=== PATIENT | female | born 1935 | race Caucasian/White ===

== ENCOUNTER 2019-01-25 11:05 | Emergency (ER) | payer MEDICARE, OTHER ==
[2019-01-25 11:14] VITALS: BMI 25.7
--- NOTE | 2019-01-25 11:27 | PDOC ---
History of Present Illness - General Chief Complaint: Blood Sugar Problem Stated Complaint: BLOOD SUGAR PROBLEM Time Seen by Provider: 01/25/19 11:25 - History of Present Illness Initial Comments: Pt presents for evaluation of hyperglycemia at home to high 400s with associated dizziness, polyuria, and polydipsia. She reports having her DM medication recently increased, being compliant, and no acute change in diet. She denies recent illness, fevers/chills, chest pain, trouble breathing, N/V/C/D , dysuria, hematuria, or changes in sensation. She denies falls or LOC. 01/25/19 13:04 Past History - Past Medical History Allergies/Adverse Reactions: Allergies Allergy/AdvReac Type Severity Reaction Status Date / Time No Known Allergies Allergy Verified 01/25/19 11:11 Home Medications: Ambulatory Orders Bisacodyl [Gentle Laxative] 5 mg PO DAILY 11/20/15 Glimepiride [Amaryl -] 5 mg PO TID 11/20/15 Levothyroxine [Synthroid -] 25 mcg PO DAILY 11/20/15 Linagliptin [Tradjenta] 5 mg PO DAILY 11/20/15 metFORMIN HCL [Metformin HCl] 1,000 mg PO BID 11/20/15 Amlodipine Besylate 5 mg PO DAILY 01/25/19 Atorvastatin Ca [Lipitor] 20 mg PO HS 01/25/19 Polyvinyl Alcohol [Artificial Tears] 15 ml OP QID 01/25/19 Ranitidine HCl [Zantac 75] 75 mg PO DAILY 01/25/19 Anemia: No Asthma: No Cancer: No Cardiac Disorders: No CVA: No COPD: No CHF: No Dementia: No Diabetes: Yes GI Disorders: No Disorders: No HTN: Yes Hypercholesterolemia: Yes Liver Disease: No Seizures: No Thyroid Disease: Yes - Surgical History Abdominal Surgery: No Appendectomy: No Cardiac Surgery: No Cholecystectomy: No Lung Surgery: No Neurologic Surgery: No Orthopedic Surgery: No - Immunization History Immunization Up to Date: Yes - Suicide/Smoking/Psychosocial Hx Smoking History: Never smoked Information on smoking cessation initiated: No Hx Alcohol Use: No Drug/Substance Use Hx: No Hx Substance Use Treatment: No Review of Systems - Review of Systems Able to Perform ROS?: Yes Comments:: GENERAL/CONSTITUTIONAL: No fever or chills. No weakness HEAD, EYES, EARS, NOSE AND THROAT: No change in vision. No ear pain or discharge. No sore throat CARDIOVASCULAR: No chest pain or shortness of breath RESPIRATORY: Denies cough, hemoptysis GASTROINTESTINAL: No nausea, vomiting, diarrhea or constipation GENITOURINARY: No dysuria, frequency, or change in urination MUSCULOSKELETAL: No joint or muscle swelling or pain. No neck or back pain SKIN: No rash NEUROLOGIC: No headache, vertigo, loss of consciousness, or change in strength/ sensation ENDOCRINE: +polyuria and polydipsia HEMATOLOGIC/LYMPHATIC: No anemia, easy bleeding, or history of blood clots ALLERGIC/IMMUNOLOGIC: No hives or skin allergy 01/25/19 11:26 Is the patient limited [place] Citizen proficient: No *Physical Exam - Vital Signs Last Vital Signs Temp Pulse Resp BP Pulse Ox 97.5 F L 56 L 17 115/46 L 98 01/25/19 11:11 01/25/19 11:11 01/25/19 11:11 01/25/19 11:11 01/25/19 11:11 - Physical Exam Comments: GENERAL: Awake, alert, and oriented to person/place/time, in no acute distress HEAD: No signs of trauma, normocephalic, atraumatic EYES: PERRLA, EOMI, sclera anicteric, conjunctiva clear ENT: Hearing grossly normal, nares patent, oropharynx clear without exudates. No uvular deviation. Moist mucosa LUNGS: No distress, speaks full sentences, clear to auscultation bilaterally HEART: Regular rate and rhythm, normal S1 and S2, no murmurs appreciated, peripheral pulses normal and equal bilaterally ABDOMEN: Soft, nontender, normoactive bowel sounds. No guarding, no rebound EXTREMITIES: Normal inspection, Normal range of motion, no edema. No clubbing or cyanosis NEUROLOGICAL: Cranial nerves II through XII grossly intact. Normal speech, normal gait, no focal sensorimotor deficits SKIN: Warm, Dry 01/25/19 11:26 ED Treatment Course - LABORATORY CBC & Chemistry Diagram: 01/25/19 12:00 01/25/19 12:00 Medical Decision Making - Medical Decision Making The pt is an 83F w/ a history of HTN and DM who presents for evaluation of hyperglycemia ED Course CMP, CBC, serum acetone, UA, UCx IVF Mild hyponatremia and hypochloridemia -Pt receiving NS Hyperglycemic to 280 Acetone pending K wnl No ANABEL No AG LFTs unremarkable 01/25/19 13:16 Plan for D/C w/ PCP and Endocrine f/u Reinforced counseling on recent medication change and maintaining Endocrine f/u Discharge instructions and return precautions given Pt in agreement and verbalized understanding Dispo: home *DC/Admit/Observation/Transfer Diagnosis at time of Disposition: Hyperglycemia Diabetes mellitus Qualifiers: Diabetes mellitus type: type 2 Diabetes mellitus intermediate project manager insulin use: unspecified intermediate project manager insulin use status Diabetes mellitus complication status: without complication Qualified Code(s): E11.9 - Type 2 diabetes mellitus without complications - Discharge Dispostion Disposition: HOME Condition at time of disposition: Stable Decision to Admit order: No - Referrals Referrals: Salome Smith MD [Primary Care Provider] - - Patient Instructions Printed Discharge Instructions: DI for Hyperglycemia -- Adult Additional Instructions: You were seen in the Emergency Department for evaluation of high blood sugar. Your labs were overall unremarkable. You should continue to take your diabetic medications and maintain your Endocrine follow up. Review the handout provided at discharge. Return to the Emergency Department if you develop fevers/chills, dizziness, worsening symptoms, or any new/concerning symptoms. - Post Discharge Activity
--- NOTE | 2019-01-25 11:36 | PDOC ---
Attending Attestation - Resident Resident Name: Helena Sonian - ED Attending Attestation I have performed the following: I have examined & evaluated the patient, The case was reviewed & discussed with the resident, I agree w/resident's findings & plan, Exceptions are as noted - HPI HPI: 01/25/19 11:35 Ms Fischer is an 83 yo F h/o HTN, NIDDM, hypothyroidism, Dementia who presents to the ER with a complaint of Dizziness and hyperglycemia. Patient states that she has noted over the past month of gradual elevation in her blood glucose. She was seen twice by her primary care physician with no changes to her medications. Patient presents today because she reports some dizziness associated with an elevated blood glucose. Her fasting blood glucose this morning was 179. After breakfast and went up to 470. She denies fevers, chills. She denies chest pain, shortness of breath. She denies nausea, vomiting, diarrhea. She denies abdominal pain. Patient reports compliance with her medications. She is concerned that she has been unable to control her blood glucose over this recent time. Was seen by PMD yesterday, increased her Glimepiride from 4mg tid to 5mg tid 01/25/19 11:57 01/25/19 12:47 - Physicial Exam PE: 01/25/19 11:36 GENERAL: The patient is in no acute distress. ENT: Ears normal, nares patent, oropharynx clear without exudates. Moist mucous membranes. NECK: Normal range of motion, supple LUNGS: Breath sounds equal, clear to auscultation bilaterally. No wheezes, and no crackles. HEART:Regular rate and rhythm, normal S1 and S2 without murmur, rub or gallop. ABDOMEN: Soft, nontender, normoactive bowel sounds. EXTREMITIES: Normal range of motion, no edema. NEUROLOGICAL: Cranial nerves II through XII grossly intact. Normal speech. No focal neurological deficits. SKIN: Warm, Dry, normal turgor, no rashes or lesions noted. 01/25/19 11:58 - Medical Decision Making 01/25/19 11:58 Mrs. Fischer is an 83-year-old female presenting to the emergency department with a complaint of dizziness as well as elevated blood glucose. Her differential diagnosis is broad and includes: Hyperglycemia, HONC, DKA, dehydration, ACS, Will do: Labs, EKG, IV hydration. Will see what patient blood glucoses. May need insulin. Will discuss with patient's primary care physician 01/25/19 14:22 Laboratory Tests 01/25/19 01/25/19 12:00 12:00 WBC 8.5 Hgb 11.2 Hct 34.0 Plt Count 350 D Sodium 127 L Potassium 4.8 Chloride 95 L Carbon Dioxide 22 Anion Gap 10 BUN 8.6 Creatinine 0.7 Random Glucose 280 H Acetone, Qual Negative L BG - [address] Gautam Smith Pt medications have been adjusted to Glimepirmide 10 tid Metformin 1000 BID Tragenta 01/25/19 14:24 Pt already referred to data collection specialist Pt asked to keep this follow up
[2019-01-25] MEDS ORDERED: SODIUM CHLORIDE 1,000 ML IV STA (11:51)
[2019-01-25 12:47] LABS: BASO % 0.6 % (0-2.0); EOS % 2.5 % (0-4.5); HEMOGLOBIN 11.2 GM/dL (10.7-15.3); LYMPH % 43.3 % (8-40); MCH 28.8 pg (25.7-33.7); MEAN CELL VOLUME 87.3 fl (80-96); MEAN PLT VOLUME 9.7 fl (7.5-11.1); MONO % 9.7 % (3.8-10.2); NEUT % 43.9 % (42.8-82.8); PLATELET COUNT 350 K/MM3 (134-434); RDW 14.4 % (11.6-15.6); WHITE BLOOD COUNT 8.5 K/mm3 (4.0-10.0)
[2019-01-25 12:49] LABS: URINE APPEARANCE CLEAR; URINE BILIRUBIN NEGATIVE (NEGATIVE); URINE COLOR YELLOW; URINE GLUCOSE (UA) 2+ (NEGATIVE); URINE KETONE NEGATIVE (NEGATIVE); URINE LEUK ESTERASE NEGATIVE (NEGATIVE); URINE NITRITE NEGATIVE (NEGATIVE); URINE PROTEIN NEGATIVE (NEGATIVE)
[2019-01-25 13:13] LABS: ALBUMIN 3.2 g/dl (3.4-5.0); ALK PHOS 137 U/L (45-117); ANION GAP 10 MMOL/L (8-16); BILIRUBIN,TOTAL 0.2 mg/dL (0.2-1); BLOOD UREA NITROGEN 8.6 mg/dL (7-18); CALCIUM 9.1 mg/dL (8.5-10.1); CHLORIDE 95 mmol/L (98-107); CO2 22 mmol/L (21-32); CREATININE 0.7 mg/dL (0.55-1.3); GLUCOSE,RANDOM 280 mg/dL (74-106); POTASSIUM 4.8 mmol/L (3.5-5.1); SGOT/AST 30 U/L (15-37); SGPT/ALT 34 U/L (13-61); SODIUM 127 mmol/L (136-145); TOT PROT 6.8 g/dl (6.4-8.2)
[2019-01-25 13:21] LABS: ACETONE SERUM NEGATIVE (NEGATIVE)
[2019-01-25 14:34] VITALS: BP 116/48; PULSE 65; TEMP 97.8
== END 2019-01-25 14:32 | disposition home or self-care (01) ==
LOC: JER 11:05
PROC: 3E0337Z Introduction of Electrolytic and Water Balance Substance into Peripheral Vein, Percutaneous Approach (ICD-10-PCS; principal; 2019-01-25)
DX: E11.65 Type 2 diabetes mellitus with hyperglycemia (principal); Z79.84 Long term (current) use of oral hypoglycemic drugs; I10 Essential (primary) hypertension; E78.00 Pure hypercholesterolemia, unspecified; E87.1 Hypo-osmolality and hyponatremia; E87.8 Other disorders of electrolyte and fluid balance, not elsewhere classified
CPT/HCPCS: 36415; 80053; 81003; 82009; 85025; 87086; 96360; 96361; 99282-25; J7030

== ENCOUNTER 2019-02-24 10:01 | Day surgery (SDC) | payer MEDICARE, OTHER ==
[2019-02-23 15:27] VITALS: BMI 25.2
[2019-02-24 10:28] LABS: BASO % 0.3 % (0-2.0); EOS % 0.9 % (0-4.5); HEMATOCRIT 34.9 % (32.4-45.2); HEMOGLOBIN 11.5 GM/dL (10.7-15.3); LYMPH % 28.4 % (8-40); MCH 28.2 pg (25.7-33.7); MEAN CELL VOLUME 85.4 fl (80-96); MEAN PLT VOLUME 8.2 fl (7.5-11.1); MONO % 13.1 % (3.8-10.2); NEUT % 57.3 % (42.8-82.8); PLATELET COUNT 453 K/MM3 (134-434); RBC 4.08 M/mm3 (3.60-5.2); RDW 14.5 % (11.6-15.6); WHITE BLOOD COUNT 14.2 K/mm3 (4.0-10.0)
[2019-02-24 10:50] LABS: INR 1.49 (0.83-1.09); PROTHROMBIN TIME (PATIENT) 17.7 SEC (9.7-13.0)
[2019-02-24] MEDS ORDERED: ACETAMINOPHEN 1000 MG/100 ML VIAL (NON FORMULARY) IVPB ONE (12:24)
[2019-02-24 15:45] VITALS: TEMP 98.4
[2019-02-24 16:01] VITALS: BP 125/60; PULSE 82
--- NOTE | 2019-03-01 17:05 | PATH ---
Surgical Pathology Report Patient Name: CAITLYN NOEL Med. Rec. #: [id number] /Age/Gender: 1935 (Age: 83) / F Account: [id number] Location: RADIOLOGY INTER Taken: 02/24/2019 Received: 02/24/2019 Reported: 03/01/2019 Physicians: Eyad Ace M.D. Specimen(s) Received LIVER CORE BIOPSY Clinical History 83-year-old female Pancreatic cancer, hypertension, hyperlipidemia, diabetes mellitus, liver mets Final Diagnosis LIVER, LESION, CT-GUIDED CORE BIOPSY: INVASIVE ADENOCARCINOMA, MODERATELY DIFFERENTIATED, CONSISTENT WITH PANCREATICO-BILIARY TRACT ORIGIN. SEE COMMENT. Comment: Immunohistochemical stains performed and interpreted at [facility] show the tumor is positive for CK7 and focally for TTF-1, while negative for CK20. Additional immunohistochemical stains performed at [place], [place] ([id number]) and interpreted at [facility] show the tumor is positive for CA19-9, SINDI-3 and Thrombomodulin (CD141); while negative for Napsin A, thyroglobulin, Pax8, Uroplakin, GCDFP-15, and Mammaglobin. ER stain is non-contributory due to high background staining. This immunophenotype is non-specific. Given the presence of pancreatic mass and multiple liver nodules; overall findings are consistent with pancreaticobiliary tract origin. Suggest clinical and radiologic correlation. Findings discussed with Dr. Hawthorne. Electronically Signed Ling Leslie M.D. Gross Description Received in formalin labeled "liver biopsy," are 6 shepard, cylindrical portions of soft tissue ranging from 1.1-1.6 cm in length and averaging 0.1 cm in diameter. The specimens are submitted in toto in 2 cassettes. 02/24/201902/24/2019
== END 2019-02-24 16:05 | disposition home or self-care (01) ==
LOC: JRADIR 10:01
PROVIDERS: ATTEND Internal Medicine Hematology & Oncology
PROC: 0FB03ZX Excision of Liver, Percutaneous Approach, Diagnostic (ICD-10-PCS; principal; 2019-02-24)
DX: C25.9 Malignant neoplasm of pancreas, unspecified (principal); C78.7 Secondary malignant neoplasm of liver and intrahepatic bile duct
CPT/HCPCS: 36415; 76942-TC; 82962; 85025; 85610; 87899; 88305-TC; 88313-TC; 88341-TC; 88342-TC

== ENCOUNTER 2019-03-08 08:40 | Day surgery (SDC) | payer MEDICARE, OTHER ==
[2019-03-08 09:13] VITALS: BP 133/71; PULSE 87; TEMP 98.4; BMI 25.7
[2019-03-08 09:24] LABS: BASO % 0.5 % (0-2.0); EOS % 0.8 % (0-4.5); HEMATOCRIT 32.9 % (32.4-45.2); HEMOGLOBIN 10.9 GM/dL (10.7-15.3); LYMPH % 15.6 % (8-40); MCH 27.3 pg (25.7-33.7); MCHC 33.1 g/dl (32.0-36.0); MEAN CELL VOLUME 82.4 fl (80-96); MEAN PLT VOLUME 8.5 fl (7.5-11.1); MONO % 15.7 % (3.8-10.2); NEUT % 67.4 % (42.8-82.8); PLATELET COUNT 539 K/MM3 (134-434); RBC 3.99 M/mm3 (3.60-5.2); RDW 14.6 % (11.6-15.6)
[2019-03-08 09:25] LABS: INR 1.78 (0.83-1.09); PROTHROMBIN TIME (PATIENT) 21.1 SEC (9.7-13.0)
[2019-03-08 12:15] LABS: ANISOCYTOSIS 0; MACROCYTOSIS 0; OVALOCYTE 1+; PLATELET ESTIMATE INCREASED; TARGET CELLS 1+; TOXIC GRANULATION 1+
== END 2019-03-08 10:21 | disposition home or self-care (01) ==
LOC: JRADIR 08:40
PROVIDERS: ATTEND Internal Medicine Hematology & Oncology
DX: Z53.8 Procedure and treatment not carried out for other reasons (principal)
CPT/HCPCS: 36415; 82962; 85025; 85610

== ENCOUNTER 2019-03-09 03:33 | Inpatient (IN) | payer MEDICARE, OTHER ==
--- NOTE | 2019-03-09 03:49 | PDOC ---
History of Present Illness - General Chief Complaint: Nausea/Vomiting Stated Complaint: VOMITING Time Seen by Provider: 03/09/19 03:49 History Source: Patient - History of Present Illness Initial Comments: 03/09/19 04:03 83-year-old female with history of pancreatic mass complaining of nausea this morning.Patient is to start her first round of chemotherapy today. As per niece , believe that patient is nervous about her upcoming chemotherapy today. Patient denies any nausea right now and no abdominal pain. Denies chest pain, diaphoresis, weakness. PCP: Dr. Smith Past History - Past Medical History Allergies/Adverse Reactions: Allergies Allergy/AdvReac Type Severity Reaction Status Date / Time No Known Allergies Allergy Verified 03/09/19 03:48 Home Medications: Ambulatory Orders Bisacodyl [Gentle Laxative] 5 mg PO DAILY 11/20/15 Levothyroxine [Synthroid -] 25 mcg PO DAILY 11/20/15 metFORMIN HCL [Metformin HCl] 1,000 mg PO BID 11/20/15 Atorvastatin Ca [Lipitor] 20 mg PO HS 01/25/19 Polyvinyl Alcohol [Artificial Tears] 15 ml OP QID 01/25/19 Cholecalciferol (Vitamin D3) [Vitamin D3] 1,000 unit PO DAILY 02/23/19 Dorzolamide HCl/Timolol Maleat [Cosopt Eye Drops] 10 ml OP BID 02/23/19 Pantoprazole Sodium 40 mg PO DAILY 02/23/19 Ranitidine [Zantac -] 150 mg PO BID 02/23/19 Amlodipine Besylate/Benazepril [Lotrel 10/40] 1 each PO DAILY 03/07/19 Bimatoprost [Lumigan] 1 drop IO DAILY 03/07/19 Insulin Aspart [Novolog] 7 unit SQ TID 03/07/19 Insulin Glargine,Hum.rec.anlog [Basaglar Kwikpen U-100] 100 unit SQ 12 03/07/19 Anemia: No Asthma: No Cancer: Yes (pancreas) Cardiac Disorders: No CVA: No COPD: No CHF: No Dementia: No Diabetes: Yes GI Disorders: No Disorders: No HTN: Yes Hypercholesterolemia: Yes Liver Disease: No Seizures: No Thyroid Disease: Yes - Surgical History Abdominal Surgery: No Appendectomy: No Cardiac Surgery: No Cholecystectomy: No Lung Surgery: No Neurologic Surgery: No Orthopedic Surgery: No - Immunization History Immunization Up to Date: Yes - Suicide/Smoking/Psychosocial Hx Smoking History: Unknown if ever smoked Hx Alcohol Use: No Drug/Substance Use Hx: No Substance Use Type: None Hx Substance Use Treatment: No Review of Systems - Review of Systems Able to Perform ROS?: Yes Is the patient limited Malagasy proficient: No Respiratory: No: Symptoms reported, See HPI, Cough, Orthopnea, Shortness of Breath, SOB with Exertion, SOB at Rest, Stridor, Wheezing, Productive cough, Hemoptysis, Other Cardiac (ROS): No: Symptoms Reported, See HPI, Chest Pain, Edema, Irregular Heart Rate, Lightheadedness, Palpitations, Syncope, Chest Tightness, Other ABD/GI: Yes: Nausea : No: Symptoms Reported, See HPI, Burning, Dysuria, Discharge, Frequency, Flank Pain, Hematuria, Incontinence, Pain, Urgency, Testicular Mass, Testicular Swelling, Lesions, Testicular Pain, Other Integumentary: No: Symptoms Reported, See HPI, Bruising, Change in Color, Change in Hair/Nails, Dryness, Erythema, Flushing, Lesions, Lumps, Pallor, Pruritus, Rash, Sweating, Other Neurological: Yes: Dizziness. No: Symptoms reported, See HPI, Headache, Numbness, Paresthesia, Pre-Existing Deficit, Seizure, Tingling, Tremors, Weakness, Unsteady Gait, Ataxia, Other *Physical Exam - Vital Signs Last Vital Signs Temp Pulse Resp BP Pulse Ox 98.3 F 18 131/75 100 03/09/19 03:40 03/09/19 03:40 03/09/19 03:40 03/09/19 03:40 - Physical Exam General Appearance: Yes: Appropriately Dressed Respiratory/Chest: positive: Lungs Clear, Normal Breath Sounds Cardiovascular: positive: Regular Rhythm, Regular Rate Gastrointestinal/Abdominal: positive: Normal Bowel Sounds, Soft. negative: Tender Musculoskeletal: positive: Normal Inspection Extremity: positive: Normal Capillary Refill, Normal Inspection, Normal Range of Motion Integumentary: positive: Normal Color, Dry, Warm, Pale Neurologic: positive: Fully Oriented, Alert, Normal Mood/Affect Heart Score/ECG Review - History History: Slightly suspicious - Electrocardiogram EKG: Normal - Age Age: >/= 65 - Risk Factors Risk Factors Heart Score: Yes Hx Hypertension, Yes Hx Diabetes - ECG Intrepretation Rhythm: Regular Rhythm Comment:: 03/09/19 05:30 Sinus bradycardia: 53bpm ED Treatment Course - LABORATORY CBC & Chemistry Diagram: 03/10/19 06:16 03/10/19 06:16 Progress Note - Progress Note Progress Note: A: nausea ; Hyponatremia P: cbc cmp lipase troponin EKG BGM: 61 tolerated PO sandwich Medical Decision Making - Medical Decision Making 03/09/19 06:38 Dr. Shepard Oncology paged. patient is scheduled to have chemotherapy today. 03/09/19 06:[address] Hawthorne. will consult inpatient. patient is not on neupogen. chest xray and UA pending.WBC 19 07:00 am patient signed out to svetlana HOOKER *DC/Admit/Observation/Transfer Diagnosis at time of Disposition: Nausea, Hyponatremia Leukocytosis Qualifiers: Leukocytosis type: unspecified Qualified Code(s): D72.829 - Elevated white blood cell count, unspecified - Discharge Dispostion Condition at time of disposition: Guarded - Referrals - Patient Instructions - Post Discharge Activity
--- NOTE | 2019-03-09 04:01 | PDOC ---
*Physical Exam - Vital Signs Last Vital Signs Temp Pulse Resp BP Pulse Ox 98.3 F 63 18 131/57 L 100 03/09/19 03:40 03/09/19 03:40 03/09/19 03:40 03/09/19 03:40 03/09/19 03:40 ED Treatment Course - LABORATORY CBC & Chemistry Diagram: 03/09/19 04:15 03/09/19 04:15 Medical Decision Making - Medical Decision Making 03/09/19 04:01 Patient seen by the advanced practice provider under my direct supervision. Ancillary testing reviewed as necessary. I agree with plan as outlined by the advanced practice provider. *DC/Admit/Observation/Transfer Diagnosis at time of Disposition: Hyponatremia, Nausea - Referrals - Patient Instructions - Post Discharge Activity
[2019-03-09 04:36] LABS: VENOUS PC02 34.9 mmHg (41-51); VENOUS PH 7.44 (7.31-7.41)
[2019-03-09 04:38] LABS: BASO % 0.6 % (0-2.0); EOS % 1.8 % (0-4.5); HEMATOCRIT 30.5 % (32.4-45.2); HEMOGLOBIN 10.3 GM/dL (10.7-15.3); MCH 27.5 pg (25.7-33.7); MCHC 33.7 g/dl (32.0-36.0); MEAN CELL VOLUME 81.7 fl (80-96); MEAN PLT VOLUME 8.5 fl (7.5-11.1); MONO % 13.8 % (3.8-10.2); NEUT % 71.8 % (42.8-82.8); PLATELET COUNT 535 K/MM3 (134-434); RBC 3.73 M/mm3 (3.60-5.2); RDW 14.7 % (11.6-15.6); WHITE BLOOD COUNT 19.6 K/mm3 (4.0-10.0)
[2019-03-09 05:12] LABS: ALBUMIN 2.4 g/dl (3.4-5.0); BILIRUBIN,TOTAL 0.8 mg/dL (0.2-1); BLOOD UREA NITROGEN 12.9 mg/dL (7-18); CALCIUM 8.6 mg/dL (8.5-10.1); CREATININE 0.4 mg/dL (0.55-1.3); POTASSIUM 4.6 mmol/L (3.5-5.1); TOT PROT 6.7 g/dl (6.4-8.2)
[2019-03-09] MEDS ORDERED: SODIUM CHLORIDE 1,000 ML IV STA (05:22)
[2019-03-09 06:07] LABS: ANISOCYTOSIS 1+; MACROCYTOSIS 0; OVALOCYTE 1+; PLATELET ESTIMATE INCREASED; TARGET CELLS 1+; TEAR DROP CELLS 1+
--- NOTE | 2019-03-09 07:09 | PDOC ---
*Physical Exam - Vital Signs Last Vital Signs Temp Pulse Resp BP Pulse Ox 98.3 F 63 18 131/57 L 100 03/09/19 03:40 03/09/19 03:40 03/09/19 03:40 03/09/19 03:40 03/09/19 05:07 - Physical Exam General Appearance: Yes: Nourished, Appropriately Dressed. No: Apparent Distress Gastrointestinal/Abdominal: positive: Normal Bowel Sounds, Flat, Soft. negative : Tender, Guarding, Rebound, Tenderness Neurologic: positive: Fully Oriented, Alert, Normal Mood/Affect, Normal Response ED Treatment Course - LABORATORY CBC & Chemistry Diagram: 03/09/19 04:15 03/09/19 04:15 - ADDITIONAL ORDERS Additional order review: Laboratory Results 03/09/19 03/09/19 03/09/19 06:51 05:42 05:18 VBG pH POC VBG pCO2 POC VBG pO2 VBG HCO3 VBG O2 Sat (Jose M) VBG Base Excess Sodium Potassium Chloride Carbon Dioxide Anion Gap BUN Creatinine Est GFR (CKD-EPI)AfAm Est GFR (CKD-EPI)NonAf POC Glucometer 117 61 Random Glucose Calcium Total Bilirubin AST ALT Alkaline Phosphatase Troponin I < 0.02 Total Protein Albumin Lipase 03/09/19 03/09/19 03/09/19 04:15 04:15 04:15 VBG pH 7.44 H POC VBG pCO2 34.9 L POC VBG pO2 144 H VBG HCO3 23.5 VBG O2 Sat (Jose M) 97.6 H VBG Base Excess 0.2 Sodium 128 L Potassium 4.6 Chloride 93 L Carbon Dioxide 25 Anion Gap 10 BUN 12.9 Creatinine 0.4 L Est GFR (CKD-EPI)AfAm 113.21 Est GFR (CKD-EPI)NonAf 97.68 POC Glucometer Random Glucose 46 L* Calcium 8.6 Total Bilirubin 0.8 AST 53 H ALT 32 Alkaline Phosphatase 341 H Troponin I Total Protein 6.7 Albumin 2.4 L Lipase 156 03/09/19 03/09/19 03/09/19 06:51 05:18 04:15 RBC 3.73 MCV 81.7 MCHC 33.7 RDW 14.7 MPV 8.5 Neutrophils % 71.8 Lymphocytes % 12.0 D Monocytes % 13.8 H Eosinophils % 1.8 D Basophils % 0.6 POC Glucometer 117 61 - Medications Given in the ED: ED Medications Discontinued Medications Generic Name Dose Route Start Last Admin Trade Name Matty PRN Reason Stop Dose Admin Sodium Chloride 1,000 mls @ 1,000 mls/hr 03/09/19 05:22 03/09/19 05:38 Normal Saline - IV 03/09/19 06:21 1,000 mls/hr ASDIR STA Administration Medical Decision Making - Medical Decision Making 03/09/19 09:40 Dr. Andrade also aware of case, spoke with Dr. Shepard. Requesting Zosyn and admission to identify source. Hx of recent liver bx Urine and CXR are normal Blood Cx ordered Dr. Rose paged for Dr. Smith for admission 03/09/19 09:[address] Rose, accepts admission to med surg. *DC/Admit/Observation/Transfer Diagnosis at time of Disposition: Hyponatremia, Nausea Leukocytosis Qualifiers: Leukocytosis type: unspecified Qualified Code(s): D72.829 - Elevated white blood cell count, unspecified - Discharge Dispostion Condition at time of disposition: Guarded Decision to Admit order: Yes - Referrals - Patient Instructions - Post Discharge Activity
[2019-03-09 07:45] LABS: EPI CELLS 3.3 /HPF (0-5/HPF); HYALINE CASTS 5 /lpf (0-8); URINE APPEARANCE CLEAR; URINE BACTERIA 9.1 /hpf (NEGATIVE); URINE BILIRUBIN NEGATIVE (NEGATIVE); URINE COLOR YELLOW; URINE GLUCOSE (UA) NEGATIVE (NEGATIVE); URINE KETONE TRACE (NEGATIVE); URINE LEUK ESTERASE TRACE (NEGATIVE); URINE NITRITE NEGATIVE (NEGATIVE); URINE PROTEIN TRACE (NEGATIVE); URINE RBC 1 /hpf (0-4); URINE WBC 2 /hpf (0-5)
[2019-03-09] MEDS ORDERED: PIPERACILLIN/TAZOB 3.375 GM 3.375 GM in DEXTROSE 5%-WATER - 50 ML IVPB ONE (09:24)
[2019-03-09] MEDS ORDERED: ONDANSETRON 4 MG/2 ML VIAL IVPUSH ONE (09:40)
[2019-03-09] MEDS ORDERED: PIPERACILLIN/TAZOB 3.375 GM 3.375 GM/50 ML BAG IVPB ONE (09:58)
[2019-03-09] MEDS ORDERED: ONDANSETRON 4 MG/2 ML VIAL ONE (09:59)
[2019-03-09] MEDS ORDERED: ACETAMINOPHEN 325 MG TABLET (FP) PO PRN (12:42)
[2019-03-09] MEDS ORDERED: D5-1/2NS+20 MEQ KCL - 20 MEQ/1,000 ML INFUS.BAG IV SCH (12:45)
--- NOTE | 2019-03-09 12:50 | HP ---
Admitting History and Physical - Primary Care Physician PCP: Rosita Rose - Admission History of Present Illness: PT SEEN/ EXAMINED ON FLOOR Chart reviewed case also discussed with Er Physician In summary 83-year-old female with history of pancreatic mass complaining of nausea this morning. Admitted because of weakness/ nausea/ hypoglycemia/ Leukocytosis given abx- zosyn pt seen/ examined case discussed with pts grand daughter also who is at bedside.-- Who helps in translation. 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: Dementia (mild cognitve defect ) Cardiovascular: Yes: HTN Endocrine: Yes: Diabetes Mellitus - Past Surgical History Past Surgical History: Yes: None - Smoking History Smoking history: Unknown if ever smoked - Alcohol/Substance Use Hx Alcohol Use: No - Social History History of Recent Travel: No Home Medications - Allergies Allergies/Adverse Reactions: Allergies Allergy/AdvReac Type Severity Reaction Status Date / Time No Known Allergies Allergy Verified 03/09/19 03:48 - Home Medications Home Medications: Ambulatory Orders Bisacodyl [Gentle Laxative] 5 mg PO DAILY 11/20/15 Levothyroxine [Synthroid -] 25 mcg PO DAILY 11/20/15 metFORMIN HCL [Metformin HCl] 1,000 mg PO BID 11/20/15 Atorvastatin Ca [Lipitor] 20 mg PO HS 01/25/19 Polyvinyl Alcohol [Artificial Tears] 15 ml OP QID 01/25/19 Cholecalciferol (Vitamin D3) [Vitamin D3] 1,000 unit PO DAILY 02/23/19 Dorzolamide HCl/Timolol Maleat [Cosopt Eye Drops] 10 ml OP BID 02/23/19 Pantoprazole Sodium 40 mg PO DAILY 02/23/19 Ranitidine [Zantac -] 150 mg PO BID 02/23/19 Amlodipine Besylate/Benazepril [Lotrel 1040] 1 each PO DAILY 03/07/19 Bimatoprost [Lumigan] 1 drop IO DAILY 03/07/19 Insulin Aspart [Novolog] 7 unit SQ TID 03/07/19 Insulin Glargine,Hum.rec.anlog [Basaglar Kwikpen U-100] 100 unit SQ 12 03/07/19 Review of Systems - Review of Systems Constitutional: reports: Weakness Eyes: reports: No Symptoms HENT: reports: No Symptoms Neck: reports: No Symptoms Cardiovascular: reports: No Symptoms Gastrointestinal: reports: Abdominal Pain Genitourinary: reports: No Symptoms Neurological: reports: No Symptoms Psychiatric: reports: Anxiety Physical Examination Vital Signs: Vital Signs Temperature 97.9 F 03/09/19 07:40 Pulse Rate 71 03/09/19 07:40 Respiratory Rate 16 03/09/19 07:40 Blood Pressure 130/63 03/09/19 07:40 O2 Sat by Pulse Oximetry (%) 98 03/09/19 07:40 Constitutional: Yes: No Distress, Calm Eyes: Yes: Conjunctiva Clear Neck: Yes: Supple Cardiovascular: Yes: Regular Rate and Rhythm Respiratory: Yes: CTA Bilaterally Gastrointestinal: Yes: Soft, Other (mild tenderness + generalized . No R/R Bs +) Edema: No Neurological: Yes: Alert Psychiatric: Yes: Alert Labs: CBC, BMP 03/09/19 04:15 03/09/19 04:15 Imaging - Results Chest X-ray: Report Reviewed EKG: Report Reviewed Problem List - Problems (1) Pancreatic cancer Code(s): C25.9 - MALIGNANT NEOPLASM OF PANCREAS, UNSPECIFIED (2) Hyponatremia Code(s): E87.1 - HYPO-OSMOLALITY AND HYPONATREMIA (3) Leukocytosis Code(s): D72.829 - ELEVATED WHITE BLOOD CELL COUNT, UNSPECIFIED Qualifiers: Leukocytosis type: unspecified Qualified Code(s): D72.829 - Elevated white blood cell count, unspecified (4) Nausea Code(s): R11.0 - NAUSEA (5) Diabetes mellitus Code(s): E11.9 - TYPE 2 DIABETES MELLITUS WITHOUT COMPLICATIONS Qualifiers: Diabetes mellitus type: type 2 Diabetes mellitus 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 cultures send monitor bgm oncology to follow dvt prophylaxis will follow Discussed with nursing staff also
--- NOTE | 2019-03-09 14:08 | EKG ---
Test Reason : Blood Pressure : / mmHG Vent. Rate : 058 BPM Atrial Rate : 058 BPM P-R Int : 194 ms QRS Dur : 086 ms QT Int : 426 ms P-R-T Axes : 024 -06 080 degrees QTc Int : 418 ms SINUS BRADYCARDIA SEPTAL INFARCT , AGE UNDETERMINED ABNORMAL ECG WHEN COMPARED WITH ECG OF 13-NOV-2015 09:08, PREMATURE ATRIAL COMPLEXES ARE NO LONGER PRESENT Confirmed by CROW CHRISTIAN, SHELLI ([id number]) on 03/09/2019 2:08:06 PM Referred By: Confirmed By:SHELLI MARIA MD
--- NOTE | 2019-03-09 14:25 | CONSULT ---
Consultation: CONSULT REQUEST: Heme/Onc HISTORY OF PRESENT ILLNESS: Patient is an 83 yo F with a PMhx of HTN, DM, hypothyroidism, Dementia, Pancreating Ca, presented to the ED because of feeling "sweaty". She said her glucose was very low and did not feel well, with associated nausea. Patient currently denies symptoms except for a productive cough with white sputum production for 2 weeks. She denies sob, chills, chest pain, fevers, chills, nausea, vomiting, bloody stool, hematuria. She was supposed to start chemotherapy today with Dr. Shepard but was hospitalized. She said she is now scheduled for Thursday. Patient was found with Leukocytosis of 19.6 in the ER. Background: [place] Allergies: no known allergies Surgeries: hysterectomy Family hx: no known family hx of bleeding, cancers Social: denies tobacco Colonoscopy: 2018, normal EGD: 2019 w/ Dr Dominguez Mammo: 2019 Ambulatory Orders Bisacodyl [Gentle Laxative] 5 mg PO DAILY 11/20/15 Levothyroxine [Synthroid -] 25 mcg PO DAILY 11/20/15 metFORMIN HCL [Metformin HCl] 1,000 mg PO BID 11/20/15 Atorvastatin Ca [Lipitor] 20 mg PO HS 01/25/19 Cholecalciferol (Vitamin D3) [Vitamin D3] 1,000 unit PO DAILY 02/23/19 Dorzolamide HCl/Timolol Maleat [Cosopt Eye Drops] 10 ml OP BID 02/23/19 Pantoprazole Sodium 40 mg PO DAILY 02/23/19 Ranitidine [Zantac -] 150 mg PO BID 02/23/19 Amlodipine Besylate/Benazepril [Lotrel 10/40] 1 each PO DAILY 03/07/19 Bimatoprost [Lumigan] 1 drop IO DAILY 03/07/19 REVIEW OF SYSTEMS: CONSTITUTIONAL: Absent: fever, chills, diaphoresis, generalized weakness, malaise, loss of appetite, weight change HEENT: Absent: rhinorrhea, nasal congestion, throat pain, throat swelling, difficulty swallowing, mouth swelling, ear pain, eye pain, visual changes CARDIOVASCULAR: Absent: chest pain, syncope, palpitations, irregular heart rate, lightheadedness , peripheral edema RESPIRATORY: cough Absent: shortness of breath, dyspnea with exertion, orthopnea, wheezing, stridor , hemoptysis GASTROINTESTINAL: Absent: abdominal pain, abdominal distension, nausea, vomiting, diarrhea, constipation, melena, hematochezia GENITOURINARY: Absent: dysuria, frequency, urgency, hesitancy, hematuria, flank pain, genital pain MUSCULOSKELETAL: Absent: myalgia, arthralgia, joint swelling, back pain, neck pain SKIN: Absent: rash, itching, pallor HEMATOLOGIC/IMMUNOLOGIC: Absent: easy bleeding, easy bruising, lymphadenopathy, frequent infections PHYSICAL EXAMINATION Vital Signs - 24 hr 03/09/19 03/09/19 03/09/19 03:40 05:07 07:40 Temperature 98.3 F 97.9 F Pulse Rate 63 Pulse Rate [ 71 Right Radial] Respiratory 18 16 Rate Blood Pressure 131/57 L Blood Pressure 130/63 [Left Arm] O2 Sat by Pulse 100 100 98 Oximetry (%) 03/09/19 12:49 Temperature 98.1 F Pulse Rate 76 Pulse Rate [ Right Radial] Respiratory 20 Rate Blood Pressure 147/62 Blood Pressure [Left Arm] O2 Sat by Pulse Oximetry (%) GENERAL: a/o x 3 HEAD: Normal with no signs of trauma. EYES: Pupils equal, round and reactive to light, conjunctiva clear. EARS, NOSE, THROAT: oropharynx clear without exudates. Moist mucous membranes. NECK: supple without lymphadenopathy, JVD, or masses. LUNGS: lungs cta b/l HEART: RRR ABDOMEN: Soft, LUQ tenderness to palpation LOWER EXTREMITIES: 2+ pulses, No peripheral edema. BREAST: no palpable masses, no nipple discharge Laboratory Results - last 24 hr 03/09/19 03/09/19 03/09/19 06:24 06:51 13:15 WBC RBC Hgb Hct MCV MCH MCHC RDW Plt Count MPV Absolute Neuts (auto) Neutrophils % Neutrophils % (Manual) Band Neutrophils % Lymphocytes % Lymphocytes % (Manual) Monocytes % Monocytes % (Manual) Eosinophils % Eosinophils % (Manual) Basophils % Basophils % (Manual) Myelocytes % (Man) Promyelocytes % (Man) Blast Cells % (Manual) Nucleated RBC % Metamyelocytes Hypochromia Platelet Estimate Platelet Comment Polychromasia Poikilocytosis Anisocytosis Microcytosis Macrocytosis Target Cells Tear Drop Cells Ovalocytes Courtney Cells VBG pH POC VBG pCO2 POC VBG pO2 VBG HCO3 VBG O2 Sat (Jose M) VBG Base Excess Sodium Potassium Chloride Carbon Dioxide Anion Gap BUN Creatinine Est GFR (CKD-EPI)AfAm Est GFR (CKD-EPI)NonAf POC Glucometer 117 246 Random Glucose Calcium Total Bilirubin AST ALT Alkaline Phosphatase Troponin I Total Protein Albumin Lipase Urine Color Yellow Urine Appearance Clear Urine pH 7.0 Ur Specific Lykens 1.014 Urine Protein Trace Urine Glucose (UA) Negative Urine Ketones Trace H Urine Blood Negative Urine Nitrite Negative Urine Bilirubin Negative Urine Urobilinogen 1.0 Ur Leukocyte Esterase Trace Urine WBC (Auto) 2 Urine RBC (Auto) 1 Urine Casts (Auto) 5 U Epithel Cells (Auto) 3.3 Urine Bacteria (Auto) 9.1 ASSESSMENT/PLAN: #Pancreatic CA #Leukocytosis #DM #Nausea/Vomiting -Leukocytosis likely reactive 2/2 malignancy vs liver dz vs recent hypoglycemic event -Fu bcx, ucx, if negative, can proceed for chemotherapy -FU ID reccs -Monitor CBC -Dvt ppx Dispo: We will continue to follow the patient. Thank you for this consultative opportunity. Visit type - Emergency Visit Emergency Visit: Yes ED Registration Date: 03/09/19 Care time: The patient presented to the Emergency Department on the above date and was hospitalized for further evaluation of their emergent condition. - New Patient This patient is new to me today: Yes Date on this admission: 03/09/19 - Critical Care Critical Care patient: No ATTENDING PHYSICIAN STATEMENT I saw and evaluated the patient. I reviewed the resident's note and discussed the case with the resident. I agree with the resident's findings and plan as documented. SUBJECTIVE: OBJECTIVE: ASSESSMENT AND PLAN:
[2019-03-09] MEDS ORDERED: INSULIN (NOVOLOG) ASPART 100 UNITS/ML 10ML VIAL SQ ONE (15:00)
--- NOTE | 2019-03-09 16:30 | PN ---
Teaching Attending Note Name of Resident: Anne-Marie Ordaz ATTENDING PHYSICIAN STATEMENT I saw and evaluated the patient. I reviewed the resident's note and discussed the case with the resident. I agree with the resident's findings and plan as documented. SUBJECTIVE: Patient seen and examined Metastatic pancreatic ca with liver mets- biopsy proven. Was scheduled for cycle 1 of chemotherapy , but presented to ER with nausea and hypoglycemic. Blood sugars have been corrected and patient feels improved. Has WBC of 19K Last Vital Signs Temp Pulse Resp BP Pulse Ox 99.0 F 83 20 125/55 L 98 03/09/19 15:12 03/09/19 15:12 03/09/19 15:12 03/09/19 15:12 03/09/19 07:40 HEENT: GARRISON, EOM Intact Oropharynx: No thrush, No mucositis Neck: Supple Nodes: Without adenopathy Breasts: Without masses Cor: RSR, No murmurs, No gallops Lungs: Clear to P&A Abd: Soft, Normal bowel sounds, No organomegaly, mild LUQ tenderness Ext:No significant edema Skin: No rashes, Integument intact CBC, BMP 03/09/19 04:15 03/09/19 04:15 Current Medications Generic Name Dose Route Start Last Admin Trade Name Freq PRN Reason Stop Dose Admin Acetaminophen 650 mg 03/09/19 12:42 Tylenol - PO Q4H PRN PAIN LEVEL 4 - 6 Amlodipine Besylate 10 mg 03/10/19 10:00 Norvasc - PO DAILY [facility] Atorvastatin Calcium 20 mg 03/09/19 22:00 Lipitor - PO HS JOHN Bisacodyl 5 mg 03/10/19 10:00 Dulcolax - PO DAILY JOHN Cholecalciferol 1,000 unit 03/10/19 10:00 Vitamin D3 - PO DAILY JOHN Dorzolamide HCl 1 drop 03/09/19 22:00 Trusopt 2% OU BID JOHN Heparin Sodium (Porcine) 5,000 unit 03/09/19 22:00 Heparin - SQ BID JOHN Insulin Aspart 1 vial 03/09/19 16:30 Novolog Vial Sliding Scale - SQ TIDAC [facility] Protocol Latanoprost 1 drop 03/10/19 10:00 Xalatan 0.005% Eye Drops - OU DAILY [facility] Levothyroxine Sodium 25 mcg 03/10/19 07:00 Synthroid - PO AM JOHN Lisinopril 40 mg 03/10/19 10:00 Prinivil PO DAILY [facility] Pantoprazole Sodium 40 mg 03/10/19 10:00 Protonix - PO DAILY [facility] Timolol Maleate 1 drop 03/09/19 22:00 Timoptic 0.5% OU BID [facility] Impression: Metastatic pancreatic ca For chemotherapy Leucocytosis Hypoglycemia WBC elevation --> ? reactive, secondary to malignancy, hypoglycemia, other. Has been cultured and if cultures negative- can proceed with chemotherapy. OBJECTIVE: ASSESSMENT AND PLAN:
--- NOTE | 2019-03-09 16:44 | PN ---
Progress Note (short form) - Note Progress Note: ID consult dictated imp/reccd 83 yo female with newly diagnosed pancreatic cancer with liver mets admitted with sweats, hypoglycemia- recently started insultin 3 weeks ago catheter placement cancelled yesterday due to leukocytosis per family no fevers +cough, white sputum one episode nausea and vomiting lives alone [employer] leukocytosis-suspect leukemoid reaction to malignancy, no obvious source of infection pancreatic cancer (tail of pancreas) with liver mets empiric rocephin can d/c antiiboitcs if cultures are negative Problem List - Problems (1) Leukocytosis Code(s): D72.829 - ELEVATED WHITE BLOOD CELL COUNT, UNSPECIFIED Qualifiers: Leukocytosis type: unspecified Qualified Code(s): D72.829 - Elevated white blood cell count, unspecified (2) Pancreatic cancer Code(s): C25.9 - MALIGNANT NEOPLASM OF PANCREAS, UNSPECIFIED
[2019-03-09] MEDS ORDERED: cefTRIAXone SODIUM 1 GM VIAL ONE (17:16)
[2019-03-09] MEDS ORDERED: DEXTROSE 5%-WATER - 50 ML IVPB ONE (17:16)
[2019-03-09] MEDS: INSULIN SLIDING SCALE (NOVOLOG) 1 VIAL SQ SCH (17:18)
[2019-03-09] MEDS: CEFTRIAXONE 1 GM in DEXTROSE 5%-WATER - 50 ML IVPB SCH (17:19)
--- NOTE | 2019-03-09 18:38 | CONS ---
INFECTIOUS DISEASE CONSULTATION DATE OF CONSULTATION: 03/09/2019 This is an 83-year-old woman. She has a history of recently-diagnosed pancreatic cancer in the tail of the pancreas with liver metastases. She is status post liver biopsy February 24, who presents with weakness, nausea, and hypoglycemia. She had cultures done in the emergency room and was started on Zosyn. History and physical was obtained through the son who is present at the bedside. Of note, the patient lives alone with a home health aide. PAST MEDICAL HISTORY: Notable for mild dementia, hypertension, diabetes. She has a history of hypothyroidism, GERD, glaucoma, osteoporosis in the past. SURGICAL HISTORY: She is status post hysterectomy. SOCIAL HISTORY: She lives alone. She has a home health aide daily from 8 to 4. ALLERGIES: She has no known drug allergies. MEDICATIONS AT HOME: Include Synthroid, metformin, Lipitor, vitamin D, pantoprazole, Zantac, amlodipine, Lumigan eye drops, and she was apparently, per her son, started on insulin 3 weeks ago. REVIEW OF SYSTEMS: Notable for weakness. She had some nausea yesterday with 1 episode of vomiting that has resolved. She also notes an intermittent cough with white sputum. Of note, she apparently was scheduled to have a catheter placed for chemotherapy yesterday, which was postponed, her granddaughter says due to a high white count and her blood was too thin. She denies any fevers. As well, patient denies any dysuria. FAMILY HISTORY: Notable for stroke in her father. PHYSICAL EXAMINATION: General: She is awake and alert, sitting up out of bed. Vital Signs: Temperature is 99.1, pulse of 88, blood pressure 147/72, respiratory rate is 18. She weighs 56 kg. Her O2 saturation is 100% on room air. HEENT: She is normocephalic. Her eyes are anicteric. Neck: Supple. Lungs: Clear to auscultation. Heart: Regular rate and rhythm. Abdomen: Soft, nontender. Extremities: Without edema. LABORATORY DATA: Labs are notable for a white count of 19.6, hemoglobin 10.3, platelets of 535. She has 71% polys. She has metamyelocytes and myelocytes. Her INR is 1.7. Her chemistries: Her glucose on admission was 46. BUN is 12 and creatinine 0.4. Alkaline phosphatase is 341. Urinalysis is negative. Blood and urine cultures are pending. Chest x-ray is without infiltrate. Liver biopsy results are back and are consistent with invasive adenocarcinoma, moderately differentiated, consistent with pancreatic or biliary tract origin. In summary, this is an 83-year-old woman with pancreatic cancer in the distal part of the body of the pancreas with liver metastases, admitted with: 1. Hypoglycemia. Per the patient and family, she was switched to insulin 3 weeks ago. She has a very poor appetite and easily feels full and is eating very small amounts of food. Her sugars have been very erratic at home. They have been quite low in the mornings, and I suspect her hypoglycemia is predominantly due to the new medications. She does, however, have a leukocytosis which I suspect is leukemoid reaction as she has no obvious sources of infection. Cultures have been sent. Would switch her to ceftriaxone as she is not neutropenic and follow up her cultures. If her cultures are indeed negative, I would go ahead and stop the antibiotics. 2. Pancreatic cancer with liver metastases. If indeed her cultures are negative, it would be reasonable to proceed with placement of some access so that she can start her chemotherapy. KAMERON PISANO M.D. [id number]
[2019-03-09] MEDS: HEPARIN NA (PORCINE) 5,000 UNITS/ML 1ML VIAL SQ SCH (21:07)
[2019-03-09] MEDS: ATORVASTATIN CA 20 MG TABLET (FP) PO SCH (21:07)
[2019-03-09] MEDS: TIMOLOL 0.5% OPHTHALMIC SOL 5 ML BOTTLE OU SCH (21:27)
[2019-03-09] MEDS: DORZOLAMIDE 2% HCL OPHTHALMIC SOLUTION 10 ML BOTTLE OU SCH (21:28)
[2019-03-09] MEDS ORDERED: PATIENT'S OWN MEDICATION (NON-FORMULARY) (Dorzolamide Hcl/Timolol Maleat [Cosopt Eye Drops OP SCH (22:00)
[2019-03-10] MEDS: INSULIN SLIDING SCALE (NOVOLOG) 1 VIAL SQ SCH ×3 (07:13→16:43)
[2019-03-10] MEDS: LEVOTHYROXINE NA 25 MCG TABLET (FP) PO SCH (07:13)
[2019-03-10 07:33] LABS: BASO % 0.3 % (0-2.0); EOS % 3.1 % (0-4.5); HEMATOCRIT 28.6 % (32.4-45.2); HEMOGLOBIN 9.6 GM/dL (10.7-15.3); LYMPH % 23.2 % (8-40); MCH 27.3 pg (25.7-33.7); MCHC 33.5 g/dl (32.0-36.0); MEAN CELL VOLUME 81.6 fl (80-96); MEAN PLT VOLUME 8.8 fl (7.5-11.1); MONO % 14.5 % (3.8-10.2); NEUT % 58.9 % (42.8-82.8); PLATELET COUNT 529 K/MM3 (134-434); RBC 3.51 M/mm3 (3.60-5.2); RDW 14.5 % (11.6-15.6); WHITE BLOOD COUNT 15.7 K/mm3 (4.0-10.0)
[2019-03-10 08:08] LABS: BILIRUBIN,TOTAL 0.4 mg/dL (0.2-1); BLOOD UREA NITROGEN 11.4 mg/dL (7-18); CALCIUM 8.3 mg/dL (8.5-10.1); CREATININE 0.4 mg/dL (0.55-1.3); POTASSIUM 4.7 mmol/L (3.5-5.1); TOT PROT 5.8 g/dl (6.4-8.2)
[2019-03-10] MEDS ORDERED: cefTRIAXone SODIUM 1 GM VIAL ONE (09:44)
[2019-03-10] MEDS ORDERED: DEXTROSE 5%-WATER - 50 ML IVPB ONE (09:45)
[2019-03-10] MEDS: BISACODYL 5 MG TABLET.DR (FP) PO SCH (10:08)
[2019-03-10] MEDS: amLODIPine BESYLATE 10 MG TABLET (FP) PO SCH (10:08)
[2019-03-10] MEDS: CEFTRIAXONE 1 GM in DEXTROSE 5%-WATER - 50 ML IVPB SCH (10:09)
[2019-03-10] MEDS: PANTOPRAZOLE 40 MG TABLET (FP) PO SCH (10:09)
[2019-03-10] MEDS: LISINOPRIL 20 MG TABLET (FP) PO SCH (10:09)
[2019-03-10] MEDS: CHOLECALCIFEROL (VIT D3) 1,000 UNIT (25 MCG) TABLET PO SCH (10:09)
[2019-03-10] MEDS: HEPARIN NA (PORCINE) 5,000 UNITS/ML 1ML VIAL SQ SCH ×2 (10:09→21:57)
[2019-03-10] MEDS: DORZOLAMIDE 2% HCL OPHTHALMIC SOLUTION 10 ML BOTTLE OU SCH ×2 (10:12→21:57)
[2019-03-10] MEDS: TIMOLOL 0.5% OPHTHALMIC SOL 5 ML BOTTLE OU SCH ×2 (10:13→21:56)
[2019-03-10] MEDS: LATANOPROST 0.005% OPHTH SOLN 2.5ML BOTTLE OU SCH (10:21)
[2019-03-10 11:32] LABS: ANISOCYTOSIS 2+; MACROCYTOSIS 0; OVALOCYTE 1+; PLATELET ESTIMATE INCREASED; TARGET CELLS 1+; TEAR DROP CELLS 1+
[2019-03-10 11:40] LABS: HYALINE CASTS 8 /lpf (0-8); URINE APPEARANCE CLEAR; URINE BACTERIA 1.2 /hpf (NEGATIVE); URINE BILIRUBIN NEGATIVE (NEGATIVE); URINE COLOR YELLOW; URINE GLUCOSE (UA) NEGATIVE (NEGATIVE); URINE KETONE NEGATIVE (NEGATIVE); URINE LEUK ESTERASE 2+ (NEGATIVE); URINE NITRITE NEGATIVE (NEGATIVE); URINE PROTEIN NEGATIVE (NEGATIVE); URINE RBC 1 /hpf (0-4); URINE WBC 8 /hpf (0-5)
[2019-03-10] MEDS ORDERED: MAG HYDROX/AL HYDROX/SIMETH 30 ML UNIT-DOSE CUP PO PRN (13:45)
[2019-03-10] MEDS: POLYETHYLENE GLYCOL 3350 119 GM BTL PO SCH (15:08)
--- NOTE | 2019-03-10 15:46 | PN ---
Progress Note (short form) - Note Progress Note: afebrile no complaints Vital Signs Period Temp Pulse Resp BP Sys/Miller Pulse Ox Last 24 Hr 98.3 F-99.5 F 74-88 18-20 128-147/51-84 97-98 cor-rrr lungs clear abd soft,nt ext no edema CBC, BMP 03/10/19 06:16 03/10/19 06:16 Microbiology 03/09/19 10:24 Blood - Peripheral Venous Blood Culture - Preliminary NO GROWTH OBTAINED AFTER 24 HOURS, INCUBATION TO CONTINUE FOR 4 DAYS. 03/09/19 10:24 Blood - Peripheral Venous Blood Culture - Preliminary NO GROWTH OBTAINED AFTER 24 HOURS, INCUBATION TO CONTINUE FOR 4 DAYS. 03/09/19 06:24 Urine - Urine Clean Catch Urine Culture - Final NO GROWTH OBTAINED a/p leukocytosis-suspect leukemoid reaction to malignancy, no obvious source of infection pancreatic cancer (bodyof pancreas) with liver mets diabetes-suspect hypoglycemia secondary to meds empiric rocephin can d/c antiiboitcs if cultures are negative in am Problem List - Problems (1) Leukocytosis Code(s): D72.829 - ELEVATED WHITE BLOOD CELL COUNT, UNSPECIFIED Qualifiers: Leukocytosis type: unspecified Qualified Code(s): D72.829 - Elevated white blood cell count, unspecified (2) Pancreatic cancer Code(s): C25.9 - MALIGNANT NEOPLASM OF PANCREAS, UNSPECIFIED
[2019-03-10] MEDS ORDERED: PHYTONADIONE 10 MG/1 ML AMP SQ ONE (16:30)
--- NOTE | 2019-03-10 16:45 | PN ---
Progress Note (short form) - Note Progress Note: pt seen/ examined chart reviewed awake/ comfortable feels better mood good family at bedside afebrile cultures -ve fluids d/saida sugar elevated Vital Signs Temp 99.5 F 03/10/19 15:21 Pulse 76 03/10/19 15:21 Resp 20 03/10/19 15:21 BP 129/51 L 03/10/19 15:21 Pulse Ox 97 03/10/19 09:00 Intake & Output 03/09/19 03/10/19 03/10/19 23:59 11:59 23:59 Intake Total 150 50 300 Balance 150 50 300 Weight 124 lb 6.4 oz Intake: IV 0 0 D5-1/2NS+20 MEQ KCL - 20 0 0 meq In 1,000 ml @ 75 mls/ hr IV ASDIR JOHN Rx#: [id number] IVPB 50 Oral 150 300 Other: Voiding Method Toilet Toilet Toilet Bowel Movement No No Weight Measurement Method Standing Scale Active Medications Acetaminophen (Tylenol -) 650 mg PO Q4H PRN PRN Reason: PAIN LEVEL 4 - 6 Al Hydroxide/Mg Hydroxide (Mylanta Oral Suspension -) 30 ml PO Q6H PRN PRN Reason: INDIGESTION Last Admin: 03/10/19 14:16 Dose: 30 ml Amlodipine Besylate (Norvasc -) 10 mg PO DAILY [facility] Last Admin: 03/10/19 10:08 Dose: 10 mg Atorvastatin Calcium (Lipitor -) 20 mg PO HS [facility] Last Admin: 03/09/19 21:07 Dose: 20 mg Bisacodyl (Dulcolax -) 5 mg PO DAILY [facility] Last Admin: 03/10/19 10:08 Dose: 5 mg Cholecalciferol (Vitamin D3 -) 1,000 unit PO DAILY [facility] Last Admin: 03/10/19 10:09 Dose: 1,000 unit Dorzolamide HCl (Trusopt 2%) 1 drop OU BID [facility] Last Admin: 03/10/19 10:12 Dose: 1 drop Heparin Sodium (Porcine) (Heparin -) 5,000 unit SQ BID [facility] Last Admin: 03/10/19 10:09 Dose: 5,000 unit Ceftriaxone Sodium 1 gm/ (Dextrose) 50 mls @ 100 mls/hr IVPB DAILY [facility]; Protocol Last Admin: 03/10/19 10:09 Dose: 100 mls/hr Insulin Aspart (Novolog Vial Sliding Scale -) 1 vial SQ TIDAC [facility]; Protocol Last Admin: 03/10/19 11:52 Dose: 5 units Insulin Detemir (Levemir Vial) 10 units SQ HS [facility] Latanoprost (Xalatan 0.005% Eye Drops -) 1 drop OU DAILY [facility] Last Admin: 03/10/19 10:21 Dose: 1 drop Levothyroxine Sodium (Synthroid -) 25 mcg PO AM [facility] Last Admin: 03/10/19 07:13 Dose: 25 mcg Lisinopril (Prinivil) 40 mg PO DAILY [facility] Last Admin: 03/10/19 10:09 Dose: 40 mg Pantoprazole Sodium (Protonix -) 40 mg PO DAILY [facility] Last Admin: 03/10/19 10:09 Dose: 40 mg Polyethylene Glycol (Miralax (For Daily Use) -) 17 gm PO DAILY [facility] Last Admin: 03/10/19 15:08 Dose: 17 gm Timolol Maleate (Timoptic 0.5%) 1 drop OU BID [facility] Last Admin: 03/10/19 10:13 Dose: 1 drop CBC, BMP 03/10/19 06:16 03/10/19 06:16 CMP Sodium 129 mmol/L (136-145) L 03/10/19 06:16 Potassium 4.7 mmol/L (3.5-5.1) 03/10/19 06:16 Chloride 97 mmol/L (98-107) L 03/10/19 06:16 Carbon Dioxide 25 mmol/L (21-32) 03/10/19 06:16 Anion Gap 7 MMOL/L (8-16) L 03/10/19 06:16 BUN 11.4 mg/dL (7-18) 03/10/19 06:16 Creatinine 0.4 mg/dL (0.55-1.3) L 03/10/19 06:16 Est GFR (CKD-EPI)AfAm 113.21 03/10/19 06:16 Est GFR (CKD-EPI)NonAf 97.68 03/10/19 06:16 POC Glucometer 270 UNITS (80-120) 03/10/19 16:14 Random Glucose 111 mg/dL (74-106) H 03/10/19 06:16 Calcium 8.3 mg/dL (8.5-10.1) L 03/10/19 06:16 Total Bilirubin 0.4 mg/dL (0.2-1) 03/10/19 06:16 AST 45 U/L (15-37) H 03/10/19 06:16 ALT 28 U/L (13-61) 03/10/19 06:16 Alkaline Phosphatase 297 U/L (45-117) H 03/10/19 06:16 Troponin I < 0.02 ng/ml (0.00-0.05) 03/09/19 05:42 Total Protein 5.8 g/dl (6.4-8.2) L 03/10/19 06:16 Albumin 2.0 g/dl (3.4-5.0) L 03/10/19 06:16 Total Amylase 33 U/L (25-115) 03/10/19 06:16 Lipase 98 U/L (73-393) 03/10/19 06:16 TSH 4.66 uIU/ml (0.358-3.74) H 03/10/19 06:16 Microbiology 03/09/19 10:24 Blood Culture - Preliminary Blood - Peripheral Venous NO GROWTH OBTAINED AFTER 24 HOURS, INCUBATION TO CONTINUE FOR 4 DAYS. 03/09/19 10:24 Blood Culture - Preliminary Blood - Peripheral Venous NO GROWTH OBTAINED AFTER 24 HOURS, INCUBATION TO CONTINUE FOR 4 DAYS. 03/09/19 06:24 Urine Culture - Final Urine - Urine Clean Catch NO GROWTH OBTAINED Physical Examination Constitutional: Yes: No Distress, Comfortable Eyes: Yes: Conjunctiva Clear Neck: Yes: Supple. no jvd Cardiovascular: Yes: Regular Rate and Rhythm Respiratory: Yes: CTA Bilaterally Gastrointestinal: Yes: Soft, non tender) Edema: No Neurological: Yes: Alert Psychiatric: Yes: Alert Imaging - Results Chest X-ray: Report Reviewed EKG: Report Reviewed Assessment/Plan Comfortable abx cultures -ve so far monitor bgm discussed with Dr. Shepard today Plan chemo tomorrow if cultures remain -ve dvt prophylaxis Start on Levimir will follow Problem List - Problems (1) Pancreatic cancer Code(s): C25.9 - MALIGNANT NEOPLASM OF PANCREAS, UNSPECIFIED (2) Hyponatremia Code(s): E87.1 - HYPO-OSMOLALITY AND HYPONATREMIA (3) Leukocytosis Code(s): D72.829 - ELEVATED WHITE BLOOD CELL COUNT, UNSPECIFIED Qualifiers: Leukocytosis type: unspecified Qualified Code(s): D72.829 - Elevated white blood cell count, unspecified (4) Nausea Code(s): R11.0 - NAUSEA (5) Diabetes mellitus Code(s): E11.9 - TYPE 2 DIABETES MELLITUS WITHOUT COMPLICATIONS Qualifiers: Diabetes mellitus type: type 2 Diabetes mellitus shelter insulin use: unspecified 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
[2019-03-10 17:58] LABS: INR 1.78 (0.83-1.09); PROTHROMBIN TIME (PATIENT) 21.1 SEC (9.7-13.0)
[2019-03-10 18:00] LABS: ACTIVATED PTT 31.9 SECONDS (25.2-36.5)
--- NOTE | 2019-03-10 21:51 | PN ---
Progress Note (short form) - Note Progress Note: Patient seen and examined Feels well. Denies any complaints Last Vital Signs Temp Pulse Resp BP Pulse Ox 99.4 F 77 18 135/60 97 03/10/19 17:45 03/10/19 17:45 03/10/19 17:45 03/10/19 17:45 03/10/19 09:00 Cor: RSR, No murmurs, No gallops Lungs: Clear to P&A Abd: Soft, Normal bowel sounds, No organomegaly Ext:No significant edema Labs/MEds reviewed A/P 83 y/o patient with metastatic pancreatic cancer with extensive liver mets Discussed with patient and family in great detaill coagulopathy due to liver disease for FFP /vit. K Port placement For gemzar/abraxane tomorrow 03/11/19 Leukocytosis-- blood cx/urine cx /cxr negative ? reactive due to advanced malignancy will follow
[2019-03-10] MEDS: ATORVASTATIN CA 20 MG TABLET (FP) PO SCH (21:57)
[2019-03-10] MEDS ORDERED: INSULIN (LEVEMIR) 100 UNITS/ML UNITS SQ SCH (22:00)
[2019-03-10] MEDS ORDERED: DEXTROSE 5%-NORMAL SALINE 1,000 ML IV SCH (23:15)
[2019-03-11] MEDS ORDERED: DEXTROSE 5%-WATER 100 ML MINI BAG IVPB ONE (06:45)
[2019-03-11] MEDS: INSULIN SLIDING SCALE (NOVOLOG) 1 VIAL SQ SCH ×3 (06:52→17:42)
[2019-03-11] MEDS: LEVOTHYROXINE NA 25 MCG TABLET (FP) PO SCH (06:52)
--- NOTE | 2019-03-11 06:58 | HOSP ---
Subjective - Review of Symptoms Events since last encounter: 83 yo female with newly diagnosed pancreatic cancer with liver mets was admitted with sweats, hypoglycemia- recently started insulin 3 weeks ago. called by RN on the unit for episode of hypoglycemia FSBS : 45 asymptomatic, pt is currently NPO pending port placement GEN: NAD Cardio: S1/S2, no S3 Resp: Clear to P&A Abd: Soft, Normal bowel sounds Ext:No significant edema patient over night given FFP/with K for coagulopathy due to liver disease, tolerated for hypoglycemia will give D5w 100 ml minibag x1, recheck FSBS in 1 hour continue with NPO Physical Examination Vital Signs: Vital Signs Temperature 98.6 F 03/11/19 06:00 Pulse Rate 69 03/11/19 06:00 Respiratory Rate 18 03/11/19 06:00 Blood Pressure 135/52 L 03/11/19 06:00 O2 Sat by Pulse Oximetry (%) 97 03/10/19 21:00 Labs: CBC, BMP 03/10/19 06:16 03/10/19 06:16
[2019-03-11] MEDS ORDERED: DEXTROSE 5%-WATER - 100 ML IVPB ONE (08:00)
[2019-03-11] MEDS ORDERED: DEXTROSE 5%-WATER - 50 ML IVPB ONE (09:51)
[2019-03-11] MEDS ORDERED: cefTRIAXone SODIUM 1 GM VIAL ONE (09:51)
[2019-03-11] MEDS ORDERED: PT OWN MED DRAWER 7, Y5N ONE (09:51)
[2019-03-11 10:28] LABS: BASO % 0.3 % (0-2.0); EOS % 1.1 % (0-4.5); HEMATOCRIT 29.4 % (32.4-45.2); HEMOGLOBIN 9.6 GM/dL (10.7-15.3); LYMPH % 18.5 % (8-40); MCH 26.8 pg (25.7-33.7); MCHC 32.6 g/dl (32.0-36.0); MEAN PLT VOLUME 8.3 fl (7.5-11.1); MONO % 14.9 % (3.8-10.2); NEUT % 65.2 % (42.8-82.8); RBC 3.59 M/mm3 (3.60-5.2); RDW 14.5 % (11.6-15.6); WHITE BLOOD COUNT 14.8 K/mm3 (4.0-10.0)
[2019-03-11 10:35] LABS: PLATELET COUNT 543 K/MM3 (134-434)
[2019-03-11 10:46] LABS: INR 1.34 (0.83-1.09); PROTHROMBIN TIME (PATIENT) 15.9 SEC (9.7-13.0)
[2019-03-11 10:49] LABS: ACTIVATED PTT 29.7 SECONDS (25.2-36.5)
[2019-03-11 11:08] LABS: ALBUMIN 2.6 g/dl (3.4-5.0); BILIRUBIN,TOTAL 0.9 mg/dL (0.2-1); BLOOD UREA NITROGEN 7.5 mg/dL (7-18); CALCIUM 8.6 mg/dL (8.5-10.1); CREATININE 0.4 mg/dL (0.55-1.3); POTASSIUM 4.4 mmol/L (3.5-5.1); TOT PROT 6.5 g/dl (6.4-8.2)
[2019-03-11] MEDS: CEFTRIAXONE 1 GM in DEXTROSE 5%-WATER - 50 ML IVPB SCH (11:08)
[2019-03-11] MEDS: LISINOPRIL 20 MG TABLET (FP) PO SCH (11:09)
[2019-03-11] MEDS: DORZOLAMIDE 2% HCL OPHTHALMIC SOLUTION 10 ML BOTTLE OU SCH ×2 (11:10→21:25)
[2019-03-11] MEDS: amLODIPine BESYLATE 10 MG TABLET (FP) PO SCH (11:10)
[2019-03-11] MEDS: LATANOPROST 0.005% OPHTH SOLN 2.5ML BOTTLE OU SCH (11:11)
[2019-03-11] MEDS: BISACODYL 5 MG TABLET.DR (FP) PO SCH (11:46)
[2019-03-11] MEDS: PANTOPRAZOLE 40 MG TABLET (FP) PO SCH (11:47)
[2019-03-11] MEDS: POLYETHYLENE GLYCOL 3350 119 GM BTL PO SCH (11:47)
[2019-03-11] MEDS: CHOLECALCIFEROL (VIT D3) 1,000 UNIT (25 MCG) TABLET PO SCH (11:47)
[2019-03-11] MEDS: TIMOLOL 0.5% OPHTHALMIC SOL 5 ML BOTTLE OU SCH ×2 (11:48→21:25)
--- NOTE | 2019-03-11 12:31 | PN ---
Progress Note (short form) - Note Progress Note: pt seen/ examined. comfortable events of last night noted for Port today and start on chemo Levemir held and on fluids. Vital Signs Temp 98.6 F 03/11/19 06:00 Pulse 69 03/11/19 06:00 Resp 18 03/11/19 06:00 BP 135/52 L 03/11/19 06:00 Pulse Ox 97 03/10/19 21:00 Intake & Output 03/10/19 03/11/19 03/11/19 23:59 11:59 23:59 Intake Total 600 0 Balance 600 0 Intake: Oral 600 0 Other: Voiding Method Toilet Toilet Bowel Movement No Active Medications Acetaminophen (Tylenol -) 650 mg PO Q6H PRN PRN Reason: PAIN LEVEL 4 - 6 Al Hydroxide/Mg Hydroxide (Mylanta Oral Suspension -) 30 ml PO Q6H PRN PRN Reason: INDIGESTION Last Admin: 03/10/19 14:16 Dose: 30 ml Amlodipine Besylate (Norvasc -) 10 mg PO DAILY [facility] Last Admin: 03/11/19 11:10 Dose: 10 mg Atorvastatin Calcium (Lipitor -) 20 mg PO HS [facility] Last Admin: 03/10/19 21:57 Dose: 20 mg Bisacodyl (Dulcolax -) 5 mg PO DAILY [facility] Last Admin: 03/11/19 11:46 Dose: Not Given Cholecalciferol (Vitamin D3 -) 1,000 unit PO DAILY [facility] Last Admin: 03/11/19 11:47 Dose: Not Given Dorzolamide HCl (Trusopt 2%) 1 drop OU BID [facility] Last Admin: 03/11/19 11:10 Dose: 1 drop Ceftriaxone Sodium 1 gm/ (Dextrose) 50 mls @ 100 mls/hr IVPB DAILY [facility]; Protocol Last Admin: 03/11/19 11:08 Dose: 100 mls/hr Dextrose/Sodium Chloride (D5-Ns -) 1,000 mls @ 60 mls/hr IV ASDIR [facility] Last Admin: 03/11/19 07:45 Dose: 60 mls/hr Insulin Aspart (Novolog Vial Sliding Scale -) 1 vial SQ TIDAC [facility]; Protocol Last Admin: 03/11/19 11:47 Dose: Not Given Latanoprost (Xalatan 0.005% Eye Drops -) 1 drop OU DAILY [facility] Last Admin: 03/11/19 11:11 Dose: 1 drop Levothyroxine Sodium (Synthroid -) 25 mcg PO AM [facility] Last Admin: 03/11/19 06:52 Dose: Not Given Lisinopril (Prinivil) 40 mg PO DAILY [facility] Last Admin: 03/11/19 11:09 Dose: 40 mg Pantoprazole Sodium (Protonix -) 40 mg PO DAILY [facility] Last Admin: 03/11/19 11:47 Dose: Not Given Polyethylene Glycol (Miralax (For Daily Use) -) 17 gm PO DAILY [facility] Last Admin: 03/11/19 11:47 Dose: Not Given Timolol Maleate (Timoptic 0.5%) 1 drop OU BID [facility] Last Admin: 03/11/19 11:48 Dose: 1 drop CBC, BMP 03/11/19 10:05 03/11/19 10:05 INR, PTT INR 1.34 (0.83-1.09) H 03/11/19 10:05 Fibrinogen 440.0 mg/dL (238-498) 03/10/19 17:00 Physical Examination Constitutional: Yes: No Distress, Comfortable Eyes: Yes: Conjunctiva Clear Neck: Yes: Supple. no jvd Cardiovascular: Yes: Regular Rate and Rhythm Respiratory: Yes: CTA Bilaterally Gastrointestinal: Yes: Soft, non tender) Edema: No Neurological: Yes: Alert Psychiatric: Yes: Alert Imaging - Results Chest X-ray: Report Reviewed EKG: Report Reviewed Assessment/Plan Comfortable abx cultures -ve so far monitor bgm continue present care gor ffp hypoglycemia -- likely due to pancreatic ca with mets to liver for port today -- npo start feeding tonight after port insertion. will follow Problem List - Problems (1) Pancreatic cancer Code(s): C25.9 - MALIGNANT NEOPLASM OF PANCREAS, UNSPECIFIED (2) Hyponatremia Code(s): E87.1 - HYPO-OSMOLALITY AND HYPONATREMIA (3) Leukocytosis Code(s): D72.829 - ELEVATED WHITE BLOOD CELL COUNT, UNSPECIFIED Qualifiers: Leukocytosis type: unspecified Qualified Code(s): D72.829 - Elevated white blood cell count, unspecified (4) Nausea Code(s): R11.0 - NAUSEA (5) Diabetes mellitus Code(s): E11.9 - TYPE 2 DIABETES MELLITUS WITHOUT COMPLICATIONS Qualifiers: Diabetes mellitus type: type 2 Diabetes mellitus longterm insulin use: unspecified longterm insulin use status Diabetes mellitus complication status : without complication Qualified Code(s): E11.9 - Type 2 diabetes mellitus without complications (6) Coagulopathy Code(s): D68.9 - COAGULATION DEFECT, UNSPECIFIED
[2019-03-11] MEDS: DEXTROSE 5%-NORMAL SALINE 1,000 ML IV SCH (13:10)
--- NOTE | 2019-03-11 13:11 | PN ---
Progress Note (short form) - Note Progress Note: afebrile no complaints feels well awaiting port no complaints NPO episode hypoglycemia Vital Signs Period Temp Pulse Resp BP Sys/Miller Pulse Ox Last 24 Hr 98.6 F-99.7 F 69-77 18-20 115-135/50-60 97 cor-rrr llungs clear abd soft,nt ext no edema CBC, BMP 03/11/19 10:05 03/11/19 10:05 Microbiology 03/09/19 10:24 Blood - Peripheral Venous Blood Culture - Preliminary NO GROWTH OBTAINED AFTER 48 HOURS, INCUBATION TO CONTINUE FOR 3 DAYS. 03/09/19 10:24 Blood - Peripheral Venous Blood Culture - Preliminary NO GROWTH OBTAINED AFTER 48 HOURS, INCUBATION TO CONTINUE FOR 3 DAYS. 03/09/19 06:24 Urine - Urine Clean Catch Urine Culture - Final NO GROWTH OBTAINED a/p leukocytosis-suspect leukemoid reaction to malignancy, no obvious source of infection pancreatic cancer (bodyof pancreas) with liver mets diabetes-suspect hypoglycemia secondary to meds will d/c rocephin, no source of lekocytosis noted, cultures are negative for port placement today Problem List - Problems (1) Leukocytosis Code(s): D72.829 - ELEVATED WHITE BLOOD CELL COUNT, UNSPECIFIED Qualifiers: Leukocytosis type: unspecified Qualified Code(s): D72.829 - Elevated white blood cell count, unspecified (2) Pancreatic cancer Code(s): C25.9 - MALIGNANT NEOPLASM OF PANCREAS, UNSPECIFIED
[2019-03-11] MEDS ORDERED: PALONOSETRON HCL 0.25 MG/5 ML VIAL IVPUSH ONE (15:00)
[2019-03-11] MEDS ORDERED: DEXAMETHASONE INJECTION 12 MG in SODIUM CHLORIDE 50 ML IVPB ONE (15:00)
[2019-03-11] MEDS ORDERED: [UNRECOGNIZED DRUG - OTHER] IVPB ONE (15:30)
[2019-03-11] MEDS ORDERED: PACLITAXEL PROTEIN BOUND IVPB ONE (15:30)
[2019-03-11] MEDS ORDERED: SODIUM CHLORIDE IV ONE (16:00)
[2019-03-11] MEDS ORDERED: GEMCITABINE HCL IV ONE (16:00)
[2019-03-11 16:23] VITALS: BMI 24.2
[2019-03-11] MEDS ORDERED: PORTA CATH FLUSH 10 ML IVPUSH ONE (17:48)
--- NOTE | 2019-03-11 19:14 | PN ---
Progress Note (short form) - Note Progress Note: Patient seen and examined s/p port-a-cath placement Last Vital Signs Temp Pulse Resp BP Pulse Ox 98.8 F 71 20 126/59 L 96 03/11/19 17:49 03/11/19 17:00 03/11/19 17:00 03/11/19 17:00 03/11/19 16:21 Cor: RSR, No murmurs, No gallops Lungs: Clear to P&A Abd: Soft, Normal bowel sounds, No organomegaly Ext:No significant edema Abnormal Lab Results 03/11/19 03/11/19 03/11/19 10:05 10:05 10:05 WBC 14.8 H RBC 3.59 L Hgb 9.6 L Hct 29.4 L Plt Count 543 H Absolute Neuts (auto) 9.6 H Monocytes % 14.9 H PT with INR 15.90 H INR 1.34 H Sodium 129 L Chloride 96 L Anion Gap 5 L Creatinine 0.4 L Random Glucose 61 L Hemoglobin A1c % AST 42 H Alkaline Phosphatase 280 H Albumin 2.6 L 03/11/19 10:05 WBC RBC Hgb Hct Plt Count Absolute Neuts (auto) Monocytes % PT with INR INR Sodium Chloride Anion Gap Creatinine Random Glucose Hemoglobin A1c % 10.0 H AST Alkaline Phosphatase Albumin Active Medications Generic Name Dose Route Start Last Admin Trade Name Freq PRN Reason Stop Dose Admin Acetaminophen 650 mg 03/10/19 22:05 Tylenol - PO Q6H PRN PAIN LEVEL 4 - 6 Al Hydroxide/Mg Hydroxide 30 ml 03/10/19 13:45 03/10/19 14:16 Mylanta Oral Suspension - PO 30 ml Q6H PRN Administration INDIGESTION Amlodipine Besylate 10 mg 03/10/19 10:00 03/11/19 11:10 Norvasc - PO 10 mg DAILY JOHN Administration Atorvastatin Calcium 20 mg 03/09/19 22:00 03/10/19 21:57 Lipitor - PO 20 mg HS JOHN Administration Bisacodyl 5 mg 03/10/19 10:00 03/11/19 11:46 Dulcolax - PO Not Given DAILY [facility] Cholecalciferol 1,000 unit 03/10/19 10:00 03/11/19 11:47 Vitamin D3 - PO Not Given DAILY [facility] Dorzolamide HCl 1 drop 03/09/19 22:00 03/11/19 11:10 Trusopt 2% OU 1 drop BID JOHN Administration Dextrose/Sodium Chloride 1,000 mls @ 75 mls/hr 03/11/19 13:15 03/11/19 13:10 D5-Ns - IV 75 mls/hr ASDIR JOHN Administration Insulin Aspart 1 vial 03/09/19 16:30 03/11/19 17:42 Novolog Vial Sliding Scale - SQ Not Given TIDAC [facility] Protocol Latanoprost 1 drop 03/10/19 10:00 03/11/19 11:11 Xalatan 0.005% Eye Drops - OU 1 drop DAILY JOHN Administration Levothyroxine Sodium 25 mcg 03/10/19 07:00 03/11/19 06:52 Synthroid - PO Not Given AM [facility] Lisinopril 40 mg 03/10/19 10:00 03/11/19 11:09 Prinivil PO 40 mg DAILY JOHN Administration Pantoprazole Sodium 40 mg 03/10/19 10:00 03/11/19 11:47 Protonix - PO Not Given DAILY [facility] Polyethylene Glycol 17 gm 03/10/19 14:15 03/11/19 11:47 Miralax (For Daily Use) - PO Not Given DAILY [facility] Timolol Maleate 1 drop 03/09/19 22:00 03/11/19 11:48 Timoptic 0.5% OU 1 drop BID JOHN Administration A/P 83 y/o patient with metastatic pancreatic cancer with extensive liver mets Discussed with patient and family in great detaill coagulopathy due to liver disease s/p FFP/vit. K s/p Port placement For gemzar/abraxane today Leukocytosis-- blood cx/urine cx /cxr negative ? reactive due to advanced malignancy will consult renal/endocrine --hyponatremia/hypoglycemia-- advanced liver mets discussed with granddaughter in great detail
[2019-03-11] MEDS: ATORVASTATIN CA 20 MG TABLET (FP) PO SCH (21:24)
[2019-03-11] MEDS: ACETAMINOPHEN 325 MG TABLET (FP) PO PRN (21:26)
[2019-03-12] MEDS: INSULIN SLIDING SCALE (NOVOLOG) 1 VIAL SQ SCH ×3 (05:59→17:25)
[2019-03-12] MEDS: LEVOTHYROXINE NA 25 MCG TABLET (FP) PO SCH (05:59)
[2019-03-12] MEDS: DEXTROSE 5%-NORMAL SALINE 1,000 ML IV SCH ×2 (06:07→13:27)
--- NOTE | 2019-03-12 09:34 | CON.NEP ---
Consult Consult Specialty:: Nephrology Reason for Consultation:: hyponatremia - History of Present Illness Chief Complaint: vomiting History of Present Illness: This is an 83 year old woman with recent diagnosis of pancreatic ca who presented who nausea and vomiting for the initiation of chemotherapy. She is hyponatremic so nephrology is called. Has been getting IVF and feels well. Says her appetite is poor and has not been eating much. She does drink water however. Has lost a lot of weight and this is was eventually led to discovery of pancreatic mass. 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: Dementia (mild cognitve defect ) Cardio/Vascular: Yes: HTN ...: No Endocrine: Yes: Diabetes Mellitus - Past Surgical History Past Surgical History: Yes: None - Alcohol/Substance Use Hx Alcohol Use: No - Smoking History Smoking history: Unknown if ever smoked - Social History History of Recent Travel: No Home Medications - Allergies Allergies/Adverse Reactions: Allergies Allergy/AdvReac Type Severity Reaction Status Date / Time No Known Allergies Allergy Verified 03/09/19 03:48 - Home Medications Home Medications: Ambulatory Orders Bisacodyl [Gentle Laxative] 5 mg PO DAILY 11/20/15 Levothyroxine [Synthroid -] 25 mcg PO DAILY 11/20/15 metFORMIN HCL [Metformin HCl] 1,000 mg PO BID 11/20/15 Atorvastatin Ca [Lipitor] 20 mg PO HS 01/25/19 Polyvinyl Alcohol [Artificial Tears] 15 ml OP QID 01/25/19 Cholecalciferol (Vitamin D3) [Vitamin D3] 1,000 unit PO DAILY 02/23/19 Dorzolamide HCl/Timolol Maleat [Cosopt Eye Drops] 10 ml OP BID 02/23/19 Pantoprazole Sodium 40 mg PO DAILY 02/23/19 Ranitidine [Zantac -] 150 mg PO BID 02/23/19 Amlodipine Besylate/Benazepril [Lotrel ] 1 each PO DAILY 03/07/19 Bimatoprost [Lumigan] 1 drop IO DAILY 03/07/19 Insulin Aspart [Novolog] 7 unit SQ TID 03/07/19 Insulin Glargine,Hum.rec.anlog [Basaglar Kwikpen U-100] 100 unit SQ 12 03/07/19 Review of Systems - Review of Systems Constitutional: reports: Weakness Eyes: reports: No Symptoms HENT: reports: No Symptoms Neck: reports: No Symptoms Cardiovascular: reports: No Symptoms Respiratory: reports: No Symptoms Gastrointestinal: reports: Nausea, Vomiting Genitourinary: reports: No Symptoms Breasts: reports: No Symptoms Reported Musculoskeletal: reports: No Symptoms Integumentary: reports: No Symptoms Neurological: reports: No Symptoms Endocrine: reports: No Symptoms Hematology/Lymphatic: reports: No Symptoms Psychiatric: reports: No Symptoms Nephrology Consult - Height Height: 5 ft - Weight Weight: 124 lb - BMI Body Mass Index (BMI): 24.2 - Lab Results CBC,BMP: CBC, BMP 03/11/19 10:05 03/11/19 10:05 Anion Gap: Anion Gap Anion Gap 5 MMOL/L (8-16) L 03/11/19 10:05 - Imaging Chest X-ray: Report Reviewed - Physical Examination Vital Signs: Vital Signs Temperature 97.8 F 03/12/19 05:00 Pulse Rate 80 03/12/19 05:00 Respiratory Rate 18 03/12/19 05:00 Blood Pressure 135/69 03/12/19 05:00 O2 Sat by Pulse Oximetry (%) 97 03/11/19 21:00 Constitutional: Yes: No Distress, Calm Eyes: Yes: Conjunctiva Clear HENT: Yes: Atraumatic, Normocephalic Neck: Yes: Supple, Trachea Midline Cardiovascular: Yes: Regular Rate and Rhythm Respiratory: Yes: Regular, CTA Bilaterally Gastrointestinal: Yes: Normal Bowel Sounds, Soft Musculoskeletal: Yes: WNL Extremities: Yes: WNL Edema: No Neurological: Yes: Alert, Oriented Psychiatric: Yes: Alert, Oriented Assessment/Plan IMPRESSION recurrent hyponatremia in patient with history of pancreatic ca with mets to liver and nausea/vomiting. Nausea and vomiting alone a re reasons for her to have hyponatremia. That in addition to decreased appetite and hypothyroidism and can result in hyponatremia. PLAN would continue saline If she had adrenal insufficiency, decadron would have helped repeat BMP today urine sodium, serum and urine osm If eating, take of d5 and give saline alone MV
[2019-03-12] MEDS: POLYETHYLENE GLYCOL 3350 119 GM BTL PO SCH (10:27)
[2019-03-12] MEDS: CHOLECALCIFEROL (VIT D3) 1,000 UNIT (25 MCG) TABLET PO SCH (10:27)
[2019-03-12] MEDS: PANTOPRAZOLE 40 MG TABLET (FP) PO SCH (10:27)
[2019-03-12] MEDS: amLODIPine BESYLATE 10 MG TABLET (FP) PO SCH (10:27)
[2019-03-12] MEDS: LISINOPRIL 20 MG TABLET (FP) PO SCH (10:27)
[2019-03-12] MEDS: BISACODYL 5 MG TABLET.DR (FP) PO SCH (10:27)
[2019-03-12] MEDS: LATANOPROST 0.005% OPHTH SOLN 2.5ML BOTTLE OU SCH (10:28)
[2019-03-12] MEDS: TIMOLOL 0.5% OPHTHALMIC SOL 5 ML BOTTLE OU SCH ×2 (10:28→21:47)
[2019-03-12] MEDS: DORZOLAMIDE 2% HCL OPHTHALMIC SOLUTION 10 ML BOTTLE OU SCH ×2 (10:29→21:48)
[2019-03-12] MEDS: SODIUM CHLORIDE 1,000 ML IV SCH (12:03)
--- NOTE | 2019-03-12 12:46 | CONSULT ---
Consult Consult Specialty:: Endocrinology Referred by:: Dr Zamora Reason for Consultation:: Hypoglycemia - History of Present Illness Chief Complaint: Nausea History of Present Illness: This is an 83-year-old female with h/o pancreatic mass admitted with c/o nausea. .Patient was to start her first round of chemotherapy the same day. As per niece, patient is nervous about her upcoming chemotherapy.. Patient denies any nausea right now and no abdominal pain. Pt referred for management of hypoglycemia. Pt has DM for many years. Was taking Metformin 1000mg BID at home. FS at home 90s in the morning and 200 to 300s in the evening. Denies any visual symptoms or paresthesia of feet. 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: Dementia (mild cognitve defect ) Cardio/Vascular: Yes: HTN ...: No Endocrine: Yes: Diabetes Mellitus - Past Surgical History Past Surgical History: Yes: None - Alcohol/Substance Use Hx Alcohol Use: No - Smoking History Smoking history: Unknown if ever smoked - Social History History of Recent Travel: No Home Medications - Allergies Allergies/Adverse Reactions: Allergies Allergy/AdvReac Type Severity Reaction Status Date / Time No Known Allergies Allergy Verified 03/09/19 03:48 - Home Medications Home Medications: Ambulatory Orders Bisacodyl [Gentle Laxative] 5 mg PO DAILY 11/20/15 Levothyroxine [Synthroid -] 25 mcg PO DAILY 11/20/15 metFORMIN HCL [Metformin HCl] 1,000 mg PO BID 11/20/15 Atorvastatin Ca [Lipitor] 20 mg PO HS 01/25/19 Polyvinyl Alcohol [Artificial Tears] 15 ml OP QID 01/25/19 Cholecalciferol (Vitamin D3) [Vitamin D3] 1,000 unit PO DAILY 02/23/19 Dorzolamide HCl/Timolol Maleat [Cosopt Eye Drops] 10 ml OP BID 02/23/19 Pantoprazole Sodium 40 mg PO DAILY 02/23/19 Ranitidine [Zantac -] 150 mg PO BID 02/23/19 Amlodipine Besylate/Benazepril [Lotrel ] 1 each PO DAILY 03/07/19 Bimatoprost [Lumigan] 1 drop IO DAILY 03/07/19 Insulin Aspart [Novolog] 7 unit SQ TID 03/07/19 Insulin Glargine,Hum.rec.anlog [Yony Perales U-100] 100 unit SQ 12 03/07/19 Family Disease History - Family Disease History Family Disease History: Diabetes: Sister Review of Systems - Review of Systems Constitutional: reports: No Symptoms Eyes: reports: No Symptoms HENT: reports: No Symptoms Neck: reports: No Symptoms Cardiovascular: reports: No Symptoms Respiratory: reports: No Symptoms Gastrointestinal: reports: Constipation Genitourinary: reports: No Symptoms Integumentary: reports: No Symptoms Endocrine: reports: No Symptoms Physical Exam Vital Signs: Vital Signs Temperature 97.8 F 03/12/19 05:00 Pulse Rate 80 03/12/19 05:00 Respiratory Rate 18 03/12/19 05:00 Blood Pressure 135/69 03/12/19 05:00 O2 Sat by Pulse Oximetry (%) 97 03/11/19 21:00 Constitutional: Yes: No Distress, Calm Eyes: Yes: Conjunctiva Clear, EOM Intact HENT: Yes: Atraumatic, Normocephalic Neck: Yes: Supple, Trachea Midline Cardiovascular: Yes: Regular Rate and Rhythm Respiratory: Yes: Regular, CTA Bilaterally Gastrointestinal: Yes: Normal Bowel Sounds, Soft Extremities: Yes: WNL Edema: No Neurological: Yes: Alert, Oriented Labs: CBC, BMP 03/11/19 10:05 03/11/19 10:05 Problem List - Problems (1) Hyponatremia Code(s): E87.1 - HYPO-OSMOLALITY AND HYPONATREMIA (2) Pancreatic cancer Code(s): C25.9 - MALIGNANT NEOPLASM OF PANCREAS, UNSPECIFIED (3) Diabetes mellitus Code(s): E11.9 - TYPE 2 DIABETES MELLITUS WITHOUT COMPLICATIONS Qualifiers: Diabetes mellitus type: type 2 Diabetes mellitus superintendent terminal insulin use: unspecified superintendent terminal insulin use status Diabetes mellitus complication status : without complication Qualified Code(s): E11.9 - Type 2 diabetes mellitus without complications (4) Hyperglycemia Code(s): R73.9 - HYPERGLYCEMIA, UNSPECIFIED Assessment/Plan AP; Pancreatic Ca T2DM Hyponatremia Hyperglycemia sec to steroids she got yesterday BGM QACHS and 3 AM Novolog SS coverage Will f/u
--- NOTE | 2019-03-12 12:53 | PN ---
Progress Note (short form) - Note Progress Note: comfortable got port/ chemo yesterday denies pain all f/u/ consult noted Vital Signs Temp 97.8 F 03/12/19 05:00 Pulse 80 03/12/19 05:00 Resp 18 03/12/19 05:00 BP 135/69 03/12/19 05:00 Pulse Ox 97 03/11/19 21:00 Intake & Output 03/11/19 03/12/19 03/12/19 23:59 11:59 23:59 Intake Total 640 200 Balance 640 200 Weight 124 lb 124 lb Intake: IV 640 D5-Ns - 1,000 ml @ 75 mls 300 /hr IV ASDIR [facility] Rx#: [id number] Oral 200 Other: Voiding Method Toilet Toilet # Unmeasured Voids Void 1 Bowel Movement No Height 5 ft 5 ft Body Mass Index (BMI) 24.2 24.2 Active Medications Acetaminophen (Tylenol -) 650 mg PO Q6H PRN PRN Reason: PAIN LEVEL 4 - 6 Last Admin: 03/11/19 21:26 Dose: 650 mg Al Hydroxide/Mg Hydroxide (Mylanta Oral Suspension -) 30 ml PO Q6H PRN PRN Reason: INDIGESTION Last Admin: 03/10/19 14:16 Dose: 30 ml Amlodipine Besylate (Norvasc -) 10 mg PO DAILY [facility] Last Admin: 03/12/19 10:27 Dose: 10 mg Atorvastatin Calcium (Lipitor -) 20 mg PO [facility] Last Admin: 03/11/19 21:24 Dose: 20 mg Bisacodyl (Dulcolax -) 5 mg PO DAILY [facility] Last Admin: 03/12/19 10:27 Dose: 5 mg Cholecalciferol (Vitamin D3 -) 1,000 unit PO DAILY [facility] Last Admin: 03/12/19 10:27 Dose: 1,000 unit Dorzolamide HCl (Trusopt 2%) 1 drop OU BID [facility] Last Admin: 03/12/19 10:29 Dose: 1 drop Dextrose/Sodium Chloride (D5-Ns -) 1,000 mls @ 75 mls/hr IV ASDIR [facility] Last Admin: 03/12/19 06:07 Dose: 75 mls/hr Sodium Chloride (Normal Saline -) 1,000 mls @ 60 mls/hr IV ASDIR JOHN Stop: 03/13/19 11:42 Last Admin: 03/12/19 12:03 Dose: 60 mls/hr Insulin Aspart (Novolog Vial Sliding Scale -) 1 vial SQ TIDAC [facility]; Protocol Last Admin: 03/12/19 12:00 Dose: 12 units Latanoprost (Xalatan 0.005% Eye Drops -) 1 drop OU DAILY [facility] Last Admin: 03/12/19 10:28 Dose: 1 drop Levothyroxine Sodium (Synthroid -) 25 mcg PO AM [facility] Last Admin: 03/12/19 05:59 Dose: 25 mcg Lisinopril (Prinivil) 40 mg PO DAILY [facility] Last Admin: 03/12/19 10:27 Dose: 40 mg Pantoprazole Sodium (Protonix -) 40 mg PO DAILY [facility] Last Admin: 03/12/19 10:27 Dose: 40 mg Polyethylene Glycol (Miralax (For Daily Use) -) 17 gm PO DAILY [facility] Last Admin: 03/12/19 10:27 Dose: 17 gm Timolol Maleate (Timoptic 0.5%) 1 drop OU BID [facility] Last Admin: 03/12/19 10:28 Dose: 1 drop CBC, BMP 03/11/19 10:05 03/11/19 10:05 Microbiology 03/09/19 10:24 Blood Culture - Preliminary Blood - Peripheral Venous NO GROWTH OBTAINED AFTER 72 HOURS, INCUBATION TO CONTINUE FOR 2 DAYS. 03/09/19 10:24 Blood Culture - Preliminary Blood - Peripheral Venous NO GROWTH OBTAINED AFTER 72 HOURS, INCUBATION TO CONTINUE FOR 2 DAYS. Physical Examination Constitutional: Yes: No Distress, Comfortable Eyes: Yes: Conjunctiva Clear Neck: Yes: Supple. no jvd Cardiovascular: Yes: Regular Rate and Rhythm Respiratory: Yes: CTA Bilaterally Gastrointestinal: Yes: Soft, non tender) Edema: No Neurological: Yes: Alert Psychiatric: Yes: Alert Imaging - Results Chest X-ray: Report Reviewed EKG: Report Reviewed Assessment/Plan Comfortable agree with d/c abx cultures -ve so far monitor bgm no basal insulin per endo for now continue present care will follow Problem List - Problems (1) Pancreatic cancer Code(s): C25.9 - MALIGNANT NEOPLASM OF PANCREAS, UNSPECIFIED (2) Hyponatremia Code(s): E87.1 - HYPO-OSMOLALITY AND HYPONATREMIA (3) Leukocytosis Code(s): D72.829 - ELEVATED WHITE BLOOD CELL COUNT, UNSPECIFIED Qualifiers: Leukocytosis type: unspecified Qualified Code(s): D72.829 - Elevated white blood cell count, unspecified (4) Nausea Code(s): R11.0 - NAUSEA (5) Diabetes mellitus Code(s): E11.9 - TYPE 2 DIABETES MELLITUS WITHOUT COMPLICATIONS Qualifiers: Diabetes mellitus type: type 2 Diabetes mellitus fci insulin use: unspecified fci insulin use status Diabetes mellitus complication status : without complication Qualified Code(s): E11.9 - Type 2 diabetes mellitus without complications (6) Coagulopathy Code(s): D68.9 - COAGULATION DEFECT, UNSPECIFIED
[2019-03-12] MEDS: DOCUSATE SODIUM 100 MG CAPSULE (FP) PO PRN ×2 (13:29→21:46)
[2019-03-12] MEDS: ATORVASTATIN CA 20 MG TABLET (FP) PO SCH (21:46)
[2019-03-12] MEDS ORDERED: INSULIN (LEVEMIR) 100 UNITS/ML UNITS SQ SCH (22:00)
--- NOTE | 2019-03-12 22:54 | PN ---
Progress Note, Physician History of Present Illness: Denies nausea today, able to eat - Current Medication List Current Medications: Active Medications Acetaminophen (Tylenol -) 650 mg PO Q6H PRN PRN Reason: PAIN LEVEL 4 - 6 Last Admin: 03/11/19 21:26 Dose: 650 mg Al Hydroxide/Mg Hydroxide (Mylanta Oral Suspension -) 30 ml PO Q6H PRN PRN Reason: INDIGESTION Last Admin: 03/10/19 14:16 Dose: 30 ml Amlodipine Besylate (Norvasc -) 10 mg PO DAILY [facility] Last Admin: 03/12/19 10:27 Dose: 10 mg Atorvastatin Calcium (Lipitor -) 20 mg PO HS [facility] Last Admin: 03/12/19 21:46 Dose: 20 mg Bisacodyl (Dulcolax -) 5 mg PO DAILY [facility] Last Admin: 03/12/19 10:27 Dose: 5 mg Cholecalciferol (Vitamin D3 -) 1,000 unit PO DAILY [facility] Last Admin: 03/12/19 10:27 Dose: 1,000 unit Docusate Sodium (Colace -) 100 mg PO BID PRN PRN Reason: CONSTIPATION Last Admin: 03/12/19 21:46 Dose: 100 mg Dorzolamide HCl (Trusopt 2%) 1 drop OU BID [facility] Last Admin: 03/12/19 21:48 Dose: 1 drop Dextrose/Sodium Chloride (D5-Ns -) 1,000 mls @ 75 mls/hr IV ASDIR [facility] Last Admin: 03/12/19 13:27 Dose: Not Given Sodium Chloride (Normal Saline -) 1,000 mls @ 60 mls/hr IV ASDIR [facility] Stop: 03/13/19 11:42 Last Admin: 03/12/19 12:03 Dose: 60 mls/hr Insulin Aspart (Novolog Vial Sliding Scale -) 1 vial SQ TIDAC [facility]; Protocol Last Admin: 03/12/19 17:25 Dose: 12 units Latanoprost (Xalatan 0.005% Eye Drops -) 1 drop OU DAILY [facility] Last Admin: 03/12/19 10:28 Dose: 1 drop Levothyroxine Sodium (Synthroid -) 25 mcg PO AM [facility] Last Admin: 03/12/19 05:59 Dose: 25 mcg Lisinopril (Prinivil) 40 mg PO DAILY [facility] Last Admin: 03/12/19 10:27 Dose: 40 mg Pantoprazole Sodium (Protonix -) 40 mg PO DAILY [facility] Last Admin: 03/12/19 10:27 Dose: 40 mg Polyethylene Glycol (Miralax (For Daily Use) -) 17 gm PO DAILY [facility] Last Admin: 03/12/19 10:27 Dose: 17 gm Timolol Maleate (Timoptic 0.5%) 1 drop OU BID [facility] Last Admin: 03/12/19 21:47 Dose: 1 drop - Objective Vital Signs: Vital Signs Temperature 98.2 F 03/12/19 13:57 Pulse Rate 78 03/12/19 13:57 Respiratory Rate 20 03/12/19 13:57 Blood Pressure 127/51 L 03/12/19 13:57 O2 Sat by Pulse Oximetry (%) 97 03/12/19 09:00 Constitutional: Yes: No Distress Eyes: Yes: Conjunctiva Clear Cardiovascular: Yes: Regular Rate and Rhythm Respiratory: Yes: CTA Bilaterally Gastrointestinal: Yes: Soft. No: Palpable Mass, Tenderness Edema: No Labs: CBC, BMP 03/11/19 10:05 03/11/19 10:05 INR, PTT INR 1.34 (0.83-1.09) H 03/11/19 10:05 Fibrinogen 440.0 mg/dL (238-498) 03/10/19 17:00 Assessment/Plan 83F with metastatic pancreatic cancer with extensive liver mets admitted with hyponatremia. S/p gemcitabine/abraxane yesterday. Doing better today. Monitoring NA. Nephro/endo following. Check coags tomorrow.
[2019-03-13] MEDS: SODIUM CHLORIDE 1,000 ML IV SCH (05:48)
[2019-03-13] MEDS: INSULIN SLIDING SCALE (NOVOLOG) 1 VIAL SQ SCH ×4 (06:09→21:38)
[2019-03-13] MEDS: LEVOTHYROXINE NA 25 MCG TABLET (FP) PO SCH (06:09)
--- NOTE | 2019-03-13 09:15 | PN ---
Progress Note (short form) - Note Progress Note: RENAL Pt denies complaints had breakfast no nausea or vomiting Last Vital Signs Temp Pulse Resp BP Pulse Ox 98.6 F 81 18 128/50 L 98 03/13/19 05:00 03/13/19 05:00 03/13/19 05:00 03/13/19 05:00 03/12/19 21:00 lungs clear cvs s1s2 rr abd soft ext no edema neuro a+ox3 CBC, BMP 03/11/19 10:05 Current Medications Generic Name Dose Route Start Last Admin Trade Name Freq PRN Reason Stop Dose Admin Acetaminophen 650 mg 03/10/19 22:05 03/11/19 21:26 Tylenol - PO 650 mg Q6H PRN Administration PAIN LEVEL 4 - 6 Al Hydroxide/Mg Hydroxide 30 ml 03/10/19 13:45 03/10/19 14:16 Mylanta Oral Suspension - PO 30 ml Q6H PRN Administration INDIGESTION Amlodipine Besylate 10 mg 03/10/19 10:00 03/12/19 10:27 Norvasc - PO 10 mg DAILY JOHN Administration Atorvastatin Calcium 20 mg 03/09/19 22:00 03/12/19 21:46 Lipitor - PO 20 mg HS JOHN Administration Bisacodyl 5 mg 03/10/19 10:00 03/12/19 10:27 Dulcolax - PO 5 mg DAILY JOHN Administration Cholecalciferol 1,000 unit 03/10/19 10:00 03/12/19 10:27 Vitamin D3 - PO 1,000 unit DAILY JOHN Administration Docusate Sodium 100 mg 03/12/19 13:06 03/12/19 21:46 Colace - PO 100 mg BID PRN Administration CONSTIPATION Dorzolamide HCl 1 drop 03/09/19 22:00 03/12/19 21:48 Trusopt 2% OU 1 drop BID JOHN Administration Dextrose/Sodium Chloride 1,000 mls @ 75 mls/hr 03/11/19 13:15 03/12/19 13:27 D5-Ns - IV Not Given ASDIR JOHN Sodium Chloride 1,000 mls @ 60 mls/hr 03/12/19 11:45 03/13/19 05:48 Normal Saline - IV 03/13/19 11:42 60 mls/hr ASDIR JOHN Administration Insulin Aspart 1 vial 03/09/19 16:30 03/13/19 06:09 Novolog Vial Sliding Scale - SQ 9 units TIDAC JOHN Administration Protocol Latanoprost 1 drop 03/10/19 10:00 03/12/19 10:28 Xalatan 0.005% Eye Drops - OU 1 drop DAILY JOHN Administration Levothyroxine Sodium 25 mcg 03/10/19 07:00 03/13/19 06:09 Synthroid - PO 25 mcg AM JOHN Administration Lisinopril 40 mg 03/10/19 10:00 03/12/19 10:27 Prinivil PO 40 mg DAILY JOHN Administration Pantoprazole Sodium 40 mg 03/10/19 10:00 03/12/19 10:27 Protonix - PO 40 mg DAILY JOHN Administration Polyethylene Glycol 17 gm 03/10/19 14:15 03/12/19 10:27 Miralax (For Daily Use) - PO 17 gm DAILY JOHN Administration Timolol Maleate 1 drop 03/09/19 22:00 03/12/19 21:47 Timoptic 0.5% OU 1 drop BID JOHN Administration IMPRESSION recurrent hyponatremia in patient with history of pancreatic ca with mets to liver and nausea/vomiting. Nausea and vomiting alone a re reasons for her to have hyponatremia. That in addition to decreased appetite and hypothyroidism and can result in hyponatremia. She is better now though PLAN await cortisol repeat BMP ordered continue saline MV
[2019-03-13] MEDS: ACETAMINOPHEN 325 MG TABLET (FP) PO PRN (11:06)
[2019-03-13] MEDS: PANTOPRAZOLE 40 MG TABLET (FP) PO SCH (11:06)
[2019-03-13] MEDS: BISACODYL 5 MG TABLET.DR (FP) PO SCH (11:07)
[2019-03-13] MEDS: DOCUSATE SODIUM 100 MG CAPSULE (FP) PO PRN (11:07)
[2019-03-13] MEDS: CHOLECALCIFEROL (VIT D3) 1,000 UNIT (25 MCG) TABLET PO SCH (11:07)
[2019-03-13] MEDS: LISINOPRIL 20 MG TABLET (FP) PO SCH (11:07)
[2019-03-13] MEDS: amLODIPine BESYLATE 10 MG TABLET (FP) PO SCH (11:07)
[2019-03-13] MEDS: TIMOLOL 0.5% OPHTHALMIC SOL 5 ML BOTTLE OU SCH ×2 (11:07→21:39)
[2019-03-13] MEDS: LATANOPROST 0.005% OPHTH SOLN 2.5ML BOTTLE OU SCH (11:08)
[2019-03-13] MEDS: DORZOLAMIDE 2% HCL OPHTHALMIC SOLUTION 10 ML BOTTLE OU SCH ×2 (11:08→21:40)
[2019-03-13] MEDS: POLYETHYLENE GLYCOL 3350 119 GM BTL PO SCH (11:08)
[2019-03-13] MEDS ORDERED: INSULIN (NOVOLOG) ASPART 100 UNITS/ML 10ML VIAL ONE (11:14)
[2019-03-13] MEDS: ONDANSETRON 4 MG/2 ML VIAL IVPB PRN (11:21)
--- NOTE | 2019-03-13 12:51 | PN ---
Progress Note (short form) - Note Progress Note: C/o feeling feverish, nausea Temp 100 Vital Signs Period Temp Pulse Resp BP Sys/Miller Pulse Ox Last 24 Hr 98.2 F-98.6 F 78-86 18-20 127-136/50-57 98 PE: AOx3 Neck: Supple, No JVD HEENT: EOMI Lungs: CTA CVS: S1S2 Abd: Benign EXt: No edema Neuro: No focal deficit CMP Sodium 129 mmol/L (136-145) L 03/11/19 10:05 Potassium 4.4 mmol/L (3.5-5.1) 03/11/19 10:05 Chloride 96 mmol/L (98-107) L 03/11/19 10:05 Carbon Dioxide 28 mmol/L (21-32) 03/11/19 10:05 Anion Gap 5 MMOL/L (8-16) L 03/11/19 10:05 BUN 7.5 mg/dL (7-18) 03/11/19 10:05 Creatinine 0.4 mg/dL (0.55-1.3) L 03/11/19 10:05 Est GFR (CKD-EPI)AfAm 113.21 03/11/19 10:05 Est GFR (CKD-EPI)NonAf 97.68 03/11/19 10:05 POC Glucometer 294 UNITS (80-120) 03/13/19 11:05 Random Glucose 61 mg/dL (74-106) L 03/11/19 10:05 Hemoglobin A1c % 10.0 % (4.2-6.3) H 03/11/19 10:05 Serum Osmolality 290 mosm/kg (278-305) 03/12/19 10:45 Calcium 8.6 mg/dL (8.5-10.1) 03/11/19 10:05 Total Bilirubin 0.9 mg/dL (0.2-1) 03/11/19 10:05 AST 42 U/L (15-37) H 03/11/19 10:05 ALT 30 U/L (13-61) 03/11/19 10:05 Alkaline Phosphatase 280 U/L (45-117) H 03/11/19 10:05 Troponin I < 0.02 ng/ml (0.00-0.05) 03/09/19 05:42 Total Protein 6.5 g/dl (6.4-8.2) 03/11/19 10:05 Albumin 2.6 g/dl (3.4-5.0) L 03/11/19 10:05 Total Amylase 33 U/L (25-115) 03/10/19 06:16 Lipase 98 U/L (73-393) 03/10/19 06:16 TSH 4.66 uIU/ml (0.358-3.74) H 03/10/19 06:16 Current Medications Generic Name Dose Route Start Last Admin Trade Name Freq PRN Reason Stop Dose Admin Acetaminophen 650 mg 03/10/19 22:05 03/13/19 11:06 Tylenol - PO 650 mg Q6H PRN Administration PAIN LEVEL 4 - 6 Al Hydroxide/Mg Hydroxide 30 ml 03/10/19 13:45 03/10/19 14:16 Mylanta Oral Suspension - PO 30 ml Q6H PRN Administration INDIGESTION Amlodipine Besylate 10 mg 03/10/19 10:00 03/13/19 11:07 Norvasc - PO 10 mg DAILY JOHN Administration Atorvastatin Calcium 20 mg 03/09/19 22:00 03/12/19 21:46 Lipitor - PO 20 mg HS JOHN Administration Bisacodyl 5 mg 03/10/19 10:00 03/13/19 11:07 Dulcolax - PO 5 mg DAILY JOHN Administration Cholecalciferol 1,000 unit 03/10/19 10:00 03/13/19 11:07 Vitamin D3 - PO 1,000 unit DAILY JOHN Administration Docusate Sodium 100 mg 03/12/19 13:06 03/13/19 11:07 Colace - PO 100 mg BID PRN Administration CONSTIPATION Dorzolamide HCl 1 drop 03/09/19 22:00 03/13/19 11:08 Trusopt 2% OU 1 drop BID JOHN Administration Dextrose/Sodium Chloride 1,000 mls @ 75 mls/hr 03/11/19 13:15 03/12/19 13:27 D5-Ns - IV Not Given ASDIR [facility] Insulin Aspart 0 units 03/13/19 22:00 Novolog SQ HS [facility] Protocol Insulin Aspart 1 vial 03/13/19 12:48 Novolog Vial Sliding Scale - SQ TIDAC [facility] Protocol Latanoprost 1 drop 03/10/19 10:00 03/13/19 11:08 Xalatan 0.005% Eye Drops - OU 1 drop DAILY JOHN Administration Levothyroxine Sodium 25 mcg 03/10/19 07:00 03/13/19 06:09 Synthroid - PO 25 mcg AM JOHN Administration Lisinopril 40 mg 03/10/19 10:00 03/13/19 11:07 Prinivil PO 40 mg DAILY JOHN Administration Ondansetron HCl 8 mg 03/13/19 11:11 03/13/19 11:21 Zofran Injection IVPB 8 mg Q12H PRN Administration NAUSEA AND/OR VOMITING Pantoprazole Sodium 40 mg 03/10/19 10:00 03/13/19 11:06 Protonix - PO 40 mg DAILY JOHN Administration Polyethylene Glycol 17 gm 03/10/19 14:15 03/13/19 11:08 Miralax (For Daily Use) - PO 17 gm DAILY JOHN Administration Timolol Maleate 1 drop 03/09/19 22:00 03/13/19 11:07 Timoptic 0.5% OU 1 drop BID JOHN Administration AP; Pancreatic Ca T2DM>:> A1c 10 Hyponatremia Hyperglycemia sec to steroids she got two days ago BGM QACHS and 3 AM Increase Novolog SS coverage Will f/u Problem List - Problems (1) Hyponatremia Code(s): E87.1 - HYPO-OSMOLALITY AND HYPONATREMIA (2) Pancreatic cancer Code(s): C25.9 - MALIGNANT NEOPLASM OF PANCREAS, UNSPECIFIED (3) Diabetes mellitus Code(s): E11.9 - TYPE 2 DIABETES MELLITUS WITHOUT COMPLICATIONS Qualifiers: Diabetes mellitus type: type 2 Diabetes mellitus assisted insulin use: unspecified assisted insulin use status Diabetes mellitus complication status : without complication Qualified Code(s): E11.9 - Type 2 diabetes mellitus without complications (4) Hyperglycemia Code(s): R73.9 - HYPERGLYCEMIA, UNSPECIFIED
[2019-03-13] MEDS ORDERED: PORTA CATH FLUSH 10 ML IVPUSH PRN (13:33)
--- NOTE | 2019-03-13 14:10 | PN ---
Progress Note (short form) - Note Progress Note: feels weak / nauseated today -- 2 to chemo got zofron low grade temp Vital Signs Temp 100.0 F H 03/13/19 11:00 Pulse 98 H 03/13/19 11:00 Resp 18 03/13/19 11:00 BP 157/75 03/13/19 11:00 Pulse Ox 98 03/13/19 09:00 Intake & Output 03/12/19 03/13/19 03/13/19 23:59 11:59 23:59 Intake Total 440 480 Balance 440 480 Intake: IV 240 480 saline lock 240 480 Oral 200 Other: Voiding Method Toilet Toilet # Unmeasured Voids Void 2 Bowel Movement Yes # Bowel Movements 1 Active Medications Acetaminophen (Tylenol -) 650 mg PO Q6H PRN PRN Reason: PAIN LEVEL 4 - 6 Last Admin: 03/13/19 11:06 Dose: 650 mg Al Hydroxide/Mg Hydroxide (Mylanta Oral Suspension -) 30 ml PO Q6H PRN PRN Reason: INDIGESTION Last Admin: 03/10/19 14:16 Dose: 30 ml Amlodipine Besylate (Norvasc -) 10 mg PO DAILY [facility] Last Admin: 03/13/19 11:07 Dose: 10 mg Atorvastatin Calcium (Lipitor -) 20 mg PO HS [facility] Last Admin: 03/12/19 21:46 Dose: 20 mg Bisacodyl (Dulcolax -) 5 mg PO DAILY [facility] Last Admin: 03/13/19 11:07 Dose: 5 mg Cholecalciferol (Vitamin D3 -) 1,000 unit PO DAILY [facility] Last Admin: 03/13/19 11:07 Dose: 1,000 unit Docusate Sodium (Colace -) 100 mg PO BID PRN PRN Reason: CONSTIPATION Last Admin: 03/13/19 11:07 Dose: 100 mg Dorzolamide HCl (Trusopt 2%) 1 drop OU BID [facility] Last Admin: 03/13/19 11:08 Dose: 1 drop IV Flush (Tripp-Cath Flush) 10 ml IVPUSH PRN PRN PRN Reason: FLUSH Dextrose/Sodium Chloride (D5-Ns -) 1,000 mls @ 75 mls/hr IV ASDIR [facility] Last Admin: 03/12/19 13:27 Dose: Not Given Insulin Aspart (Novolog Vial Sliding Scale -) 1 vial SQ HS JOHN; Protocol Insulin Aspart (Novolog Vial Sliding Scale -) 1 vial SQ TIDAC JOHN; Protocol Latanoprost (Xalatan 0.005% Eye Drops -) 1 drop OU DAILY JOHN Last Admin: 03/13/19 11:08 Dose: 1 drop Levothyroxine Sodium (Synthroid -) 25 mcg PO AM JOHN Last Admin: 03/13/19 06:09 Dose: 25 mcg Lisinopril (Prinivil) 40 mg PO DAILY JOHN Last Admin: 03/13/19 11:07 Dose: 40 mg Ondansetron HCl (Zofran Injection) 8 mg IVPB Q12H PRN PRN Reason: NAUSEA AND/OR VOMITING Last Admin: 03/13/19 11:21 Dose: 8 mg Pantoprazole Sodium (Protonix -) 40 mg PO DAILY JOHN Last Admin: 03/13/19 11:06 Dose: 40 mg Polyethylene Glycol (Miralax (For Daily Use) -) 17 gm PO DAILY JOHN Last Admin: 03/13/19 11:08 Dose: 17 gm Timolol Maleate (Timoptic 0.5%) 1 drop OU BID JOHN Last Admin: 03/13/19 11:07 Dose: 1 drop CBC, BMP 03/11/19 10:05 Todays Lab -- Pending Physical Examination Constitutional: Yes: No Distress, weak. Eyes: Yes: Conjunctiva Clear Neck: Yes: Supple. no jvd Cardiovascular: Yes: Regular Rate and Rhythm Respiratory: Yes: CTA Bilaterally Gastrointestinal: Yes: Soft, non tender) Edema: No Neurological: Yes: Alert Psychiatric: Yes: Alert Imaging - Results Chest X-ray: Report Reviewed EKG: Report Reviewed Assessment/Plan discussed pts grand daughter at bedside continue present care f/u labs will follow. Problem List - Problems (1) Pancreatic cancer Code(s): C25.9 - MALIGNANT NEOPLASM OF PANCREAS, UNSPECIFIED (2) Hyponatremia Code(s): E87.1 - HYPO-OSMOLALITY AND HYPONATREMIA (3) Leukocytosis Code(s): D72.829 - ELEVATED WHITE BLOOD CELL COUNT, UNSPECIFIED Qualifiers: Leukocytosis type: unspecified Qualified Code(s): D72.829 - Elevated white blood cell count, unspecified (4) Nausea Code(s): R11.0 - NAUSEA (5) Diabetes mellitus Code(s): E11.9 - TYPE 2 DIABETES MELLITUS WITHOUT COMPLICATIONS Qualifiers: Diabetes mellitus type: type 2 Diabetes mellitus group home insulin use: unspecified terminologist insulin use status Diabetes mellitus complication status : without complication Qualified Code(s): E11.9 - Type 2 diabetes mellitus without complications (6) Coagulopathy Code(s): D68.9 - COAGULATION DEFECT, UNSPECIFIED
[2019-03-13 14:45] LABS: ALBUMIN 2.2 g/dl (3.4-5.0); BILIRUBIN,TOTAL 0.5 mg/dL (0.2-1); BLOOD UREA NITROGEN 15.4 mg/dL (7-18); CALCIUM 7.5 mg/dL (8.5-10.1); CREATININE 0.6 mg/dL (0.55-1.3); POTASSIUM 4.2 mmol/L (3.5-5.1); TOT PROT 5.8 g/dl (6.4-8.2)
[2019-03-13] MEDS: DEXTROSE 5%-NORMAL SALINE 1,000 ML IV SCH (18:47)
--- NOTE | 2019-03-13 19:14 | PN ---
Progress Note, Physician History of Present Illness: In solarium with family. Endorses nausea and fullness after eating. - Current Medication List Current Medications: Active Medications Acetaminophen (Tylenol -) 650 mg PO Q6H PRN PRN Reason: PAIN LEVEL 4 - 6 Last Admin: 03/13/19 11:06 Dose: 650 mg Al Hydroxide/Mg Hydroxide (Mylanta Oral Suspension -) 30 ml PO Q6H PRN PRN Reason: INDIGESTION Last Admin: 03/10/19 14:16 Dose: 30 ml Amlodipine Besylate (Norvasc -) 10 mg PO DAILY [facility] Last Admin: 03/13/19 11:07 Dose: 10 mg Atorvastatin Calcium (Lipitor -) 20 mg PO HS [facility] Last Admin: 03/12/19 21:46 Dose: 20 mg Bisacodyl (Dulcolax -) 5 mg PO DAILY [facility] Last Admin: 03/13/19 11:07 Dose: 5 mg Cholecalciferol (Vitamin D3 -) 1,000 unit PO DAILY [facility] Last Admin: 03/13/19 11:07 Dose: 1,000 unit Docusate Sodium (Colace -) 100 mg PO BID PRN PRN Reason: CONSTIPATION Last Admin: 03/13/19 11:07 Dose: 100 mg Dorzolamide HCl (Trusopt 2%) 1 drop OU BID [facility] Last Admin: 03/13/19 11:08 Dose: 1 drop IV Flush (Tripp-Cath Flush) 10 ml IVPUSH PRN PRN PRN Reason: FLUSH Dextrose/Sodium Chloride (D5-Ns -) 1,000 mls @ 75 mls/hr IV ASDIR [facility] Last Admin: 03/13/19 18:47 Dose: Not Given Insulin Aspart (Novolog Vial Sliding Scale -) 1 vial SQ HS [facility]; Protocol Insulin Aspart (Novolog Vial Sliding Scale -) 1 vial SQ TIDAC [facility]; Protocol Last Admin: 03/13/19 18:47 Dose: 9 units Latanoprost (Xalatan 0.005% Eye Drops -) 1 drop OU DAILY [facility] Last Admin: 03/13/19 11:08 Dose: 1 drop Levothyroxine Sodium (Synthroid -) 25 mcg PO AM [facility] Last Admin: 03/13/19 06:09 Dose: 25 mcg Lisinopril (Prinivil) 40 mg PO DAILY [facility] Last Admin: 03/13/19 11:07 Dose: 40 mg Ondansetron HCl (Zofran Injection) 8 mg IVPB Q12H PRN PRN Reason: NAUSEA AND/OR VOMITING Last Admin: 03/13/19 11:21 Dose: 8 mg Pantoprazole Sodium (Protonix -) 40 mg PO DAILY [facility] Last Admin: 03/13/19 11:06 Dose: 40 mg Polyethylene Glycol (Miralax (For Daily Use) -) 17 gm PO DAILY [facility] Last Admin: 03/13/19 11:08 Dose: 17 gm Timolol Maleate (Timoptic 0.5%) 1 drop OU BID [facility] Last Admin: 03/13/19 11:07 Dose: 1 drop - Objective Vital Signs: Vital Signs Temperature 99.6 F 03/13/19 14:27 Pulse Rate 94 H 03/13/19 14:27 Respiratory Rate 20 03/13/19 14:27 Blood Pressure 144/71 03/13/19 14:27 O2 Sat by Pulse Oximetry (%) 98 03/13/19 09:00 Constitutional: Yes: No Distress, Calm Eyes: Yes: Conjunctiva Clear Edema: No Labs: CBC, BMP 03/11/19 10:05 03/13/19 12:50 INR, PTT INR 1.34 (0.83-1.09) H 03/11/19 10:05 Fibrinogen 440.0 mg/dL (238-498) 03/10/19 17:00 Assessment/Plan 83F with metastatic pancreatic cancer with extensive liver mets admitted with hyponatremia. S/p gemcitabine/abraxane on 03/12/19.Na better. Nephro/endo following. Check coags tomorrow.
[2019-03-13] MEDS: ATORVASTATIN CA 20 MG TABLET (FP) PO SCH (21:38)
[2019-03-14] MEDS: ONDANSETRON 4 MG/2 ML VIAL IVPB PRN ×2 (00:54→16:25)
[2019-03-14] MEDS: INSULIN SLIDING SCALE (NOVOLOG) 1 VIAL SQ SCH ×4 (06:19→22:26)
[2019-03-14] MEDS: LEVOTHYROXINE NA 25 MCG TABLET (FP) PO SCH (06:21)
--- NOTE | 2019-03-14 09:20 | PN ---
Progress Note (short form) - Note Progress Note: pt seen/ examined feels better all f/u noted eating well Vital Signs Temp 98.2 F 03/14/19 06:00 Pulse 87 03/14/19 06:00 Resp 18 03/14/19 06:00 BP 132/54 L 03/14/19 06:00 Pulse Ox 95 03/13/19 21:00 Intake & Output 03/13/19 03/13/19 03/14/19 11:59 23:59 11:59 Intake Total 480 270 Balance 480 270 Intake: IV 480 saline lock 480 Oral 270 Other: Voiding Method Toilet Toilet # Unmeasured Voids Void 2 Bowel Movement Yes Yes # Bowel Movements 1 1 Active Medications Acetaminophen (Tylenol -) 650 mg PO Q6H PRN PRN Reason: PAIN LEVEL 4 - 6 Last Admin: 03/13/19 11:06 Dose: 650 mg Al Hydroxide/Mg Hydroxide (Mylanta Oral Suspension -) 30 ml PO Q6H PRN PRN Reason: INDIGESTION Last Admin: 03/10/19 14:16 Dose: 30 ml Amlodipine Besylate (Norvasc -) 10 mg PO DAILY [facility] Last Admin: 03/13/19 11:07 Dose: 10 mg Atorvastatin Calcium (Lipitor -) 20 mg PO HS [facility] Last Admin: 03/13/19 21:38 Dose: 20 mg Bisacodyl (Dulcolax -) 5 mg PO DAILY [facility] Last Admin: 03/13/19 11:07 Dose: 5 mg Cholecalciferol (Vitamin D3 -) 1,000 unit PO DAILY [facility] Last Admin: 03/13/19 11:07 Dose: 1,000 unit Docusate Sodium (Colace -) 100 mg PO BID PRN PRN Reason: CONSTIPATION Last Admin: 03/13/19 11:07 Dose: 100 mg Dorzolamide HCl (Trusopt 2%) 1 drop OU BID [facility] Last Admin: 03/13/19 21:40 Dose: 1 drop IV Flush (Tripp-Cath Flush) 10 ml IVPUSH PRN PRN PRN Reason: FLUSH Insulin Aspart (Novolog Vial Sliding Scale -) 1 vial SQ HS [facility]; Protocol Last Admin: 03/13/19 21:38 Dose: 4 units Insulin Aspart (Novolog Vial Sliding Scale -) 1 vial SQ TIDAC [facility]; Protocol Last Admin: 03/14/19 06:19 Dose: 3 units Latanoprost (Xalatan 0.005% Eye Drops -) 1 drop OU DAILY [facility] Last Admin: 03/13/19 11:08 Dose: 1 drop Levothyroxine Sodium (Synthroid -) 25 mcg PO AM [facility] Last Admin: 03/14/19 06:21 Dose: 25 mcg Lisinopril (Prinivil) 40 mg PO DAILY [facility] Last Admin: 03/13/19 11:07 Dose: 40 mg Ondansetron HCl (Zofran Injection) 8 mg IVPB Q12H PRN PRN Reason: NAUSEA AND/OR VOMITING Last Admin: 03/14/19 00:54 Dose: 8 mg Pantoprazole Sodium (Protonix -) 40 mg PO DAILY [facility] Last Admin: 03/13/19 11:06 Dose: 40 mg Polyethylene Glycol (Miralax (For Daily Use) -) 17 gm PO DAILY [facility] Last Admin: 03/13/19 11:08 Dose: 17 gm Timolol Maleate (Timoptic 0.5%) 1 drop OU BID [facility] Last Admin: 03/13/19 21:39 Dose: 1 drop CBC, BMP 03/11/19 10:05 03/13/19 12:50 INR, PTT INR 1.34 (0.83-1.09) H 03/11/19 10:05 Fibrinogen 440.0 mg/dL (238-498) 03/10/19 17:00 Physical Examination Constitutional: Yes: No Distress,comfortable Eyes: Yes: Conjunctiva Clear Neck: Yes: Supple. no jvd Cardiovascular: Yes: Regular Rate and Rhythm Respiratory: Yes: CTA Bilaterally Gastrointestinal: Yes: Soft, non tender) Edema: No Neurological: Yes: Alert Psychiatric: Yes: Alert Imaging - Results Chest X-ray: Report Reviewed EKG: Report Reviewed Assessment/Plan discussed better continue present care f/u labs-- ordered for today d/c fluids bgm better d/c planning likely later today or tomorrow endo and oncology to follow will follow. Problem List - Problems (1) Pancreatic cancer Code(s): C25.9 - MALIGNANT NEOPLASM OF PANCREAS, UNSPECIFIED (2) Hyponatremia Code(s): E87.1 - HYPO-OSMOLALITY AND HYPONATREMIA (3) Leukocytosis Code(s): D72.829 - ELEVATED WHITE BLOOD CELL COUNT, UNSPECIFIED Qualifiers: Leukocytosis type: unspecified Qualified Code(s): D72.829 - Elevated white blood cell count, unspecified (4) Nausea Code(s): R11.0 - NAUSEA (5) Diabetes mellitus Code(s): E11.9 - TYPE 2 DIABETES MELLITUS WITHOUT COMPLICATIONS Qualifiers: Diabetes mellitus type: type 2 Diabetes mellitus fdc insulin use: unspecified rat exterminator insulin use status Diabetes mellitus complication status : without complication Qualified Code(s): E11.9 - Type 2 diabetes mellitus without complications (6) Coagulopathy Code(s): D68.9 - COAGULATION DEFECT, UNSPECIFIED
[2019-03-14] MEDS: PANTOPRAZOLE 40 MG TABLET (FP) PO SCH (10:25)
[2019-03-14] MEDS: DOCUSATE SODIUM 100 MG CAPSULE (FP) PO PRN (10:25)
[2019-03-14] MEDS: CHOLECALCIFEROL (VIT D3) 1,000 UNIT (25 MCG) TABLET PO SCH (10:25)
[2019-03-14] MEDS: LISINOPRIL 20 MG TABLET (FP) PO SCH (10:28)
[2019-03-14] MEDS: POLYETHYLENE GLYCOL 3350 119 GM BTL PO SCH (10:28)
[2019-03-14] MEDS: amLODIPine BESYLATE 10 MG TABLET (FP) PO SCH (10:28)
[2019-03-14] MEDS: BISACODYL 5 MG TABLET.DR (FP) PO SCH (10:29)
[2019-03-14] MEDS: TIMOLOL 0.5% OPHTHALMIC SOL 5 ML BOTTLE OU SCH ×2 (10:30→22:20)
[2019-03-14] MEDS: DORZOLAMIDE 2% HCL OPHTHALMIC SOLUTION 10 ML BOTTLE OU SCH ×2 (10:30→22:20)
[2019-03-14] MEDS: LATANOPROST 0.005% OPHTH SOLN 2.5ML BOTTLE OU SCH (10:31)
[2019-03-14 10:41] LABS: BASO % 0.7 % (0-2.0); EOS % 0.9 % (0-4.5); HEMATOCRIT 26.8 % (32.4-45.2); HEMOGLOBIN 8.7 GM/dL (10.7-15.3); LYMPH % 7.1 % (8-40); MCH 26.6 pg (25.7-33.7); MCHC 32.6 g/dl (32.0-36.0); MEAN CELL VOLUME 81.4 fl (80-96); MEAN PLT VOLUME 10.2 fl (7.5-11.1); MONO % 0.6 % (3.8-10.2); NEUT % 90.7 % (42.8-82.8); PLATELET COUNT 199 K/MM3 (134-434); RBC 3.29 M/mm3 (3.60-5.2); WHITE BLOOD COUNT 22.4 K/mm3 (4.0-10.0)
--- NOTE | 2019-03-14 11:12 | PN ---
Progress Note (short form) - Note Progress Note: Feels good Denies any complaints Vital Signs Period Temp Pulse Resp BP Sys/Miller Pulse Ox Last 24 Hr 98.2 F-99.6 F 81-94 18-20 124-144/53-71 95 PE: AOx3 Neck: Supple, No JVD HEENT: EOMI Lungs: CTA CVS: S1S2 Abd: Benign EXt: No edema Neuro: No focal deficit CMP Sodium 133 mmol/L (136-145) L 03/13/19 12:50 Potassium 4.2 mmol/L (3.5-5.1) 03/13/19 12:50 Chloride 101 mmol/L (98-107) 03/13/19 12:50 Carbon Dioxide 26 mmol/L (21-32) 03/13/19 12:50 Anion Gap 6 MMOL/L (8-16) L 03/13/19 12:50 BUN 15.4 mg/dL (7-18) 03/13/19 12:50 Creatinine 0.6 mg/dL (0.55-1.3) 03/13/19 12:50 Est GFR (CKD-EPI)AfAm 99.07 03/13/19 12:50 Est GFR (CKD-EPI)NonAf 85.48 03/13/19 12:50 POC Glucometer 179 UNITS (80-120) 03/14/19 05:43 Random Glucose 254 mg/dL (74-106) H 03/13/19 12:50 Hemoglobin A1c % 10.0 % (4.2-6.3) H 03/11/19 10:05 Serum Osmolality 290 mosm/kg (278-305) 03/12/19 10:45 Calcium 7.5 mg/dL (8.5-10.1) L 03/13/19 12:50 Total Bilirubin 0.5 mg/dL (0.2-1) 03/13/19 12:50 AST 87 U/L (15-37) H 03/13/19 12:50 ALT 42 U/L (13-61) 03/13/19 12:50 Alkaline Phosphatase 277 U/L (45-117) H 03/13/19 12:50 Troponin I < 0.02 ng/ml (0.00-0.05) 03/09/19 05:42 Total Protein 5.8 g/dl (6.4-8.2) L 03/13/19 12:50 Albumin 2.2 g/dl (3.4-5.0) L 03/13/19 12:50 Total Amylase 33 U/L (25-115) 03/10/19 06:16 Lipase 98 U/L (73-393) 03/10/19 06:16 TSH 4.66 uIU/ml (0.358-3.74) H 03/10/19 06:16 Current Medications Generic Name Dose Route Start Last Admin Trade Name Freq PRN Reason Stop Dose Admin Acetaminophen 650 mg 03/10/19 22:05 03/13/19 11:06 Tylenol - PO 650 mg Q6H PRN Administration PAIN LEVEL 4 - 6 Al Hydroxide/Mg Hydroxide 30 ml 03/10/19 13:45 03/10/19 14:16 Mylanta Oral Suspension - PO 30 ml Q6H PRN Administration INDIGESTION Amlodipine Besylate 10 mg 03/10/19 10:00 03/14/19 10:28 Norvasc - PO 10 mg DAILY JOHN Administration Atorvastatin Calcium 20 mg 03/09/19 22:00 03/13/19 21:38 Lipitor - PO 20 mg HS JOHN Administration Bisacodyl 5 mg 03/10/19 10:00 03/14/19 10:29 Dulcolax - PO Not Given DAILY JOHN Cholecalciferol 1,000 unit 03/10/19 10:00 03/14/19 10:25 Vitamin D3 - PO 1,000 unit DAILY JOHN Administration Docusate Sodium 100 mg 03/12/19 13:06 03/14/19 10:25 Colace - PO 100 mg BID PRN Administration CONSTIPATION Dorzolamide HCl 1 drop 03/09/19 22:00 03/14/19 10:30 Trusopt 2% OU 1 drop BID JOHN Administration IV Flush 10 ml 03/13/19 13:33 Tripp-Cath Flush IVPUSH PRN PRN FLUSH Insulin Aspart 1 vial 03/13/19 22:00 03/13/19 21:38 Novolog Vial Sliding Scale - SQ 4 units HS JOHN Administration Protocol Insulin Aspart 1 vial 03/13/19 12:48 03/14/19 06:19 Novolog Vial Sliding Scale - SQ 3 units TIDAC [facility] Administration Protocol Latanoprost 1 drop 03/10/19 10:00 03/14/19 10:31 Xalatan 0.005% Eye Drops - OU 1 drop DAILY JOHN Administration Levothyroxine Sodium 25 mcg 03/10/19 07:00 03/14/19 06:21 Synthroid - PO 25 mcg AM JOHN Administration Lisinopril 40 mg 03/10/19 10:00 03/14/19 10:28 Prinivil PO 40 mg DAILY JOHN Administration Ondansetron HCl 8 mg 03/13/19 11:11 03/14/19 00:54 Zofran Injection IVPB 8 mg Q12H PRN Administration NAUSEA AND/OR VOMITING Pantoprazole Sodium 40 mg 03/10/19 10:00 03/14/19 10:25 Protonix - PO 40 mg DAILY JOHN Administration Polyethylene Glycol 17 gm 03/10/19 14:15 03/14/19 10:28 Miralax (For Daily Use) - PO Not Given DAILY JOHN Timolol Maleate 1 drop 03/09/19 22:00 03/14/19 10:30 Timoptic 0.5% OU 1 drop BID JOHN Administration AP; Pancreatic Ca T2DM>:> A1c 10 Hyponatremia Hyperglycemia sec to steroids she got 3 days ago Improving blood sugar BGM QACHS and 3 AM Continue Novolog SS coverage Will f/u Problem List - Problems (1) Hyponatremia Code(s): E87.1 - HYPO-OSMOLALITY AND HYPONATREMIA (2) Pancreatic cancer Code(s): C25.9 - MALIGNANT NEOPLASM OF PANCREAS, UNSPECIFIED (3) Diabetes mellitus Code(s): E11.9 - TYPE 2 DIABETES MELLITUS WITHOUT COMPLICATIONS Qualifiers: Diabetes mellitus type: type 2 Diabetes mellitus rodent exterminator insulin use: unspecified rodent exterminator insulin use status Diabetes mellitus complication status : without complication Qualified Code(s): E11.9 - Type 2 diabetes mellitus without complications (4) Hyperglycemia Code(s): R73.9 - HYPERGLYCEMIA, UNSPECIFIED
[2019-03-14 11:19] LABS: ALBUMIN 2.1 g/dl (3.4-5.0); BILIRUBIN,TOTAL 1.2 mg/dL (0.2-1); BLOOD UREA NITROGEN 17.6 mg/dL (7-18); CALCIUM 7.4 mg/dL (8.5-10.1); CREATININE 0.6 mg/dL (0.55-1.3); POTASSIUM 3.9 mmol/L (3.5-5.1); TOT PROT 5.6 g/dl (6.4-8.2)
[2019-03-14 11:41] LABS: INR 1.73 (0.83-1.09); PROTHROMBIN TIME (PATIENT) 20.5 SEC (9.7-13.0)
--- NOTE | 2019-03-14 11:57 | PN ---
Progress Note (short form) - Note Progress Note: RENAL Pt denies complaints had breakfast didnt feel well yesterday Last Vital Signs Temp Pulse Resp BP Pulse Ox 98.2 F 87 18 132/54 L 95 03/14/19 06:00 03/14/19 06:00 03/14/19 06:00 03/14/19 06:00 03/13/19 21:00 lungs clear cvs s1s2 rr abd soft ext bilat edema neuro a+ox3 CBC, BMP 03/14/19 10:02 03/14/19 10:02 Current Medications Current Medications Generic Name Dose Route Start Last Admin Trade Name Freq PRN Reason Stop Dose Admin Acetaminophen 650 mg 03/10/19 22:05 03/13/19 11:06 Tylenol - PO 650 mg Q6H PRN Administration PAIN LEVEL 4 - 6 Al Hydroxide/Mg Hydroxide 30 ml 03/10/19 13:45 03/10/19 14:16 Mylanta Oral Suspension - PO 30 ml Q6H PRN Administration INDIGESTION Amlodipine Besylate 10 mg 03/10/19 10:00 03/14/19 10:28 Norvasc - PO 10 mg DAILY JOHN Administration Atorvastatin Calcium 20 mg 03/09/19 22:00 03/13/19 21:38 Lipitor - PO 20 mg HS JOHN Administration Bisacodyl 5 mg 03/10/19 10:00 03/14/19 10:29 Dulcolax - PO Not Given DAILY JOHN Cholecalciferol 1,000 unit 03/10/19 10:00 03/14/19 10:25 Vitamin D3 - PO 1,000 unit DAILY JOHN Administration Docusate Sodium 100 mg 03/12/19 13:06 03/14/19 10:25 Colace - PO 100 mg BID PRN Administration CONSTIPATION Dorzolamide HCl 1 drop 03/09/19 22:00 03/14/19 10:30 Trusopt 2% OU 1 drop BID JOHN Administration IV Flush 10 ml 03/13/19 13:33 Tripp-Cath Flush IVPUSH PRN PRN FLUSH Insulin Aspart 1 vial 03/13/19 22:00 03/13/19 21:38 Novolog Vial Sliding Scale - SQ 4 units HS JOHN Administration Protocol Insulin Aspart 1 vial 03/13/19 12:48 03/14/19 06:19 Novolog Vial Sliding Scale - SQ 3 units TIDAC JOHN Administration Protocol Latanoprost 1 drop 03/10/19 10:00 03/14/19 10:31 Xalatan 0.005% Eye Drops - OU 1 drop DAILY JOHN Administration Levothyroxine Sodium 25 mcg 03/10/19 07:00 03/14/19 06:21 Synthroid - PO 25 mcg AM JOHN Administration Lisinopril 40 mg 03/10/19 10:00 03/14/19 10:28 Prinivil PO 40 mg DAILY JOHN Administration Ondansetron HCl 8 mg 03/13/19 11:11 03/14/19 00:54 Zofran Injection IVPB 8 mg Q12H PRN Administration NAUSEA AND/OR VOMITING Pantoprazole Sodium 40 mg 03/10/19 10:00 03/14/19 10:25 Protonix - PO 40 mg DAILY JOHN Administration Polyethylene Glycol 17 gm 03/10/19 14:15 03/14/19 10:28 Miralax (For Daily Use) - PO Not Given DAILY JOHN Timolol Maleate 1 drop 03/09/19 22:00 03/14/19 10:30 Timoptic 0.5% OU 1 drop BID JOHN Administration IMPRESSION recurrent hyponatremia in patient with history of pancreatic ca with mets to liver and nausea/vomiting. Nausea and vomiting alone a re reasons for her to have hyponatremia. That in addition to decreased appetite and hypothyroidism and can result in hyponatremia. She is better now though. Sodium is better but she is edematous now Had a low urine sodium which would not be c/w siadh but would be with diagnosis of volume depletion LFTs are rising PLAN await cortisol, though unlikely adrenal insuff repeat BMP ordered keep off fluids unless npo MV
[2019-03-14 14:38] LABS: ANISOCYTOSIS 1+; MACROCYTOSIS 0; PLATELET ESTIMATE NORMAL
--- NOTE | 2019-03-14 22:23 | PN ---
Progress Note (short form) - Note Progress Note: Patient seen and examined Feels weak Last Vital Signs Temp Pulse Resp BP Pulse Ox 99.5 F 93 H 18 126/55 L 99 03/14/19 22:31 03/14/19 22:31 03/14/19 22:31 03/14/19 22:31 03/14/19 21:00 Cor: RSR, No murmurs, No gallops Lungs: Clear to P&A Abd: Soft, Normal bowel sounds, No organomegaly Ext:No significant edema Labs/Meds reviewed A/P 83 y/o patient with metastatic pancreatic cancer with extensive liver mets coagulopathy due to liver disease s/p FFP/vit. K 03/10 s/p Port placement 03/11 C1 D4 gemzar/abraxane Leukocytosis-- blood cx/urine cx /cxr negative ? reactive due to advanced malignancy Abnormal LFTs--? liver mets+/- chemotx will check u/s gi consult recheck cultures
[2019-03-14] MEDS: ACETAMINOPHEN 325 MG TABLET (FP) PO PRN (22:37)
[2019-03-15] MEDS: LEVOTHYROXINE NA 25 MCG TABLET (FP) PO SCH (06:04)
[2019-03-15] MEDS: INSULIN SLIDING SCALE (NOVOLOG) 1 VIAL SQ SCH ×4 (06:15→23:05)
[2019-03-15] MEDS ORDERED: INSULIN (NOVOLOG) ASPART 100 UNITS/ML 10ML VIAL ONE (06:32)
[2019-03-15] MEDS: ACETAMINOPHEN 325 MG TABLET (FP) PO PRN ×2 (06:41→23:20)
[2019-03-15 07:48] LABS: BASO % 0.1 % (0-2.0); EOS % 0.9 % (0-4.5); HEMATOCRIT 29.4 % (32.4-45.2); HEMOGLOBIN 9.7 GM/dL (10.7-15.3); LYMPH % 6.6 % (8-40); MCH 26.8 pg (25.7-33.7); MCHC 33.2 g/dl (32.0-36.0); MEAN CELL VOLUME 80.9 fl (80-96); MEAN PLT VOLUME 9.9 fl (7.5-11.1); MONO % 1.6 % (3.8-10.2); NEUT % 90.8 % (42.8-82.8); PLATELET COUNT 141 K/MM3 (134-434); RBC 3.63 M/mm3 (3.60-5.2); RDW 15.1 % (11.6-15.6); WHITE BLOOD COUNT 14.5 K/mm3 (4.0-10.0)
[2019-03-15 07:51] LABS: ALBUMIN 2.1 g/dl (3.4-5.0); BILIRUBIN,TOTAL 1.9 mg/dL (0.2-1); BLOOD UREA NITROGEN 19.2 mg/dL (7-18); CALCIUM 7.4 mg/dL (8.5-10.1); CREATININE 0.6 mg/dL (0.55-1.3); POTASSIUM 3.8 mmol/L (3.5-5.1); TOT PROT 5.8 g/dl (6.4-8.2)
[2019-03-15] MEDS: PANTOPRAZOLE 40 MG TABLET (FP) PO SCH (09:32)
[2019-03-15] MEDS: CHOLECALCIFEROL (VIT D3) 1,000 UNIT (25 MCG) TABLET PO SCH (09:32)
[2019-03-15] MEDS: BISACODYL 5 MG TABLET.DR (FP) PO SCH (09:32)
[2019-03-15] MEDS: POLYETHYLENE GLYCOL 3350 119 GM BTL PO SCH (09:33)
[2019-03-15] MEDS: TIMOLOL 0.5% OPHTHALMIC SOL 5 ML BOTTLE OU SCH ×2 (09:36→23:02)
[2019-03-15] MEDS: DORZOLAMIDE 2% HCL OPHTHALMIC SOLUTION 10 ML BOTTLE OU SCH ×2 (09:36→23:02)
[2019-03-15] MEDS: LATANOPROST 0.005% OPHTH SOLN 2.5ML BOTTLE OU SCH (09:37)
--- NOTE | 2019-03-15 10:41 | CON.GI ---
Consult - History of Present Illness History of Present Illness: GI CONSULT DICTATED PANCREATIC CA METS TO THE LIVER WITH FEVER / LEUKOCYTOSIS / DYSPEPSIA REC CT SCAN ABD TO R/O OBSTRUCTION ; F/U CULTURES ; C/W ABX ; ONCOLOGY AND ID F/ U ADVANCE DIET TOLERATED ANTIEMETIC PPI WILL F/U - Past Medical History [employer]IP[employer]: Yes: Dementia (mild cognitve defect ) Cardio/Vascular: Yes: HTN ...: No Endocrine: Yes: Diabetes Mellitus - Past Surgical History Past Surgical History: Yes: None - Alcohol/Substance Use Hx Alcohol Use: No - Smoking History Smoking history: Unknown if ever smoked - Social History History of Recent Travel: No Home Medications - Allergies Allergies/Adverse Reactions: Allergies Allergy/AdvReac Type Severity Reaction Status Date / Time No Known Allergies Allergy Verified 03/09/19 03:48 - Home Medications Home Medications: Ambulatory Orders Bisacodyl [Gentle Laxative] 5 mg PO DAILY 11/20/15 Levothyroxine [Synthroid -] 25 mcg PO DAILY 11/20/15 metFORMIN HCL [Metformin HCl] 1,000 mg PO BID 11/20/15 Atorvastatin Ca [Lipitor] 20 mg PO HS 01/25/19 Polyvinyl Alcohol [Artificial Tears] 15 ml OP QID 01/25/19 Cholecalciferol (Vitamin D3) [Vitamin D3] 1,000 unit PO DAILY 02/23/19 Dorzolamide HCl/Timolol Maleat [Cosopt Eye Drops] 10 ml OP BID 02/23/19 Pantoprazole Sodium 40 mg PO DAILY 02/23/19 Ranitidine [Zantac -] 150 mg PO BID 02/23/19 Amlodipine Besylate/Benazepril [Lotrel 1040] 1 each PO DAILY 03/07/19 Bimatoprost [Lumigan] 1 drop IO DAILY 03/07/19 Insulin Aspart [Novolog] 7 unit SQ TID 03/07/19 Insulin Glargine,Hum.rec.anlog [Basaglar Kwikpen U-100] 100 unit SQ 12 03/07/19 Family Disease History - Family Disease History Family Disease History: Diabetes: Sister Physical Exam-GI Vital Signs: Vital Signs Temperature 100.8 F H 03/15/19 08:27 Pulse Rate 102 H 03/15/19 08:27 Respiratory Rate 18 03/15/19 08:27 Blood Pressure 103/54 L 03/15/19 08:27 O2 Sat by Pulse Oximetry (%) 99 03/14/19 21:00 Labs: CBC, BMP 03/15/19 06:57 03/15/19 06:57 INR, PTT INR 1.61 (0.83-1.09) H 03/15/19 06:57 Fibrinogen 440.0 mg/dL (238-498) 03/10/19 17:00
[2019-03-15] MEDS: LISINOPRIL 20 MG TABLET (FP) PO SCH (11:55)
[2019-03-15] MEDS: amLODIPine BESYLATE 10 MG TABLET (FP) PO SCH (11:55)
[2019-03-15] MEDS: ONDANSETRON 4 MG/2 ML VIAL IVPB PRN ×2 (11:56→23:25)
[2019-03-15 12:17] LABS: INR 1.5 (0.83-1.09); PROTHROMBIN TIME (PATIENT) 17.8 SEC (9.7-13.0)
--- NOTE | 2019-03-15 14:21 | PN ---
Progress Note (short form) - Note Progress Note: Feels gassy Moved bowels today Vital Signs Period Temp Pulse Resp BP Sys/Miller Pulse Ox Last 24 Hr 99.3 F-100.8 F 91-102 18-20 103-156/54-72 95-99 PE: AOx3 Neck: Supple, No JVD HEENT: EOMI Lungs: CTA CVS: S1S2 Abd: Benign EXt: No edema Neuro: No focal deficit CMP Sodium 131 mmol/L (136-145) L 03/15/19 06:57 Potassium 3.8 mmol/L (3.5-5.1) 03/15/19 06:57 Chloride 99 mmol/L (98-107) 03/15/19 06:57 Carbon Dioxide 25 mmol/L (21-32) 03/15/19 06:57 Anion Gap 7 MMOL/L (8-16) L 03/15/19 06:57 BUN 19.2 mg/dL (7-18) H 03/15/19 06:57 Creatinine 0.6 mg/dL (0.55-1.3) 03/15/19 06:57 Est GFR (CKD-EPI)AfAm 99.07 03/15/19 06:57 Est GFR (CKD-EPI)NonAf 85.48 03/15/19 06:57 POC Glucometer 197 UNITS (80-120) 03/15/19 11:50 Random Glucose 179 mg/dL (74-106) H 03/15/19 06:57 Hemoglobin A1c % 10.0 % (4.2-6.3) H 03/11/19 10:05 Serum Osmolality 290 mosm/kg (278-305) 03/12/19 10:45 Calcium 7.4 mg/dL (8.5-10.1) L 03/15/19 06:57 Total Bilirubin 1.9 mg/dL (0.2-1) H 03/15/19 06:57 AST 210 U/L (15-37) H 03/15/19 06:57 ALT 166 U/L (13-61) H 03/15/19 06:57 Alkaline Phosphatase 433 U/L (45-117) H 03/15/19 06:57 Troponin I < 0.02 ng/ml (0.00-0.05) 03/09/19 05:42 Total Protein 5.8 g/dl (6.4-8.2) L 03/15/19 06:57 Albumin 2.1 g/dl (3.4-5.0) L 03/15/19 06:57 Total Amylase 33 U/L (25-115) 03/10/19 06:16 Lipase 98 U/L (73-393) 03/10/19 06:16 TSH 4.66 uIU/ml (0.358-3.74) H 03/10/19 06:16 Cortisol AM Sample 14.0 ug/dL (6.2-19.4) 03/13/19 07:00 Current Medications Generic Name Dose Route Start Last Admin Trade Name Freq PRN Reason Stop Dose Admin Acetaminophen 650 mg 03/10/19 22:05 03/15/19 06:41 Tylenol - PO 650 mg Q6H PRN Administration PAIN LEVEL 4 - 6 Al Hydroxide/Mg Hydroxide 30 ml 03/10/19 13:45 03/10/19 14:16 Mylanta Oral Suspension - PO 30 ml Q6H PRN Administration INDIGESTION Amlodipine Besylate 10 mg 03/10/19 10:00 03/15/19 11:55 Norvasc - PO 10 mg DAILY JOHN Administration Bisacodyl 5 mg 03/10/19 10:00 03/15/19 09:32 Dulcolax - PO 5 mg DAILY JOHN Administration Cholecalciferol 1,000 unit 03/10/19 10:00 03/15/19 09:32 Vitamin D3 - PO 1,000 unit DAILY JOHN Administration Docusate Sodium 100 mg 03/12/19 13:06 03/14/19 10:25 Colace - PO 100 mg BID PRN Administration CONSTIPATION Dorzolamide HCl 1 drop 03/09/19 22:00 03/15/19 09:36 Trusopt 2% OU 1 drop BID JOHN Administration IV Flush 10 ml 03/13/19 13:33 03/15/19 09:05 Tripp-Cath Flush IVPUSH 10 ml PRN PRN Administration FLUSH Insulin Aspart 1 vial 03/13/19 22:00 03/14/19 22:26 Novolog Vial Sliding Scale - SQ 2 units HS JOHN Administration Protocol Insulin Aspart 1 vial 03/13/19 12:48 03/15/19 11:53 Novolog Vial Sliding Scale - SQ 3 units TIDAC JOHN Administration Protocol Latanoprost 1 drop 03/10/19 10:00 03/15/19 09:37 Xalatan 0.005% Eye Drops - OU 1 drop DAILY JOHN Administration Levothyroxine Sodium 25 mcg 03/10/19 07:00 03/15/19 06:04 Synthroid - PO 25 mcg AM JOHN Administration Lisinopril 40 mg 03/10/19 10:00 03/15/19 11:55 Prinivil PO 40 mg DAILY JOHN Administration Ondansetron HCl 8 mg 03/13/19 11:11 03/15/19 11:56 Zofran Injection IVPB 8 mg Q12H PRN Administration NAUSEA AND/OR VOMITING Pantoprazole Sodium 40 mg 03/10/19 10:00 03/15/19 09:32 Protonix - PO 40 mg DAILY JOHN Administration Polyethylene Glycol 17 gm 03/10/19 14:15 03/15/19 09:33 Miralax (For Daily Use) - PO 17 gm DAILY JOHN Administration Timolol Maleate 1 drop 03/09/19 22:00 03/15/19 09:36 Timoptic 0.5% OU 1 drop BID JOHN Administration AP; Pancreatic Ca T2DM: A1c 10 Hyponatremia Elevated LFTs Leukocytosis TSH 4.66 Cortisol 14 Start Levemir 8 units daily in AM BGM QACHS and 3 AM Continue Novolog SS coverage Will f/u Problem List - Problems (1) Hyponatremia Code(s): E87.1 - HYPO-OSMOLALITY AND HYPONATREMIA (2) Pancreatic cancer Code(s): C25.9 - MALIGNANT NEOPLASM OF PANCREAS, UNSPECIFIED (3) Diabetes mellitus Code(s): E11.9 - TYPE 2 DIABETES MELLITUS WITHOUT COMPLICATIONS Qualifiers: Diabetes mellitus type: type 2 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
--- NOTE | 2019-03-15 16:24 | PN ---
Progress Note, Physician History of Present Illness: Pt seen and examined at bedside. She has poor po intake. - Current Medication List Current Medications: Active Medications Acetaminophen (Tylenol -) 650 mg PO Q6H PRN PRN Reason: PAIN LEVEL 4 - 6 Last Admin: 03/15/19 06:41 Dose: 650 mg Al Hydroxide/Mg Hydroxide (Mylanta Oral Suspension -) 30 ml PO Q6H PRN PRN Reason: INDIGESTION Last Admin: 03/10/19 14:16 Dose: 30 ml Amlodipine Besylate (Norvasc -) 10 mg PO DAILY [facility] Last Admin: 03/15/19 11:55 Dose: 10 mg Bisacodyl (Dulcolax -) 5 mg PO DAILY [facility] Last Admin: 03/15/19 09:32 Dose: 5 mg Cholecalciferol (Vitamin D3 -) 1,000 unit PO DAILY [facility] Last Admin: 03/15/19 09:32 Dose: 1,000 unit Docusate Sodium (Colace -) 100 mg PO BID PRN PRN Reason: CONSTIPATION Last Admin: 03/14/19 10:25 Dose: 100 mg Dorzolamide HCl (Trusopt 2%) 1 drop OU BID [facility] Last Admin: 03/15/19 09:36 Dose: 1 drop IV Flush (Tripp-Cath Flush) 10 ml IVPUSH PRN PRN PRN Reason: FLUSH Last Admin: 03/15/19 09:05 Dose: 10 ml Insulin Aspart (Novolog Vial Sliding Scale -) 1 vial SQ HS [facility]; Protocol Last Admin: 03/14/19 22:26 Dose: 2 units Insulin Aspart (Novolog Vial Sliding Scale -) 1 vial SQ TIDAC [facility]; Protocol Last Admin: 03/15/19 16:08 Dose: 9 units Insulin Detemir (Levemir Vial) 8 units SQ DAILY@0700 [facility] Latanoprost (Xalatan 0.005% Eye Drops -) 1 drop OU DAILY [facility] Last Admin: 03/15/19 09:37 Dose: 1 drop Levothyroxine Sodium (Synthroid -) 25 mcg PO AM [facility] Last Admin: 03/15/19 06:04 Dose: 25 mcg Lisinopril (Prinivil) 40 mg PO DAILY [facility] Last Admin: 03/15/19 11:55 Dose: 40 mg Ondansetron HCl (Zofran Injection) 8 mg IVPB Q12H PRN PRN Reason: NAUSEA AND/OR VOMITING Last Admin: 03/15/19 11:56 Dose: 8 mg Pantoprazole Sodium (Protonix -) 40 mg PO DAILY [facility] Last Admin: 03/15/19 09:32 Dose: 40 mg Polyethylene Glycol (Miralax (For Daily Use) -) 17 gm PO DAILY [facility] Last Admin: 03/15/19 09:33 Dose: 17 gm Timolol Maleate (Timoptic 0.5%) 1 drop OU BID [facility] Last Admin: 03/15/19 09:36 Dose: 1 drop - Objective Vital Signs: Vital Signs Temperature 98 F 03/15/19 12:20 Pulse Rate 73 03/15/19 12:20 Respiratory Rate 18 03/15/19 12:20 Blood Pressure 129/56 L 03/15/19 12:20 O2 Sat by Pulse Oximetry (%) 95 03/15/19 09:00 Constitutional: Yes: Calm Eyes: Yes: Conjunctiva Clear HENT: Yes: Atraumatic Neck: Yes: Supple Cardiovascular: Yes: S1, S2 Respiratory: Yes: CTA Bilaterally Gastrointestinal: Yes: Normal Bowel Sounds, Soft Genitourinary: Yes: WNL Musculoskeletal: Yes: WNL Edema: No Neurological: Yes: Oriented Psychiatric: Yes: Oriented Labs: CBC, BMP 03/15/19 06:57 03/15/19 06:57 INR, PTT INR 1.50 (0.83-1.09) H 03/15/19 06:57 Fibrinogen 440.0 mg/dL (238-498) 03/10/19 17:00 Problem List - Problems (1) Hyponatremia Code(s): E87.1 - HYPO-OSMOLALITY AND HYPONATREMIA (2) Pancreatic cancer Code(s): C25.9 - MALIGNANT NEOPLASM OF PANCREAS, UNSPECIFIED Assessment/Plan Current Medications Generic Name Dose Route Start Last Admin Trade Name Freq PRN Reason Stop Dose Admin Acetaminophen 650 mg 03/10/19 22:05 03/15/19 06:41 Tylenol - PO 650 mg Q6H PRN Administration PAIN LEVEL 4 - 6 Al Hydroxide/Mg Hydroxide 30 ml 03/10/19 13:45 03/10/19 14:16 Mylanta Oral Suspension - PO 30 ml Q6H PRN Administration INDIGESTION Amlodipine Besylate 10 mg 03/10/19 10:00 03/15/19 11:55 Norvasc - PO 10 mg DAILY JOHN Administration Bisacodyl 5 mg 03/10/19 10:00 03/15/19 09:32 Dulcolax - PO 5 mg DAILY JOHN Administration Cholecalciferol 1,000 unit 03/10/19 10:00 03/15/19 09:32 Vitamin D3 - PO 1,000 unit DAILY JOHN Administration Docusate Sodium 100 mg 03/12/19 13:06 03/14/19 10:25 Colace - PO 100 mg BID PRN Administration CONSTIPATION Dorzolamide HCl 1 drop 03/09/19 22:00 03/15/19 09:36 Trusopt 2% OU 1 drop BID JOHN Administration IV Flush 10 ml 03/13/19 13:33 03/15/19 09:05 Tripp-Cath Flush IVPUSH 10 ml PRN PRN Administration FLUSH Insulin Aspart 1 vial 03/13/19 22:00 03/14/19 22:26 Novolog Vial Sliding Scale - SQ 2 units HS [facility] Administration Protocol Insulin Aspart 1 vial 03/13/19 12:48 03/15/19 16:08 Novolog Vial Sliding Scale - SQ 9 units TIDAC [facility] Administration Protocol Insulin Detemir 8 units 03/16/19 07:00 Levemir Vial SQ DAILY@0700 JOHN Latanoprost 1 drop 03/10/19 10:00 03/15/19 09:37 Xalatan 0.005% Eye Drops - OU 1 drop DAILY JOHN Administration Levothyroxine Sodium 25 mcg 03/10/19 07:00 03/15/19 06:04 Synthroid - PO 25 mcg AM JOHN Administration Lisinopril 40 mg 03/10/19 10:00 03/15/19 11:55 Prinivil PO 40 mg DAILY JOHN Administration Ondansetron HCl 8 mg 03/13/19 11:11 03/15/19 11:56 Zofran Injection IVPB 8 mg Q12H PRN Administration NAUSEA AND/OR VOMITING Pantoprazole Sodium 40 mg 03/10/19 10:00 03/15/19 09:32 Protonix - PO 40 mg DAILY JOHN Administration Polyethylene Glycol 17 gm 03/10/19 14:15 03/15/19 09:33 Miralax (For Daily Use) - PO 17 gm DAILY JOHN Administration Timolol Maleate 1 drop 03/09/19 22:00 03/15/19 09:36 Timoptic 0.5% OU 1 drop BID JOHN Administration Laboratory Tests 03/12/19 03/12/19 03/13/19 20:30 20:30 07:00 Cortisol AM Sample 14.0 Urine Osmolality 620 Ur Random Sodium < 18 L Impression 1. hyonatremia 2. pancreatic cancer 3. hypothyroidism 4. decreased appetite 5. htn Plan - encourage PO intake - will give a salt tab - monitor sodium - give saline if npo
--- NOTE | 2019-03-15 16:48 | PN ---
Progress Note (short form) - Note Progress Note: pt seen/ examined chart reviewed felt again nauseated family at bedside Vital Signs Temp 98 F 03/15/19 12:20 Pulse 73 03/15/19 12:20 Resp 18 03/15/19 12:20 BP 129/56 L 03/15/19 12:20 Pulse Ox 95 03/15/19 09:00 Intake & Output 03/14/19 03/15/19 03/15/19 23:59 11:59 23:59 Intake Total 390 50 Balance 390 50 Intake: IVPB 50 Oral 390 Other: Voiding Method Toilet Toilet Toilet # Unmeasured Voids Void 1 1 Bowel Movement Yes Yes: small # Bowel Movements 1 1 Body Mass Index (BMI) 24.2 Active Medications Acetaminophen (Tylenol -) 650 mg PO Q6H PRN PRN Reason: PAIN LEVEL 4 - 6 Last Admin: 03/15/19 06:41 Dose: 650 mg Al Hydroxide/Mg Hydroxide (Mylanta Oral Suspension -) 30 ml PO Q6H PRN PRN Reason: INDIGESTION Last Admin: 03/10/19 14:16 Dose: 30 ml Amlodipine Besylate (Norvasc -) 10 mg PO DAILY [facility] Last Admin: 03/15/19 11:55 Dose: 10 mg Bisacodyl (Dulcolax -) 5 mg PO DAILY [facility] Last Admin: 03/15/19 09:32 Dose: 5 mg Cholecalciferol (Vitamin D3 -) 1,000 unit PO DAILY [facility] Last Admin: 03/15/19 09:32 Dose: 1,000 unit Docusate Sodium (Colace -) 100 mg PO BID PRN PRN Reason: CONSTIPATION Last Admin: 03/14/19 10:25 Dose: 100 mg Dorzolamide HCl (Trusopt 2%) 1 drop OU BID JOHN Last Admin: 03/15/19 09:36 Dose: 1 drop IV Flush (Tripp-Cath Flush) 10 ml IVPUSH PRN PRN PRN Reason: FLUSH Last Admin: 03/15/19 09:05 Dose: 10 ml Insulin Aspart (Novolog Vial Sliding Scale -) 1 vial SQ HS [facility]; Protocol Last Admin: 03/14/19 22:26 Dose: 2 units Insulin Aspart (Novolog Vial Sliding Scale -) 1 vial SQ TIDAC [facility]; Protocol Last Admin: 03/15/19 16:08 Dose: 9 units Insulin Detemir (Levemir Vial) 8 units SQ DAILY@0700 [facility] Latanoprost (Xalatan 0.005% Eye Drops -) 1 drop OU DAILY [facility] Last Admin: 03/15/19 09:37 Dose: 1 drop Levothyroxine Sodium (Synthroid -) 25 mcg PO AM [facility] Last Admin: 03/15/19 06:04 Dose: 25 mcg Lisinopril (Prinivil) 40 mg PO DAILY [facility] Last Admin: 03/15/19 11:55 Dose: 40 mg Ondansetron HCl (Zofran Injection) 8 mg IVPB Q12H PRN PRN Reason: NAUSEA AND/OR VOMITING Last Admin: 03/15/19 11:56 Dose: 8 mg Pantoprazole Sodium (Protonix -) 40 mg PO DAILY [facility] Last Admin: 03/15/19 09:32 Dose: 40 mg Polyethylene Glycol (Miralax (For Daily Use) -) 17 gm PO DAILY [facility] Last Admin: 03/15/19 09:33 Dose: 17 gm Sodium Chloride (Sodium Chloride Tablet -) 1 gm PO BID [facility] Timolol Maleate (Timoptic 0.5%) 1 drop OU BID [facility] Last Admin: 03/15/19 09:36 Dose: 1 drop CBC,CMP WBC 14.5 K/mm3 (4.0-10.0) H 03/15/19 06:57 RBC 3.63 M/mm3 (3.60-5.2) 03/15/19 06:57 Hgb 9.7 GM/dL (10.7-15.3) L 03/15/19 06:57 Hct 29.4 % (32.4-45.2) L 03/15/19 06:57 MCV 80.9 fl (80-96) 03/15/19 06:57 MCH 26.8 pg (25.7-33.7) 03/15/19 06:57 MCHC 33.2 g/dl (32.0-36.0) 03/15/19 06:57 RDW 15.1 % (11.6-15.6) 03/15/19 06:57 Plt Count 141 K/MM3 (134-434) D 03/15/19 06:57 MPV 9.9 fl (7.5-11.1) 03/15/19 06:57 Absolute Neuts (auto) 13.1 K/mm3 (1.5-8.0) H 03/15/19 06:57 Neutrophils % 90.8 % (42.8-82.8) H 03/15/19 06:57 Neutrophils % (Manual) 93.9 % (42.8-82.8) H 03/14/19 10:02 Band Neutrophils % 0.0 % 03/14/19 10:02 Lymphocytes % 6.6 % (8-40) L 03/15/19 06:57 Lymphocytes % (Manual) 6.1 % (8-40) L D 03/14/19 10:02 Monocytes % 1.6 % (3.8-10.2) L D 03/15/19 06:57 Monocytes % (Manual) 0 % (3.8-10.2) L D 03/14/19 10:02 Eosinophils % 0.9 % (0-4.5) 03/15/19 06:57 Eosinophils % (Manual) 0.0 % (0-4.5) D 03/14/19 10:02 Basophils % 0.1 % (0-2.0) 03/15/19 06:57 Basophils % (Manual) 0.0 % (0-2.0) 03/14/19 10:02 Myelocytes % (Man) 0 % (0-2) 03/14/19 10:02 Promyelocytes % (Man) 0 % (0-2) 03/14/19 10:02 Blast Cells % (Manual) 0 % (0-0) 03/14/19 10:02 Nucleated RBC % 0 % (0-0) 03/15/19 06:57 Metamyelocytes 0 % (0-2) 03/14/19 10:02 Hypochromia 0 03/14/19 10:02 Platelet Estimate Normal 03/14/19 10:02 Platelet Comment Present 03/10/19 06:16 Polychromasia 0 03/14/19 10:02 Poikilocytosis 0 03/14/19 10:02 Anisocytosis 1+ 03/14/19 10:02 Microcytosis 0 03/14/19 10:02 Macrocytosis 0 03/14/19 10:02 Spherocytes 1+ 03/10/19 06:16 Target Cells 1+ 03/10/19 06:16 Tear Drop Cells 1+ 03/10/19 06:16 Ovalocytes 1+ 03/10/19 06:16 Stomatocytes 1+ 03/10/19 06:16 Courtney Cells 2+ 03/10/19 06:16 Sodium 131 mmol/L (136-145) L 03/15/19 06:57 Potassium 3.8 mmol/L (3.5-5.1) 03/15/19 06:57 Chloride 99 mmol/L (98-107) 03/15/19 06:57 Carbon Dioxide 25 mmol/L (21-32) 03/15/19 06:57 Anion Gap 7 MMOL/L (8-16) L 03/15/19 06:57 BUN 19.2 mg/dL (7-18) H 03/15/19 06:57 Creatinine 0.6 mg/dL (0.55-1.3) 03/15/19 06:57 Est GFR (CKD-EPI)AfAm 99.07 03/15/19 06:57 Est GFR (CKD-EPI)NonAf 85.48 03/15/19 06:57 POC Glucometer 264 UNITS (80-120) 03/15/19 16:05 Random Glucose 179 mg/dL (74-106) H 03/15/19 06:57 Hemoglobin A1c % 10.0 % (4.2-6.3) H 03/11/19 10:05 Serum Osmolality 290 mosm/kg (278-305) 03/12/19 10:45 Calcium 7.4 mg/dL (8.5-10.1) L 03/15/19 06:57 Total Bilirubin 1.9 mg/dL (0.2-1) H 03/15/19 06:57 AST 210 U/L (15-37) H 03/15/19 06:57 ALT 166 U/L (13-61) H 03/15/19 06:57 Alkaline Phosphatase 433 U/L (45-117) H 03/15/19 06:57 Troponin I < 0.02 ng/ml (0.00-0.05) 03/09/19 05:42 Total Protein 5.8 g/dl (6.4-8.2) L 03/15/19 06:57 Albumin 2.1 g/dl (3.4-5.0) L 03/15/19 06:57 Total Amylase 33 U/L (25-115) 03/10/19 06:16 Lipase 98 U/L (73-393) 03/10/19 06:16 TSH 4.66 uIU/ml (0.358-3.74) H 03/10/19 06:16 Cortisol AM Sample 14.0 ug/dL (6.2-19.4) 03/13/19 07:00 INR, PTT INR 1.50 (0.83-1.09) H 03/15/19 06:57 Fibrinogen 440.0 mg/dL (238-498) 03/10/19 17:00 Physical Examination Constitutional: Yes: No Distress,but uncomfortable due to nausea Eyes: Yes: Conjunctiva Clear Neck: Yes: Supple. no jvd Cardiovascular: Yes: Regular Rate and Rhythm Respiratory: Yes: CTA Bilaterally Gastrointestinal: Yes: Soft, non tender) Edema: No Neurological: Yes: Alert Psychiatric: Yes: Alert Imaging - Results Chest X-ray: Report Reviewed EKG: Report Reviewed Assessment/Plan discussed continue present care Fluids Reglan GI following Oncology to follow Monitor blood work especially LFTs--- which are evaluated Will follow Problem List - Problems (1) Pancreatic cancer Code(s): C25.9 - MALIGNANT NEOPLASM OF PANCREAS, UNSPECIFIED (2) Hyponatremia Code(s): E87.1 - HYPO-OSMOLALITY AND HYPONATREMIA (3) Leukocytosis Code(s): D72.829 - ELEVATED WHITE BLOOD CELL COUNT, UNSPECIFIED Qualifiers: Leukocytosis type: unspecified Qualified Code(s): D72.829 - Elevated white blood cell count, unspecified (4) Nausea Code(s): R11.0 - NAUSEA (5) Diabetes mellitus Code(s): E11.9 - TYPE 2 DIABETES MELLITUS WITHOUT COMPLICATIONS Qualifiers: Diabetes mellitus type: type 2 Diabetes mellitus 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
--- NOTE | 2019-03-15 18:13 | PN ---
Progress Note (short form) - Note Progress Note: Patient seen and examined Having nausea and emesis Seen by GI For CT scan s/p cycle 1 day 5 of abraxane and gemzar therapy Last Vital Signs Temp Pulse Resp BP Pulse Ox 98 F 73 18 129/56 L 95 03/15/19 12:20 03/15/19 12:20 03/15/19 12:20 03/15/19 12:20 03/15/19 09:00 HEENT: GARRISON, EOM Intact Cor: RSR, No murmurs, No gallops Lungs: Clear to P&A Abd: Soft, Normal bowel sounds, No organomegaly, distension Ext:No significant edema Skin: No rashes, Integument intact CBC, BMP 03/15/19 06:57 03/15/19 06:57 Current Medications Generic Name Dose Route Start Last Admin Trade Name Freq PRN Reason Stop Dose Admin Acetaminophen 650 mg 03/10/19 22:05 03/15/19 06:41 Tylenol - PO 650 mg Q6H PRN Administration PAIN LEVEL 4 - 6 Al Hydroxide/Mg Hydroxide 30 ml 03/10/19 13:45 03/10/19 14:16 Mylanta Oral Suspension - PO 30 ml Q6H PRN Administration INDIGESTION Amlodipine Besylate 10 mg 03/10/19 10:00 03/15/19 11:55 Norvasc - PO 10 mg DAILY JOHN Administration Bisacodyl 5 mg 03/10/19 10:00 03/15/19 09:32 Dulcolax - PO 5 mg DAILY JOHN Administration Cholecalciferol 1,000 unit 03/10/19 10:00 03/15/19 09:32 Vitamin D3 - PO 1,000 unit DAILY JOHN Administration Docusate Sodium 100 mg 03/12/19 13:06 03/14/19 10:25 Colace - PO 100 mg BID PRN Administration CONSTIPATION Dorzolamide HCl 1 drop 03/09/19 22:00 03/15/19 09:36 Trusopt 2% OU 1 drop BID JOHN Administration IV Flush 10 ml 03/13/19 13:33 03/15/19 09:05 Tripp-Cath Flush IVPUSH 10 ml PRN PRN Administration FLUSH Insulin Aspart 1 vial 03/13/19 22:00 03/14/19 22:26 Novolog Vial Sliding Scale - SQ 2 units HS JOHN Administration Protocol Insulin Aspart 1 vial 03/13/19 12:48 03/15/19 16:08 Novolog Vial Sliding Scale - SQ 9 units TIDAC [facility] Administration Protocol Insulin Detemir 8 units 03/16/19 07:00 Levemir Vial SQ DAILY@0700 JOHN Latanoprost 1 drop 03/10/19 10:00 03/15/19 09:37 Xalatan 0.005% Eye Drops - OU 1 drop DAILY JOHN Administration Levothyroxine Sodium 25 mcg 03/10/19 07:00 03/15/19 06:04 Synthroid - PO 25 mcg AM JOHN Administration Lisinopril 40 mg 03/10/19 10:00 03/15/19 11:55 Prinivil PO 40 mg DAILY JOHN Administration Ondansetron HCl 8 mg 03/13/19 11:11 03/15/19 11:56 Zofran Injection IVPB 8 mg Q12H PRN Administration NAUSEA AND/OR VOMITING Pantoprazole Sodium 40 mg 03/10/19 10:00 03/15/19 09:32 Protonix - PO 40 mg DAILY JOHN Administration Polyethylene Glycol 17 gm 03/10/19 14:15 03/15/19 09:33 Miralax (For Daily Use) - PO 17 gm DAILY JOHN Administration Sodium Chloride 1 gm 03/15/19 22:00 Sodium Chloride Tablet - PO BID [facility] Timolol Maleate 1 drop 03/09/19 22:00 03/15/19 09:36 Timoptic 0.5% OU 1 drop BID JOHN Administration Impression: Pancreatic ca Nausea/ emesis Liver mets S/P chemotherapy - day 5 , cycle- s/p Gemzar/abraxane Plan CT per GI Monitor labs post therapy
--- NOTE | 2019-03-15 19:38 | CONS ---
DATE OF CONSULTATION: 03/15/2019 GASTROINTESTINAL CONSULTATION The patient is an 83-year-old female who was diagnosed this past January with a pancreatic mass and was found to have pancreatic cancer. She presented to the hospital with complaints of nausea and vomiting on initiation of her chemotherapy. She was found to be hyponatremic. She also admits to chills. She denies abdominal pain at this time. She also complained of constipation. She denies any blood in the stool. She states that her appetite has been poor and she has not been eating very much. She has also sustained weight loss. PAST MEDICAL AND SURGICAL HISTORY: Dementia, hypertension, diabetes. SOCIAL HISTORY: She does not smoke, drink or use drugs. FAMILY HISTORY: Noncontributory. ALLERGIES: No known drug allergies. REVIEW OF SYSTEMS: As per the history of present illness. PHYSICAL EXAMINATION: Vital Signs: T-max today was 100.8; currently 98. Blood pressure 129/56, pulse oximetry 95% on room air, respiratory rate 18. GENERAL: No acute distress HEENT: Anicteric sclerae. Cardiovascular: S1, S2. Regular rate and rhythm. Lungs: Bilaterally clear to auscultation. Abdomen: Soft and nontender. Extremities: No edema. LABS: White blood cell count on admission was 19; it is currently 14.5. Hemoglobin 9.7/29, platelet count 141, INR 1.5, sodium 131, potassium 3.3, BUN/creatinine 19/0.6, total bilirubin 1.9, AST of 210, ALT of 156, alkaline phosphatase 433. Urine with 2+ leukocyte esterase. Blood and urine cultures are pending at this time. The patient did not have repeat imaging of her abdomen during this hospitalization. Her last CT scan was done on February 02, 2019 and revealed no evidence of metastatic disease or acute pathology in the chest. There was a large mass within the distal body of the pancreas suspicious for malignancy and diffuse hepatic metastasis. A followup CT scan of the abdomen and pelvis was recommended. IMPRESSION: 1. Pancreatic cancer. 2. Abnormal liver tests with metastatic disease; admitted because of weakness, now with a significant leukocytosis. Also admitted with hyponatremia. 3. Her symptoms of dyspepsia are most likely secondary to her underlying malignant process. RECOMMENDATIONS: 1. Follow up cultures. 2. Continue antibiotics. 3. Would also recommend repeat imaging of the abdomen and biliary tree to rule out a potential obstructive process which can be contributing to her fever and leukocytosis. 4. Would also obtain oncology followup for potential chemotherapy. 5. Her diet should be advanced as tolerated. DO GERRI LA/[id number]
[2019-03-15] MEDS ORDERED: PT OWN MED DRAWER 7, Y5N ONE (21:02)
[2019-03-15] MEDS: SODIUM CHLORIDE 1 GM TABLET PO SCH (23:01)
[2019-03-16] MEDS: INSULIN (LEVEMIR) 100 UNITS/ML UNITS SQ SCH (06:23)
[2019-03-16] MEDS: LEVOTHYROXINE NA 25 MCG TABLET (FP) PO SCH (06:24)
[2019-03-16] MEDS: INSULIN SLIDING SCALE (NOVOLOG) 1 VIAL SQ SCH ×4 (06:24→21:12)
[2019-03-16] MEDS ORDERED: INSULIN (NOVOLOG) ASPART 100 UNITS/ML 10ML VIAL ONE (07:50)
[2019-03-16] MEDS ORDERED: INSULIN (LEVEMIR) 100 UNITS/ML UNITS SQ ONE (07:50)
[2019-03-16 08:07] LABS: ALBUMIN 1.7 g/dl (3.4-5.0); BILIRUBIN,TOTAL 2.4 mg/dL (0.2-1); BLOOD UREA NITROGEN 20.1 mg/dL (7-18); CALCIUM 7.3 mg/dL (8.5-10.1); CREATININE 0.6 mg/dL (0.55-1.3); POTASSIUM 3.8 mmol/L (3.5-5.1)
--- NOTE | 2019-03-16 09:26 | PN ---
Progress Note (short form) - Note Progress Note: Denies any complaints' Vital Signs Period Temp Pulse Resp BP Sys/Miller Pulse Ox Last 24 Hr 98 F-99.3 F 70-84 18-18 108-139/45-56 96 PE: AOx3 Neck: Supple, No JVD HEENT: EOMI Lungs: CTA CVS: S1S2 Abd: Benign EXt: No edema Neuro: No focal deficit CMP Sodium 130 mmol/L (136-145) L 03/16/19 06:30 Potassium 3.8 mmol/L (3.5-5.1) 03/16/19 06:30 Chloride 97 mmol/L (98-107) L 03/16/19 06:30 Carbon Dioxide 24 mmol/L (21-32) 03/16/19 06:30 Anion Gap 9 MMOL/L (8-16) 03/16/19 06:30 BUN 20.1 mg/dL (7-18) H 03/16/19 06:30 Creatinine 0.6 mg/dL (0.55-1.3) 03/16/19 06:30 Est GFR (CKD-EPI)AfAm 99.07 03/16/19 06:30 Est GFR (CKD-EPI)NonAf 85.48 03/16/19 06:30 POC Glucometer 208 UNITS (80-120) 03/16/19 06:21 Random Glucose 199 mg/dL (74-106) H 03/16/19 06:30 Hemoglobin A1c % 10.0 % (4.2-6.3) H 03/11/19 10:05 Serum Osmolality 290 mosm/kg (278-305) 03/12/19 10:45 Calcium 7.3 mg/dL (8.5-10.1) L 03/16/19 06:30 Total Bilirubin 2.4 mg/dL (0.2-1) H 03/16/19 06:30 AST 93 U/L (15-37) H 03/16/19 06:30 ALT 100 U/L (13-61) H 03/16/19 06:30 Alkaline Phosphatase 518 U/L (45-117) H 03/16/19 06:30 Troponin I < 0.02 ng/ml (0.00-0.05) 03/09/19 05:42 Total Protein 5.0 g/dl (6.4-8.2) L 03/16/19 06:30 Albumin 1.7 g/dl (3.4-5.0) L 03/16/19 06:30 Total Amylase 33 U/L (25-115) 03/10/19 06:16 Lipase 98 U/L (73-393) 03/10/19 06:16 TSH 4.66 uIU/ml (0.358-3.74) H 03/10/19 06:16 Cortisol AM Sample 14.0 ug/dL (6.2-19.4) 03/13/19 07:00 Current Medications Generic Name Dose Route Start Last Admin Trade Name Freq PRN Reason Stop Dose Admin Acetaminophen 650 mg 03/10/19 22:05 03/15/19 23:20 Tylenol - PO 650 mg Q6H PRN Administration PAIN LEVEL 4 - 6 Al Hydroxide/Mg Hydroxide 30 ml 03/10/19 13:45 03/10/19 14:16 Mylanta Oral Suspension - PO 30 ml Q6H PRN Administration INDIGESTION Amlodipine Besylate 10 mg 03/10/19 10:00 03/15/19 11:55 Norvasc - PO 10 mg DAILY JOHN Administration Bisacodyl 5 mg 03/10/19 10:00 03/15/19 09:32 Dulcolax - PO 5 mg DAILY JOHN Administration Cholecalciferol 1,000 unit 03/10/19 10:00 03/15/19 09:32 Vitamin D3 - PO 1,000 unit DAILY JOHN Administration Docusate Sodium 100 mg 03/12/19 13:06 03/14/19 10:25 Colace - PO 100 mg BID PRN Administration CONSTIPATION Dorzolamide HCl 1 drop 03/09/19 22:00 03/15/19 23:02 Trusopt 2% OU 1 drop BID JOHN Administration IV Flush 10 ml 03/13/19 13:33 03/15/19 09:05 Tripp-Cath Flush IVPUSH 10 ml PRN PRN Administration FLUSH Insulin Aspart 1 vial 03/13/19 22:00 03/15/19 23:05 Novolog Vial Sliding Scale - SQ 4 units HS [facility] Administration Protocol Insulin Aspart 1 vial 03/13/19 12:48 03/16/19 06:24 Novolog Vial Sliding Scale - SQ 5 units TIDAC [facility] Administration Protocol Insulin Detemir 8 units 03/16/19 07:00 03/16/19 06:23 Levemir Vial SQ 8 units DAILY@0700 JOHN Administration Latanoprost 1 drop 03/10/19 10:00 03/15/19 09:37 Xalatan 0.005% Eye Drops - OU 1 drop DAILY JOHN Administration Levothyroxine Sodium 25 mcg 03/10/19 07:00 03/16/19 06:24 Synthroid - PO 25 mcg AM JOHN Administration Lisinopril 40 mg 03/10/19 10:00 03/15/19 11:55 Prinivil PO 40 mg DAILY JOHN Administration Ondansetron HCl 8 mg 03/13/19 11:11 03/15/19 23:25 Zofran Injection IVPB 8 mg Q12H PRN Administration NAUSEA AND/OR VOMITING Pantoprazole Sodium 40 mg 03/10/19 10:00 03/15/19 09:32 Protonix - PO 40 mg DAILY JOHN Administration Polyethylene Glycol 17 gm 03/10/19 14:15 03/15/19 09:33 Miralax (For Daily Use) - PO 17 gm DAILY JOHN Administration Sodium Chloride 1 gm 03/15/19 22:00 03/15/19 23:01 Sodium Chloride Tablet - PO 1 gm BID JOHN Administration Timolol Maleate 1 drop 03/09/19 22:00 03/15/19 23:02 Timoptic 0.5% OU 1 drop BID JOHN Administration AP; Pancreatic Ca T2DM: A1c 10 Hyponatremia Elevated LFTs Leukocytosis TSH 4.66 Cortisol 14 Levemir 8 units daily in AM BGM QACHS and 3 AM Continue Novolog SS coverage Will f/u Problem List - Problems (1) Hyponatremia Code(s): E87.1 - HYPO-OSMOLALITY AND HYPONATREMIA (2) Pancreatic cancer Code(s): C25.9 - MALIGNANT NEOPLASM OF PANCREAS, UNSPECIFIED (3) Diabetes mellitus Code(s): E11.9 - TYPE 2 DIABETES MELLITUS WITHOUT COMPLICATIONS Qualifiers: Diabetes mellitus type: type 2 Diabetes mellitus 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
[2019-03-16] MEDS: POLYETHYLENE GLYCOL 3350 119 GM BTL PO SCH (09:27)
[2019-03-16] MEDS: BISACODYL 5 MG TABLET.DR (FP) PO SCH (09:27)
[2019-03-16] MEDS: SODIUM CHLORIDE 1 GM TABLET PO SCH (09:28)
[2019-03-16] MEDS: PANTOPRAZOLE 40 MG TABLET (FP) PO SCH (09:28)
[2019-03-16] MEDS: CHOLECALCIFEROL (VIT D3) 1,000 UNIT (25 MCG) TABLET PO SCH (09:28)
[2019-03-16] MEDS: amLODIPine BESYLATE 10 MG TABLET (FP) PO SCH (09:28)
[2019-03-16] MEDS: LISINOPRIL 20 MG TABLET (FP) PO SCH (09:28)
[2019-03-16] MEDS: TIMOLOL 0.5% OPHTHALMIC SOL 5 ML BOTTLE OU SCH ×2 (09:29→21:12)
[2019-03-16] MEDS: DORZOLAMIDE 2% HCL OPHTHALMIC SOLUTION 10 ML BOTTLE OU SCH ×2 (09:30→21:13)
[2019-03-16] MEDS: LATANOPROST 0.005% OPHTH SOLN 2.5ML BOTTLE OU SCH (09:30)
[2019-03-16] MEDS: ONDANSETRON 4 MG/2 ML VIAL IVPB PRN (12:13)
--- NOTE | 2019-03-16 12:24 | PN ---
Progress Note, Physician History of Present Illness: Pt seen and examined at bedside. She complains of nausea and poor appetite. - Current Medication List Current Medications: Active Medications Acetaminophen (Tylenol -) 650 mg PO Q6H PRN PRN Reason: PAIN LEVEL 4 - 6 Last Admin: 03/15/19 23:20 Dose: 650 mg Al Hydroxide/Mg Hydroxide (Mylanta Oral Suspension -) 30 ml PO Q6H PRN PRN Reason: INDIGESTION Last Admin: 03/10/19 14:16 Dose: 30 ml Amlodipine Besylate (Norvasc -) 10 mg PO DAILY [facility] Last Admin: 03/16/19 09:28 Dose: 10 mg Bisacodyl (Dulcolax -) 5 mg PO DAILY [facility] Last Admin: 03/16/19 09:27 Dose: Not Given Cholecalciferol (Vitamin D3 -) 1,000 unit PO DAILY [facility] Last Admin: 03/16/19 09:28 Dose: 1,000 unit Docusate Sodium (Colace -) 100 mg PO BID PRN PRN Reason: CONSTIPATION Last Admin: 03/14/19 10:25 Dose: 100 mg Dorzolamide HCl (Trusopt 2%) 1 drop OU BID [facility] Last Admin: 03/16/19 09:30 Dose: 1 drop IV Flush (Tripp-Cath Flush) 10 ml IVPUSH PRN PRN PRN Reason: FLUSH Last Admin: 03/15/19 09:05 Dose: 10 ml Insulin Aspart (Novolog Vial Sliding Scale -) 1 vial SQ HS [facility]; Protocol Last Admin: 03/15/19 23:05 Dose: 4 units Insulin Aspart (Novolog Vial Sliding Scale -) 1 vial SQ TIDAC [facility]; Protocol Last Admin: 03/16/19 12:15 Dose: 5 units Insulin Detemir (Levemir Vial) 8 units SQ DAILY@0700 [facility] Last Admin: 03/16/19 06:23 Dose: 8 units Latanoprost (Xalatan 0.005% Eye Drops -) 1 drop OU DAILY [facility] Last Admin: 03/16/19 09:30 Dose: 1 drop Levothyroxine Sodium (Synthroid -) 25 mcg PO AM [facility] Last Admin: 03/16/19 06:24 Dose: 25 mcg Lisinopril (Prinivil) 40 mg PO DAILY [facility] Last Admin: 03/16/19 09:28 Dose: 40 mg Ondansetron HCl (Zofran Injection) 8 mg IVPB Q12H PRN PRN Reason: NAUSEA AND/OR VOMITING Last Admin: 03/16/19 12:13 Dose: 8 mg Pantoprazole Sodium (Protonix -) 40 mg PO DAILY [facility] Last Admin: 03/16/19 09:28 Dose: 40 mg Polyethylene Glycol (Miralax (For Daily Use) -) 17 gm PO DAILY [facility] Last Admin: 03/16/19 09:27 Dose: Not Given Sodium Chloride (Sodium Chloride Tablet -) 1 gm PO BID [facility] Last Admin: 03/16/19 09:28 Dose: 1 gm Timolol Maleate (Timoptic 0.5%) 1 drop OU BID [facility] Last Admin: 03/16/19 09:29 Dose: 1 drop - Objective Vital Signs: Vital Signs Temperature 98.6 F 03/16/19 05:46 Pulse Rate 70 03/16/19 05:46 Respiratory Rate 18 03/16/19 05:46 Blood Pressure 108/45 L 03/16/19 05:46 O2 Sat by Pulse Oximetry (%) 96 03/15/19 19:45 Constitutional: Yes: Calm Eyes: Yes: Conjunctiva Clear HENT: Yes: Atraumatic Neck: Yes: Supple Cardiovascular: Yes: S1, S2 Respiratory: Yes: CTA Bilaterally Gastrointestinal: Yes: Soft Genitourinary: Yes: WNL Extremities: Yes: WNL Edema: No Neurological: Yes: Oriented Psychiatric: Yes: Oriented Labs: CBC, BMP 03/15/19 06:57 03/16/19 06:30 INR, PTT INR 1.50 (0.83-1.09) H 03/15/19 06:57 Fibrinogen 440.0 mg/dL (238-498) 03/10/19 17:00 Problem List - Problems (1) Hyponatremia Code(s): E87.1 - HYPO-OSMOLALITY AND HYPONATREMIA (2) Pancreatic cancer Code(s): C25.9 - MALIGNANT NEOPLASM OF PANCREAS, UNSPECIFIED Assessment/Plan Current Medications Generic Name Dose Route Start Last Admin Trade Name Freq PRN Reason Stop Dose Admin Acetaminophen 650 mg 03/10/19 22:05 03/15/19 23:20 Tylenol - PO 650 mg Q6H PRN Administration PAIN LEVEL 4 - 6 Al Hydroxide/Mg Hydroxide 30 ml 03/10/19 13:45 03/10/19 14:16 Mylanta Oral Suspension - PO 30 ml Q6H PRN Administration INDIGESTION Amlodipine Besylate 10 mg 03/10/19 10:00 03/16/19 09:28 Norvasc - PO 10 mg DAILY [facility] Administration Bisacodyl 5 mg 03/10/19 10:00 03/16/19 09:27 Dulcolax - PO Not Given DAILY [facility] Cholecalciferol 1,000 unit 03/10/19 10:00 03/16/19 09:28 Vitamin D3 - PO 1,000 unit DAILY JOHN Administration Docusate Sodium 100 mg 03/12/19 13:06 03/14/19 10:25 Colace - PO 100 mg BID PRN Administration CONSTIPATION Dorzolamide HCl 1 drop 03/09/19 22:00 03/16/19 09:30 Trusopt 2% OU 1 drop BID JOHN Administration IV Flush 10 ml 03/13/19 13:33 03/15/19 09:05 Tripp-Cath Flush IVPUSH 10 ml PRN PRN Administration FLUSH Insulin Aspart 1 vial 03/13/19 22:00 03/15/19 23:05 Novolog Vial Sliding Scale - SQ 4 units HS [facility] Administration Protocol Insulin Aspart 1 vial 03/13/19 12:48 03/16/19 12:15 Novolog Vial Sliding Scale - SQ 5 units TIDAC [facility] Administration Protocol Insulin Detemir 8 units 03/16/19 07:00 03/16/19 06:23 Levemir Vial SQ 8 units DAILY@0700 JOHN Administration Latanoprost 1 drop 03/10/19 10:00 03/16/19 09:30 Xalatan 0.005% Eye Drops - OU 1 drop DAILY [facility] Administration Levothyroxine Sodium 25 mcg 03/10/19 07:00 03/16/19 06:24 Synthroid - PO 25 mcg AM JOHN Administration Lisinopril 40 mg 03/10/19 10:00 03/16/19 09:28 Prinivil PO 40 mg DAILY [facility] Administration Ondansetron HCl 8 mg 03/13/19 11:11 03/16/19 12:13 Zofran Injection IVPB 8 mg Q12H PRN Administration NAUSEA AND/OR VOMITING Pantoprazole Sodium 40 mg 03/10/19 10:00 03/16/19 09:28 Protonix - PO 40 mg DAILY JOHN Administration Polyethylene Glycol 17 gm 03/10/19 14:15 03/16/19 09:27 Miralax (For Daily Use) - PO Not Given DAILY JOHN Sodium Chloride 1 gm 03/15/19 22:00 03/16/19 09:28 Sodium Chloride Tablet - PO 1 gm BID JOHN Administration Timolol Maleate 1 drop 03/09/19 22:00 03/16/19 09:29 Timoptic 0.5% OU 1 drop BID JOHN Administration Impression 1. hyonatremia 2. pancreatic cancer 3. hypothyroidism 4. decreased appetite 5. htn Plan - will give a trial of saline - hold salt tabs - repeat labs in am - urine sodium was low
[2019-03-16] MEDS ORDERED: SODIUM CHLORIDE 1,000 ML IV SCH (12:45)
--- NOTE | 2019-03-16 15:16 | PN ---
Progress Note (short form) - Note Progress Note: pt feels better nausea better eating better lfts coming down ct abd- reviewed grand daughter at bedside Vital Signs Temp 98.9 F 03/16/19 15:02 Pulse 84 03/16/19 15:02 Resp 18 03/16/19 15:02 BP 131/56 L 03/16/19 15:02 Pulse Ox 96 03/15/19 19:45 Intake & Output 03/15/19 03/16/19 03/16/19 23:59 11:59 23:59 Intake Total 850 Balance 850 Intake: IVPB 50 Oral 800 Other: Voiding Method Toilet Toilet # Unmeasured Voids Void 2 1 Bowel Movement Yes: small Yes: 1 # Bowel Movements 1 Body Mass Index (BMI) 24.2 Active Medications Acetaminophen (Tylenol -) 650 mg PO Q6H PRN PRN Reason: PAIN LEVEL 4 - 6 Last Admin: 03/15/19 23:20 Dose: 650 mg Al Hydroxide/Mg Hydroxide (Mylanta Oral Suspension -) 30 ml PO Q6H PRN PRN Reason: INDIGESTION Last Admin: 03/10/19 14:16 Dose: 30 ml Amlodipine Besylate (Norvasc -) 10 mg PO DAILY [facility] Last Admin: 03/16/19 09:28 Dose: 10 mg Bisacodyl (Dulcolax -) 5 mg PO DAILY [facility] Last Admin: 03/16/19 09:27 Dose: Not Given Cholecalciferol (Vitamin D3 -) 1,000 unit PO DAILY [facility] Last Admin: 03/16/19 09:28 Dose: 1,000 unit Docusate Sodium (Colace -) 100 mg PO BID PRN PRN Reason: CONSTIPATION Last Admin: 03/14/19 10:25 Dose: 100 mg Dorzolamide HCl (Trusopt 2%) 1 drop OU BID [facility] Last Admin: 03/16/19 09:30 Dose: 1 drop IV Flush (Tripp-Cath Flush) 10 ml IVPUSH PRN PRN PRN Reason: FLUSH Last Admin: 03/15/19 09:05 Dose: 10 ml Sodium Chloride (Normal Saline -) 1,000 mls @ 75 mls/hr IV ASDIR JOHN Insulin Aspart (Novolog Vial Sliding Scale -) 1 vial SQ [facility]; Protocol Last Admin: 03/15/19 23:05 Dose: 4 units Insulin Aspart (Novolog Vial Sliding Scale -) 1 vial SQ TIDAC [facility]; Protocol Last Admin: 03/16/19 12:15 Dose: 5 units Insulin Detemir (Levemir Vial) 8 units SQ DAILY@0700 [facility] Last Admin: 03/16/19 06:23 Dose: 8 units Latanoprost (Xalatan 0.005% Eye Drops -) 1 drop OU DAILY [facility] Last Admin: 03/16/19 09:30 Dose: 1 drop Levothyroxine Sodium (Synthroid -) 25 mcg PO AM [facility] Last Admin: 03/16/19 06:24 Dose: 25 mcg Lisinopril (Prinivil) 40 mg PO DAILY [facility] Last Admin: 03/16/19 09:28 Dose: 40 mg Ondansetron HCl (Zofran Injection) 8 mg IVPB Q12H PRN PRN Reason: NAUSEA AND/OR VOMITING Last Admin: 03/16/19 12:13 Dose: 8 mg Pantoprazole Sodium (Protonix -) 40 mg PO DAILY [facility] Last Admin: 03/16/19 09:28 Dose: 40 mg Polyethylene Glycol (Miralax (For Daily Use) -) 17 gm PO DAILY [facility] Last Admin: 03/16/19 09:27 Dose: Not Given Timolol Maleate (Timoptic 0.5%) 1 drop OU BID [facility] Last Admin: 03/16/19 09:29 Dose: 1 drop CBC,CMP WBC 14.5 K/mm3 (4.0-10.0) H 03/15/19 06:57 RBC 3.63 M/mm3 (3.60-5.2) 03/15/19 06:57 Hgb 9.7 GM/dL (10.7-15.3) L 03/15/19 06:57 Hct 29.4 % (32.4-45.2) L 03/15/19 06:57 MCV 80.9 fl (80-96) 03/15/19 06:57 MCH 26.8 pg (25.7-33.7) 03/15/19 06:57 MCHC 33.2 g/dl (32.0-36.0) 03/15/19 06:57 RDW 15.1 % (11.6-15.6) 03/15/19 06:57 Plt Count 141 K/MM3 (134-434) D 03/15/19 06:57 MPV 9.9 fl (7.5-11.1) 03/15/19 06:57 Absolute Neuts (auto) 13.1 K/mm3 (1.5-8.0) H 03/15/19 06:57 Neutrophils % 90.8 % (42.8-82.8) H 03/15/19 06:57 Neutrophils % (Manual) 93.9 % (42.8-82.8) H 03/14/19 10:02 Band Neutrophils % 0.0 % 03/14/19 10:02 Lymphocytes % 6.6 % (8-40) L 03/15/19 06:57 Lymphocytes % (Manual) 6.1 % (8-40) L D 03/14/19 10:02 Monocytes % 1.6 % (3.8-10.2) L D 03/15/19 06:57 Monocytes % (Manual) 0 % (3.8-10.2) L D 03/14/19 10:02 Eosinophils % 0.9 % (0-4.5) 03/15/19 06:57 Eosinophils % (Manual) 0.0 % (0-4.5) D 03/14/19 10:02 Basophils % 0.1 % (0-2.0) 03/15/19 06:57 Basophils % (Manual) 0.0 % (0-2.0) 03/14/19 10:02 Myelocytes % (Man) 0 % (0-2) 03/14/19 10:02 Promyelocytes % (Man) 0 % (0-2) 03/14/19 10:02 Blast Cells % (Manual) 0 % (0-0) 03/14/19 10:02 Nucleated RBC % 0 % (0-0) 03/15/19 06:57 Metamyelocytes 0 % (0-2) 03/14/19 10:02 Hypochromia 0 03/14/19 10:02 Platelet Estimate Normal 03/14/19 10:02 Platelet Comment Present 03/10/19 06:16 Polychromasia 0 03/14/19 10:02 Poikilocytosis 0 03/14/19 10:02 Anisocytosis 1+ 03/14/19 10:02 Microcytosis 0 03/14/19 10:02 Macrocytosis 0 03/14/19 10:02 Spherocytes 1+ 03/10/19 06:16 Target Cells 1+ 03/10/19 06:16 Tear Drop Cells 1+ 03/10/19 06:16 Ovalocytes 1+ 03/10/19 06:16 Stomatocytes 1+ 03/10/19 06:16 Courtney Cells 2+ 03/10/19 06:16 Sodium 130 mmol/L (136-145) L 03/16/19 06:30 Potassium 3.8 mmol/L (3.5-5.1) 03/16/19 06:30 Chloride 97 mmol/L (98-107) L 03/16/19 06:30 Carbon Dioxide 24 mmol/L (21-32) 03/16/19 06:30 Anion Gap 9 MMOL/L (8-16) 03/16/19 06:30 BUN 20.1 mg/dL (7-18) H 03/16/19 06:30 Creatinine 0.6 mg/dL (0.55-1.3) 03/16/19 06:30 Est GFR (CKD-EPI)AfAm 99.07 03/16/19 06:30 Est GFR (CKD-EPI)NonAf 85.48 03/16/19 06:30 POC Glucometer 205 UNITS (80-120) 03/16/19 12:09 Random Glucose 199 mg/dL (74-106) H 03/16/19 06:30 Hemoglobin A1c % 10.0 % (4.2-6.3) H 03/11/19 10:05 Serum Osmolality 290 mosm/kg (278-305) 03/12/19 10:45 Calcium 7.3 mg/dL (8.5-10.1) L 03/16/19 06:30 Total Bilirubin 2.4 mg/dL (0.2-1) H 03/16/19 06:30 AST 93 U/L (15-37) H 03/16/19 06:30 ALT 100 U/L (13-61) H 03/16/19 06:30 Alkaline Phosphatase 518 U/L (45-117) H 03/16/19 06:30 Troponin I < 0.02 ng/ml (0.00-0.05) 03/09/19 05:42 Total Protein 5.0 g/dl (6.4-8.2) L 03/16/19 06:30 Albumin 1.7 g/dl (3.4-5.0) L 03/16/19 06:30 Total Amylase 33 U/L (25-115) 03/10/19 06:16 Lipase 98 U/L (73-393) 03/10/19 06:16 TSH 4.66 uIU/ml (0.358-3.74) H 03/10/19 06:16 Cortisol AM Sample 14.0 ug/dL (6.2-19.4) 03/13/19 07:00 Physical Examination Constitutional: Yes: No Distress,comfortable. Eyes: Yes: Conjunctiva Clear Neck: Yes: Supple. no jvd Cardiovascular: Yes: Regular Rate and Rhythm Respiratory: Yes: CTA Bilaterally Gastrointestinal: Yes: Soft, non tender) Edema: No Neurological: Yes: Alert Psychiatric: Yes: Alert Imaging - Results Chest X-ray: Report Reviewed EKG: Report Reviewed Assessment/Plan discussed continue present care Fluids Reglan GI / onclogy following Monitor blood work especially LFTs--- trending down ct scan-- liver masses- increased All above discussed with pts grand daughter who is at bedside Will follow Problem List - Problems (1) Pancreatic cancer Code(s): C25.9 - MALIGNANT NEOPLASM OF PANCREAS, UNSPECIFIED (2) Hyponatremia Code(s): E87.1 - HYPO-OSMOLALITY AND HYPONATREMIA (3) Leukocytosis Code(s): D72.829 - ELEVATED WHITE BLOOD CELL COUNT, UNSPECIFIED Qualifiers: Leukocytosis type: unspecified Qualified Code(s): D72.829 - Elevated white blood cell count, unspecified (4) Nausea Code(s): R11.0 - NAUSEA (5) Diabetes mellitus Code(s): E11.9 - TYPE 2 DIABETES MELLITUS WITHOUT COMPLICATIONS Qualifiers: Diabetes mellitus type: type 2 Diabetes 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
--- NOTE | 2019-03-16 17:56 | PN.GI ---
GI Progress Note Subjective: s/o chemotherapy Day 5 !st cycle, nausea and vomiting partially improved with Zofran CT reviewed--large pancreatic mass b/w the body and tail with liver mets, mildly elevated LFTS - Objective Vital Signs: Vital Signs Temperature 100.1 F H 03/16/19 17:28 Pulse Rate 85 03/16/19 17:28 Respiratory Rate 18 03/16/19 17:28 Blood Pressure 143/61 03/16/19 17:28 O2 Sat by Pulse Oximetry (%) 96 03/15/19 19:45 Constitutional: Well Nourished, Poor Hygeine HENT: Yes: Atraumatic Neck: Yes: Supple Cardiovascular: Yes: Regular Rate and Rhythm Respiratory: Yes: CTA Bilaterally Gastrointestinal Inspection: Yes: Distention ...Palpate: Yes: Soft. No: Firm/Rigid, Guarding, Hepatomegaly, Mass, Pulsatile Mass, Splenomegaly ...Percussion: Yes: Tympanitic Labs: CBC, BMP 03/15/19 06:57 03/16/19 06:30 INR, PTT INR 1.50 (0.83-1.09) H 03/15/19 06:57 Fibrinogen 440.0 mg/dL (238-498) 03/10/19 17:00 Current Medications Generic Name Dose Route Start Last Admin Trade Name Freq PRN Reason Stop Dose Admin Acetaminophen 650 mg 03/10/19 22:05 03/15/19 23:20 Tylenol - PO 650 mg Q6H PRN Administration PAIN LEVEL 4 - 6 Al Hydroxide/Mg Hydroxide 30 ml 03/10/19 13:45 03/10/19 14:16 Mylanta Oral Suspension - PO 30 ml Q6H PRN Administration INDIGESTION Amlodipine Besylate 10 mg 03/10/19 10:00 03/16/19 09:28 Norvasc - PO 10 mg DAILY JOHN Administration Bisacodyl 5 mg 03/10/19 10:00 03/16/19 09:27 Dulcolax - PO Not Given DAILY JOHN Cholecalciferol 1,000 unit 03/10/19 10:00 03/16/19 09:28 Vitamin D3 - PO 1,000 unit DAILY JOHN Administration Docusate Sodium 100 mg 03/12/19 13:06 03/14/19 10:25 Colace - PO 100 mg BID PRN Administration CONSTIPATION Dorzolamide HCl 1 drop 03/09/19 22:00 03/16/19 09:30 Trusopt 2% OU 1 drop BID JOHN Administration IV Flush 10 ml 03/13/19 13:33 03/15/19 09:05 Tripp-Cath Flush IVPUSH 10 ml PRN PRN Administration FLUSH Sodium Chloride 1,000 mls @ 75 mls/hr 03/16/19 12:45 Normal Saline - IV ASDIR JOHN Insulin Aspart 1 vial 03/13/19 22:00 03/15/19 23:05 Novolog Vial Sliding Scale - SQ 4 units HS JOHN Administration Protocol Insulin Aspart 1 vial 03/13/19 12:48 03/16/19 12:15 Novolog Vial Sliding Scale - SQ 5 units TIDAC [facility] Administration Protocol Insulin Detemir 8 units 03/16/19 07:00 03/16/19 06:23 Levemir Vial SQ 8 units DAILY@0700 JOHN Administration Latanoprost 1 drop 03/10/19 10:00 03/16/19 09:30 Xalatan 0.005% Eye Drops - OU 1 drop DAILY JOHN Administration Levothyroxine Sodium 25 mcg 03/10/19 07:00 03/16/19 06:24 Synthroid - PO 25 mcg AM JOHN Administration Lisinopril 40 mg 03/10/19 10:00 03/16/19 09:28 Prinivil PO 40 mg DAILY JOHN Administration Metoclopramide HCl 5 mg 03/16/19 18:00 Reglan - PO TIDAC JOHN Ondansetron HCl 8 mg 03/13/19 11:11 03/16/19 12:13 Zofran Injection IVPB 8 mg Q12H PRN Administration NAUSEA AND/OR VOMITING Pantoprazole Sodium 40 mg 03/10/19 10:00 03/16/19 09:28 Protonix - PO 40 mg DAILY JOHN Administration Polyethylene Glycol 17 gm 03/10/19 14:15 03/16/19 09:27 Miralax (For Daily Use) - PO Not Given DAILY JOHN Timolol Maleate 1 drop 03/09/19 22:00 03/16/19 09:29 Timoptic 0.5% OU 1 drop BID JOHN Administration Problem List - Problems (1) Metastases to the liver Assessment/Plan: causing mild elevation of liver enzymes R> repeat LFTS in 48 hours Code(s): C78.7 - SECONDARY MALIG NEOPLASM OF LIVER AND INTRAHEPATIC BILE DUCT (2) Pancreatic cancer Code(s): C25.9 - MALIGNANT NEOPLASM OF PANCREAS, UNSPECIFIED (3) Nausea & vomiting Assessment/Plan: r/o secondary to chemotherapy and underlying gastroparesis R> Pantoprazole 40mg daily Reglan 5mg 30 min ac Code(s): R11.2 - NAUSEA WITH VOMITING, UNSPECIFIED
[2019-03-16] MEDS: METOCLOPRAMIDE HCL 10 MG TABLET (FP) PO SCH (18:19)
--- NOTE | 2019-03-16 18:57 | PN ---
Progress Note (short form) - Note Progress Note: Patient seen and examined Improved with less nausea and emesis Last Vital Signs Temp Pulse Resp BP Pulse Ox 100.1 F H 85 18 143/61 96 03/16/19 17:28 03/16/19 17:28 03/16/19 17:28 03/16/19 17:28 03/16/19 09:00 Lungs - clear RSR Abd- soft Ext- neg CT = pancreatic mass, liver mets CBC, BMP 03/15/19 06:57 03/16/19 06:30 Abnormal Lab Results 03/16/19 06:30 Sodium 130 L Chloride 97 L BUN 20.1 H Random Glucose 199 H Calcium 7.3 L Total Bilirubin 2.4 H AST 93 H ALT 100 H Alkaline Phosphatase 518 H Total Protein 5.0 L Albumin 1.7 L Current Medications Generic Name Dose Route Start Last Admin Trade Name Freq PRN Reason Stop Dose Admin Acetaminophen 650 mg 03/10/19 22:05 03/15/19 23:20 Tylenol - PO 650 mg Q6H PRN Administration PAIN LEVEL 4 - 6 Al Hydroxide/Mg Hydroxide 30 ml 03/10/19 13:45 03/10/19 14:16 Mylanta Oral Suspension - PO 30 ml Q6H PRN Administration INDIGESTION Amlodipine Besylate 10 mg 03/10/19 10:00 03/16/19 09:28 Norvasc - PO 10 mg DAILY JOHN Administration Bisacodyl 5 mg 03/10/19 10:00 03/16/19 09:27 Dulcolax - PO Not Given DAILY JOHN Cholecalciferol 1,000 unit 03/10/19 10:00 03/16/19 09:28 Vitamin D3 - PO 1,000 unit DAILY JOHN Administration Docusate Sodium 100 mg 03/12/19 13:06 03/14/19 10:25 Colace - PO 100 mg BID PRN Administration CONSTIPATION Dorzolamide HCl 1 drop 03/09/19 22:00 03/16/19 09:30 Trusopt 2% OU 1 drop BID JOHN Administration IV Flush 10 ml 03/13/19 13:33 03/15/19 09:05 Tripp-Cath Flush IVPUSH 10 ml PRN PRN Administration FLUSH Sodium Chloride 1,000 mls @ 75 mls/hr 03/16/19 12:45 03/16/19 18:19 Normal Saline - IV 75 mls/hr ASDIR JOHN Administration Insulin Aspart 1 vial 03/13/19 22:00 03/15/19 23:05 Novolog Vial Sliding Scale - SQ 4 units HS JOHN Administration Protocol Insulin Aspart 1 vial 03/13/19 12:48 03/16/19 17:56 Novolog Vial Sliding Scale - SQ 3 units TIDAC JOHN Administration Protocol Insulin Detemir 8 units 03/16/19 07:00 03/16/19 06:23 Levemir Vial SQ 8 units DAILY@0700 JOHN Administration Latanoprost 1 drop 03/10/19 10:00 03/16/19 09:30 Xalatan 0.005% Eye Drops - OU 1 drop DAILY JOHN Administration Levothyroxine Sodium 25 mcg 03/10/19 07:00 03/16/19 06:24 Synthroid - PO 25 mcg AM JOHN Administration Lisinopril 40 mg 03/10/19 10:00 03/16/19 09:28 Prinivil PO 40 mg DAILY JOHN Administration Metoclopramide HCl 5 mg 03/16/19 18:00 03/16/19 18:19 Reglan - PO 5 mg TIDAC JOHN Administration Ondansetron HCl 8 mg 03/13/19 11:11 03/16/19 12:13 Zofran Injection IVPB 8 mg Q12H PRN Administration NAUSEA AND/OR VOMITING Pantoprazole Sodium 40 mg 03/10/19 10:00 03/16/19 09:28 Protonix - PO 40 mg DAILY JOHN Administration Polyethylene Glycol 17 gm 03/10/19 14:15 03/16/19 09:27 Miralax (For Daily Use) - PO Not Given DAILY [facility] Timolol Maleate 1 drop 03/09/19 22:00 03/16/19 09:29 Timoptic 0.5% OU 1 drop BID JOHN Administration Impression: Pancreatic ca Liver mets GI toxicity Plan : If feasible , maintain course of therapy
[2019-03-17] MEDS: LEVOTHYROXINE NA 25 MCG TABLET (FP) PO SCH (06:23)
[2019-03-17] MEDS: INSULIN SLIDING SCALE (NOVOLOG) 1 VIAL SQ SCH ×4 (06:24→21:30)
[2019-03-17] MEDS: METOCLOPRAMIDE HCL 10 MG TABLET (FP) PO SCH ×3 (06:24→16:11)
[2019-03-17] MEDS: INSULIN (LEVEMIR) 100 UNITS/ML UNITS SQ SCH (06:25)
[2019-03-17 08:03] LABS: ALBUMIN 1.6 g/dl (3.4-5.0); BLOOD UREA NITROGEN 23.4 mg/dL (7-18); CALCIUM 7.2 mg/dL (8.5-10.1); CREATININE 0.5 mg/dL (0.55-1.3); POTASSIUM 3.9 mmol/L (3.5-5.1); TOT PROT 4.8 g/dl (6.4-8.2)
[2019-03-17] MEDS: POLYETHYLENE GLYCOL 3350 119 GM BTL PO SCH (09:34)
[2019-03-17] MEDS: BISACODYL 5 MG TABLET.DR (FP) PO SCH (09:35)
[2019-03-17] MEDS: CHOLECALCIFEROL (VIT D3) 1,000 UNIT (25 MCG) TABLET PO SCH (09:35)
[2019-03-17] MEDS: LISINOPRIL 20 MG TABLET (FP) PO SCH (09:35)
[2019-03-17] MEDS: PANTOPRAZOLE 40 MG TABLET (FP) PO SCH (09:35)
[2019-03-17] MEDS: amLODIPine BESYLATE 10 MG TABLET (FP) PO SCH (09:35)
[2019-03-17] MEDS: LATANOPROST 0.005% OPHTH SOLN 2.5ML BOTTLE OU SCH (09:37)
[2019-03-17] MEDS: TIMOLOL 0.5% OPHTHALMIC SOL 5 ML BOTTLE OU SCH ×2 (09:37→21:33)
[2019-03-17] MEDS: DORZOLAMIDE 2% HCL OPHTHALMIC SOLUTION 10 ML BOTTLE OU SCH ×2 (09:37→21:34)
--- NOTE | 2019-03-17 09:59 | PN ---
Progress Note (short form) - Note Progress Note: pt seen/ examined chart reviewed feels weak not eating well + abd discomfort Vital Signs Temp 99.3 F 03/17/19 09:10 Pulse 78 03/17/19 09:10 Resp 18 03/17/19 09:10 BP 122/54 L 03/17/19 09:10 Pulse Ox 96 03/16/19 21:00 Intake & Output 03/16/19 03/16/19 03/17/19 11:59 23:59 11:59 Intake Total 900 Balance 900 Intake: IV 900 sl 900 Other: Voiding Method Toilet Toilet # Unmeasured Voids Void 1 2 Bowel Movement No Active Medications Acetaminophen (Tylenol -) 650 mg PO Q6H PRN PRN Reason: PAIN LEVEL 4 - 6 Last Admin: 03/15/19 23:20 Dose: 650 mg Al Hydroxide/Mg Hydroxide (Mylanta Oral Suspension -) 30 ml PO Q6H PRN PRN Reason: INDIGESTION Last Admin: 03/10/19 14:16 Dose: 30 ml Amlodipine Besylate (Norvasc -) 10 mg PO DAILY [facility] Last Admin: 03/17/19 09:35 Dose: 10 mg Bisacodyl (Dulcolax -) 5 mg PO DAILY [facility] Last Admin: 03/17/19 09:35 Dose: 5 mg Cholecalciferol (Vitamin D3 -) 1,000 unit PO DAILY [facility] Last Admin: 03/17/19 09:35 Dose: 1,000 unit Docusate Sodium (Colace -) 100 mg PO BID PRN PRN Reason: CONSTIPATION Last Admin: 03/14/19 10:25 Dose: 100 mg Dorzolamide HCl (Trusopt 2%) 1 drop OU BID [facility] Last Admin: 03/17/19 09:37 Dose: 1 drop IV Flush (Tripp-Cath Flush) 10 ml IVPUSH PRN PRN PRN Reason: FLUSH Last Admin: 03/15/19 09:05 Dose: 10 ml Sodium Chloride (Normal Saline -) 1,000 mls @ 75 mls/hr IV ASDIR [facility] Last Admin: 03/16/19 18:19 Dose: 75 mls/hr Insulin Aspart (Novolog Vial Sliding Scale -) 1 vial SQ HS [facility]; Protocol Last Admin: 03/16/19 21:12 Dose: Not Given Insulin Aspart (Novolog Vial Sliding Scale -) 1 vial SQ TIDAC [facility]; Protocol Last Admin: 03/17/19 06:24 Dose: 3 units Insulin Detemir (Levemir Vial) 8 units SQ DAILY@0700 [facility] Last Admin: 03/17/19 06:25 Dose: 8 units Latanoprost (Xalatan 0.005% Eye Drops -) 1 drop OU DAILY [facility] Last Admin: 03/17/19 09:37 Dose: 1 drop Levothyroxine Sodium (Synthroid -) 25 mcg PO AM [facility] Last Admin: 03/17/19 06:23 Dose: 25 mcg Lisinopril (Prinivil) 40 mg PO DAILY [facility] Last Admin: 03/17/19 09:35 Dose: 40 mg Metoclopramide HCl (Reglan -) 5 mg PO TIDAC [facility] Last Admin: 03/17/19 06:24 Dose: 5 mg Ondansetron HCl (Zofran Injection) 8 mg IVPB Q12H PRN PRN Reason: NAUSEA AND/OR VOMITING Last Admin: 03/16/19 12:13 Dose: 8 mg Pantoprazole Sodium (Protonix -) 40 mg PO DAILY [facility] Last Admin: 03/17/19 09:35 Dose: 40 mg Polyethylene Glycol (Miralax (For Daily Use) -) 17 gm PO DAILY [facility] Last Admin: 03/17/19 09:34 Dose: 17 gm Timolol Maleate (Timoptic 0.5%) 1 drop OU BID [facility] Last Admin: 03/17/19 09:37 Dose: 1 drop CBC, BMP 03/15/19 06:57 03/17/19 06:00 Microbiology 03/15/19 08:45 Blood Culture - Preliminary Blood - Peripheral Venous NO GROWTH OBTAINED AFTER 48 HOURS, INCUBATION TO CONTINUE FOR 3 DAYS. 03/15/19 11:00 Blood Culture - Preliminary Blood - Tripp Cath NO GROWTH OBTAINED AFTER 24 HOURS, INCUBATION TO CONTINUE FOR 4 DAYS. 03/15/19 10:35 Urine Culture - Final Urine - Urine Clean Catch Lactose Fermenting Neg Bacilli Group D Strep Or Entero Coccus Physical Examination Constitutional: Yes: mild distress due to disc. Eyes: Yes: Conjunctiva Clear Neck: Yes: Supple. no jvd Cardiovascular: Yes: Regular Rate and Rhythm Respiratory: Yes: CTA Bilaterally Gastrointestinal: Yes: Soft, mild tenderness. No rigidity or rebound Edema: No Neurological: Yes: Alert Psychiatric: Yes: Alert Imaging - Results Chest X-ray: Report Reviewed EKG: Report Reviewed Assessment/Plan still feeling weak and nauseated Elevated liver function Increasing liver mass Continue present care and monitor Labs Oncology/GI following Will follow Problem List - Problems (1) Pancreatic cancer Code(s): C25.9 - MALIGNANT NEOPLASM OF PANCREAS, UNSPECIFIED (2) Hyponatremia Code(s): E87.1 - HYPO-OSMOLALITY AND HYPONATREMIA (3) Leukocytosis Code(s): D72.829 - ELEVATED WHITE BLOOD CELL COUNT, UNSPECIFIED Qualifiers: Leukocytosis type: unspecified Qualified Code(s): D72.829 - Elevated white blood cell count, unspecified (4) Nausea Code(s): R11.0 - NAUSEA (5) Diabetes mellitus Code(s): E11.9 - TYPE 2 DIABETES MELLITUS WITHOUT COMPLICATIONS Qualifiers: Diabetes mellitus type: type 2 Diabetes mellitus chcf insulin use: unspecified continuous churn buttermaker insulin use status Diabetes mellitus complication status : without complication Qualified Code(s): E11.9 - Type 2 diabetes mellitus without complications (6) Coagulopathy Code(s): D68.9 - COAGULATION DEFECT, UNSPECIFIED
[2019-03-17] MEDS ORDERED: INSULIN (NOVOLOG) ASPART 100 UNITS/ML 10ML VIAL ONE (11:22)
[2019-03-17] MEDS ORDERED: SODIUM CHLORIDE 1,000 ML IV SCH (14:37)
--- NOTE | 2019-03-17 14:37 | PN ---
Progress Note, Physician History of Present Illness: Pt seen and examined at bedside. She still has nausea. - Current Medication List Current Medications: Active Medications Acetaminophen (Tylenol -) 650 mg PO Q6H PRN PRN Reason: PAIN LEVEL 4 - 6 Last Admin: 03/15/19 23:20 Dose: 650 mg Al Hydroxide/Mg Hydroxide (Mylanta Oral Suspension -) 30 ml PO Q6H PRN PRN Reason: INDIGESTION Last Admin: 03/10/19 14:16 Dose: 30 ml Amlodipine Besylate (Norvasc -) 10 mg PO DAILY [facility] Last Admin: 03/17/19 09:35 Dose: 10 mg Bisacodyl (Dulcolax -) 5 mg PO DAILY [facility] Last Admin: 03/17/19 09:35 Dose: 5 mg Cholecalciferol (Vitamin D3 -) 1,000 unit PO DAILY [facility] Last Admin: 03/17/19 09:35 Dose: 1,000 unit Docusate Sodium (Colace -) 100 mg PO BID PRN PRN Reason: CONSTIPATION Last Admin: 03/14/19 10:25 Dose: 100 mg Dorzolamide HCl (Trusopt 2%) 1 drop OU BID [facility] Last Admin: 03/17/19 09:37 Dose: 1 drop IV Flush (Tripp-Cath Flush) 10 ml IVPUSH PRN PRN PRN Reason: FLUSH Last Admin: 03/15/19 09:05 Dose: 10 ml Sodium Chloride (Normal Saline -) 1,000 mls @ 75 mls/hr IV ASDIR [facility] Last Admin: 03/16/19 18:19 Dose: 75 mls/hr Insulin Aspart (Novolog Vial Sliding Scale -) 1 vial SQ HS [facility]; Protocol Last Admin: 03/16/19 21:12 Dose: Not Given Insulin Aspart (Novolog Vial Sliding Scale -) 1 vial SQ TIDAC [facility]; Protocol Last Admin: 03/17/19 11:27 Dose: 9 units Insulin Detemir (Levemir Vial) 8 units SQ DAILY@0700 [facility] Last Admin: 03/17/19 06:25 Dose: 8 units Latanoprost (Xalatan 0.005% Eye Drops -) 1 drop OU DAILY [facility] Last Admin: 03/17/19 09:37 Dose: 1 drop Levothyroxine Sodium (Synthroid -) 25 mcg PO AM [facility] Last Admin: 03/17/19 06:23 Dose: 25 mcg Lisinopril (Prinivil) 40 mg PO DAILY [facility] Last Admin: 03/17/19 09:35 Dose: 40 mg Metoclopramide HCl (Reglan -) 5 mg PO TIDAC [facility] Last Admin: 03/17/19 11:20 Dose: 5 mg Ondansetron HCl (Zofran Injection) 8 mg IVPB Q12H PRN PRN Reason: NAUSEA AND/OR VOMITING Last Admin: 03/16/19 12:13 Dose: 8 mg Pantoprazole Sodium (Protonix -) 40 mg PO DAILY [facility] Last Admin: 03/17/19 09:35 Dose: 40 mg Polyethylene Glycol (Miralax (For Daily Use) -) 17 gm PO DAILY [facility] Last Admin: 03/17/19 09:34 Dose: 17 gm Timolol Maleate (Timoptic 0.5%) 1 drop OU BID [facility] Last Admin: 03/17/19 09:37 Dose: 1 drop - Objective Vital Signs: Vital Signs Temperature 99.3 F 03/17/19 09:10 Pulse Rate 78 03/17/19 09:10 Respiratory Rate 18 03/17/19 09:10 Blood Pressure 122/54 L 03/17/19 09:10 O2 Sat by Pulse Oximetry (%) 99 03/17/19 09:00 Constitutional: Yes: Calm Eyes: Yes: Conjunctiva Clear HENT: Yes: Atraumatic Neck: Yes: Supple Cardiovascular: Yes: S1, S2 Respiratory: Yes: CTA Bilaterally Gastrointestinal: Yes: Normal Bowel Sounds, Soft Genitourinary: Yes: WNL Musculoskeletal: Yes: WNL Edema: Yes Edema: LLE: 1+, RLE: 1+ Neurological: Yes: Oriented Psychiatric: Yes: Oriented Labs: CBC, BMP 03/15/19 06:57 03/17/19 06:00 INR, PTT INR 1.50 (0.83-1.09) H 03/15/19 06:57 Fibrinogen 440.0 mg/dL (238-498) 03/10/19 17:00 Problem List - Problems (1) Hyponatremia Code(s): E87.1 - HYPO-OSMOLALITY AND HYPONATREMIA (2) Pancreatic cancer Code(s): C25.9 - MALIGNANT NEOPLASM OF PANCREAS, UNSPECIFIED Assessment/Plan Current Medications Generic Name Dose Route Start Last Admin Trade Name Freq PRN Reason Stop Dose Admin Acetaminophen 650 mg 03/10/19 22:05 03/15/19 23:20 Tylenol - PO 650 mg Q6H PRN Administration PAIN LEVEL 4 - 6 Al Hydroxide/Mg Hydroxide 30 ml 03/10/19 13:45 03/10/19 14:16 Mylanta Oral Suspension - PO 30 ml Q6H PRN Administration INDIGESTION Amlodipine Besylate 10 mg 03/10/19 10:00 03/17/19 09:35 Norvasc - PO 10 mg DAILY JOHN Administration Bisacodyl 5 mg 03/10/19 10:00 03/17/19 09:35 Dulcolax - PO 5 mg DAILY JOHN Administration Cholecalciferol 1,000 unit 03/10/19 10:00 03/17/19 09:35 Vitamin D3 - PO 1,000 unit DAILY JOHN Administration Docusate Sodium 100 mg 03/12/19 13:06 03/14/19 10:25 Colace - PO 100 mg BID PRN Administration CONSTIPATION Dorzolamide HCl 1 drop 03/09/19 22:00 03/17/19 09:37 Trusopt 2% OU 1 drop BID JOHN Administration IV Flush 10 ml 03/13/19 13:33 03/15/19 09:05 Tripp-Cath Flush IVPUSH 10 ml PRN PRN Administration FLUSH Sodium Chloride 1,000 mls @ 75 mls/hr 03/16/19 12:45 03/16/19 18:19 Normal Saline - IV 75 mls/hr ASDIR JOHN Administration Insulin Aspart 1 vial 03/13/19 22:00 03/16/19 21:12 Novolog Vial Sliding Scale - SQ Not Given HS [facility] Protocol Insulin Aspart 1 vial 03/13/19 12:48 03/17/19 11:27 Novolog Vial Sliding Scale - SQ 9 units TIDAC [facility] Administration Protocol Insulin Detemir 8 units 03/16/19 07:00 03/17/19 06:25 Levemir Vial SQ 8 units DAILY@0700 [facility] Administration Latanoprost 1 drop 03/10/19 10:00 03/17/19 09:37 Xalatan 0.005% Eye Drops - OU 1 drop DAILY [facility] Administration Levothyroxine Sodium 25 mcg 03/10/19 07:00 03/17/19 06:23 Synthroid - PO 25 mcg AM JOHN Administration Lisinopril 40 mg 03/10/19 10:00 03/17/19 09:35 Prinivil PO 40 mg DAILY JOHN Administration Metoclopramide HCl 5 mg 03/16/19 18:00 03/17/19 11:20 Reglan - PO 5 mg TIDAC JOHN Administration Ondansetron HCl 8 mg 03/13/19 11:11 03/16/19 12:13 Zofran Injection IVPB 8 mg Q12H PRN Administration NAUSEA AND/OR VOMITING Pantoprazole Sodium 40 mg 03/10/19 10:00 03/17/19 09:35 Protonix - PO 40 mg DAILY JOHN Administration Polyethylene Glycol 17 gm 03/10/19 14:15 03/17/19 09:34 Miralax (For Daily Use) - PO 17 gm DAILY JOHN Administration Timolol Maleate 1 drop 03/09/19 22:00 03/17/19 09:37 Timoptic 0.5% OU 1 drop BID JOHN Administration Impression 1. hyonatremia 2. pancreatic cancer 3. hypothyroidism 4. decreased appetite 5. htn Plan - decrease rate of fluids - repeat labs in am - repeat urine lytes - pt still with poor po intake - will follow
--- NOTE | 2019-03-17 14:48 | PN.GI ---
GI Progress Note Subjective: Still c/o nausea. - Objective Vital Signs: Vital Signs Temperature 98.4 F 03/17/19 14:42 Pulse Rate 76 03/17/19 14:42 Respiratory Rate 18 03/17/19 14:42 Blood Pressure 124/61 03/17/19 14:42 O2 Sat by Pulse Oximetry (%) 99 03/17/19 09:00 Labs: CBC, BMP 03/15/19 06:57 03/17/19 06:00 INR, PTT INR 1.50 (0.83-1.09) H 03/15/19 06:57 Fibrinogen 440.0 mg/dL (238-498) 03/10/19 17:00 Problem List - Problems (1) Metastases to the liver Code(s): C78.7 - SECONDARY MALIG NEOPLASM OF LIVER AND INTRAHEPATIC BILE DUCT (2) Pancreatic cancer Code(s): C25.9 - MALIGNANT NEOPLASM OF PANCREAS, UNSPECIFIED (3) Nausea & vomiting Code(s): R11.2 - NAUSEA WITH VOMITING, UNSPECIFIED
--- NOTE | 2019-03-17 17:53 | PN ---
Progress Note (short form) - Note Progress Note: Patient seen and examined Feels weak AFVSS Cor: RSR, No murmurs, No gallops Lungs: Clear to P&A Abd: Soft, Normal bowel sounds, No organomegaly Ext:No significant edema Labs/Meds reviewed A/P 83 y/o patient with metastatic pancreatic cancer with extensive liver mets coagulopathy due to liver disease s/p FFP/vit. K 03/10 s/p Port placement 03/11 C1 D4 gemzar/abraxane Leukocytosis-- blood cx/urine cx /cxr negative ? reactive due to advanced malignancy Abnormal LFTs--due to liver mets recheck cultures C1 D8 gemzar/abraxane due 03/18
--- NOTE | 2019-03-17 18:16 | PN ---
Progress Note (short form) - Note Progress Note: C/o Poor apetite Vital Signs Period Temp Pulse Resp BP Sys/Miller Pulse Ox Last 24 Hr 98.4 F-99.8 F 76-78 18-18 122-139/54-61 96-99 PE: AOx3 Neck: Supple, No JVD HEENT: EOMI Lungs: CTA CVS: S1S2 Abd: Benign EXt: No edema Neuro: No focal deficit CMP Sodium 131 mmol/L (136-145) L 03/17/19 06:00 Potassium 3.9 mmol/L (3.5-5.1) 03/17/19 06:00 Chloride 98 mmol/L (98-107) 03/17/19 06:00 Carbon Dioxide 24 mmol/L (21-32) 03/17/19 06:00 Anion Gap 9 MMOL/L (8-16) 03/17/19 06:00 BUN 23.4 mg/dL (7-18) H 03/17/19 06:00 Creatinine 0.5 mg/dL (0.55-1.3) L 03/17/19 06:00 Est GFR (CKD-EPI)AfAm 105.20 03/17/19 06:00 Est GFR (CKD-EPI)NonAf 90.77 03/17/19 06:00 POC Glucometer 262 UNITS (80-120) 03/17/19 16:09 Random Glucose 176 mg/dL (74-106) H 03/17/19 06:00 Hemoglobin A1c % 10.0 % (4.2-6.3) H 03/11/19 10:05 Serum Osmolality 290 mosm/kg (278-305) 03/12/19 10:45 Calcium 7.2 mg/dL (8.5-10.1) L 03/17/19 06:00 Total Bilirubin 3.0 mg/dL (0.2-1) H 03/17/19 06:00 AST 119 U/L (15-37) H 03/17/19 06:00 ALT 87 U/L (13-61) H 03/17/19 06:00 Alkaline Phosphatase 663 U/L (45-117) H 03/17/19 06:00 Troponin I < 0.02 ng/ml (0.00-0.05) 03/09/19 05:42 Total Protein 4.8 g/dl (6.4-8.2) L 03/17/19 06:00 Albumin 1.6 g/dl (3.4-5.0) L 03/17/19 06:00 Total Amylase 33 U/L (25-115) 03/10/19 06:16 Lipase 98 U/L (73-393) 03/10/19 06:16 TSH 4.66 uIU/ml (0.358-3.74) H 03/10/19 06:16 Cortisol AM Sample 14.0 ug/dL (6.2-19.4) 03/13/19 07:00 Current Medications Generic Name Dose Route Start Last Admin Trade Name Freq PRN Reason Stop Dose Admin Acetaminophen 650 mg 03/10/19 22:05 03/15/19 23:20 Tylenol - PO 650 mg Q6H PRN Administration PAIN LEVEL 4 - 6 Al Hydroxide/Mg Hydroxide 30 ml 03/10/19 13:45 03/10/19 14:16 Mylanta Oral Suspension - PO 30 ml Q6H PRN Administration INDIGESTION Amlodipine Besylate 10 mg 03/10/19 10:00 03/17/19 09:35 Norvasc - PO 10 mg DAILY JOHN Administration Bisacodyl 5 mg 03/10/19 10:00 03/17/19 09:35 Dulcolax - PO 5 mg DAILY JOHN Administration Cholecalciferol 1,000 unit 03/10/19 10:00 03/17/19 09:35 Vitamin D3 - PO 1,000 unit DAILY JOHN Administration Docusate Sodium 100 mg 03/12/19 13:06 03/14/19 10:25 Colace - PO 100 mg BID PRN Administration CONSTIPATION Dorzolamide HCl 1 drop 03/09/19 22:00 03/17/19 09:37 Trusopt 2% OU 1 drop BID JOHN Administration IV Flush 10 ml 03/13/19 13:33 03/15/19 09:05 Tripp-Cath Flush IVPUSH 10 ml PRN PRN Administration FLUSH Sodium Chloride 1,000 mls @ 40 mls/hr 03/17/19 14:37 03/17/19 16:03 Normal Saline - IV 40 mls/hr ASDIR JOHN Administration Insulin Aspart 1 vial 03/13/19 22:00 03/16/19 21:12 Novolog Vial Sliding Scale - SQ Not Given HS [facility] Protocol Insulin Aspart 1 vial 03/13/19 12:48 03/17/19 16:10 Novolog Vial Sliding Scale - SQ 9 units TIDAC JOHN Administration Protocol Insulin Detemir 8 units 03/16/19 07:00 03/17/19 06:25 Levemir Vial SQ 8 units DAILY@0700 JOHN Administration Latanoprost 1 drop 03/10/19 10:00 03/17/19 09:37 Xalatan 0.005% Eye Drops - OU 1 drop DAILY [facility] Administration Levothyroxine Sodium 25 mcg 03/10/19 07:00 03/17/19 06:23 Synthroid - PO 25 mcg AM JOHN Administration Lisinopril 40 mg 03/10/19 10:00 03/17/19 09:35 Prinivil PO 40 mg DAILY JOHN Administration Metoclopramide HCl 5 mg 03/16/19 18:00 03/17/19 16:11 Reglan - PO 5 mg TIDAC JOHN Administration Ondansetron HCl 8 mg 03/13/19 11:11 03/16/19 12:13 Zofran Injection IVPB 8 mg Q12H PRN Administration NAUSEA AND/OR VOMITING Pantoprazole Sodium 40 mg 03/10/19 10:00 03/17/19 09:35 Protonix - PO 40 mg DAILY JOHN Administration Polyethylene Glycol 17 gm 03/10/19 14:15 03/17/19 09:34 Miralax (For Daily Use) - PO 17 gm DAILY JOHN Administration Timolol Maleate 1 drop 03/09/19 22:00 03/17/19 09:37 Timoptic 0.5% OU 1 drop BID JOHN Administration AP; Pancreatic Ca T2DM: A1c 10 Hyponatremia Elevated LFTs Leukocytosis Getting Glucerna with meals TSH 4.66 Cortisol 14 Increase Levemir 12 units daily in AM BGM QACHS and 3 AM Continue Novolog SS coverage Will f/u Problem List - Problems (1) Hyponatremia Code(s): E87.1 - HYPO-OSMOLALITY AND HYPONATREMIA (2) Pancreatic cancer Code(s): C25.9 - MALIGNANT NEOPLASM OF PANCREAS, UNSPECIFIED (3) Diabetes mellitus Code(s): E11.9 - TYPE 2 DIABETES MELLITUS WITHOUT COMPLICATIONS Qualifiers: Diabetes mellitus type: type 2 Diabetes mellitus long term care pharmacist insulin use: unspecified long term care pharmacist insulin use status Diabetes mellitus complication status : without complication Qualified Code(s): E11.9 - Type 2 diabetes mellitus without complications (4) Hyperglycemia Code(s): R73.9 - HYPERGLYCEMIA, UNSPECIFIED
[2019-03-17 19:50] LABS: EPI CELLS 7.6 /HPF (0-5/HPF); HYALINE CASTS 13 /lpf (0-8); PH,URINE 5.5 (5.0-8.0); URINE APPEARANCE CLOUDY; URINE BACTERIA 21.5 /hpf (NEGATIVE); URINE BILIRUBIN 2+ (NEGATIVE); URINE COLOR DK YELLOW; URINE GLUCOSE (UA) NEGATIVE (NEGATIVE); URINE KETONE NEGATIVE (NEGATIVE); URINE LEUK ESTERASE 1+ (NEGATIVE); URINE NITRITE NEGATIVE (NEGATIVE); URINE PROTEIN TRACE (NEGATIVE); URINE WBC 6 /hpf (0-5)
[2019-03-17] MEDS: ACETAMINOPHEN 325 MG TABLET (FP) PO PRN (21:31)
[2019-03-18] MEDS: INSULIN (LEVEMIR) 100 UNITS/ML UNITS SQ SCH (06:32)
[2019-03-18] MEDS: INSULIN SLIDING SCALE (NOVOLOG) 1 VIAL SQ SCH ×4 (06:32→22:34)
[2019-03-18] MEDS: METOCLOPRAMIDE HCL 10 MG TABLET (FP) PO SCH ×3 (06:33→17:25)
[2019-03-18] MEDS: LEVOTHYROXINE NA 25 MCG TABLET (FP) PO SCH (06:34)
[2019-03-18 07:29] LABS: ALBUMIN 1.5 g/dl (3.4-5.0); BILIRUBIN,TOTAL 4.3 mg/dL (0.2-1); BLOOD UREA NITROGEN 21.9 mg/dL (7-18); CALCIUM 7.1 mg/dL (8.5-10.1); CREATININE 0.5 mg/dL (0.55-1.3); POTASSIUM 3.9 mmol/L (3.5-5.1); TOT PROT 4.7 g/dl (6.4-8.2)
[2019-03-18] MEDS: PANTOPRAZOLE 40 MG TABLET (FP) PO SCH (09:00)
[2019-03-18] MEDS: CHOLECALCIFEROL (VIT D3) 1,000 UNIT (25 MCG) TABLET PO SCH (09:01)
[2019-03-18] MEDS: LISINOPRIL 20 MG TABLET (FP) PO SCH (09:01)
[2019-03-18] MEDS: amLODIPine BESYLATE 10 MG TABLET (FP) PO SCH (09:01)
[2019-03-18] MEDS: BISACODYL 5 MG TABLET.DR (FP) PO SCH (09:01)
[2019-03-18] MEDS: POLYETHYLENE GLYCOL 3350 119 GM BTL PO SCH (09:04)
[2019-03-18] MEDS: TIMOLOL 0.5% OPHTHALMIC SOL 5 ML BOTTLE OU SCH ×2 (09:04→21:35)
[2019-03-18] MEDS: DORZOLAMIDE 2% HCL OPHTHALMIC SOLUTION 10 ML BOTTLE OU SCH ×2 (09:05→21:36)
[2019-03-18] MEDS: LATANOPROST 0.005% OPHTH SOLN 2.5ML BOTTLE OU SCH (09:06)
[2019-03-18 09:56] LABS: HEMATOCRIT 23.9 % (32.4-45.2); HEMOGLOBIN 8.1 GM/dL (10.7-15.3); MCHC 33.7 g/dl (32.0-36.0); MEAN CELL VOLUME 80.2 fl (80-96); MEAN PLT VOLUME 8.7 fl (7.5-11.1); RBC 2.98 M/mm3 (3.60-5.2); RDW 15.4 % (11.6-15.6); WHITE BLOOD COUNT 13.2 K/mm3 (4.0-10.0)
--- NOTE | 2019-03-18 10:00 | PN ---
Progress Note (short form) - Note Progress Note: feels little better today had breakfast nausea better all f/u noted Vital Signs Temp 98.0 F 03/18/19 06:00 Pulse 73 03/18/19 06:00 Resp 18 03/18/19 06:00 BP 128/63 03/18/19 06:00 Pulse Ox 99 03/17/19 21:00 Intake & Output 03/17/19 03/17/19 03/18/19 11:59 23:59 11:59 Intake Total 900 800 360 Balance 900 800 360 Intake: IV 900 800 360 Normal Saline - 1,000 ml 680 @ 40 mls/hr IV ASDIR [facility] Rx#:[id number] sl 900 120 360 Other: Voiding Method Toilet Toilet Toilet Bowel Movement Yes: 1 Yes: 1 Active Medications Acetaminophen (Tylenol -) 650 mg PO Q6H PRN PRN Reason: PAIN LEVEL 4 - 6 Last Admin: 03/17/19 21:31 Dose: 650 mg Al Hydroxide/Mg Hydroxide (Mylanta Oral Suspension -) 30 ml PO Q6H PRN PRN Reason: INDIGESTION Last Admin: 03/10/19 14:16 Dose: 30 ml Amlodipine Besylate (Norvasc -) 10 mg PO DAILY [facility] Last Admin: 03/18/19 09:01 Dose: 10 mg Bisacodyl (Dulcolax -) 5 mg PO DAILY [facility] Last Admin: 03/18/19 09:01 Dose: 5 mg Cholecalciferol (Vitamin D3 -) 1,000 unit PO DAILY [facility] Last Admin: 03/18/19 09:01 Dose: 1,000 unit Docusate Sodium (Colace -) 100 mg PO BID PRN PRN Reason: CONSTIPATION Last Admin: 03/14/19 10:25 Dose: 100 mg Dorzolamide HCl (Trusopt 2%) 1 drop OU BID JOHN Last Admin: 03/18/19 09:05 Dose: 1 drop IV Flush (Tripp-Cath Flush) 10 ml IVPUSH PRN PRN PRN Reason: FLUSH Last Admin: 03/15/19 09:05 Dose: 10 ml Sodium Chloride (Normal Saline -) 1,000 mls @ 40 mls/hr IV ASDIR JOHN Last Admin: 03/17/19 16:03 Dose: 40 mls/hr Levofloxacin (Levaquin 250 Mg Premixed Ivpb -) 250 mg in 50 mls @ 50 mls/hr IVPB DAILY JOHN; Protocol Insulin Aspart (Novolog Vial Sliding Scale -) 1 vial SQ HS [facility]; Protocol Last Admin: 03/17/19 21:30 Dose: Not Given Insulin Aspart (Novolog Vial Sliding Scale -) 1 vial SQ TIDAC [facility]; Protocol Last Admin: 03/18/19 06:32 Dose: 5 units Insulin Detemir (Levemir Vial) 12 units SQ DAILY@0700 JOHN Last Admin: 03/18/19 06:32 Dose: 12 units Latanoprost (Xalatan 0.005% Eye Drops -) 1 drop OU DAILY [facility] Last Admin: 03/18/19 09:06 Dose: 1 drop Levothyroxine Sodium (Synthroid -) 25 mcg PO AM [facility] Last Admin: 03/18/19 06:34 Dose: 25 mcg Lisinopril (Prinivil) 40 mg PO DAILY [facility] Last Admin: 03/18/19 09:01 Dose: 40 mg Metoclopramide HCl (Reglan -) 5 mg PO TIDAC [facility] Last Admin: 03/18/19 06:33 Dose: 5 mg Ondansetron HCl (Zofran Injection) 8 mg IVPB Q12H PRN PRN Reason: NAUSEA AND/OR VOMITING Last Admin: 03/16/19 12:13 Dose: 8 mg Pantoprazole Sodium (Protonix -) 40 mg PO DAILY [facility] Last Admin: 03/18/19 09:00 Dose: 40 mg Polyethylene Glycol (Miralax (For Daily Use) -) 17 gm PO DAILY [facility] Last Admin: 03/18/19 09:04 Dose: 17 gm Timolol Maleate (Timoptic 0.5%) 1 drop OU BID [facility] Last Admin: 03/18/19 09:04 Dose: 1 drop CBC,CMP WBC 14.5 K/mm3 (4.0-10.0) H 03/15/19 06:57 RBC 3.63 M/mm3 (3.60-5.2) 03/15/19 06:57 Hgb 9.7 GM/dL (10.7-15.3) L 03/15/19 06:57 Hct 29.4 % (32.4-45.2) L 03/15/19 06:57 MCV 80.9 fl (80-96) 03/15/19 06:57 MCH 26.8 pg (25.7-33.7) 03/15/19 06:57 MCHC 33.2 g/dl (32.0-36.0) 03/15/19 06:57 RDW 15.1 % (11.6-15.6) 03/15/19 06:57 Plt Count 141 K/MM3 (134-434) D 03/15/19 06:57 MPV 9.9 fl (7.5-11.1) 03/15/19 06:57 Absolute Neuts (auto) 13.1 K/mm3 (1.5-8.0) H 03/15/19 06:57 Neutrophils % 90.8 % (42.8-82.8) H 03/15/19 06:57 Neutrophils % (Manual) 93.9 % (42.8-82.8) H 03/14/19 10:02 Band Neutrophils % 0.0 % 03/14/19 10:02 Lymphocytes % 6.6 % (8-40) L 03/15/19 06:57 Lymphocytes % (Manual) 6.1 % (8-40) L D 03/14/19 10:02 Monocytes % 1.6 % (3.8-10.2) L D 03/15/19 06:57 Monocytes % (Manual) 0 % (3.8-10.2) L D 03/14/19 10:02 Eosinophils % 0.9 % (0-4.5) 03/15/19 06:57 Eosinophils % (Manual) 0.0 % (0-4.5) D 03/14/19 10:02 Basophils % 0.1 % (0-2.0) 03/15/19 06:57 Basophils % (Manual) 0.0 % (0-2.0) 03/14/19 10:02 Myelocytes % (Man) 0 % (0-2) 03/14/19 10:02 Promyelocytes % (Man) 0 % (0-2) 03/14/19 10:02 Blast Cells % (Manual) 0 % (0-0) 03/14/19 10:02 Nucleated RBC % 0 % (0-0) 03/15/19 06:57 Metamyelocytes 0 % (0-2) 03/14/19 10:02 Hypochromia 0 03/14/19 10:02 Platelet Estimate Normal 03/14/19 10:02 Platelet Comment Present 03/10/19 06:16 Polychromasia 0 03/14/19 10:02 Poikilocytosis 0 03/14/19 10:02 Anisocytosis 1+ 03/14/19 10:02 Microcytosis 0 03/14/19 10:02 Macrocytosis 0 03/14/19 10:02 Spherocytes 1+ 03/10/19 06:16 Target Cells 1+ 03/10/19 06:16 Tear Drop Cells 1+ 03/10/19 06:16 Ovalocytes 1+ 03/10/19 06:16 Stomatocytes 1+ 03/10/19 06:16 Courtney Cells 2+ 03/10/19 06:16 Sodium 129 mmol/L (136-145) L 03/18/19 06:00 Potassium 3.9 mmol/L (3.5-5.1) 03/18/19 06:00 Chloride 98 mmol/L (98-107) 03/18/19 06:00 Carbon Dioxide 23 mmol/L (21-32) 03/18/19 06:00 Anion Gap 8 MMOL/L (8-16) 03/18/19 06:00 BUN 21.9 mg/dL (7-18) H 03/18/19 06:00 Creatinine 0.5 mg/dL (0.55-1.3) L 03/18/19 06:00 Est GFR (CKD-EPI)AfAm 105.20 03/18/19 06:00 Est GFR (CKD-EPI)NonAf 90.77 03/18/19 06:00 POC Glucometer 215 UNITS (80-120) 03/18/19 06:30 Random Glucose 207 mg/dL (74-106) H 03/18/19 06:00 Hemoglobin A1c % 10.0 % (4.2-6.3) H 03/11/19 10:05 Serum Osmolality 290 mosm/kg (278-305) 03/12/19 10:45 Calcium 7.1 mg/dL (8.5-10.1) L 03/18/19 06:00 Total Bilirubin 4.3 mg/dL (0.2-1) H 03/18/19 06:00 Direct Bilirubin 3.2 mg/dL (0.0-0.2) H 03/17/19 18:45 AST 110 U/L (15-37) H 03/18/19 06:00 ALT 79 U/L (13-61) H 03/18/19 06:00 Alkaline Phosphatase 803 U/L (45-117) H 03/18/19 06:00 Troponin I < 0.02 ng/ml (0.00-0.05) 03/09/19 05:42 Total Protein 4.7 g/dl (6.4-8.2) L 03/18/19 06:00 Albumin 1.5 g/dl (3.4-5.0) L 03/18/19 06:00 Total Amylase 33 U/L (25-115) 03/10/19 06:16 Lipase 98 U/L (73-393) 03/10/19 06:16 TSH 4.66 uIU/ml (0.358-3.74) H 03/10/19 06:16 Cortisol AM Sample 14.0 ug/dL (6.2-19.4) 03/13/19 07:00 cbc-- Pending Physical Examination Constitutional: Yes: comfortable. Eyes: Yes: Conjunctiva Clear Neck: Yes: Supple. no jvd Cardiovascular: Yes: Regular Rate and Rhythm Respiratory: Yes: CTA Bilaterally Gastrointestinal: Yes: Soft, mild tenderness. No rigidity or rebound Edema: No Neurological: Yes: Alert Psychiatric: Yes: Alert Imaging - Results Chest X-ray: Report Reviewed EKG: Report Reviewed Assessment/Plan Pancreatic ca with Mets Elevated liver function -- liver mets Increasing liver mass Continue present care and monitor Labs Oncology/GI following- chemo today Will follow Problem List - Problems (1) Pancreatic cancer Code(s): C25.9 - MALIGNANT NEOPLASM OF PANCREAS, UNSPECIFIED (2) Hyponatremia Code(s): E87.1 - HYPO-OSMOLALITY AND HYPONATREMIA (3) Leukocytosis Code(s): D72.829 - ELEVATED WHITE BLOOD CELL COUNT, UNSPECIFIED Qualifiers: Leukocytosis type: unspecified Qualified Code(s): D72.829 - Elevated white blood cell count, unspecified (4) Nausea Code(s): R11.0 - NAUSEA (5) Diabetes mellitus Code(s): E11.9 - TYPE 2 DIABETES MELLITUS WITHOUT COMPLICATIONS Qualifiers: Diabetes mellitus type: type 2 Diabetes mellitus half-way insulin use: unspecified half-way insulin use status Diabetes mellitus complication status : without complication Qualified Code(s): E11.9 - Type 2 diabetes mellitus without complications (6) Coagulopathy Code(s): D68.9 - COAGULATION DEFECT, UNSPECIFIED
--- NOTE | 2019-03-18 11:10 | PN ---
Progress Note (short form) - Note Progress Note: Feels better today Improved apetite Ate breakfast Vital Signs Period Temp Pulse Resp BP Sys/Miller Pulse Ox Last 24 Hr 97.5 F-99.4 F 65-83 18-18 106-130/48-67 99 PE: AOx3 Neck: Supple, No JVD HEENT: EOMI Lungs: CTA CVS: S1S2 Abd: Benign EXt: trace edema Neuro: No focal deficit CMP Sodium 129 mmol/L (136-145) L 03/18/19 06:00 Potassium 3.9 mmol/L (3.5-5.1) 03/18/19 06:00 Chloride 98 mmol/L (98-107) 03/18/19 06:00 Carbon Dioxide 23 mmol/L (21-32) 03/18/19 06:00 Anion Gap 8 MMOL/L (8-16) 03/18/19 06:00 BUN 21.9 mg/dL (7-18) H 03/18/19 06:00 Creatinine 0.5 mg/dL (0.55-1.3) L 03/18/19 06:00 Est GFR (CKD-EPI)AfAm 105.20 03/18/19 06:00 Est GFR (CKD-EPI)NonAf 90.77 03/18/19 06:00 POC Glucometer 215 UNITS (80-120) 03/18/19 06:30 Random Glucose 207 mg/dL (74-106) H 03/18/19 06:00 Hemoglobin A1c % 10.0 % (4.2-6.3) H 03/11/19 10:05 Serum Osmolality 290 mosm/kg (278-305) 03/12/19 10:45 Calcium 7.1 mg/dL (8.5-10.1) L 03/18/19 06:00 Total Bilirubin 4.3 mg/dL (0.2-1) H 03/18/19 06:00 Direct Bilirubin 3.2 mg/dL (0.0-0.2) H 03/17/19 18:45 AST 110 U/L (15-37) H 03/18/19 06:00 ALT 79 U/L (13-61) H 03/18/19 06:00 Alkaline Phosphatase 803 U/L (45-117) H 03/18/19 06:00 Troponin I < 0.02 ng/ml (0.00-0.05) 03/09/19 05:42 Total Protein 4.7 g/dl (6.4-8.2) L 03/18/19 06:00 Albumin 1.5 g/dl (3.4-5.0) L 03/18/19 06:00 Total Amylase 33 U/L (25-115) 03/10/19 06:16 Lipase 98 U/L (73-393) 03/10/19 06:16 TSH 4.66 uIU/ml (0.358-3.74) H 03/10/19 06:16 Cortisol AM Sample 14.0 ug/dL (6.2-19.4) 03/13/19 07:00 Current Medications Generic Name Dose Route Start Last Admin Trade Name Freq PRN Reason Stop Dose Admin Acetaminophen 650 mg 03/10/19 22:05 03/17/19 21:31 Tylenol - PO 650 mg Q6H PRN Administration PAIN LEVEL 4 - 6 Al Hydroxide/Mg Hydroxide 30 ml 03/10/19 13:45 03/10/19 14:16 Mylanta Oral Suspension - PO 30 ml Q6H PRN Administration INDIGESTION Amlodipine Besylate 10 mg 03/10/19 10:00 03/18/19 09:01 Norvasc - PO 10 mg DAILY JOHN Administration Bisacodyl 5 mg 03/10/19 10:00 03/18/19 09:01 Dulcolax - PO 5 mg DAILY JOHN Administration Cholecalciferol 1,000 unit 03/10/19 10:00 03/18/19 09:01 Vitamin D3 - PO 1,000 unit DAILY JOHN Administration Docusate Sodium 100 mg 03/12/19 13:06 03/14/19 10:25 Colace - PO 100 mg BID PRN Administration CONSTIPATION Dorzolamide HCl 1 drop 03/09/19 22:00 03/18/19 09:05 Trusopt 2% OU 1 drop BID JOHN Administration IV Flush 10 ml 03/13/19 13:33 03/15/19 09:05 Tripp-Cath Flush IVPUSH 10 ml PRN PRN Administration FLUSH Sodium Chloride 1,000 mls @ 40 mls/hr 03/17/19 14:37 03/17/19 16:03 Normal Saline - IV 40 mls/hr ASDIR JOHN Administration Levofloxacin 250 mg in 50 mls @ 50 mls/hr 03/18/19 10:00 03/18/19 10:38 Levaquin 250 Mg Premixed Ivpb - IVPB 50 mls/hr DAILY JOHN Administration Protocol Insulin Aspart 1 vial 03/13/19 22:00 03/17/19 21:30 Novolog Vial Sliding Scale - SQ Not Given HS JOHN Protocol Insulin Aspart 1 vial 03/13/19 12:48 03/18/19 06:32 Novolog Vial Sliding Scale - SQ 5 units TIDAC JOHN Administration Protocol Insulin Detemir 12 units 03/18/19 07:00 03/18/19 06:32 Levemir Vial SQ 12 units DAILY@0700 JOHN Administration Latanoprost 1 drop 03/10/19 10:00 03/18/19 09:06 Xalatan 0.005% Eye Drops - OU 1 drop DAILY JOHN Administration Levothyroxine Sodium 25 mcg 03/10/19 07:00 03/18/19 06:34 Synthroid - PO 25 mcg AM JOHN Administration Lisinopril 40 mg 03/10/19 10:00 03/18/19 09:01 Prinivil PO 40 mg DAILY JOHN Administration Metoclopramide HCl 5 mg 03/16/19 18:00 03/18/19 06:33 Reglan - PO 5 mg TIDAC JOHN Administration Ondansetron HCl 8 mg 03/13/19 11:11 03/16/19 12:13 Zofran Injection IVPB 8 mg Q12H PRN Administration NAUSEA AND/OR VOMITING Pantoprazole Sodium 40 mg 03/10/19 10:00 03/18/19 09:00 Protonix - PO 40 mg DAILY JOHN Administration Polyethylene Glycol 17 gm 03/10/19 14:15 03/18/19 09:04 Miralax (For Daily Use) - PO 17 gm DAILY JOHN Administration Timolol Maleate 1 drop 03/09/19 22:00 03/18/19 09:04 Timoptic 0.5% OU 1 drop BID JOHN Administration AP; Pancreatic Ca T2DM: A1c 10 Hyponatremia Elevated LFTs Leukocytosis Getting Glucerna with meals TSH 4.66 Cortisol 14 Levemir 12 units daily in AM BGM QACHS and 3 AM Continue Novolog SS coverage Chemo as per Onco Will f/u Problem List - Problems (1) Hyponatremia Code(s): E87.1 - HYPO-OSMOLALITY AND HYPONATREMIA (2) Pancreatic cancer Code(s): C25.9 - MALIGNANT NEOPLASM OF PANCREAS, UNSPECIFIED (3) Diabetes mellitus Code(s): E11.9 - TYPE 2 DIABETES MELLITUS WITHOUT COMPLICATIONS Qualifiers: Diabetes mellitus type: type 2 Diabetes mellitus long-term insulin use: unspecified roasterman insulin use status Diabetes mellitus complication status : without complication Qualified Code(s): E11.9 - Type 2 diabetes mellitus without complications (4) Hyperglycemia Code(s): R73.9 - HYPERGLYCEMIA, UNSPECIFIED
[2019-03-18 11:57] LABS: ANISOCYTOSIS 1+; MACROCYTOSIS 0; OVALOCYTE 1+; PLATELET ESTIMATE DECREASED; TARGET CELLS 2+; TEAR DROP CELLS 1+
--- NOTE | 2019-03-18 13:50 | PN ---
Progress Note (short form) - Note Progress Note: afebrile no complaints s/p chemo 8/2 no fevers 48 hours, eating soup, no dysuria Vital Signs Period Temp Pulse Resp BP Sys/Miller Pulse Ox Last 24 Hr 97.5 F-99.4 F 65-83 18-18 106-130/48-67 99 cor-rrr lungs clear abd soft,nt ext no edema port no erythema CBC, BMP 03/18/19 06:00 03/18/19 06:00 Microbiology 03/15/19 11:00 Blood - Tripp Cath Blood Culture - Preliminary NO GROWTH OBTAINED AFTER 72 HOURS, INCUBATION TO CONTINUE FOR 2 DAYS. 03/15/19 08:45 Blood - Peripheral Venous Blood Culture - Preliminary NO GROWTH OBTAINED AFTER 72 HOURS, INCUBATION TO CONTINUE FOR 2 DAYS. 03/15/19 10:35 Urine - Urine Clean Catch Urine Culture - Final Lactose Fermenting Neg Bacilli Group D Strep Or Entero Coccus 03/09/19 10:24 Blood - Peripheral Venous Blood Culture - Final NO GROWTH AFTER 5 DAYS INCUBATION 03/09/19 10:24 Blood - Peripheral Venous Blood Culture - Final NO GROWTH AFTER 5 DAYS INCUBATION 03/09/19 06:24 Urine - Urine Clean Catch Urine Culture - Final NO GROWTH OBTAINED a/p fevers resolved- not neutropenic, do not suspect UTI, low colony counts polymicorbial urine culture, can d/c levaquin leukocytosis-suspect leukemoid reaction to malignancy, no obvious source of infection pancreatic cancer (bodyof pancreas) with liver mets-ct scan noted, s/p chemo 8/2 diabetes- please call back if needed Problem List - Problems (1) Leukocytosis Code(s): D72.829 - ELEVATED WHITE BLOOD CELL COUNT, UNSPECIFIED Qualifiers: Leukocytosis type: unspecified Qualified Code(s): D72.829 - Elevated white blood cell count, unspecified (2) Pancreatic cancer Code(s): C25.9 - MALIGNANT NEOPLASM OF PANCREAS, UNSPECIFIED
--- NOTE | 2019-03-18 13:51 | PN ---
Progress Note, Physician History of Present Illness: Pt seen and examined at bedside. She denies shortness of breath. She feels her PO intake is starting to improve. - Current Medication List Current Medications: Active Medications Acetaminophen (Tylenol -) 650 mg PO Q6H PRN PRN Reason: PAIN LEVEL 4 - 6 Last Admin: 03/17/19 21:31 Dose: 650 mg Al Hydroxide/Mg Hydroxide (Mylanta Oral Suspension -) 30 ml PO Q6H PRN PRN Reason: INDIGESTION Last Admin: 03/10/19 14:16 Dose: 30 ml Amlodipine Besylate (Norvasc -) 10 mg PO DAILY JOHN Last Admin: 03/18/19 09:01 Dose: 10 mg Bisacodyl (Dulcolax -) 5 mg PO DAILY JOHN Last Admin: 03/18/19 09:01 Dose: 5 mg Cholecalciferol (Vitamin D3 -) 1,000 unit PO DAILY JOHN Last Admin: 03/18/19 09:01 Dose: 1,000 unit Docusate Sodium (Colace -) 100 mg PO BID PRN PRN Reason: CONSTIPATION Last Admin: 03/14/19 10:25 Dose: 100 mg Dorzolamide HCl (Trusopt 2%) 1 drop OU BID JOHN Last Admin: 03/18/19 09:05 Dose: 1 drop IV Flush (Tripp-Cath Flush) 10 ml IVPUSH PRN PRN PRN Reason: FLUSH Last Admin: 03/15/19 09:05 Dose: 10 ml Sodium Chloride (Normal Saline -) 1,000 mls @ 40 mls/hr IV ASDIR [facility] Last Admin: 03/17/19 16:03 Dose: 40 mls/hr Levofloxacin (Levaquin 250 Mg Premixed Ivpb -) 250 mg in 50 mls @ 50 mls/hr IVPB DAILY [facility]; Protocol Last Admin: 03/18/19 10:38 Dose: 50 mls/hr Insulin Aspart (Novolog Vial Sliding Scale -) 1 vial SQ HS [facility]; Protocol Last Admin: 03/17/19 21:30 Dose: Not Given Insulin Aspart (Novolog Vial Sliding Scale -) 1 vial SQ TIDAC [facility]; Protocol Last Admin: 03/18/19 06:32 Dose: 5 units Insulin Detemir (Levemir Vial) 12 units SQ DAILY@0700 JOHN Last Admin: 03/18/19 06:32 Dose: 12 units Latanoprost (Xalatan 0.005% Eye Drops -) 1 drop OU DAILY [facility] Last Admin: 03/18/19 09:06 Dose: 1 drop Levothyroxine Sodium (Synthroid -) 25 mcg PO AM [facility] Last Admin: 03/18/19 06:34 Dose: 25 mcg Lisinopril (Prinivil) 40 mg PO DAILY [facility] Last Admin: 03/18/19 09:01 Dose: 40 mg Metoclopramide HCl (Reglan -) 5 mg PO TIDAC [facility] Last Admin: 03/18/19 06:33 Dose: 5 mg Ondansetron HCl (Zofran Injection) 8 mg IVPB Q12H PRN PRN Reason: NAUSEA AND/OR VOMITING Last Admin: 03/16/19 12:13 Dose: 8 mg Pantoprazole Sodium (Protonix -) 40 mg PO DAILY [facility] Last Admin: 03/18/19 09:00 Dose: 40 mg Polyethylene Glycol (Miralax (For Daily Use) -) 17 gm PO DAILY [facility] Last Admin: 03/18/19 09:04 Dose: 17 gm Timolol Maleate (Timoptic 0.5%) 1 drop OU BID [facility] Last Admin: 03/18/19 09:04 Dose: 1 drop - Objective Vital Signs: Vital Signs Temperature 98.0 F 03/18/19 06:00 Pulse Rate 73 03/18/19 06:00 Respiratory Rate 18 03/18/19 06:00 Blood Pressure 128/63 03/18/19 06:00 O2 Sat by Pulse Oximetry (%) 99 03/17/19 21:00 Constitutional: Yes: Calm Eyes: Yes: Conjunctiva Clear HENT: Yes: Atraumatic Neck: Yes: Supple Cardiovascular: Yes: S1, S2 Respiratory: Yes: CTA Bilaterally Gastrointestinal: Yes: Soft Genitourinary: Yes: WNL Musculoskeletal: Yes: WNL Edema: Yes Edema: LLE: Trace, RLE: Trace Neurological: Yes: Oriented Psychiatric: Yes: Oriented Labs: CBC, BMP 03/18/19 06:00 03/18/19 06:00 INR, PTT INR 1.50 (0.83-1.09) H 03/15/19 06:57 Fibrinogen 440.0 mg/dL (238-498) 03/10/19 17:00 Problem List - Problems (1) Hyponatremia Code(s): E87.1 - HYPO-OSMOLALITY AND HYPONATREMIA (2) Pancreatic cancer Code(s): C25.9 - MALIGNANT NEOPLASM OF PANCREAS, UNSPECIFIED Assessment/Plan Current Medications Generic Name Dose Route Start Last Admin Trade Name Freq PRN Reason Stop Dose Admin Acetaminophen 650 mg 03/10/19 22:05 03/17/19 21:31 Tylenol - PO 650 mg Q6H PRN Administration PAIN LEVEL 4 - 6 Al Hydroxide/Mg Hydroxide 30 ml 03/10/19 13:45 03/10/19 14:16 Mylanta Oral Suspension - PO 30 ml Q6H PRN Administration INDIGESTION Amlodipine Besylate 10 mg 03/10/19 10:00 03/18/19 09:01 Norvasc - PO 10 mg DAILY JOHN Administration Bisacodyl 5 mg 03/10/19 10:00 03/18/19 09:01 Dulcolax - PO 5 mg DAILY JOHN Administration Cholecalciferol 1,000 unit 03/10/19 10:00 03/18/19 09:01 Vitamin D3 - PO 1,000 unit DAILY JOHN Administration Docusate Sodium 100 mg 03/12/19 13:06 03/14/19 10:25 Colace - PO 100 mg BID PRN Administration CONSTIPATION Dorzolamide HCl 1 drop 03/09/19 22:00 03/18/19 09:05 Trusopt 2% OU 1 drop BID JOHN Administration IV Flush 10 ml 03/13/19 13:33 03/15/19 09:05 Tripp-Cath Flush IVPUSH 10 ml PRN PRN Administration FLUSH Sodium Chloride 1,000 mls @ 40 mls/hr 03/17/19 14:37 03/17/19 16:03 Normal Saline - IV 40 mls/hr ASDIR JOHN Administration Levofloxacin 250 mg in 50 mls @ 50 mls/hr 03/18/19 10:00 03/18/19 10:38 Levaquin 250 Mg Premixed Ivpb - IVPB 50 mls/hr DAILY JOHN Administration Protocol Insulin Aspart 1 vial 03/13/19 22:00 03/17/19 21:30 Novolog Vial Sliding Scale - SQ Not Given HS JOHN Protocol Insulin Aspart 1 vial 03/13/19 12:48 03/18/19 06:32 Novolog Vial Sliding Scale - SQ 5 units TIDAC JOHN Administration Protocol Insulin Detemir 12 units 03/18/19 07:00 03/18/19 06:32 Levemir Vial SQ 12 units DAILY@0700 JOHN Administration Latanoprost 1 drop 03/10/19 10:00 03/18/19 09:06 Xalatan 0.005% Eye Drops - OU 1 drop DAILY JOHN Administration Levothyroxine Sodium 25 mcg 03/10/19 07:00 03/18/19 06:34 Synthroid - PO 25 mcg AM JOHN Administration Lisinopril 40 mg 03/10/19 10:00 03/18/19 09:01 Prinivil PO 40 mg DAILY JOHN Administration Metoclopramide HCl 5 mg 03/16/19 18:00 03/18/19 06:33 Reglan - PO 5 mg TIDAC JOHN Administration Ondansetron HCl 8 mg 03/13/19 11:11 03/16/19 12:13 Zofran Injection IVPB 8 mg Q12H PRN Administration NAUSEA AND/OR VOMITING Pantoprazole Sodium 40 mg 03/10/19 10:00 03/18/19 09:00 Protonix - PO 40 mg DAILY JOHN Administration Polyethylene Glycol 17 gm 03/10/19 14:15 03/18/19 09:04 Miralax (For Daily Use) - PO 17 gm DAILY JOHN Administration Timolol Maleate 1 drop 03/09/19 22:00 03/18/19 09:04 Timoptic 0.5% OU 1 drop BID JOHN Administration Impression 1. hyonatremia 2. pancreatic cancer 3. hypothyroidism 4. decreased appetite 5. htn Plan - d/c fluids - restrict free water - will give salt tabs - repeat labs in am - follow repeat urine studies
[2019-03-18 15:25] LABS: TOXIC GRANULATION 2+
[2019-03-18 15:52] LABS: PLATELET COUNT 17 K/MM3 (134-434)
[2019-03-18] MEDS: SODIUM CHLORIDE 1 GM TABLET PO SCH (15:54)
[2019-03-18] MEDS ORDERED: INSULIN (NOVOLOG) ASPART 100 UNITS/ML 10ML VIAL ONE (17:59)
[2019-03-18] MEDS ORDERED: INSULIN (LEVEMIR) 100 UNITS/ML UNITS SQ ONE (17:59)
[2019-03-18 20:05] LABS: BASO % 0.4 % (0-2.0); EOS % 0.8 % (0-4.5); HEMATOCRIT 24.2 % (32.4-45.2); HEMOGLOBIN 8.1 GM/dL (10.7-15.3); LYMPH % 47.8 % (8-40); MCH 26.8 pg (25.7-33.7); MCHC 33.5 g/dl (32.0-36.0); MEAN PLT VOLUME 8.7 fl (7.5-11.1); MONO % 5.8 % (3.8-10.2); NEUT % 45.2 % (42.8-82.8); PLATELET COUNT 43 K/MM3 (134-434); RBC 3.02 M/mm3 (3.60-5.2); RDW 15.4 % (11.6-15.6); WHITE BLOOD COUNT 12.7 K/mm3 (4.0-10.0)
[2019-03-18] MEDS ORDERED: PT OWN MED DRAWER 7, Y5N ONE (20:25)
--- NOTE | 2019-03-18 20:38 | PN ---
Progress Note (short form) - Note Progress Note: Patient seen and examined Feels weak AFVSS Icteric Cor: RSR, No murmurs, No gallops Lungs: Clear to P&A Abd: Soft, Normal bowel sounds, No organomegaly Ext:No significant edema Labs/Meds reviewed A/P 83 y/o patient with metastatic pancreatic cancer with extensive liver mets coagulopathy due to liver disease s/p FFP/vit. K 03/10 s/p Port placement 03/11 C1 D8 gemzar/abraxane Leukocytosis-- blood cx/urine cx /cxr negative ? reactive due to advanced malignancy Abnormal LFTs--due to liver mets recheck cultures Holding D8 gemzar due to thrombocytopenia relaed to chemotx/ ? liver mets Ongoing discussions with family regarding palliative care/hospice Discussed in great detail her condition with patients son/grand daughter
[2019-03-18 23:02] LABS: ANISOCYTOSIS 1+; OVALOCYTE 1+; PLATELET ESTIMATE DECREASED; TARGET CELLS 1+
[2019-03-19] MEDS: METOCLOPRAMIDE HCL 10 MG TABLET (FP) PO SCH ×3 (06:51→16:07)
[2019-03-19] MEDS: LEVOTHYROXINE NA 25 MCG TABLET (FP) PO SCH (06:51)
[2019-03-19] MEDS: INSULIN SLIDING SCALE (NOVOLOG) 1 VIAL SQ SCH ×4 (06:52→21:20)
[2019-03-19] MEDS: INSULIN (LEVEMIR) 100 UNITS/ML UNITS SQ SCH (06:52)
[2019-03-19 07:18] LABS: HEMATOCRIT 24.8 % (32.4-45.2); HEMOGLOBIN 8.4 GM/dL (10.7-15.3); MCHC 33.9 g/dl (32.0-36.0); MEAN CELL VOLUME 79.7 fl (80-96); MEAN PLT VOLUME 12.1 fl (7.5-11.1); PLATELET COUNT 47 K/MM3 (134-434); RBC 3.11 M/mm3 (3.60-5.2); RDW 15.5 % (11.6-15.6); WHITE BLOOD COUNT 12.4 K/mm3 (4.0-10.0)
[2019-03-19 07:43] LABS: ALBUMIN 1.5 g/dl (3.4-5.0); BILIRUBIN,TOTAL 4.7 mg/dL (0.2-1); BLOOD UREA NITROGEN 15.1 mg/dL (7-18); CALCIUM 7.2 mg/dL (8.5-10.1); CREATININE 0.5 mg/dL (0.55-1.3); POTASSIUM 4.2 mmol/L (3.5-5.1); TOT PROT 4.6 g/dl (6.4-8.2)
--- NOTE | 2019-03-19 09:16 | PN ---
Progress Note (short form) - Note Progress Note: Denies any complaints Improved apetite Ate breakfast FS 55 in the morning Vital Signs Period Temp Pulse Resp BP Sys/Miller Pulse Ox Last 24 Hr 98.0 F-99.4 F 78-86 17-18 125-143/52-64 96 PE: AOx3 Neck: Supple, No JVD HEENT: EOMI Lungs: CTA CVS: S1S2 Abd: Benign EXt: trace edema Neuro: No focal deficit CMP Sodium 130 mmol/L (136-145) L 03/19/19 06:45 Potassium 4.2 mmol/L (3.5-5.1) 03/19/19 06:45 Chloride 97 mmol/L (98-107) L 03/19/19 06:45 Carbon Dioxide 24 mmol/L (21-32) 03/19/19 06:45 Anion Gap 9 MMOL/L (8-16) 03/19/19 06:45 BUN 15.1 mg/dL (7-18) 03/19/19 06:45 Creatinine 0.5 mg/dL (0.55-1.3) L 03/19/19 06:45 Est GFR (CKD-EPI)AfAm 105.20 03/19/19 06:45 Est GFR (CKD-EPI)NonAf 90.77 03/19/19 06:45 POC Glucometer 89 UNITS (80-120) 03/19/19 06:46 Random Glucose 86 mg/dL (74-106) 03/19/19 06:45 Hemoglobin A1c % 10.0 % (4.2-6.3) H 03/11/19 10:05 Serum Osmolality 290 mosm/kg (278-305) 03/12/19 10:45 Calcium 7.2 mg/dL (8.5-10.1) L 03/19/19 06:45 Total Bilirubin 4.7 mg/dL (0.2-1) H 03/19/19 06:45 Direct Bilirubin 3.2 mg/dL (0.0-0.2) H 03/17/19 18:45 AST 116 U/L (15-37) H 03/19/19 06:45 ALT 74 U/L (13-61) H 03/19/19 06:45 Alkaline Phosphatase 969 U/L (45-117) H 03/19/19 06:45 Troponin I < 0.02 ng/ml (0.00-0.05) 03/09/19 05:42 Total Protein 4.6 g/dl (6.4-8.2) L 03/19/19 06:45 Albumin 1.5 g/dl (3.4-5.0) L 03/19/19 06:45 Total Amylase 33 U/L (25-115) 03/10/19 06:16 Lipase 98 U/L (73-393) 03/10/19 06:16 TSH 4.66 uIU/ml (0.358-3.74) H 03/10/19 06:16 Cortisol AM Sample 14.0 ug/dL (6.2-19.4) 03/13/19 07:00 Current Medications Generic Name Dose Route Start Last Admin Trade Name Freq PRN Reason Stop Dose Admin Acetaminophen 650 mg 03/10/19 22:05 03/17/19 21:31 Tylenol - PO 650 mg Q6H PRN Administration PAIN LEVEL 4 - 6 Al Hydroxide/Mg Hydroxide 30 ml 03/10/19 13:45 03/10/19 14:16 Mylanta Oral Suspension - PO 30 ml Q6H PRN Administration INDIGESTION Amlodipine Besylate 10 mg 03/10/19 10:00 03/18/19 09:01 Norvasc - PO 10 mg DAILY JOHN Administration Bisacodyl 5 mg 03/10/19 10:00 03/18/19 09:01 Dulcolax - PO 5 mg DAILY JOHN Administration Cholecalciferol 1,000 unit 03/10/19 10:00 03/18/19 09:01 Vitamin D3 - PO 1,000 unit DAILY JOHN Administration Docusate Sodium 100 mg 03/12/19 13:06 03/14/19 10:25 Colace - PO 100 mg BID PRN Administration CONSTIPATION Dorzolamide HCl 1 drop 03/09/19 22:00 03/18/19 21:36 Trusopt 2% OU 1 drop BID JOHN Administration IV Flush 10 ml 03/13/19 13:33 03/15/19 09:05 Tripp-Cath Flush IVPUSH 10 ml PRN PRN Administration FLUSH Insulin Aspart 1 vial 03/13/19 22:00 03/18/19 22:34 Novolog Vial Sliding Scale - SQ Not Given HS [facility] Protocol Insulin Aspart 1 vial 03/19/19 09:13 Novolog Vial Sliding Scale - SQ TIDAC [facility] Protocol Insulin Detemir 10 units 03/20/19 07:00 Levemir Vial SQ DAILY@0700 [facility] Latanoprost 1 drop 03/10/19 10:00 03/18/19 09:06 Xalatan 0.005% Eye Drops - OU 1 drop DAILY JOHN Administration Levothyroxine Sodium 25 mcg 03/10/19 07:00 03/19/19 06:51 Synthroid - PO 25 mcg AM JOHN Administration Lisinopril 40 mg 03/10/19 10:00 03/18/19 09:01 Prinivil PO 40 mg DAILY JOHN Administration Metoclopramide HCl 5 mg 03/16/19 18:00 03/19/19 06:51 Reglan - PO 5 mg TIDAC JOHN Administration Ondansetron HCl 8 mg 03/13/19 11:11 03/16/19 12:13 Zofran Injection IVPB 8 mg Q12H PRN Administration NAUSEA AND/OR VOMITING Pantoprazole Sodium 40 mg 03/10/19 10:00 03/18/19 09:00 Protonix - PO 40 mg DAILY JOHN Administration Polyethylene Glycol 17 gm 03/10/19 14:15 03/18/19 09:04 Miralax (For Daily Use) - PO 17 gm DAILY JOHN Administration Sodium Chloride 1 gm 03/18/19 14:30 03/18/19 15:54 Sodium Chloride Tablet - PO 1 gm DAILY JOHN Administration Timolol Maleate 1 drop 03/09/19 22:00 03/18/19 21:35 Timoptic 0.5% OU 1 drop BID JOHN Administration AP; Pancreatic Ca T2DM: A1c 10 Hyponatremia Elevated LFTs Leukocytosis Getting Glucerna with meals TSH 4.66 Cortisol 14 Decrease Levemir 10 units daily in AM BGM QACHS and 3 AM Decrease Novolog SS coverage Chemo as per Onco Will f/u Problem List - Problems (1) Hyponatremia Code(s): E87.1 - HYPO-OSMOLALITY AND HYPONATREMIA (2) Pancreatic cancer Code(s): C25.9 - MALIGNANT NEOPLASM OF PANCREAS, UNSPECIFIED (3) Diabetes mellitus Code(s): E11.9 - TYPE 2 DIABETES MELLITUS WITHOUT COMPLICATIONS Qualifiers: Diabetes mellitus type: type 2 Diabetes mellitus usp insulin use: unspecified manager long term care insulin use status Diabetes mellitus complication status : without complication Qualified Code(s): E11.9 - Type 2 diabetes mellitus without complications (4) Hyperglycemia Code(s): R73.9 - HYPERGLYCEMIA, UNSPECIFIED
[2019-03-19] MEDS ORDERED: PT OWN MED DRAWER 7, Y5N ONE (09:28)
[2019-03-19] MEDS: CHOLECALCIFEROL (VIT D3) 1,000 UNIT (25 MCG) TABLET PO SCH (09:43)
[2019-03-19] MEDS: SODIUM CHLORIDE 1 GM TABLET PO SCH (09:43)
[2019-03-19] MEDS: PANTOPRAZOLE 40 MG TABLET (FP) PO SCH (09:43)
[2019-03-19] MEDS: BISACODYL 5 MG TABLET.DR (FP) PO SCH (09:44)
[2019-03-19] MEDS: LISINOPRIL 20 MG TABLET (FP) PO SCH (09:44)
[2019-03-19] MEDS: POLYETHYLENE GLYCOL 3350 119 GM BTL PO SCH (09:44)
[2019-03-19] MEDS: amLODIPine BESYLATE 10 MG TABLET (FP) PO SCH (09:44)
[2019-03-19] MEDS: TIMOLOL 0.5% OPHTHALMIC SOL 5 ML BOTTLE OU SCH ×2 (09:47→21:22)
[2019-03-19] MEDS: LATANOPROST 0.005% OPHTH SOLN 2.5ML BOTTLE OU SCH (09:48)
[2019-03-19] MEDS: DORZOLAMIDE 2% HCL OPHTHALMIC SOLUTION 10 ML BOTTLE OU SCH ×2 (09:49→21:24)
--- NOTE | 2019-03-19 12:01 | PN ---
Progress Note (short form) - Note Progress Note: Pt seen / examined feels weak sitting in chair all f/u noted Vital Signs Temp 98.0 F 03/19/19 06:00 Pulse 78 03/19/19 06:00 Resp 18 03/19/19 06:00 BP 143/62 03/19/19 06:00 Pulse Ox 96 03/18/19 21:00 Intake & Output 03/18/19 03/19/19 03/19/19 23:59 11:59 23:59 Intake Total 1030 Balance 1030 Intake: IV 200 Normal Saline - 1,000 ml 200 @ 40 mls/hr IV ASDIR JOHN Rx#:[id number] IVPB 50 Oral 780 Other: Voiding Method Toilet Toilet # Unmeasured Voids Void 4 4 Active Medications Acetaminophen (Tylenol -) 650 mg PO Q6H PRN PRN Reason: PAIN LEVEL 4 - 6 Last Admin: 03/17/19 21:31 Dose: 650 mg Al Hydroxide/Mg Hydroxide (Mylanta Oral Suspension -) 30 ml PO Q6H PRN PRN Reason: INDIGESTION Last Admin: 03/10/19 14:16 Dose: 30 ml Amlodipine Besylate (Norvasc -) 10 mg PO DAILY [facility] Last Admin: 03/19/19 09:44 Dose: 10 mg Bisacodyl (Dulcolax -) 5 mg PO DAILY [facility] Last Admin: 03/19/19 09:44 Dose: 5 mg Cholecalciferol (Vitamin D3 -) 1,000 unit PO DAILY [facility] Last Admin: 03/19/19 09:43 Dose: 1,000 unit Docusate Sodium (Colace -) 100 mg PO BID PRN PRN Reason: CONSTIPATION Last Admin: 03/14/19 10:25 Dose: 100 mg Dorzolamide HCl (Trusopt 2%) 1 drop OU BID [facility] Last Admin: 03/19/19 09:49 Dose: 1 drop IV Flush (Tripp-Cath Flush) 10 ml IVPUSH PRN PRN PRN Reason: FLUSH Last Admin: 03/15/19 09:05 Dose: 10 ml Insulin Aspart (Novolog Vial Sliding Scale -) 1 vial SQ HS [facility]; Protocol Last Admin: 03/18/19 22:34 Dose: Not Given Insulin Aspart (Novolog Vial Sliding Scale -) 1 vial SQ TIDAC [facility]; Protocol Insulin Detemir (Levemir Vial) 10 units SQ DAILY@0700 [facility] Latanoprost (Xalatan 0.005% Eye Drops -) 1 drop OU DAILY [facility] Last Admin: 03/19/19 09:48 Dose: 1 drop Levothyroxine Sodium (Synthroid -) 25 mcg PO AM [facility] Last Admin: 03/19/19 06:51 Dose: 25 mcg Lisinopril (Prinivil) 40 mg PO DAILY [facility] Last Admin: 03/19/19 09:44 Dose: 40 mg Metoclopramide HCl (Reglan -) 5 mg PO TIDAC [facility] Last Admin: 03/19/19 06:51 Dose: 5 mg Ondansetron HCl (Zofran Injection) 8 mg IVPB Q12H PRN PRN Reason: NAUSEA AND/OR VOMITING Last Admin: 03/16/19 12:13 Dose: 8 mg Pantoprazole Sodium (Protonix -) 40 mg PO DAILY [facility] Last Admin: 03/19/19 09:43 Dose: 40 mg Polyethylene Glycol (Miralax (For Daily Use) -) 17 gm PO DAILY [facility] Last Admin: 03/19/19 09:44 Dose: 17 gm Sodium Chloride (Sodium Chloride Tablet -) 1 gm PO DAILY [facility] Last Admin: 03/19/19 09:43 Dose: 1 gm Timolol Maleate (Timoptic 0.5%) 1 drop OU BID [facility] Last Admin: 03/19/19 09:47 Dose: 1 drop CBC, BMP 03/19/19 06:45 03/19/19 06:45 Microbiology 03/15/19 11:00 Blood Culture - Preliminary Blood - Tripp Cath NO GROWTH OBTAINED AFTER 96 HOURS, INCUBATION TO CONTINUE FOR 1 DAYS. 03/15/19 08:45 Blood Culture - Preliminary Blood - Peripheral Venous NO GROWTH OBTAINED AFTER 96 HOURS, INCUBATION TO CONTINUE FOR 1 DAYS. 03/17/19 19:20 Urine Culture - Preliminary Urine - Urine Clean Catch Lactose Fermenting Neg Bacilli Pending Organism Physical Examination Constitutional: Yes: awake/ no distress Eyes: Yes: Conjunctiva Clear Neck: Yes: Supple. no jvd Cardiovascular: Yes: Regular Rate and Rhythm Respiratory: Yes: CTA Bilaterally Gastrointestinal: Yes: Soft, mild tenderness. No rigidity or rebound Edema: No Neurological: Yes: Alert Psychiatric: Yes: Alert Imaging - Results Chest X-ray: Report Reviewed EKG: Report Reviewed Assessment/Plan Pancreatic ca with Mets Elevated liver function -- liver mets Increasing liver mass Thrombocytopenia Continue present care-- chemo held yesterday due to thrombocytopenia and monitor Labs Oncology/GI following- Will follow Problem List - Problems (1) Pancreatic cancer Code(s): C25.9 - MALIGNANT NEOPLASM OF PANCREAS, UNSPECIFIED (2) Hyponatremia Code(s): E87.1 - HYPO-OSMOLALITY AND HYPONATREMIA (3) Leukocytosis Code(s): D72.829 - ELEVATED WHITE BLOOD CELL COUNT, UNSPECIFIED Qualifiers: Leukocytosis type: unspecified Qualified Code(s): D72.829 - Elevated white blood cell count, unspecified (4) Nausea Code(s): R11.0 - NAUSEA (5) Diabetes mellitus Code(s): E11.9 - TYPE 2 DIABETES MELLITUS WITHOUT COMPLICATIONS Qualifiers: Diabetes mellitus type: type 2 Diabetes mellitus care home insulin use: unspecified care home insulin use status Diabetes mellitus complication status : without complication Qualified Code(s): E11.9 - Type 2 diabetes mellitus without complications (6) Coagulopathy Code(s): D68.9 - COAGULATION DEFECT, UNSPECIFIED
[2019-03-19 12:17] LABS: ANISOCYTOSIS 1+; MACROCYTOSIS 0; PLATELET ESTIMATE DECREASED; TARGET CELLS 2+; TOXIC GRANULATION 1+
--- NOTE | 2019-03-19 16:58 | PN ---
Progress Note, Physician History of Present Illness: C/o abdominal distention, not eating much. No abdominal roman or vomiting. - Current Medication List Current Medications: Active Medications Acetaminophen (Tylenol -) 650 mg PO Q6H PRN PRN Reason: PAIN LEVEL 4 - 6 Last Admin: 03/17/19 21:31 Dose: 650 mg Al Hydroxide/Mg Hydroxide (Mylanta Oral Suspension -) 30 ml PO Q6H PRN PRN Reason: INDIGESTION Last Admin: 03/10/19 14:16 Dose: 30 ml Amlodipine Besylate (Norvasc -) 10 mg PO DAILY [facility] Last Admin: 03/19/19 09:44 Dose: 10 mg Bisacodyl (Dulcolax -) 5 mg PO DAILY [facility] Last Admin: 03/19/19 09:44 Dose: 5 mg Cholecalciferol (Vitamin D3 -) 1,000 unit PO DAILY [facility] Last Admin: 03/19/19 09:43 Dose: 1,000 unit Docusate Sodium (Colace -) 100 mg PO BID PRN PRN Reason: CONSTIPATION Last Admin: 03/14/19 10:25 Dose: 100 mg Dorzolamide HCl (Trusopt 2%) 1 drop OU BID [facility] Last Admin: 03/19/19 09:49 Dose: 1 drop IV Flush (Tripp-Cath Flush) 10 ml IVPUSH PRN PRN PRN Reason: FLUSH Last Admin: 03/15/19 09:05 Dose: 10 ml Insulin Aspart (Novolog Vial Sliding Scale -) 1 vial SQ HS [facility]; Protocol Last Admin: 03/18/19 22:34 Dose: Not Given Insulin Aspart (Novolog Vial Sliding Scale -) 1 vial SQ TIDAC [facility]; Protocol Last Admin: 03/19/19 16:07 Dose: Not Given Insulin Detemir (Levemir Vial) 10 units SQ DAILY@0700 [facility] Latanoprost (Xalatan 0.005% Eye Drops -) 1 drop OU DAILY [facility] Last Admin: 03/19/19 09:48 Dose: 1 drop Levothyroxine Sodium (Synthroid -) 25 mcg PO AM [facility] Last Admin: 03/19/19 06:51 Dose: 25 mcg Lisinopril (Prinivil) 40 mg PO DAILY [facility] Last Admin: 03/19/19 09:44 Dose: 40 mg Metoclopramide HCl (Reglan -) 5 mg PO TIDAC [facility] Last Admin: 03/19/19 16:07 Dose: 5 mg Ondansetron HCl (Zofran Injection) 8 mg IVPB Q12H PRN PRN Reason: NAUSEA AND/OR VOMITING Last Admin: 03/16/19 12:13 Dose: 8 mg Pantoprazole Sodium (Protonix -) 40 mg PO DAILY [facility] Last Admin: 03/19/19 09:43 Dose: 40 mg Polyethylene Glycol (Miralax (For Daily Use) -) 17 gm PO DAILY [facility] Last Admin: 03/19/19 09:44 Dose: 17 gm Sodium Chloride (Sodium Chloride Tablet -) 1 gm PO DAILY [facility] Last Admin: 03/19/19 09:43 Dose: 1 gm Timolol Maleate (Timoptic 0.5%) 1 drop OU BID [facility] Last Admin: 03/19/19 09:47 Dose: 1 drop - Objective Vital Signs: Vital Signs Temperature 98.6 F 03/19/19 13:22 Pulse Rate 70 03/19/19 13:22 Respiratory Rate 20 03/19/19 13:22 Blood Pressure 103/55 L 03/19/19 13:22 O2 Sat by Pulse Oximetry (%) 96 03/18/19 21:00 Constitutional: Yes: No Distress, Calm Cardiovascular: Yes: Regular Rate and Rhythm Respiratory: Yes: Regular, CTA Bilaterally Gastrointestinal: Yes: Soft. No: Tenderness, Epigastrium Edema: No Labs: CBC, BMP 03/19/19 06:45 03/19/19 06:45 INR, PTT INR 1.50 (0.83-1.09) H 03/15/19 06:57 Fibrinogen 440.0 mg/dL (238-498) 03/10/19 17:00 Assessment/Plan 83F with metastatic pancreatic cancer with extensive liver mets admitted with hyponatremia, improved. S/p gemcitabine/abraxane on 03/12/19. Day 8 held b/c of thrombocytopenia. GOC discussions with family. Plt count stable today 40s.
[2019-03-19] MEDS: DOCUSATE SODIUM 100 MG CAPSULE (FP) PO PRN ×2 (17:00→21:24)
--- NOTE | 2019-03-19 21:43 | PN ---
Progress Note (short form) - Note Progress Note: covering dr delaney 1. hyponatremia 2. pancreatic cancer 3. hypothyroidism 4. decreased appetite 5. htn Current Medications Acetaminophen (Tylenol -) 650 mg PO Q6H PRN PRN Reason: PAIN LEVEL 4 - 6 Last Admin: 03/17/19 21:31 Dose: 650 mg Al Hydroxide/Mg Hydroxide (Mylanta Oral Suspension -) 30 ml PO Q6H PRN PRN Reason: INDIGESTION Last Admin: 03/10/19 14:16 Dose: 30 ml Amlodipine Besylate (Norvasc -) 10 mg PO DAILY [facility]S [facility]CLUDE 234 BEDS AT [facility] Last Admin: 03/19/19 09:44 Dose: 10 mg Bisacodyl (Dulcolax -) 5 mg PO DAILY [facility] INCLUDE 234 BEDS AT [facility] Last Admin: 03/19/19 09:44 Dose: 5 mg Cholecalciferol (Vitamin D3 -) 1,000 unit PO DAILY [facility] INCLUDE 234 BEDS AT [facility] Last Admin: 03/19/19 09:43 Dose: 1,000 unit Docusate Sodium (Colace -) 100 mg PO BID PRN PRN Reason: CONSTIPATION Last Admin: 03/19/19 17:00 Dose: 100 mg Dorzolamide HCl (Trusopt 2%) 1 drop OU BID COUNTS INCLUDE 234 BEDS AT [facility] Last Admin: 03/19/19 09:49 Dose: 1 drop IV Flush (Tripp-Cath Flush) 10 ml IVPUSH PRN PRN PRN Reason: FLUSH Last Admin: 03/15/19 09:05 Dose: 10 ml Insulin Aspart (Novolog Vial Sliding Scale -) 1 vial SQ HS COUNTS INCLUDE 234 BEDS AT [facility]; Protocol Last Admin: 03/18/19 22:34 Dose: Not Given Insulin Aspart (Novolog Vial Sliding Scale -) 1 vial SQ TIDAC [facility]S INCLUDE 234 BEDS AT [facility]; Protocol Last Admin: 03/19/19 16:57 Dose: Not Given Insulin Detemir (Levemir Vial) 10 units SQ DAILY@0700 COUNTS INCLUDE 234 BEDS AT [facility] Latanoprost (Xalatan 0.005% Eye Drops -) 1 drop OU DAILY [facility] INCLUDE 234 BEDS AT [facility] Last Admin: 03/19/19 09:48 Dose: 1 drop Levothyroxine Sodium (Synthroid -) 25 mcg PO AM COUNTS INCLUDE 234 BEDS AT [facility] Last Admin: 03/19/19 06:51 Dose: 25 mcg Lisinopril (Prinivil) 40 mg PO DAILY COUNTS INCLUDE 234 BEDS AT [facility] Last Admin: 03/19/19 09:44 Dose: 40 mg Metoclopramide HCl (Reglan -) 5 mg PO TIDAC COUNTS INCLUDE 234 BEDS AT [facility] Last Admin: 03/19/19 16:07 Dose: 5 mg Ondansetron HCl (Zofran Injection) 8 mg IVPB Q12H PRN PRN Reason: NAUSEA AND/OR VOMITING Last Admin: 03/16/19 12:13 Dose: 8 mg Pantoprazole Sodium (Protonix -) 40 mg PO DAILY COUNTS INCLUDE 234 BEDS AT [facility] Last Admin: 03/19/19 09:43 Dose: 40 mg Polyethylene Glycol (Miralax (For Daily Use) -) 17 gm PO DAILY COUNTS INCLUDE 234 BEDS AT [facility] Last Admin: 03/19/19 09:44 Dose: 17 gm Sodium Chloride (Sodium Chloride Tablet -) 1 gm PO DAILY COUNTS INCLUDE 234 BEDS AT [facility] Last Admin: 03/19/19 09:43 Dose: 1 gm Timolol Maleate (Timoptic 0.5%) 1 drop OU BID COUNTS INCLUDE 234 BEDS AT [facility] Last Admin: 03/19/19 09:47 Dose: 1 drop Last Vital Signs Temp Pulse Resp BP Pulse Ox 97.8 F 81 20 113/50 L 96 03/19/19 17:13 03/19/19 17:13 03/19/19 17:13 03/19/19 17:13 03/18/19 21:00 CBC, BMP 03/19/19 06:45 03/19/19 06:45 serum na+ slowly improving Plan-continue water restriction
[2019-03-20] MEDS: INSULIN (LEVEMIR) 100 UNITS/ML UNITS SQ SCH (06:34)
[2019-03-20] MEDS: METOCLOPRAMIDE HCL 10 MG TABLET (FP) PO SCH ×3 (06:35→18:04)
[2019-03-20] MEDS: LEVOTHYROXINE NA 25 MCG TABLET (FP) PO SCH (06:35)
[2019-03-20] MEDS: INSULIN SLIDING SCALE (NOVOLOG) 1 VIAL SQ SCH ×4 (06:35→22:18)
--- NOTE | 2019-03-20 10:06 | PN ---
Progress Note (short form) - Note Progress Note: Denies any complaints Ate most of the breakfast No hypos Vital Signs Period Temp Pulse Resp BP Sys/Miller Pulse Ox Last 24 Hr 97.6 F-98.6 F 70-81 16-20 103-113/50-59 98 PE: AOx3 Neck: Supple, No JVD HEENT: EOMI Lungs: CTA CVS: S1S2 Abd: Benign EXt: + edema Neuro: No focal deficit CMP Sodium 130 mmol/L (136-145) L 03/19/19 06:45 Potassium 4.2 mmol/L (3.5-5.1) 03/19/19 06:45 Chloride 97 mmol/L (98-107) L 03/19/19 06:45 Carbon Dioxide 24 mmol/L (21-32) 03/19/19 06:45 Anion Gap 9 MMOL/L (8-16) 03/19/19 06:45 BUN 15.1 mg/dL (7-18) 03/19/19 06:45 Creatinine 0.5 mg/dL (0.55-1.3) L 03/19/19 06:45 Est GFR (CKD-EPI)AfAm 105.20 03/19/19 06:45 Est GFR (CKD-EPI)NonAf 90.77 03/19/19 06:45 POC Glucometer 252 UNITS (80-120) 03/20/19 06:32 Random Glucose 86 mg/dL (74-106) 03/19/19 06:45 Hemoglobin A1c % 10.0 % (4.2-6.3) H 03/11/19 10:05 Serum Osmolality 290 mosm/kg (278-305) 03/12/19 10:45 Calcium 7.2 mg/dL (8.5-10.1) L 03/19/19 06:45 Total Bilirubin 4.7 mg/dL (0.2-1) H 03/19/19 06:45 Direct Bilirubin 3.2 mg/dL (0.0-0.2) H 03/17/19 18:45 AST 116 U/L (15-37) H 03/19/19 06:45 ALT 74 U/L (13-61) H 03/19/19 06:45 Alkaline Phosphatase 969 U/L (45-117) H 03/19/19 06:45 Troponin I < 0.02 ng/ml (0.00-0.05) 03/09/19 05:42 Total Protein 4.6 g/dl (6.4-8.2) L 03/19/19 06:45 Albumin 1.5 g/dl (3.4-5.0) L 03/19/19 06:45 Total Amylase 33 U/L (25-115) 03/10/19 06:16 Lipase 98 U/L (73-393) 03/10/19 06:16 TSH 4.66 uIU/ml (0.358-3.74) H 03/10/19 06:16 Cortisol AM Sample 14.0 ug/dL (6.2-19.4) 03/13/19 07:00 Current Medications Generic Name Dose Route Start Last Admin Trade Name Freq PRN Reason Stop Dose Admin Acetaminophen 650 mg 03/10/19 22:05 03/17/19 21:31 Tylenol - PO 650 mg Q6H PRN Administration PAIN LEVEL 4 - 6 Al Hydroxide/Mg Hydroxide 30 ml 03/10/19 13:45 03/10/19 14:16 Mylanta Oral Suspension - PO 30 ml Q6H PRN Administration INDIGESTION Amlodipine Besylate 10 mg 03/10/19 10:00 03/19/19 09:44 Norvasc - PO 10 mg DAILY JOHN Administration Bisacodyl 5 mg 03/10/19 10:00 03/19/19 09:44 Dulcolax - PO 5 mg DAILY JOHN Administration Cholecalciferol 1,000 unit 03/10/19 10:00 03/19/19 09:43 Vitamin D3 - PO 1,000 unit DAILY JOHN Administration Docusate Sodium 100 mg 03/12/19 13:06 03/19/19 21:24 Colace - PO 100 mg BID PRN Administration CONSTIPATION Dorzolamide HCl 1 drop 03/09/19 22:00 03/19/19 21:24 Trusopt 2% OU 1 drop BID JOHN Administration IV Flush 10 ml 03/13/19 13:33 03/15/19 09:05 Tripp-Cath Flush IVPUSH 10 ml PRN PRN Administration FLUSH Insulin Aspart 1 vial 03/13/19 22:00 03/19/19 21:20 Novolog Vial Sliding Scale - SQ 2 units HS JOHN Administration Protocol Insulin Aspart 1 vial 03/19/19 11:00 03/20/19 06:35 Novolog Vial Sliding Scale - SQ 7 units TIDAC JOHN Administration Protocol Insulin Detemir 10 units 03/20/19 07:00 03/20/19 06:34 Levemir Vial SQ 10 units DAILY@0700 JOHN Administration Latanoprost 1 drop 03/10/19 10:00 03/19/19 09:48 Xalatan 0.005% Eye Drops - OU 1 drop DAILY JOHN Administration Levothyroxine Sodium 25 mcg 03/10/19 07:00 03/20/19 06:35 Synthroid - PO 25 mcg AM JOHN Administration Lisinopril 40 mg 03/10/19 10:00 03/19/19 09:44 Prinivil PO 40 mg DAILY JOHN Administration Metoclopramide HCl 5 mg 03/16/19 18:00 03/20/19 06:35 Reglan - PO 5 mg TIDAC JOHN Administration Ondansetron HCl 8 mg 03/13/19 11:11 03/16/19 12:13 Zofran Injection IVPB 8 mg Q12H PRN Administration NAUSEA AND/OR VOMITING Pantoprazole Sodium 40 mg 03/10/19 10:00 03/19/19 09:43 Protonix - PO 40 mg DAILY JOHN Administration Polyethylene Glycol 17 gm 03/10/19 14:15 03/19/19 09:44 Miralax (For Daily Use) - PO 17 gm DAILY JOHN Administration Sodium Chloride 1 gm 03/18/19 14:30 03/19/19 09:43 Sodium Chloride Tablet - PO 1 gm DAILY JOHN Administration Timolol Maleate 1 drop 03/09/19 22:00 03/19/19 21:22 Timoptic 0.5% OU 1 drop BID JOHN Administration AP; Pancreatic Ca T2DM: A1c 10 Hyponatremia Elevated LFTs Leukocytosis Chemo on hold b/o thrombocytopenia Getting Glucerna with meals TSH 4.66 Cortisol 14 Levemir 10 units daily in AM BG QACHS and 3 AM Novolog SS coverage Chemo as per Onco Will f/u Problem List - Problems (1) Hyponatremia Code(s): E87.1 - HYPO-OSMOLALITY AND HYPONATREMIA (2) Pancreatic cancer Code(s): C25.9 - MALIGNANT NEOPLASM OF PANCREAS, UNSPECIFIED (3) Diabetes mellitus Code(s): E11.9 - TYPE 2 DIABETES MELLITUS WITHOUT COMPLICATIONS Qualifiers: Diabetes mellitus type: type 2 Diabetes mellitus prison insulin use: unspecified prison insulin use status Diabetes mellitus complication status : without complication Qualified Code(s): E11.9 - Type 2 diabetes mellitus without complications (4) Hyperglycemia Code(s): R73.9 - HYPERGLYCEMIA, UNSPECIFIED
--- NOTE | 2019-03-20 11:35 | PN ---
Progress Note (short form) - Note Progress Note: Awake. sitting in chair no distress jaundiced Vital Signs Temp 97.6 F 03/20/19 01:00 Pulse 79 03/20/19 01:00 Resp 16 03/20/19 01:00 BP 111/59 L 03/20/19 01:00 Pulse Ox 98 03/19/19 21:00 Intake & Output 03/19/19 03/19/19 03/20/19 11:59 23:59 11:59 Intake Total 430 237 Balance 430 237 Intake: IV 0 sl 0 Oral 430 Oral Supplement 237 Other: Voiding Method Toilet Toilet Toilet # Unmeasured Voids Void 4 3 6 Bowel Movement Yes: 1 small Yes: big # Bowel Movements 1 3 Active Medications Acetaminophen (Tylenol -) 650 mg PO Q6H PRN PRN Reason: PAIN LEVEL 4 - 6 Last Admin: 03/17/19 21:31 Dose: 650 mg Al Hydroxide/Mg Hydroxide (Mylanta Oral Suspension -) 30 ml PO Q6H PRN PRN Reason: INDIGESTION Last Admin: 03/10/19 14:16 Dose: 30 ml Amlodipine Besylate (Norvasc -) 10 mg PO DAILY [facility] Last Admin: 03/19/19 09:44 Dose: 10 mg Bisacodyl (Dulcolax -) 5 mg PO DAILY [facility] Last Admin: 03/19/19 09:44 Dose: 5 mg Cholecalciferol (Vitamin D3 -) 1,000 unit PO DAILY [facility] Last Admin: 03/19/19 09:43 Dose: 1,000 unit Docusate Sodium (Colace -) 100 mg PO BID PRN PRN Reason: CONSTIPATION Last Admin: 03/19/19 21:24 Dose: 100 mg Dorzolamide HCl (Trusopt 2%) 1 drop OU BID [facility] Last Admin: 03/19/19 21:24 Dose: 1 drop IV Flush (Tripp-Cath Flush) 10 ml IVPUSH PRN PRN PRN Reason: FLUSH Last Admin: 03/15/19 09:05 Dose: 10 ml Insulin Aspart (Novolog Vial Sliding Scale -) 1 vial SQ HS [facility]; Protocol Last Admin: 03/19/19 21:20 Dose: 2 units Insulin Aspart (Novolog Vial Sliding Scale -) 1 vial SQ TIDAC [facility]; Protocol Last Admin: 03/20/19 06:35 Dose: 7 units Insulin Detemir (Levemir Vial) 10 units SQ DAILY@0700 [facility] Last Admin: 03/20/19 06:34 Dose: 10 units Latanoprost (Xalatan 0.005% Eye Drops -) 1 drop OU DAILY [facility] Last Admin: 03/19/19 09:48 Dose: 1 drop Levothyroxine Sodium (Synthroid -) 25 mcg PO AM [facility] Last Admin: 03/20/19 06:35 Dose: 25 mcg Lisinopril (Prinivil) 40 mg PO DAILY [facility] Last Admin: 03/19/19 09:44 Dose: 40 mg Metoclopramide HCl (Reglan -) 5 mg PO TIDAC [facility] Last Admin: 03/20/19 06:35 Dose: 5 mg Ondansetron HCl (Zofran Injection) 8 mg IVPB Q12H PRN PRN Reason: NAUSEA AND/OR VOMITING Last Admin: 03/16/19 12:13 Dose: 8 mg Pantoprazole Sodium (Protonix -) 40 mg PO DAILY [facility] Last Admin: 03/19/19 09:43 Dose: 40 mg Polyethylene Glycol (Miralax (For Daily Use) -) 17 gm PO DAILY [facility] Last Admin: 03/19/19 09:44 Dose: 17 gm Sodium Chloride (Sodium Chloride Tablet -) 1 gm PO DAILY [facility] Last Admin: 03/19/19 09:43 Dose: 1 gm Timolol Maleate (Timoptic 0.5%) 1 drop OU BID [facility] Last Admin: 03/19/19 21:22 Dose: 1 drop CBC, BMP 03/19/19 06:45 03/19/19 06:45 Microbiology 03/17/19 19:20 Urine Culture - Preliminary Urine - Urine Clean Catch Escherichia Coli Esbl [employer] D Strep Or Entero Coccus 03/15/19 08:45 Blood Culture - Final Blood - Peripheral Venous NO GROWTH AFTER 5 DAYS INCUBATION 03/15/19 11:00 Blood Culture - Preliminary Blood - Tripp Cath NO GROWTH OBTAINED AFTER 96 HOURS, INCUBATION TO CONTINUE FOR 1 DAYS. Physical Examination Constitutional: Yes: awake/ no distress Eyes: Yes: Conjunctiva Clear Neck: Yes: Supple. no jvd Cardiovascular: Yes: Regular Rate and Rhythm Respiratory: Yes: CTA Bilaterally Gastrointestinal: Yes: Soft, mild tenderness. No rigidity or rebound Edema: No Neurological: Yes: Alert Psychiatric: Yes: Alert Imaging - Results Chest X-ray: Report Reviewed EKG: Report Reviewed Assessment/Plan Pancreatic ca with Mets Elevated liver function -- liver mets Increasing liver mass Thrombocytopenia Continue present care-- chemo held yesterday due to thrombocytopenia and monitor Labs Oncology/GI following- i/d f/u for ESBL Will follow Problem List - Problems (1) Pancreatic cancer Code(s): C25.9 - MALIGNANT NEOPLASM OF PANCREAS, UNSPECIFIED (2) Hyponatremia Code(s): E87.1 - HYPO-OSMOLALITY AND HYPONATREMIA (3) Leukocytosis Code(s): D72.829 - ELEVATED WHITE BLOOD CELL COUNT, UNSPECIFIED Qualifiers: Leukocytosis type: unspecified Qualified Code(s): D72.829 - Elevated white blood cell count, unspecified (4) Nausea Code(s): R11.0 - NAUSEA (5) Diabetes mellitus Code(s): E11.9 - TYPE 2 DIABETES MELLITUS WITHOUT COMPLICATIONS Qualifiers: Diabetes mellitus type: type 2 Diabetes 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
[2019-03-20] MEDS ORDERED: PT OWN MED DRAWER 7, Y5N ONE (11:47)
[2019-03-20] MEDS: CHOLECALCIFEROL (VIT D3) 1,000 UNIT (25 MCG) TABLET PO SCH (11:48)
[2019-03-20] MEDS: SODIUM CHLORIDE 1 GM TABLET PO SCH (11:48)
[2019-03-20] MEDS: PANTOPRAZOLE 40 MG TABLET (FP) PO SCH (11:48)
[2019-03-20] MEDS: amLODIPine BESYLATE 10 MG TABLET (FP) PO SCH (11:48)
[2019-03-20] MEDS: BISACODYL 5 MG TABLET.DR (FP) PO SCH (11:48)
[2019-03-20] MEDS: POLYETHYLENE GLYCOL 3350 119 GM BTL PO SCH (11:49)
[2019-03-20] MEDS: LISINOPRIL 20 MG TABLET (FP) PO SCH (11:49)
[2019-03-20] MEDS: TIMOLOL 0.5% OPHTHALMIC SOL 5 ML BOTTLE OU SCH ×2 (11:50→22:19)
[2019-03-20] MEDS: LATANOPROST 0.005% OPHTH SOLN 2.5ML BOTTLE OU SCH (11:50)
[2019-03-20] MEDS: DORZOLAMIDE 2% HCL OPHTHALMIC SOLUTION 10 ML BOTTLE OU SCH ×2 (11:50→22:19)
--- NOTE | 2019-03-20 22:39 | PN ---
Progress Note (short form) - Note Progress Note: covering dr delaney 1. hyponatremia 2. pancreatic cancer 3. hypothyroidism 4. decreased appetite 5. htn Current Medications Acetaminophen (Tylenol -) 650 mg PO Q6H PRN PRN Reason: PAIN LEVEL 4 - 6 Last Admin: 03/17/19 21:31 Dose: 650 mg Al Hydroxide/Mg Hydroxide (Mylanta Oral Suspension -) 30 ml PO Q6H PRN PRN Reason: INDIGESTION Last Admin: 03/10/19 14:16 Dose: 30 ml Amlodipine Besylate (Norvasc -) 10 mg PO DAILY [facility] Last Admin: 03/20/19 11:48 Dose: 10 mg Bisacodyl (Dulcolax -) 5 mg PO DAILY [facility] Last Admin: 03/20/19 11:48 Dose: 5 mg Cholecalciferol (Vitamin D3 -) 1,000 unit PO DAILY [facility] Last Admin: 03/20/19 11:48 Dose: 1,000 unit Docusate Sodium (Colace -) 100 mg PO BID PRN PRN Reason: CONSTIPATION Last Admin: 03/19/19 21:24 Dose: 100 mg Dorzolamide HCl (Trusopt 2%) 1 drop OU BID [facility] Last Admin: 03/20/19 22:19 Dose: 1 drop IV Flush (Tripp-Cath Flush) 10 ml IVPUSH PRN PRN PRN Reason: FLUSH Last Admin: 03/15/19 09:05 Dose: 10 ml Insulin Aspart (Novolog Vial Sliding Scale -) 1 vial SQ HS [facility]; Protocol Last Admin: 03/20/19 22:18 Dose: Not Given Insulin Aspart (Novolog Vial Sliding Scale -) 1 vial SQ TIDAC [facility]; Protocol Last Admin: 03/20/19 17:53 Dose: 3 units Insulin Detemir (Levemir Vial) 10 units SQ DAILY@0700 [facility] Last Admin: 03/20/19 06:34 Dose: 10 units Latanoprost (Xalatan 0.005% Eye Drops -) 1 drop OU DAILY [facility] Last Admin: 03/20/19 11:50 Dose: 1 drop Levothyroxine Sodium (Synthroid -) 25 mcg PO AM [facility] Last Admin: 03/20/19 06:35 Dose: 25 mcg Lisinopril (Prinivil) 40 mg PO DAILY [facility] Last Admin: 03/20/19 11:49 Dose: 40 mg Metoclopramide HCl (Reglan -) 5 mg PO TIDAC [facility] Last Admin: 03/20/19 18:04 Dose: 5 mg Ondansetron HCl (Zofran Injection) 8 mg IVPB Q12H PRN PRN Reason: NAUSEA AND/OR VOMITING Last Admin: 03/16/19 12:13 Dose: 8 mg Pantoprazole Sodium (Protonix -) 40 mg PO DAILY [facility] Last Admin: 03/20/19 11:48 Dose: 40 mg Polyethylene Glycol (Miralax (For Daily Use) -) 17 gm PO DAILY [facility] Last Admin: 03/20/19 11:49 Dose: 17 gm Sodium Chloride (Sodium Chloride Tablet -) 1 gm PO DAILY [facility] Last Admin: 03/20/19 11:48 Dose: 1 gm Timolol Maleate (Timoptic 0.5%) 1 drop OU BID [facility] Last Admin: 03/20/19 22:19 Dose: 1 drop Last Vital Signs Temp Pulse Resp BP Pulse Ox 97.6 F 70 18 109/68 98 03/20/19 18:00 03/20/19 18:00 03/20/19 18:00 03/20/19 18:00 03/19/19 21:00 alert in nad Lungs clear heart reg Abd soft nontender Ext no edema CBC, BMP 03/19/19 06:45 03/19/19 06:45 serum na+ slowly improving Plan-continue water restriction
[2019-03-21] MEDS: INSULIN (LEVEMIR) 100 UNITS/ML UNITS SQ SCH (06:40)
[2019-03-21] MEDS: INSULIN SLIDING SCALE (NOVOLOG) 1 VIAL SQ SCH ×4 (06:41→21:21)
[2019-03-21] MEDS: METOCLOPRAMIDE HCL 10 MG TABLET (FP) PO SCH ×3 (06:41→19:50)
[2019-03-21] MEDS: LEVOTHYROXINE NA 25 MCG TABLET (FP) PO SCH (06:41)
[2019-03-21 07:51] LABS: EOS % 0.9 % (0-4.5); HEMATOCRIT 23.2 % (32.4-45.2); HEMOGLOBIN 7.6 GM/dL (10.7-15.3); LYMPH % 63.7 % (8-40); MCH 26.8 pg (25.7-33.7); MEAN CELL VOLUME 81.4 fl (80-96); MEAN PLT VOLUME 11.9 fl (7.5-11.1); MONO % 7.5 % (3.8-10.2); NEUT % 26.9 % (42.8-82.8); PLATELET COUNT 68 K/MM3 (134-434); RBC 2.85 M/mm3 (3.60-5.2); RDW 15.8 % (11.6-15.6); WHITE BLOOD COUNT 11.1 K/mm3 (4.0-10.0)
[2019-03-21 07:55] LABS: ALBUMIN 1.5 g/dl (3.4-5.0); BILIRUBIN,TOTAL 3.8 mg/dL (0.2-1); BLOOD UREA NITROGEN 19.9 mg/dL (7-18); CALCIUM 7.2 mg/dL (8.5-10.1); CREATININE 0.5 mg/dL (0.55-1.3); POTASSIUM 4.6 mmol/L (3.5-5.1); TOT PROT 4.4 g/dl (6.4-8.2)
--- NOTE | 2019-03-21 08:58 | PN ---
Progress Note (short form) - Note Progress Note: pt seen/ examined. comfortable looks better ate well today - Breakfast. Platelets improved Vital Signs Temp 98.0 F 03/21/19 06:00 Pulse 68 03/21/19 06:00 Resp 18 03/21/19 06:00 BP 114/50 L 03/21/19 06:00 Pulse Ox 98 03/20/19 21:00 Intake & Output 03/20/19 03/20/19 03/21/19 11:59 23:59 11:59 Intake Total 237 740 350 Balance 237 740 350 Intake: Oral 740 350 Oral Supplement 237 Other: Voiding Method Toilet Toilet Toilet # Unmeasured Voids Void 6 2 Bowel Movement Yes: big Yes # Bowel Movements 3 1 Active Medications Acetaminophen (Tylenol -) 650 mg PO Q6H PRN PRN Reason: PAIN LEVEL 4 - 6 Last Admin: 03/17/19 21:31 Dose: 650 mg Al Hydroxide/Mg Hydroxide (Mylanta Oral Suspension -) 30 ml PO Q6H PRN PRN Reason: INDIGESTION Last Admin: 03/10/19 14:16 Dose: 30 ml Amlodipine Besylate (Norvasc -) 10 mg PO DAILY [facility] Last Admin: 03/20/19 11:48 Dose: 10 mg Bisacodyl (Dulcolax -) 5 mg PO DAILY [facility] Last Admin: 03/20/19 11:48 Dose: 5 mg Cholecalciferol (Vitamin D3 -) 1,000 unit PO DAILY [facility] Last Admin: 03/20/19 11:48 Dose: 1,000 unit Docusate Sodium (Colace -) 100 mg PO BID PRN PRN Reason: CONSTIPATION Last Admin: 03/19/19 21:24 Dose: 100 mg Dorzolamide HCl (Trusopt 2%) 1 drop OU BID [facility] Last Admin: 03/20/19 22:19 Dose: 1 drop IV Flush (Tripp-Cath Flush) 10 ml IVPUSH PRN PRN PRN Reason: FLUSH Last Admin: 03/15/19 09:05 Dose: 10 ml Insulin Aspart (Novolog Vial Sliding Scale -) 1 vial SQ HS [facility]; Protocol Last Admin: 03/20/19 22:18 Dose: Not Given Insulin Aspart (Novolog Vial Sliding Scale -) 1 vial SQ TIDAC [facility]; Protocol Last Admin: 03/21/19 06:41 Dose: Not Given Insulin Detemir (Levemir Vial) 10 units SQ DAILY@0700 [facility] Last Admin: 03/21/19 06:40 Dose: 10 units Latanoprost (Xalatan 0.005% Eye Drops -) 1 drop OU DAILY [facility] Last Admin: 03/20/19 11:50 Dose: 1 drop Levothyroxine Sodium (Synthroid -) 25 mcg PO AM [facility] Last Admin: 03/21/19 06:41 Dose: 25 mcg Lisinopril (Prinivil) 40 mg PO DAILY [facility] Last Admin: 03/20/19 11:49 Dose: 40 mg Metoclopramide HCl (Reglan -) 5 mg PO TIDAC [facility] Last Admin: 03/21/19 06:41 Dose: 5 mg Ondansetron HCl (Zofran Injection) 8 mg IVPB Q12H PRN PRN Reason: NAUSEA AND/OR VOMITING Last Admin: 03/16/19 12:13 Dose: 8 mg Pantoprazole Sodium (Protonix -) 40 mg PO DAILY [facility] Last Admin: 03/20/19 11:48 Dose: 40 mg Polyethylene Glycol (Miralax (For Daily Use) -) 17 gm PO DAILY [facility] Last Admin: 03/20/19 11:49 Dose: 17 gm Sodium Chloride (Sodium Chloride Tablet -) 1 gm PO DAILY [facility] Last Admin: 03/20/19 11:48 Dose: 1 gm Timolol Maleate (Timoptic 0.5%) 1 drop OU BID [facility] Last Admin: 03/20/19 22:19 Dose: 1 drop CBC, BMP 03/21/19 06:50 03/21/19 06:50 Microbiology 03/15/19 11:00 Blood Culture - Final Blood - Tripp Cath NO GROWTH AFTER 5 DAYS INCUBATION 03/17/19 19:20 Urine Culture - Preliminary Urine - Urine Clean Catch Escherichia Coli Esbl [employer] In[employer] D Strep Or Entero Coccus 03/15/19 08:45 Blood Culture - Final Blood - Peripheral Venous NO GROWTH AFTER 5 DAYS INCUBATION Physical Examination Constitutional: Yes: awake/ no distress Eyes: Yes: Conjunctiva Clear Neck: Yes: Supple. no jvd Cardiovascular: Yes: Regular Rate and Rhythm Respiratory: Yes: CTA Bilaterally Gastrointestinal: Yes: Soft, mild tenderness. No rigidity or rebound Edema: No Neurological: Yes: Alert Psychiatric: Yes: Alert Imaging - Results Chest X-ray: Report Reviewed EKG: Report Reviewed Assessment/Plan Pancreatic ca with Mets Elevated liver function -- liver mets Increasing liver mass Thrombocytopenia-- Better Continue present care-- and monitor Labs Oncology/GI following- i/d f/u for ESBL will follow Problem List - Problems (1) Pancreatic cancer Code(s): C25.9 - MALIGNANT NEOPLASM OF PANCREAS, UNSPECIFIED (2) Hyponatremia Code(s): E87.1 - HYPO-OSMOLALITY AND HYPONATREMIA (3) Leukocytosis Code(s): D72.829 - ELEVATED WHITE BLOOD CELL COUNT, UNSPECIFIED Qualifiers: Leukocytosis type: unspecified Qualified Code(s): D72.829 - Elevated white blood cell count, unspecified (4) Nausea Code(s): R11.0 - NAUSEA (5) Diabetes mellitus Code(s): E11.9 - TYPE 2 DIABETES MELLITUS WITHOUT COMPLICATIONS Qualifiers: Diabetes mellitus type: type 2 Diabetes mellitus penitentiary insulin use: unspecified penitentiary insulin use status Diabetes mellitus complication status : without complication Qualified Code(s): E11.9 - Type 2 diabetes mellitus without complications (6) Coagulopathy Code(s): D68.9 - COAGULATION DEFECT, UNSPECIFIED
[2019-03-21] MEDS: LISINOPRIL 20 MG TABLET (FP) PO SCH (10:58)
[2019-03-21] MEDS: CHOLECALCIFEROL (VIT D3) 1,000 UNIT (25 MCG) TABLET PO SCH (11:02)
[2019-03-21] MEDS: PANTOPRAZOLE 40 MG TABLET (FP) PO SCH (11:03)
[2019-03-21] MEDS: POLYETHYLENE GLYCOL 3350 119 GM BTL PO SCH (11:03)
[2019-03-21] MEDS: TIMOLOL 0.5% OPHTHALMIC SOL 5 ML BOTTLE OU SCH ×2 (11:03→21:23)
[2019-03-21] MEDS: amLODIPine BESYLATE 10 MG TABLET (FP) PO SCH (11:03)
[2019-03-21] MEDS: BISACODYL 5 MG TABLET.DR (FP) PO SCH (11:03)
[2019-03-21] MEDS: LATANOPROST 0.005% OPHTH SOLN 2.5ML BOTTLE OU SCH (11:04)
[2019-03-21] MEDS: DORZOLAMIDE 2% HCL OPHTHALMIC SOLUTION 10 ML BOTTLE OU SCH ×2 (11:04→21:23)
[2019-03-21] MEDS: SODIUM CHLORIDE 1 GM TABLET PO SCH (11:04)
[2019-03-21] MEDS ORDERED: PT OWN MED DRAWER 7, Y5N ONE (11:06)
[2019-03-21 11:08] LABS: ANISOCYTOSIS 0; MACROCYTOSIS 0; OVALOCYTE 1+; TARGET CELLS 2+
[2019-03-21 11:49] LABS: PLATELET ESTIMATE DECREASED
[2019-03-21] MEDS ORDERED: FUROSEMIDE 20 MG TABLET (FP) PO ONE (12:37)
[2019-03-21] MEDS ORDERED: SODIUM CHLORIDE 1 GM TABLET PO ONE (12:37)
--- NOTE | 2019-03-21 12:37 | PN ---
Progress Note, Physician History of Present Illness: Pt seen and examined at bedside. She is not compliant with her free water restriction. She complains of lower ext edema. - Current Medication List Current Medications: Active Medications Acetaminophen (Tylenol -) 650 mg PO Q6H PRN PRN Reason: PAIN LEVEL 4 - 6 Last Admin: 03/17/19 21:31 Dose: 650 mg Al Hydroxide/Mg Hydroxide (Mylanta Oral Suspension -) 30 ml PO Q6H PRN PRN Reason: INDIGESTION Last Admin: 03/10/19 14:16 Dose: 30 ml Amlodipine Besylate (Norvasc -) 10 mg PO DAILY [facility] Last Admin: 03/21/19 11:03 Dose: 10 mg Bisacodyl (Dulcolax -) 5 mg PO DAILY [facility] Last Admin: 03/21/19 11:03 Dose: 5 mg Cholecalciferol (Vitamin D3 -) 1,000 unit PO DAILY [facility] Last Admin: 03/21/19 11:02 Dose: 1,000 unit Docusate Sodium (Colace -) 100 mg PO BID PRN PRN Reason: CONSTIPATION Last Admin: 03/19/19 21:24 Dose: 100 mg Dorzolamide HCl (Trusopt 2%) 1 drop OU BID [facility] Last Admin: 03/21/19 11:04 Dose: 1 drop IV Flush (Tripp-Cath Flush) 10 ml IVPUSH PRN PRN PRN Reason: FLUSH Last Admin: 03/15/19 09:05 Dose: 10 ml Insulin Aspart (Novolog Vial Sliding Scale -) 1 vial SQ HS [facility]; Protocol Last Admin: 03/20/19 22:18 Dose: Not Given Insulin Aspart (Novolog Vial Sliding Scale -) 1 vial SQ TIDAC [facility]; Protocol Last Admin: 03/21/19 06:41 Dose: Not Given Insulin Detemir (Levemir Vial) 10 units SQ DAILY@0700 [facility] Last Admin: 03/21/19 06:40 Dose: 10 units Latanoprost (Xalatan 0.005% Eye Drops -) 1 drop OU DAILY [facility] Last Admin: 03/21/19 11:04 Dose: 1 drop Levothyroxine Sodium (Synthroid -) 25 mcg PO AM [facility] Last Admin: 03/21/19 06:41 Dose: 25 mcg Lisinopril (Prinivil) 40 mg PO DAILY [facility] Last Admin: 03/21/19 10:58 Dose: 40 mg Metoclopramide HCl (Reglan -) 5 mg PO TIDAC [facility] Last Admin: 03/21/19 11:02 Dose: 5 mg Ondansetron HCl (Zofran Injection) 8 mg IVPB Q12H PRN PRN Reason: NAUSEA AND/OR VOMITING Last Admin: 03/16/19 12:13 Dose: 8 mg Pantoprazole Sodium (Protonix -) 40 mg PO DAILY [facility] Last Admin: 03/21/19 11:03 Dose: 40 mg Polyethylene Glycol (Miralax (For Daily Use) -) 17 gm PO DAILY [facility] Last Admin: 03/21/19 11:03 Dose: 17 gm Sodium Chloride (Sodium Chloride Tablet -) 1 gm PO DAILY [facility] Last Admin: 03/21/19 11:04 Dose: 1 gm Timolol Maleate (Timoptic 0.5%) 1 drop OU BID [facility] Last Admin: 03/21/19 11:03 Dose: 1 drop - Objective Vital Signs: Vital Signs Temperature 98.0 F 03/21/19 06:00 Pulse Rate 68 03/21/19 06:00 Respiratory Rate 18 03/21/19 06:00 Blood Pressure 114/50 L 03/21/19 06:00 O2 Sat by Pulse Oximetry (%) 98 03/20/19 21:00 Constitutional: Yes: Calm Eyes: Yes: Conjunctiva Clear HENT: Yes: Atraumatic Neck: Yes: Supple Cardiovascular: Yes: S1, S2 Respiratory: Yes: CTA Bilaterally Gastrointestinal: Yes: Normal Bowel Sounds, Soft Musculoskeletal: Yes: WNL Extremities: Yes: WNL Edema: Yes Edema: LLE: 1+, RLE: 1+ Neurological: Yes: Oriented Psychiatric: Yes: Oriented Labs: CBC, BMP 03/21/19 06:50 03/21/19 06:50 INR, PTT INR 1.50 (0.83-1.09) H 03/15/19 06:57 Fibrinogen 440.0 mg/dL (238-498) 03/10/19 17:00 Problem List - Problems (1) Hyponatremia Code(s): E87.1 - HYPO-OSMOLALITY AND HYPONATREMIA (2) Pancreatic cancer Code(s): C25.9 - MALIGNANT NEOPLASM OF PANCREAS, UNSPECIFIED Assessment/Plan Current Medications Generic Name Dose Route Start Last Admin Trade Name Freq PRN Reason Stop Dose Admin Acetaminophen 650 mg 03/10/19 22:05 03/17/19 21:31 Tylenol - PO 650 mg Q6H PRN Administration PAIN LEVEL 4 - 6 Al Hydroxide/Mg Hydroxide 30 ml 03/10/19 13:45 03/10/19 14:16 Mylanta Oral Suspension - PO 30 ml Q6H PRN Administration INDIGESTION Amlodipine Besylate 10 mg 03/10/19 10:00 03/21/19 11:03 Norvasc - PO 10 mg DAILY [facility] Administration Bisacodyl 5 mg 03/10/19 10:00 03/21/19 11:03 Dulcolax - PO 5 mg DAILY [facility] Administration Cholecalciferol 1,000 unit 03/10/19 10:00 03/21/19 11:02 Vitamin D3 - PO 1,000 unit DAILY [facility] Administration Docusate Sodium 100 mg 03/12/19 13:06 03/19/19 21:24 Colace - PO 100 mg BID PRN Administration CONSTIPATION Dorzolamide HCl 1 drop 03/09/19 22:00 03/21/19 11:04 Trusopt 2% OU 1 drop BID [facility] Administration IV Flush 10 ml 03/13/19 13:33 03/15/19 09:05 Tripp-Cath Flush IVPUSH 10 ml PRN PRN Administration FLUSH Insulin Aspart 1 vial 03/13/19 22:00 03/20/19 22:18 Novolog Vial Sliding Scale - SQ Not Given HS [facility] Protocol Insulin Aspart 1 vial 03/19/19 11:00 03/21/19 06:41 Novolog Vial Sliding Scale - SQ Not Given TIDAC [facility] Protocol Insulin Detemir 10 units 03/20/19 07:00 03/21/19 06:40 Levemir Vial SQ 10 units DAILY@0700 [facility] Administration Latanoprost 1 drop 03/10/19 10:00 03/21/19 11:04 Xalatan 0.005% Eye Drops - OU 1 drop DAILY [facility] Administration Levothyroxine Sodium 25 mcg 03/10/19 07:00 03/21/19 06:41 Synthroid - PO 25 mcg AM [facility] Administration Lisinopril 40 mg 03/10/19 10:00 03/21/19 10:58 Prinivil PO 40 mg DAILY [facility] Administration Metoclopramide HCl 5 mg 03/16/19 18:00 03/21/19 11:02 Reglan - PO 5 mg TIDAC [facility] Administration Ondansetron HCl 8 mg 03/13/19 11:11 03/16/19 12:13 Zofran Injection IVPB 8 mg Q12H PRN Administration NAUSEA AND/OR VOMITING Pantoprazole Sodium 40 mg 03/10/19 10:00 03/21/19 11:03 Protonix - PO 40 mg DAILY [facility] Administration Polyethylene Glycol 17 gm 03/10/19 14:15 03/21/19 11:03 Miralax (For Daily Use) - PO 17 gm DAILY [facility] Administration Sodium Chloride 1 gm 03/18/19 14:30 03/21/19 11:04 Sodium Chloride Tablet - PO 1 gm DAILY [facility] Administration Timolol Maleate 1 drop 03/09/19 22:00 03/21/19 11:03 Timoptic 0.5% OU 1 drop BID [facility] Administration Impression 1. hyonatremia 2. pancreatic cancer 3. hypothyroidism 4. decreased appetite 5. htn Plan - will give a small dose of lasix as she has edema - restrict free water - po intake remains poor - will give a salt tab as well - will repeat urine sodium
--- NOTE | 2019-03-21 20:00 | PN ---
Progress Note (short form) - Note Progress Note: Patient seen and examined Feels OK Last Vital Signs Temp Pulse Resp BP Pulse Ox 98.3 F 70 18 107/50 L 97 03/21/19 19:33 03/21/19 19:33 03/21/19 19:33 03/21/19 19:33 03/21/19 09:00 Cor: RSR, No murmurs, No gallops Lungs: Clear to P&A Abd: Soft, Normal bowel sounds, No organomegaly Ext:No significant edema LAbs/Meds reviewed A/P 83 y/o patient with metastatic pancreatic cancer with extensive liver mets coagulopathy due to liver disease s/p FFP/vit. K 03/10 s/p Port placement 03/11 C1 D11 gemzar/abraxane Leukocytosis-- blood cx/urine cx /cxr negative ? reactive due to advanced malignancy Abnormal LFTs--due to liver mets stable Held D8 gemzar due to thrombocytopenia relaed to chemotx/ ? liver mets Ongoing discussions with family regarding palliative care/hospice Will reconsult ID regarding urine cx ? worsening liver function check CXR/blood cx check U/S abdomen--? ascites ? worsening liver funcion ongoing palliative care discussions
[2019-03-22] MEDS: INSULIN (LEVEMIR) 100 UNITS/ML UNITS SQ SCH (07:03)
[2019-03-22] MEDS: INSULIN SLIDING SCALE (NOVOLOG) 1 VIAL SQ SCH ×4 (07:03→22:04)
[2019-03-22] MEDS: LEVOTHYROXINE NA 25 MCG TABLET (FP) PO SCH (07:03)
[2019-03-22] MEDS: METOCLOPRAMIDE HCL 10 MG TABLET (FP) PO SCH ×3 (07:03→17:29)
--- NOTE | 2019-03-22 09:52 | PN ---
Progress Note (short form) - Note Progress Note: pt seen/examined oncology f/u noted awake/ comfortable Vital Signs Temp 68 F L 03/22/19 06:08 Pulse 71 03/22/19 06:08 Resp 20 03/22/19 06:08 BP 116/73 03/22/19 06:08 Pulse Ox 97 03/21/19 21:00 Intake & Output 03/21/19 03/21/19 03/22/19 11:59 23:59 11:59 Intake Total 350 340 Balance 350 340 Intake: Oral 350 340 Other: Voiding Method Toilet Toilet Toilet # Unmeasured Voids Void 2 2 Active Medications Acetaminophen (Tylenol -) 650 mg PO Q6H PRN PRN Reason: PAIN LEVEL 4 - 6 Last Admin: 03/17/19 21:31 Dose: 650 mg Al Hydroxide/Mg Hydroxide (Mylanta Oral Suspension -) 30 ml PO Q6H PRN PRN Reason: INDIGESTION Last Admin: 03/10/19 14:16 Dose: 30 ml Amlodipine Besylate (Norvasc -) 10 mg PO DAILY [facility] Last Admin: 03/21/19 11:03 Dose: 10 mg Bisacodyl (Dulcolax -) 5 mg PO DAILY [facility] Last Admin: 03/21/19 11:03 Dose: 5 mg Cholecalciferol (Vitamin D3 -) 1,000 unit PO DAILY [facility] Last Admin: 03/21/19 11:02 Dose: 1,000 unit Docusate Sodium (Colace -) 100 mg PO BID PRN PRN Reason: CONSTIPATION Last Admin: 03/19/19 21:24 Dose: 100 mg Dorzolamide HCl (Trusopt 2%) 1 drop OU BID [facility] Last Admin: 03/21/19 21:23 Dose: 1 drop IV Flush (Tripp-Cath Flush) 10 ml IVPUSH PRN PRN PRN Reason: FLUSH Last Admin: 03/15/19 09:05 Dose: 10 ml Insulin Aspart (Novolog Vial Sliding Scale -) 1 vial SQ HS [facility]; Protocol Last Admin: 03/21/19 21:21 Dose: Not Given Insulin Aspart (Novolog Vial Sliding Scale -) 1 vial SQ TIDAC [facility]; Protocol Last Admin: 03/22/19 07:03 Dose: 3 units Insulin Detemir (Levemir Vial) 10 units SQ DAILY@0700 [facility] Last Admin: 03/22/19 07:03 Dose: 10 units Latanoprost (Xalatan 0.005% Eye Drops -) 1 drop OU DAILY [facility] Last Admin: 03/21/19 11:04 Dose: 1 drop Levothyroxine Sodium (Synthroid -) 25 mcg PO AM [facility] Last Admin: 03/22/19 07:03 Dose: 25 mcg Lisinopril (Prinivil) 40 mg PO DAILY [facility] Last Admin: 03/21/19 10:58 Dose: 40 mg Metoclopramide HCl (Reglan -) 5 mg PO TIDAC [facility] Last Admin: 03/22/19 07:03 Dose: 5 mg Ondansetron HCl (Zofran Injection) 8 mg IVPB Q12H PRN PRN Reason: NAUSEA AND/OR VOMITING Last Admin: 03/16/19 12:13 Dose: 8 mg Pantoprazole Sodium (Protonix -) 40 mg PO DAILY [facility] Last Admin: 03/21/19 11:03 Dose: 40 mg Polyethylene Glycol (Miralax (For Daily Use) -) 17 gm PO DAILY [facility] Last Admin: 03/21/19 11:03 Dose: 17 gm Sodium Chloride (Sodium Chloride Tablet -) 1 gm PO DAILY [facility] Last Admin: 03/21/19 11:04 Dose: 1 gm Timolol Maleate (Timoptic 0.5%) 1 drop OU BID [facility] Last Admin: 03/21/19 21:23 Dose: 1 drop CBC, BMP 03/21/19 06:50 03/21/19 06:50 cxr-- noted u/s abdomen - noted CMP Sodium 129 mmol/L (136-145) L 03/21/19 06:50 Potassium 4.6 mmol/L (3.5-5.1) 03/21/19 06:50 Chloride 97 mmol/L (98-107) L 03/21/19 06:50 Carbon Dioxide 25 mmol/L (21-32) 03/21/19 06:50 Anion Gap 7 MMOL/L (8-16) L 03/21/19 06:50 BUN 19.9 mg/dL (7-18) H 03/21/19 06:50 Creatinine 0.5 mg/dL (0.55-1.3) L 03/21/19 06:50 Est GFR (CKD-EPI)AfAm 105.20 03/21/19 06:50 Est GFR (CKD-EPI)NonAf 90.77 03/21/19 06:50 POC Glucometer 167 UNITS (80-120) 03/22/19 07:01 Random Glucose 106 mg/dL (74-106) 03/21/19 06:50 Hemoglobin A1c % 10.0 % (4.2-6.3) H 03/11/19 10:05 Serum Osmolality 290 mosm/kg (278-305) 03/12/19 10:45 Calcium 7.2 mg/dL (8.5-10.1) L 03/21/19 06:50 Total Bilirubin 3.8 mg/dL (0.2-1) H 03/21/19 06:50 Direct Bilirubin 3.2 mg/dL (0.0-0.2) H 03/17/19 18:45 AST 110 U/L (15-37) H 03/21/19 06:50 ALT 61 U/L (13-61) 03/21/19 06:50 Alkaline Phosphatase 942 U/L (45-117) H 03/21/19 06:50 Troponin I < 0.02 ng/ml (0.00-0.05) 03/09/19 05:42 Total Protein 4.4 g/dl (6.4-8.2) L 03/21/19 06:50 Albumin 1.5 g/dl (3.4-5.0) L 03/21/19 06:50 Total Amylase 33 U/L (25-115) 03/10/19 06:16 Lipase 98 U/L (73-393) 03/10/19 06:16 TSH 4.66 uIU/ml (0.358-3.74) H 03/10/19 06:16 Cortisol AM Sample 14.0 ug/dL (6.2-19.4) 03/13/19 07:00 Physical Examination Constitutional: Yes: awake/ no distress Eyes: Yes: Conjunctiva Clear Neck: Yes: Supple. no jvd Cardiovascular: Yes: Regular Rate and Rhythm Respiratory: Yes: CTA Bilaterally Gastrointestinal: Yes: Soft, mild tenderness. No rigidity or rebound Edema: No Neurological: Yes: Alert Psychiatric: Yes: Alert Imaging - Results Chest X-ray: Report Reviewed EKG: Report Reviewed Assessment/Plan Pancreatic ca with Mets Elevated liver function -- liver mets Increasing liver mass Thrombocytopenia-- Better Continue present care-- and monitor Labs Oncology/GI following- i/d f/u for ESBL-- Discussed with Also today-- She Will follow will follow Problem List - Problems (1) Pancreatic cancer Code(s): C25.9 - MALIGNANT NEOPLASM OF PANCREAS, UNSPECIFIED (2) Hyponatremia Code(s): E87.1 - HYPO-OSMOLALITY AND HYPONATREMIA (3) Leukocytosis Code(s): D72.829 - ELEVATED WHITE BLOOD CELL COUNT, UNSPECIFIED Qualifiers: Leukocytosis type: unspecified Qualified Code(s): D72.829 - Elevated white blood cell count, unspecified (4) Nausea Code(s): R11.0 - NAUSEA (5) Diabetes mellitus Code(s): E11.9 - TYPE 2 DIABETES MELLITUS WITHOUT COMPLICATIONS Qualifiers: Diabetes mellitus type: type 2 Diabetes mellitus custodial insulin use: unspecified custodial insulin use status Diabetes mellitus complication status : without complication Qualified Code(s): E11.9 - Type 2 diabetes mellitus without complications (6) Coagulopathy Code(s): D68.9 - COAGULATION DEFECT, UNSPECIFIED
[2019-03-22] MEDS: amLODIPine BESYLATE 10 MG TABLET (FP) PO SCH (10:15)
[2019-03-22] MEDS: SODIUM CHLORIDE 1 GM TABLET PO SCH (10:18)
[2019-03-22] MEDS: PANTOPRAZOLE 40 MG TABLET (FP) PO SCH (10:18)
[2019-03-22] MEDS: POLYETHYLENE GLYCOL 3350 119 GM BTL PO SCH (10:19)
[2019-03-22] MEDS: BISACODYL 5 MG TABLET.DR (FP) PO SCH (10:19)
[2019-03-22] MEDS: CHOLECALCIFEROL (VIT D3) 1,000 UNIT (25 MCG) TABLET PO SCH (10:19)
[2019-03-22] MEDS: TIMOLOL 0.5% OPHTHALMIC SOL 5 ML BOTTLE OU SCH ×2 (10:20→22:04)
[2019-03-22] MEDS: LISINOPRIL 20 MG TABLET (FP) PO SCH (10:20)
[2019-03-22] MEDS: LATANOPROST 0.005% OPHTH SOLN 2.5ML BOTTLE OU SCH (10:21)
[2019-03-22] MEDS: DORZOLAMIDE 2% HCL OPHTHALMIC SOLUTION 10 ML BOTTLE OU SCH ×2 (10:21→22:04)
[2019-03-22 13:41] LABS: BLOOD UREA NITROGEN 14.4 mg/dL (7-18); CALCIUM 7.6 mg/dL (8.5-10.1); CREATININE 0.6 mg/dL (0.55-1.3); POTASSIUM 4.7 mmol/L (3.5-5.1)
[2019-03-22] MEDS ORDERED: FUROSEMIDE 20 MG TABLET (FP) PO ONE (14:19)
--- NOTE | 2019-03-22 14:19 | PN ---
Progress Note, Physician History of Present Illness: Pt seen and examined at bedside. She is awake and alert. She denies shortness of breath. She feels that her lower ext edema is a little better. - Current Medication List Current Medications: Active Medications Acetaminophen (Tylenol -) 650 mg PO Q6H PRN PRN Reason: PAIN LEVEL 4 - 6 Last Admin: 03/17/19 21:31 Dose: 650 mg Al Hydroxide/Mg Hydroxide (Mylanta Oral Suspension -) 30 ml PO Q6H PRN PRN Reason: INDIGESTION Last Admin: 03/10/19 14:16 Dose: 30 ml Amlodipine Besylate (Norvasc -) 10 mg PO DAILY [facility] Last Admin: 03/22/19 10:15 Dose: Not Given Bisacodyl (Dulcolax -) 5 mg PO DAILY [facility] Last Admin: 03/22/19 10:19 Dose: 5 mg Cholecalciferol (Vitamin D3 -) 1,000 unit PO DAILY [facility] Last Admin: 03/22/19 10:19 Dose: 1,000 unit Docusate Sodium (Colace -) 100 mg PO BID PRN PRN Reason: CONSTIPATION Last Admin: 03/19/19 21:24 Dose: 100 mg Dorzolamide HCl (Trusopt 2%) 1 drop OU BID [facility] Last Admin: 03/22/19 10:21 Dose: 1 drop IV Flush (Tripp-Cath Flush) 10 ml IVPUSH PRN PRN PRN Reason: FLUSH Last Admin: 03/15/19 09:05 Dose: 10 ml Insulin Aspart (Novolog Vial Sliding Scale -) 1 vial SQ HS [facility]; Protocol Last Admin: 03/21/19 21:21 Dose: Not Given Insulin Aspart (Novolog Vial Sliding Scale -) 1 vial SQ TIDAC [facility]; Protocol Last Admin: 03/22/19 07:03 Dose: 3 units Insulin Detemir (Levemir Vial) 10 units SQ DAILY@0700 [facility] Last Admin: 03/22/19 07:03 Dose: 10 units Latanoprost (Xalatan 0.005% Eye Drops -) 1 drop OU DAILY [facility] Last Admin: 03/22/19 10:21 Dose: 1 drop Levothyroxine Sodium (Synthroid -) 25 mcg PO AM [facility] Last Admin: 03/22/19 07:03 Dose: 25 mcg Lisinopril (Prinivil) 40 mg PO DAILY [facility] Last Admin: 03/22/19 10:20 Dose: Not Given Metoclopramide HCl (Reglan -) 5 mg PO TIDAC [facility] Last Admin: 03/22/19 10:15 Dose: 5 mg Ondansetron HCl (Zofran Injection) 8 mg IVPB Q12H PRN PRN Reason: NAUSEA AND/OR VOMITING Last Admin: 03/16/19 12:13 Dose: 8 mg Pantoprazole Sodium (Protonix -) 40 mg PO DAILY [facility] Last Admin: 03/22/19 10:18 Dose: 40 mg Polyethylene Glycol (Miralax (For Daily Use) -) 17 gm PO DAILY [facility] Last Admin: 03/22/19 10:19 Dose: 17 gm Sodium Chloride (Sodium Chloride Tablet -) 1 gm PO DAILY [facility] Last Admin: 03/22/19 10:18 Dose: 1 gm Timolol Maleate (Timoptic 0.5%) 1 drop OU BID [facility] Last Admin: 03/22/19 10:20 Dose: 1 drop - Objective Vital Signs: Vital Signs Temperature 97.5 F L 03/22/19 10:13 Pulse Rate 70 03/22/19 10:13 Respiratory Rate 18 03/22/19 10:13 Blood Pressure 108/52 L 03/22/19 10:13 O2 Sat by Pulse Oximetry (%) 99 03/22/19 09:00 Constitutional: Yes: Calm Eyes: Yes: Conjunctiva Clear HENT: Yes: Atraumatic Neck: Yes: Supple Cardiovascular: Yes: S1, S2 Respiratory: Yes: CTA Bilaterally Gastrointestinal: Yes: Soft Genitourinary: Yes: WNL Musculoskeletal: Yes: WNL Edema: Yes Edema: LLE: 1+, RLE: 1+ Neurological: Yes: Oriented Psychiatric: Yes: Oriented Labs: CBC, BMP 03/21/19 06:50 03/22/19 12:45 INR, PTT INR 1.50 (0.83-1.09) H 03/15/19 06:57 Fibrinogen 440.0 mg/dL (238-498) 03/10/19 17:00 Problem List - Problems (1) Hyponatremia Code(s): E87.1 - HYPO-OSMOLALITY AND HYPONATREMIA (2) Pancreatic cancer Code(s): C25.9 - MALIGNANT NEOPLASM OF PANCREAS, UNSPECIFIED Assessment/Plan Current Medications Generic Name Dose Route Start Last Admin Trade Name Freq PRN Reason Stop Dose Admin Acetaminophen 650 mg 03/10/19 22:05 03/17/19 21:31 Tylenol - PO 650 mg Q6H PRN Administration PAIN LEVEL 4 - 6 Al Hydroxide/Mg Hydroxide 30 ml 03/10/19 13:45 03/10/19 14:16 Mylanta Oral Suspension - PO 30 ml Q6H PRN Administration INDIGESTION Amlodipine Besylate 10 mg 03/10/19 10:00 03/22/19 10:15 Norvasc - PO Not Given DAILY [facility] Bisacodyl 5 mg 03/10/19 10:00 03/22/19 10:19 Dulcolax - PO 5 mg DAILY [facility] Administration Cholecalciferol 1,000 unit 03/10/19 10:00 03/22/19 10:19 Vitamin D3 - PO 1,000 unit DAILY [facility] Administration Docusate Sodium 100 mg 03/12/19 13:06 03/19/19 21:24 Colace - PO 100 mg BID PRN Administration CONSTIPATION Dorzolamide HCl 1 drop 03/09/19 22:00 03/22/19 10:21 Trusopt 2% OU 1 drop BID [facility] Administration IV Flush 10 ml 03/13/19 13:33 03/15/19 09:05 Tripp-Cath Flush IVPUSH 10 ml PRN PRN Administration FLUSH Insulin Aspart 1 vial 03/13/19 22:00 03/21/19 21:21 Novolog Vial Sliding Scale - SQ Not Given HS [facility] Protocol Insulin Aspart 1 vial 03/19/19 11:00 03/22/19 07:03 Novolog Vial Sliding Scale - SQ 3 units TIDAC [facility] Administration Protocol Insulin Detemir 10 units 03/20/19 07:00 03/22/19 07:03 Levemir Vial SQ 10 units DAILY@0700 [facility] Administration Latanoprost 1 drop 03/10/19 10:00 03/22/19 10:21 Xalatan 0.005% Eye Drops - OU 1 drop DAILY [facility] Administration Levothyroxine Sodium 25 mcg 03/10/19 07:00 03/22/19 07:03 Synthroid - PO 25 mcg AM [facility] Administration Lisinopril 40 mg 03/10/19 10:00 03/22/19 10:20 Prinivil PO Not Given DAILY [facility] Metoclopramide HCl 5 mg 03/16/19 18:00 03/22/19 10:15 Reglan - PO 5 mg TIDAC [facility] Administration Ondansetron HCl 8 mg 03/13/19 11:11 03/16/19 12:13 Zofran Injection IVPB 8 mg Q12H PRN Administration NAUSEA AND/OR VOMITING Pantoprazole Sodium 40 mg 03/10/19 10:00 03/22/19 10:18 Protonix - PO 40 mg DAILY [facility] Administration Polyethylene Glycol 17 gm 03/10/19 14:15 03/22/19 10:19 Miralax (For Daily Use) - PO 17 gm DAILY [facility] Administration Sodium Chloride 1 gm 03/18/19 14:30 03/22/19 10:18 Sodium Chloride Tablet - PO 1 gm DAILY [facility] Administration Timolol Maleate 1 drop 03/09/19 22:00 03/22/19 10:20 Timoptic 0.5% OU 1 drop BID [facility] Administration Impression 1. hyonatremia 2. pancreatic cancer 3. hypothyroidism 4. decreased appetite 5. htn Plan - sodium is improving - will give another 20 mg of lasix - repeat labs tomorrow - restrict free water - encourage PO intake - check bnp
[2019-03-22] MEDS ORDERED: INSULIN (NOVOLOG) ASPART 100 UNITS/ML 10ML VIAL ONE ×2 (17:52→17:53)
[2019-03-22] MEDS ORDERED: INSULIN (LEVEMIR) 100 UNITS/ML UNITS SQ ONE (17:52)
[2019-03-23] MEDS: METOCLOPRAMIDE HCL 10 MG TABLET (FP) PO SCH ×3 (06:59→17:27)
[2019-03-23] MEDS: INSULIN (LEVEMIR) 100 UNITS/ML UNITS SQ SCH (06:59)
[2019-03-23] MEDS: LEVOTHYROXINE NA 25 MCG TABLET (FP) PO SCH (06:59)
[2019-03-23] MEDS: INSULIN SLIDING SCALE (NOVOLOG) 1 VIAL SQ SCH ×4 (07:00→22:35)
[2019-03-23 08:36] LABS: HEMATOCRIT 24.5 % (32.4-45.2); MCH 27.3 pg (25.7-33.7); MCHC 32.7 g/dl (32.0-36.0); MEAN CELL VOLUME 83.4 fl (80-96); MEAN PLT VOLUME 11.1 fl (7.5-11.1); PLATELET COUNT 132 K/MM3 (134-434); RBC 2.94 M/mm3 (3.60-5.2); RDW 16.6 % (11.6-15.6); WHITE BLOOD COUNT 11.8 K/mm3 (4.0-10.0)
[2019-03-23 08:49] LABS: INR 1.56 (0.83-1.09); PROTHROMBIN TIME (PATIENT) 18.5 SEC (9.7-13.0)
[2019-03-23 08:52] LABS: ACTIVATED PTT 32.1 SECONDS (25.2-36.5)
[2019-03-23 09:06] LABS: ALBUMIN 1.6 g/dl (3.4-5.0); BILIRUBIN,TOTAL 3.1 mg/dL (0.2-1); CALCIUM 7.4 mg/dL (8.5-10.1); CREATININE 0.4 mg/dL (0.55-1.3); N-TERMINAL BNP 252.5 pg/ml (5-450); POTASSIUM 4.3 mmol/L (3.5-5.1); TOT PROT 4.7 g/dl (6.4-8.2)
[2019-03-23] MEDS ORDERED: PT OWN MED DRAWER 7, Y5N ONE (09:50)
[2019-03-23] MEDS: BISACODYL 5 MG TABLET.DR (FP) PO SCH (09:57)
[2019-03-23] MEDS: PANTOPRAZOLE 40 MG TABLET (FP) PO SCH (09:57)
[2019-03-23] MEDS: CHOLECALCIFEROL (VIT D3) 1,000 UNIT (25 MCG) TABLET PO SCH (09:57)
[2019-03-23] MEDS: SODIUM CHLORIDE 1 GM TABLET PO SCH (09:57)
[2019-03-23] MEDS: amLODIPine BESYLATE 10 MG TABLET (FP) PO SCH (09:59)
--- NOTE | 2019-03-23 10:02 | PN ---
Progress Note (short form) - Note Progress Note: pt seen/ examined all f/u noted events noted. comfortable Vital Signs Temp 97.7 F 03/23/19 06:03 Pulse 63 03/23/19 06:03 Resp 18 03/23/19 06:03 BP 121/58 L 03/23/19 06:03 Pulse Ox 99 03/22/19 21:00 Intake & Output 03/22/19 03/22/19 03/23/19 11:59 23:59 11:59 Intake Total 650 Balance 650 Intake: Oral 650 Other: Voiding Method Toilet Toilet # Unmeasured Voids Void 2 3 3 Bowel Movement Yes # Bowel Movements 1 Body Mass Index (BMI) 24.2 Active Medications Acetaminophen (Tylenol -) 650 mg PO Q6H PRN PRN Reason: PAIN LEVEL 4 - 6 Last Admin: 03/17/19 21:31 Dose: 650 mg Al Hydroxide/Mg Hydroxide (Mylanta Oral Suspension -) 30 ml PO Q6H PRN PRN Reason: INDIGESTION Last Admin: 03/10/19 14:16 Dose: 30 ml Amlodipine Besylate (Norvasc -) 10 mg PO DAILY [facility] Last Admin: 03/22/19 10:15 Dose: Not Given Bisacodyl (Dulcolax -) 5 mg PO DAILY [facility] Last Admin: 03/22/19 10:19 Dose: 5 mg Cholecalciferol (Vitamin D3 -) 1,000 unit PO DAILY [facility] Last Admin: 03/22/19 10:19 Dose: 1,000 unit Docusate Sodium (Colace -) 100 mg PO BID PRN PRN Reason: CONSTIPATION Last Admin: 03/19/19 21:24 Dose: 100 mg Dorzolamide HCl (Trusopt 2%) 1 drop OU BID [facility] Last Admin: 03/22/19 22:04 Dose: 1 drop IV Flush (Tripp-Cath Flush) 10 ml IVPUSH PRN PRN PRN Reason: FLUSH Last Admin: 03/15/19 09:05 Dose: 10 ml Insulin Aspart (Novolog Vial Sliding Scale -) 1 vial SQ HS [facility]; Protocol Last Admin: 03/22/19 22:04 Dose: Not Given Insulin Aspart (Novolog Vial Sliding Scale -) 1 vial SQ TIDAC [facility]; Protocol Last Admin: 03/23/19 07:00 Dose: Not Given Insulin Detemir (Levemir Vial) 10 units SQ DAILY@0700 [facility] Last Admin: 03/23/19 06:59 Dose: Not Given Latanoprost (Xalatan 0.005% Eye Drops -) 1 drop OU DAILY [facility] Last Admin: 03/22/19 10:21 Dose: 1 drop Levothyroxine Sodium (Synthroid -) 25 mcg PO AM [facility] Last Admin: 03/23/19 06:59 Dose: 25 mcg Lisinopril (Prinivil) 40 mg PO DAILY [facility] Last Admin: 03/22/19 10:20 Dose: Not Given Metoclopramide HCl (Reglan -) 5 mg PO TIDAC [facility] Last Admin: 03/23/19 06:59 Dose: 5 mg Ondansetron HCl (Zofran Injection) 8 mg IVPB Q12H PRN PRN Reason: NAUSEA AND/OR VOMITING Last Admin: 03/16/19 12:13 Dose: 8 mg Pantoprazole Sodium (Protonix -) 40 mg PO DAILY [facility] Last Admin: 03/22/19 10:18 Dose: 40 mg Polyethylene Glycol (Miralax (For Daily Use) -) 17 gm PO DAILY [facility] Last Admin: 03/22/19 10:19 Dose: 17 gm Sodium Chloride (Sodium Chloride Tablet -) 1 gm PO DAILY [facility] Last Admin: 03/22/19 10:18 Dose: 1 gm Timolol Maleate (Timoptic 0.5%) 1 drop OU BID [facility] Last Admin: 03/22/19 22:04 Dose: 1 drop CBC, BMP 03/23/19 07:00 03/23/19 07:00 Microbiology 03/17/19 19:20 Urine Culture - Final Urine - Urine Clean Catch Escherichia Coli Esbl Special Procedures Tech Enterococcus Faecalis Physical Examination Constitutional: Yes: awake/ no distress Eyes: Yes: Conjunctiva Clear Neck: Yes: Supple. no jvd Cardiovascular: Yes: Regular Rate and Rhythm Respiratory: Yes: CTA Bilaterally Gastrointestinal: Yes: Soft, mild tenderness. No rigidity or rebound Edema: No Neurological: Yes: Alert Psychiatric: Yes: Alert Imaging - Results Chest X-ray: Report Reviewed EKG: Report Reviewed Assessment/Plan Pancreatic ca with Mets Elevated liver function -- liver mets Increasing liver mass Thrombocytopenia-- Better Continue present care-- and monitor Labs Oncology/GI following- i/d f/u for ESBL-- Discussed with Also yesterday--- no antibiotics- -- Discharge planning will follow discussed with nursing staff as well as child welfare caseworker also. Problem List - Problems (1) Pancreatic cancer Code(s): C25.9 - MALIGNANT NEOPLASM OF PANCREAS, UNSPECIFIED (2) Hyponatremia Code(s): E87.1 - HYPO-OSMOLALITY AND HYPONATREMIA (3) Leukocytosis Code(s): D72.829 - ELEVATED WHITE BLOOD CELL COUNT, UNSPECIFIED Qualifiers: Leukocytosis type: unspecified Qualified Code(s): D72.829 - Elevated white blood cell count, unspecified (4) Nausea Code(s): R11.0 - NAUSEA (5) Diabetes mellitus Code(s): E11.9 - TYPE 2 DIABETES MELLITUS WITHOUT COMPLICATIONS Qualifiers: Diabetes mellitus type: type 2 Diabetes mellitus snf insulin use: unspecified snf insulin use status Diabetes mellitus complication status : without complication Qualified Code(s): E11.9 - Type 2 diabetes mellitus without complications (6) Coagulopathy Code(s): D68.9 - COAGULATION DEFECT, UNSPECIFIED
[2019-03-23] MEDS: TIMOLOL 0.5% OPHTHALMIC SOL 5 ML BOTTLE OU SCH ×2 (10:03→22:35)
[2019-03-23] MEDS: DORZOLAMIDE 2% HCL OPHTHALMIC SOLUTION 10 ML BOTTLE OU SCH ×2 (10:03→22:36)
[2019-03-23] MEDS ORDERED: FUROSEMIDE 20 MG TABLET (FP) PO ONE (10:50)
--- NOTE | 2019-03-23 10:50 | PN ---
Progress Note, Physician History of Present Illness: Pt seen and examined at bedside. She is awake and alert. She complains of poor PO intake. - Current Medication List Current Medications: Active Medications Acetaminophen (Tylenol -) 650 mg PO Q6H PRN PRN Reason: PAIN LEVEL 4 - 6 Last Admin: 03/17/19 21:31 Dose: 650 mg Al Hydroxide/Mg Hydroxide (Mylanta Oral Suspension -) 30 ml PO Q6H PRN PRN Reason: INDIGESTION Last Admin: 03/10/19 14:16 Dose: 30 ml Amlodipine Besylate (Norvasc -) 10 mg PO DAILY [facility] Last Admin: 03/23/19 09:59 Dose: 10 mg Bisacodyl (Dulcolax -) 5 mg PO DAILY [facility] Last Admin: 03/23/19 09:57 Dose: 5 mg Cholecalciferol (Vitamin D3 -) 1,000 unit PO DAILY [facility] Last Admin: 03/23/19 09:57 Dose: 1,000 unit Docusate Sodium (Colace -) 100 mg PO BID PRN PRN Reason: CONSTIPATION Last Admin: 03/19/19 21:24 Dose: 100 mg Dorzolamide HCl (Trusopt 2%) 1 drop OU BID [facility] Last Admin: 03/23/19 10:03 Dose: 1 drop IV Flush (Tripp-Cath Flush) 10 ml IVPUSH PRN PRN PRN Reason: FLUSH Last Admin: 03/15/19 09:05 Dose: 10 ml Insulin Aspart (Novolog Vial Sliding Scale -) 1 vial SQ HS [facility]; Protocol Last Admin: 03/22/19 22:04 Dose: Not Given Insulin Aspart (Novolog Vial Sliding Scale -) 1 vial SQ TIDAC [facility]; Protocol Last Admin: 03/23/19 07:00 Dose: Not Given Insulin Detemir (Levemir Vial) 10 units SQ DAILY@0700 [facility] Last Admin: 03/23/19 06:59 Dose: Not Given Latanoprost (Xalatan 0.005% Eye Drops -) 1 drop OU DAILY [facility] Last Admin: 03/22/19 10:21 Dose: 1 drop Levothyroxine Sodium (Synthroid -) 25 mcg PO AM [facility] Last Admin: 03/23/19 06:59 Dose: 25 mcg Lisinopril (Prinivil) 40 mg PO DAILY [facility] Last Admin: 03/22/19 10:20 Dose: Not Given Metoclopramide HCl (Reglan -) 5 mg PO TIDAC [facility] Last Admin: 03/23/19 06:59 Dose: 5 mg Ondansetron HCl (Zofran Injection) 8 mg IVPB Q12H PRN PRN Reason: NAUSEA AND/OR VOMITING Last Admin: 03/16/19 12:13 Dose: 8 mg Pantoprazole Sodium (Protonix -) 40 mg PO DAILY [facility] Last Admin: 03/23/19 09:57 Dose: 40 mg Polyethylene Glycol (Miralax (For Daily Use) -) 17 gm PO DAILY [facility] Last Admin: 03/22/19 10:19 Dose: 17 gm Sodium Chloride (Sodium Chloride Tablet -) 1 gm PO DAILY [facility] Last Admin: 03/23/19 09:57 Dose: 1 gm Timolol Maleate (Timoptic 0.5%) 1 drop OU BID [facility] Last Admin: 03/23/19 10:03 Dose: 1 drop - Objective Vital Signs: Vital Signs Temperature 97.7 F 03/23/19 06:03 Pulse Rate 63 03/23/19 06:03 Respiratory Rate 18 03/23/19 06:03 Blood Pressure 121/58 L 03/23/19 06:03 O2 Sat by Pulse Oximetry (%) 99 03/22/19 21:00 Constitutional: Yes: Calm Eyes: Yes: Conjunctiva Clear HENT: Yes: Atraumatic Neck: Yes: Supple Cardiovascular: Yes: S1, S2 Respiratory: Yes: CTA Bilaterally Gastrointestinal: Yes: Normal Bowel Sounds, Soft Genitourinary: Yes: WNL Musculoskeletal: Yes: WNL Edema: Yes Edema: LLE: 1+, RLE: 1+ Integumentary: Yes: WNL Neurological: Yes: Oriented Psychiatric: Yes: Oriented Labs: CBC, BMP 03/23/19 07:00 03/23/19 07:00 INR, PTT INR 1.56 (0.83-1.09) H 03/23/19 07:00 Fibrinogen 264.0 mg/dL (238-498) D 03/23/19 07:00 Problem List - Problems (1) Hyponatremia Code(s): E87.1 - HYPO-OSMOLALITY AND HYPONATREMIA (2) Pancreatic cancer Code(s): C25.9 - MALIGNANT NEOPLASM OF PANCREAS, UNSPECIFIED Assessment/Plan Current Medications Generic Name Dose Route Start Last Admin Trade Name Freq PRN Reason Stop Dose Admin Acetaminophen 650 mg 03/10/19 22:05 03/17/19 21:31 Tylenol - PO 650 mg Q6H PRN Administration PAIN LEVEL 4 - 6 Al Hydroxide/Mg Hydroxide 30 ml 03/10/19 13:45 03/10/19 14:16 Mylanta Oral Suspension - PO 30 ml Q6H PRN Administration INDIGESTION Amlodipine Besylate 10 mg 03/10/19 10:00 03/23/19 09:59 Norvasc - PO 10 mg DAILY [facility] Administration Bisacodyl 5 mg 03/10/19 10:00 03/23/19 09:57 Dulcolax - PO 5 mg DAILY [facility] Administration Cholecalciferol 1,000 unit 03/10/19 10:00 03/23/19 09:57 Vitamin D3 - PO 1,000 unit DAILY [facility] Administration Docusate Sodium 100 mg 03/12/19 13:06 03/19/19 21:24 Colace - PO 100 mg BID PRN Administration CONSTIPATION Dorzolamide HCl 1 drop 03/09/19 22:00 03/23/19 10:03 Trusopt 2% OU 1 drop BID [facility] Administration IV Flush 10 ml 03/13/19 13:33 03/15/19 09:05 Tripp-Cath Flush IVPUSH 10 ml PRN PRN Administration FLUSH Insulin Aspart 1 vial 03/13/19 22:00 03/22/19 22:04 Novolog Vial Sliding Scale - SQ Not Given HS [facility] Protocol Insulin Aspart 1 vial 03/19/19 11:00 03/23/19 07:00 Novolog Vial Sliding Scale - SQ Not Given TIDAC [facility] Protocol Insulin Detemir 10 units 03/20/19 07:00 03/23/19 06:59 Levemir Vial SQ Not Given DAILY@0700 [facility] Latanoprost 1 drop 03/10/19 10:00 03/22/19 10:21 Xalatan 0.005% Eye Drops - OU 1 drop DAILY [facility] Administration Levothyroxine Sodium 25 mcg 03/10/19 07:00 03/23/19 06:59 Synthroid - PO 25 mcg AM [facility] Administration Lisinopril 40 mg 03/10/19 10:00 03/22/19 10:20 Prinivil PO Not Given DAILY JOHN Metoclopramide HCl 5 mg 03/16/19 18:00 03/23/19 06:59 Reglan - PO 5 mg TIDAC JOHN Administration Ondansetron HCl 8 mg 03/13/19 11:11 03/16/19 12:13 Zofran Injection IVPB 8 mg Q12H PRN Administration NAUSEA AND/OR VOMITING Pantoprazole Sodium 40 mg 03/10/19 10:00 03/23/19 09:57 Protonix - PO 40 mg DAILY JOHN Administration Polyethylene Glycol 17 gm 03/10/19 14:15 03/22/19 10:19 Miralax (For Daily Use) - PO 17 gm DAILY JOHN Administration Sodium Chloride 1 gm 03/18/19 14:30 03/23/19 09:57 Sodium Chloride Tablet - PO 1 gm DAILY JOHN Administration Timolol Maleate 1 drop 03/09/19 22:00 03/23/19 10:03 Timoptic 0.5% OU 1 drop BID JOHN Administration Laboratory Tests 03/23/19 07:00 B-Natriuretic Peptide 252.5 Impression 1. hyonatremia 2. pancreatic cancer 3. hypothyroidism 4. decreased appetite 5. htn Plan - sodium continues to improve - cont with salt tabs for now - encourage po intake - edema is improving, will give another 20 mg of lasix
[2019-03-23] MEDS: LATANOPROST 0.005% OPHTH SOLN 2.5ML BOTTLE OU SCH (11:51)
--- NOTE | 2019-03-23 14:30 | PN ---
Progress Note (short form) - Note Progress Note: Denies any complaints Didn't eat much for lunch No hypos Didn't get Levemir in morning as FS was 80 Vital Signs Period Temp Pulse Resp BP Sys/Miller Pulse Ox Last 24 Hr 97.7 F-98.1 F 63-73 16-18 110-121/46-58 99-99 PE: AOx3 Neck: Supple, No JVD HEENT: EOMI Lungs: CTA CVS: S1S2 Abd: Benign EXt: + edema Neuro: No focal deficit CMP Sodium 132 mmol/L (136-145) L 03/23/19 07:00 Potassium 4.3 mmol/L (3.5-5.1) 03/23/19 07:00 Chloride 99 mmol/L (98-107) 03/23/19 07:00 Carbon Dioxide 26 mmol/L (21-32) 03/23/19 07:00 Anion Gap 7 MMOL/L (8-16) L 03/23/19 07:00 BUN 11.0 mg/dL (7-18) 03/23/19 07:00 Creatinine 0.4 mg/dL (0.55-1.3) L 03/23/19 07:00 Est GFR (CKD-EPI)AfAm 113.21 03/23/19 07:00 Est GFR (CKD-EPI)NonAf 97.68 03/23/19 07:00 POC Glucometer 219 UNITS (80-120) 03/23/19 11:37 Random Glucose 80 mg/dL (74-106) 03/23/19 07:00 Hemoglobin A1c % 10.0 % (4.2-6.3) H 03/11/19 10:05 Serum Osmolality 290 mosm/kg (278-305) 03/12/19 10:45 Calcium 7.4 mg/dL (8.5-10.1) L 03/23/19 07:00 Total Bilirubin 3.1 mg/dL (0.2-1) H 03/23/19 07:00 Direct Bilirubin 3.2 mg/dL (0.0-0.2) H 03/17/19 18:45 AST 72 U/L (15-37) H 03/23/19 07:00 ALT 48 U/L (13-61) 03/23/19 07:00 Alkaline Phosphatase 869 U/L (45-117) H 03/23/19 07:00 Troponin I < 0.02 ng/ml (0.00-0.05) 03/09/19 05:42 B-Natriuretic Peptide 252.5 pg/ml (5-450) 03/23/19 07:00 Total Protein 4.7 g/dl (6.4-8.2) L 03/23/19 07:00 Albumin 1.6 g/dl (3.4-5.0) L 03/23/19 07:00 Total Amylase 33 U/L (25-115) 03/10/19 06:16 Lipase 98 U/L (73-393) 03/10/19 06:16 TSH 4.66 uIU/ml (0.358-3.74) H 03/10/19 06:16 Cortisol AM Sample 14.0 ug/dL (6.2-19.4) 03/13/19 07:00 Current Medications Generic Name Dose Route Start Last Admin Trade Name Freq PRN Reason Stop Dose Admin Acetaminophen 650 mg 03/10/19 22:05 03/17/19 21:31 Tylenol - PO 650 mg Q6H PRN Administration PAIN LEVEL 4 - 6 Al Hydroxide/Mg Hydroxide 30 ml 03/10/19 13:45 03/10/19 14:16 Mylanta Oral Suspension - PO 30 ml Q6H PRN Administration INDIGESTION Amlodipine Besylate 10 mg 03/10/19 10:00 03/23/19 09:59 Norvasc - PO 10 mg DAILY JOHN Administration Bisacodyl 5 mg 03/10/19 10:00 03/23/19 09:57 Dulcolax - PO 5 mg DAILY JOHN Administration Cholecalciferol 1,000 unit 03/10/19 10:00 03/23/19 09:57 Vitamin D3 - PO 1,000 unit DAILY JOHN Administration Docusate Sodium 100 mg 03/12/19 13:06 03/19/19 21:24 Colace - PO 100 mg BID PRN Administration CONSTIPATION Dorzolamide HCl 1 drop 03/09/19 22:00 03/23/19 10:03 Trusopt 2% OU 1 drop BID OJHN Administration IV Flush 10 ml 03/13/19 13:33 03/15/19 09:05 Tripp-Cath Flush IVPUSH 10 ml PRN PRN Administration FLUSH Insulin Aspart 1 vial 03/13/19 22:00 03/22/19 22:04 Novolog Vial Sliding Scale - SQ Not Given HS [facility] Protocol Insulin Aspart 1 vial 03/19/19 11:00 03/23/19 11:51 Novolog Vial Sliding Scale - SQ 5 units TIDAC JOHN Administration Protocol Insulin Detemir 10 units 03/20/19 07:00 03/23/19 06:59 Levemir Vial SQ Not Given DAILY@0700 JOHN Latanoprost 1 drop 03/10/19 10:00 03/23/19 11:51 Xalatan 0.005% Eye Drops - OU 1 drop DAILY JOHN Administration Levothyroxine Sodium 25 mcg 03/10/19 07:00 03/23/19 06:59 Synthroid - PO 25 mcg AM JOHN Administration Lisinopril 40 mg 03/10/19 10:00 03/22/19 10:20 Prinivil PO Not Given DAILY JOHN Metoclopramide HCl 5 mg 03/16/19 18:00 03/23/19 11:51 Reglan - PO 5 mg TIDAC JOHN Administration Ondansetron HCl 8 mg 03/13/19 11:11 03/16/19 12:13 Zofran Injection IVPB 8 mg Q12H PRN Administration NAUSEA AND/OR VOMITING Pantoprazole Sodium 40 mg 03/10/19 10:00 03/23/19 09:57 Protonix - PO 40 mg DAILY JOHN Administration Polyethylene Glycol 17 gm 03/10/19 14:15 03/22/19 10:19 Miralax (For Daily Use) - PO 17 gm DAILY JOHN Administration Sodium Chloride 1 gm 03/18/19 14:30 03/23/19 09:57 Sodium Chloride Tablet - PO 1 gm DAILY JOHN Administration Timolol Maleate 1 drop 03/09/19 22:00 03/23/19 10:03 Timoptic 0.5% OU 1 drop BID JOHN Administration AP; Pancreatic Ca T2DM: A1c 10 Hyponatremia Elevated LFTs Leukocytosis Chemo on hold b/o thrombocytopenia Glucerna PRN for poor apetite TSH 4.66 Cortisol 14 Levemir 10 units daily in AM BGM QACHS and 3 AM Novolog SS coverage Discussed with family at bedside. Will probably need to go home on Insulin Chemo as per Onco Will f/u Problem List - Problems (1) Hyponatremia Code(s): E87.1 - HYPO-OSMOLALITY AND HYPONATREMIA (2) Pancreatic cancer Code(s): C25.9 - MALIGNANT NEOPLASM OF PANCREAS, UNSPECIFIED (3) Diabetes mellitus Code(s): E11.9 - TYPE 2 DIABETES MELLITUS WITHOUT COMPLICATIONS Qualifiers: Diabetes mellitus type: type 2 Diabetes mellitus snf insulin use: unspecified snf insulin use status Diabetes mellitus complication status : without complication Qualified Code(s): E11.9 - Type 2 diabetes mellitus without complications (4) Hyperglycemia Code(s): R73.9 - HYPERGLYCEMIA, UNSPECIFIED
[2019-03-23 14:55] LABS: ANISOCYTOSIS 1+; MACROCYTOSIS 1+; PLATELET ESTIMATE DECREASED; TARGET CELLS 2+
[2019-03-23] MEDS: POLYETHYLENE GLYCOL 3350 119 GM BTL PO SCH (17:27)
[2019-03-23] MEDS: LISINOPRIL 20 MG TABLET (FP) PO SCH (17:38)
--- NOTE | 2019-03-23 18:43 | PN ---
Progress Note (short form) - Note Progress Note: Patient seen and examined Feels OK Last Vital Signs Temp Pulse Resp BP Pulse Ox 98.1 F 81 18 121/58 L 99 03/23/19 17:36 03/23/19 17:36 03/23/19 17:36 03/23/19 17:36 03/23/19 09:00 Cor: RSR, No murmurs, No gallops Lungs: Clear to P&A Abd: Soft, Normal bowel sounds, No organomegaly Ext:No significant edema Abnormal Lab Results 03/23/19 03/23/19 03/23/19 07:00 07:00 07:00 WBC 11.8 H RBC 2.94 L Hgb 8.0 L Hct 24.5 L RDW 16.6 H Plt Count 132 L D Myelocytes % (Man) 5 H D PT with INR 18.50 H INR 1.56 H Sodium 132 L Anion Gap 7 L Creatinine 0.4 L Calcium 7.4 L Total Bilirubin 3.1 H AST 72 H Alkaline Phosphatase 869 H Total Protein 4.7 L Albumin 1.6 L Active Medications Generic Name Dose Route Start Last Admin Trade Name Freq PRN Reason Stop Dose Admin Acetaminophen 650 mg 03/10/19 22:05 03/17/19 21:31 Tylenol - PO 650 mg Q6H PRN Administration PAIN LEVEL 4 - 6 Al Hydroxide/Mg Hydroxide 30 ml 03/10/19 13:45 03/10/19 14:16 Mylanta Oral Suspension - PO 30 ml Q6H PRN Administration INDIGESTION Amlodipine Besylate 10 mg 03/10/19 10:00 03/23/19 09:59 Norvasc - PO 10 mg DAILY JOHN Administration Bisacodyl 5 mg 03/10/19 10:00 03/23/19 09:57 Dulcolax - PO 5 mg DAILY JOHN Administration Cholecalciferol 1,000 unit 03/10/19 10:00 03/23/19 09:57 Vitamin D3 - PO 1,000 unit DAILY JOHN Administration Docusate Sodium 100 mg 03/12/19 13:06 03/19/19 21:24 Colace - PO 100 mg BID PRN Administration CONSTIPATION Dorzolamide HCl 1 drop 03/09/19 22:00 03/23/19 10:03 Trusopt 2% OU 1 drop BID JOHN Administration IV Flush 10 ml 03/13/19 13:33 03/15/19 09:05 Tripp-Cath Flush IVPUSH 10 ml PRN PRN Administration FLUSH Insulin Aspart 1 vial 03/13/19 22:00 03/22/19 22:04 Novolog Vial Sliding Scale - SQ Not Given HS JOHN Protocol Insulin Aspart 1 vial 03/19/19 11:00 03/23/19 17:27 Novolog Vial Sliding Scale - SQ 9 units TIDAC JOHN Administration Protocol Insulin Detemir 10 units 03/20/19 07:00 03/23/19 06:59 Levemir Vial SQ Not Given DAILY@0700 JOHN Latanoprost 1 drop 03/10/19 10:00 03/23/19 11:51 Xalatan 0.005% Eye Drops - OU 1 drop DAILY JOHN Administration Levothyroxine Sodium 25 mcg 03/10/19 07:00 03/23/19 06:59 Synthroid - PO 25 mcg AM JOHN Administration Lisinopril 40 mg 03/10/19 10:00 03/23/19 17:38 Prinivil PO Not Given DAILY JOHN Metoclopramide HCl 5 mg 03/16/19 18:00 03/23/19 17:27 Reglan - PO 5 mg TIDAC JOHN Administration Ondansetron HCl 8 mg 03/13/19 11:11 03/16/19 12:13 Zofran Injection IVPB 8 mg Q12H PRN Administration NAUSEA AND/OR VOMITING Pantoprazole Sodium 40 mg 03/10/19 10:00 03/23/19 09:57 Protonix - PO 40 mg DAILY JOHN Administration Polyethylene Glycol 17 gm 03/10/19 14:15 03/23/19 17:27 Miralax (For Daily Use) - PO 17 gm DAILY JOHN Administration Sodium Chloride 1 gm 03/18/19 14:30 03/23/19 09:57 Sodium Chloride Tablet - PO 1 gm DAILY JOHN Administration Timolol Maleate 1 drop 03/09/19 22:00 03/23/19 10:03 Timoptic 0.5% OU 1 drop BID JOHN Administration A/P 83 y/o patient with metastatic pancreatic cancer with extensive liver mets coagulopathy due to liver disease s/p FFP/vit. K 8/1 s/p Port placement 8/2 C1 D13 gemzar/abraxane Leukocytosis-- blood cx/urine cx /cxr negative ? reactive due to advanced malignancy Abnormal LFTs--due to liver mets stable Held D8 gemzar due to thrombocytopenia relaed to chemotx/ ? liver mets Ongoing discussions with patient/ family regarding palliative care/hospice
[2019-03-23] MEDS ORDERED: INSULIN (NOVOLOG) ASPART 100 UNITS/ML 10ML VIAL ONE (21:47)
[2019-03-23] MEDS: DOCUSATE SODIUM 100 MG CAPSULE (FP) PO PRN (22:41)
[2019-03-24] MEDS: INSULIN (LEVEMIR) 100 UNITS/ML UNITS SQ SCH (06:33)
[2019-03-24] MEDS: INSULIN SLIDING SCALE (NOVOLOG) 1 VIAL SQ SCH ×4 (06:33→21:25)
[2019-03-24] MEDS: LEVOTHYROXINE NA 25 MCG TABLET (FP) PO SCH (06:34)
[2019-03-24] MEDS: METOCLOPRAMIDE HCL 10 MG TABLET (FP) PO SCH ×3 (06:34→16:55)
[2019-03-24 08:43] LABS: ALBUMIN 1.6 g/dl (3.4-5.0); BILIRUBIN,TOTAL 3.1 mg/dL (0.2-1); BLOOD UREA NITROGEN 9.3 mg/dL (7-18); CALCIUM 7.7 mg/dL (8.5-10.1); CREATININE 0.4 mg/dL (0.55-1.3); POTASSIUM 4.3 mmol/L (3.5-5.1)
--- NOTE | 2019-03-24 09:40 | PN ---
Progress Note (short form) - Note Progress Note: pt seen/ examined sitting in chair comfortable Vital Signs Temp 97.7 F 03/24/19 06:00 Pulse 70 03/24/19 06:00 Resp 18 03/24/19 06:00 BP 119/59 L 03/24/19 06:00 Pulse Ox 99 03/23/19 21:00 Intake & Output 03/23/19 03/23/19 03/24/19 11:59 23:59 11:59 Intake Total 200 200 Balance 200 200 Intake: Oral 200 200 Other: Voiding Method Toilet Toilet # Unmeasured Voids Void 3 2 Bowel Movement No Yes: small Yes Active Medications Acetaminophen (Tylenol -) 650 mg PO Q6H PRN PRN Reason: PAIN LEVEL 4 - 6 Last Admin: 03/17/19 21:31 Dose: 650 mg Al Hydroxide/Mg Hydroxide (Mylanta Oral Suspension -) 30 ml PO Q6H PRN PRN Reason: INDIGESTION Last Admin: 03/10/19 14:16 Dose: 30 ml Amlodipine Besylate (Norvasc -) 10 mg PO DAILY [facility] Last Admin: 03/23/19 09:59 Dose: 10 mg Bisacodyl (Dulcolax -) 5 mg PO DAILY [facility] Last Admin: 03/23/19 09:57 Dose: 5 mg Cholecalciferol (Vitamin D3 -) 1,000 unit PO DAILY [facility] Last Admin: 03/23/19 09:57 Dose: 1,000 unit Docusate Sodium (Colace -) 100 mg PO BID PRN PRN Reason: CONSTIPATION Last Admin: 03/23/19 22:41 Dose: 100 mg Dorzolamide HCl (Trusopt 2%) 1 drop OU BID [facility] Last Admin: 03/23/19 22:36 Dose: 1 drop IV Flush (Tripp-Cath Flush) 10 ml IVPUSH PRN PRN PRN Reason: FLUSH Last Admin: 03/15/19 09:05 Dose: 10 ml Insulin Aspart (Novolog Vial Sliding Scale -) 1 vial SQ HS [facility]; Protocol Last Admin: 03/23/19 22:35 Dose: Not Given Insulin Aspart (Novolog Vial Sliding Scale -) 1 vial SQ TIDAC [facility]; Protocol Last Admin: 03/24/19 06:33 Dose: Not Given Insulin Detemir (Levemir Vial) 10 units SQ DAILY@0700 [facility] Last Admin: 03/24/19 06:33 Dose: 10 units Latanoprost (Xalatan 0.005% Eye Drops -) 1 drop OU DAILY [facility] Last Admin: 03/23/19 11:51 Dose: 1 drop Levothyroxine Sodium (Synthroid -) 25 mcg PO AM [facility] Last Admin: 03/24/19 06:34 Dose: 25 mcg Lisinopril (Prinivil) 40 mg PO DAILY [facility] Last Admin: 03/23/19 17:38 Dose: Not Given Metoclopramide HCl (Reglan -) 5 mg PO TIDAC [facility] Last Admin: 03/24/19 06:34 Dose: 5 mg Ondansetron HCl (Zofran Injection) 8 mg IVPB Q12H PRN PRN Reason: NAUSEA AND/OR VOMITING Last Admin: 03/16/19 12:13 Dose: 8 mg Pantoprazole Sodium (Protonix -) 40 mg PO DAILY [facility] Last Admin: 03/23/19 09:57 Dose: 40 mg Polyethylene Glycol (Miralax (For Daily Use) -) 17 gm PO DAILY [facility] Last Admin: 03/23/19 17:27 Dose: 17 gm Sodium Chloride (Sodium Chloride Tablet -) 1 gm PO DAILY [facility] Last Admin: 03/23/19 09:57 Dose: 1 gm Timolol Maleate (Timoptic 0.5%) 1 drop OU BID [facility] Last Admin: 03/23/19 22:35 Dose: 1 drop CBC,CMP WBC 11.8 K/mm3 (4.0-10.0) H 03/23/19 07:00 RBC 2.94 M/mm3 (3.60-5.2) L 03/23/19 07:00 Hgb 8.0 GM/dL (10.7-15.3) L 03/23/19 07:00 Hct 24.5 % (32.4-45.2) L 03/23/19 07:00 MCV 83.4 fl (80-96) 03/23/19 07:00 MCH 27.3 pg (25.7-33.7) 03/23/19 07:00 MCHC 32.7 g/dl (32.0-36.0) 03/23/19 07:00 RDW 16.6 % (11.6-15.6) H 03/23/19 07:00 Plt Count 132 K/MM3 (134-434) L D 03/23/19 07:00 MPV 11.1 fl (7.5-11.1) 03/23/19 07:00 Absolute Neuts (auto) K/mm3 (1.5-8.0) 03/23/19 07:00 Neutrophils % % (42.8-82.8) 03/23/19 07:00 Neutrophils % (Manual) 55.7 % (42.8-82.8) 03/23/19 07:00 Band Neutrophils % 1.0 % 03/23/19 07:00 Lymphocytes % % (8-40) 03/23/19 07:00 Lymphocytes % (Manual) 22.0 % (8-40) D 03/23/19 07:00 Monocytes % % (3.8-10.2) 03/23/19 07:00 Monocytes % (Manual) 10 % (3.8-10.2) 03/23/19 07:00 Eosinophils % % (0-4.5) 03/23/19 07:00 Eosinophils % (Manual) 0.0 % (0-4.5) D 03/23/19 07:00 Basophils % % (0-2.0) 03/23/19 07:00 Basophils % (Manual) 1.0 % (0-2.0) D 03/23/19 07:00 Myelocytes % (Man) 5 % (0-2) H D 03/23/19 07:00 Promyelocytes % (Man) 0 % (0-2) 03/23/19 07:00 Blast Cells % (Manual) 0 % (0-0) 03/23/19 07:00 Nucleated RBC % 0 % (0-0) 03/23/19 07:00 Metamyelocytes 0 % (0-2) 03/23/19 07:00 Hypochromia 1+ 03/23/19 07:00 Toxic Granulation 1+ 03/19/19 06:45 Platelet Estimate Decreased 03/23/19 07:00 Platelet Comment No clumping noted 03/19/19 06:45 Polychromasia 1+ 03/23/19 07:00 Poikilocytosis 2+ 03/23/19 07:00 Anisocytosis 1+ 03/23/19 07:00 Microcytosis 0 03/23/19 07:00 Macrocytosis 1+ 03/23/19 07:00 Spherocytes 1+ 03/18/19 19:30 Target Cells 2+ 03/23/19 07:00 Tear Drop Cells 1+ 03/18/19 06:00 Ovalocytes 1+ 03/21/19 06:50 Stomatocytes 1+ 03/10/19 06:16 [place] Cells 1+ 03/18/19 06:00 Schistocytes 1+ 03/18/19 19:30 Sodium 133 mmol/L (136-145) L 03/24/19 06:15 Potassium 4.3 mmol/L (3.5-5.1) 03/24/19 06:15 Chloride 99 mmol/L (98-107) 03/24/19 06:15 Carbon Dioxide 27 mmol/L (21-32) 03/24/19 06:15 Anion Gap 7 MMOL/L (8-16) L 03/24/19 06:15 BUN 9.3 mg/dL (7-18) 03/24/19 06:15 Creatinine 0.4 mg/dL (0.55-1.3) L 03/24/19 06:15 Est GFR (CKD-EPI)AfAm 113.21 03/24/19 06:15 Est GFR (CKD-EPI)NonAf 97.68 03/24/19 06:15 POC Glucometer 103 UNITS (80-120) 03/24/19 06:32 Random Glucose 95 mg/dL (74-106) 03/24/19 06:15 Hemoglobin A1c % 10.0 % (4.2-6.3) H 03/11/19 10:05 Serum Osmolality 290 mosm/kg (278-305) 03/12/19 10:45 Calcium 7.7 mg/dL (8.5-10.1) L 03/24/19 06:15 Total Bilirubin 3.1 mg/dL (0.2-1) H 03/24/19 06:15 Direct Bilirubin 3.2 mg/dL (0.0-0.2) H 03/17/19 18:45 AST 65 U/L (15-37) H 03/24/19 06:15 ALT 42 U/L (13-61) 03/24/19 06:15 Alkaline Phosphatase 806 U/L (45-117) H 03/24/19 06:15 Troponin I < 0.02 ng/ml (0.00-0.05) 03/09/19 05:42 B-Natriuretic Peptide 252.5 pg/ml (5-450) 03/23/19 07:00 Total Protein 5.0 g/dl (6.4-8.2) L 03/24/19 06:15 Albumin 1.6 g/dl (3.4-5.0) L 03/24/19 06:15 Total Amylase 33 U/L (25-115) 03/10/19 06:16 Lipase 98 U/L (73-393) 03/10/19 06:16 TSH 4.66 uIU/ml (0.358-3.74) H 03/10/19 06:16 Cortisol AM Sample 14.0 ug/dL (6.2-19.4) 03/13/19 07:00 CBC, BMP 03/23/19 07:00 03/24/19 06:15 Physical Examination Constitutional: Yes: awake/ no distress Eyes: Yes: Conjunctiva Clear Neck: Yes: Supple. no jvd Cardiovascular: Yes: Regular Rate and Rhythm Respiratory: Yes: CTA Bilaterally Gastrointestinal: Yes: Soft, mild tenderness. No rigidity or rebound Edema: No Neurological: Yes: Alert Psychiatric: Yes: Alert Imaging - Results Chest X-ray: Report Reviewed EKG: Report Reviewed Assessment/Plan Pancreatic ca with Mets Elevated liver function -- liver mets Increasing liver mass Thrombocytopenia-- Better Continue present care-- and monitor Labs Oncology/GI following- i/d f/u for ESBL-- Discussed with Also yesterday--- no antibiotics- -- Discharge planning will follow discussed with nursing staff as well as case management assistant also. Family meeting again today--- with oncology Dr. Shepard----also planning--- 2 restart chemotherapy-- Will follow And discuss Problem List - Problems (1) Pancreatic cancer Code(s): C25.9 - MALIGNANT NEOPLASM OF PANCREAS, UNSPECIFIED (2) Hyponatremia Code(s): E87.1 - HYPO-OSMOLALITY AND HYPONATREMIA (3) Leukocytosis Code(s): D72.829 - ELEVATED WHITE BLOOD CELL COUNT, UNSPECIFIED Qualifiers: Leukocytosis type: unspecified Qualified Code(s): D72.829 - Elevated white blood cell count, unspecified (4) Nausea Code(s): R11.0 - NAUSEA (5) Diabetes mellitus Code(s): E11.9 - TYPE 2 DIABETES MELLITUS WITHOUT COMPLICATIONS Qualifiers: Diabetes mellitus type: type 2 Diabetes mellitus chcf insulin use: unspecified terminal carman insulin use status Diabetes mellitus complication status : without complication Qualified Code(s): E11.9 - Type 2 diabetes mellitus without complications (6) Coagulopathy Code(s): D68.9 - COAGULATION DEFECT, UNSPECIFIED
[2019-03-24] MEDS ORDERED: PT OWN MED DRAWER 7, Y5N ONE (11:30)
[2019-03-24] MEDS: CHOLECALCIFEROL (VIT D3) 1,000 UNIT (25 MCG) TABLET PO SCH (11:32)
[2019-03-24] MEDS: amLODIPine BESYLATE 10 MG TABLET (FP) PO SCH (11:33)
[2019-03-24] MEDS: LISINOPRIL 20 MG TABLET (FP) PO SCH (11:33)
[2019-03-24] MEDS: PANTOPRAZOLE 40 MG TABLET (FP) PO SCH (11:33)
[2019-03-24] MEDS: DOCUSATE SODIUM 100 MG CAPSULE (FP) PO PRN (11:34)
[2019-03-24] MEDS: LATANOPROST 0.005% OPHTH SOLN 2.5ML BOTTLE OU SCH (11:34)
[2019-03-24] MEDS: TIMOLOL 0.5% OPHTHALMIC SOL 5 ML BOTTLE OU SCH ×2 (11:35→21:40)
[2019-03-24] MEDS: SODIUM CHLORIDE 1 GM TABLET PO SCH (11:35)
[2019-03-24] MEDS: DORZOLAMIDE 2% HCL OPHTHALMIC SOLUTION 10 ML BOTTLE OU SCH ×2 (11:35→21:40)
[2019-03-24] MEDS: POLYETHYLENE GLYCOL 3350 119 GM BTL PO SCH (11:36)
[2019-03-24] MEDS: BISACODYL 5 MG TABLET.DR (FP) PO SCH (11:38)
--- NOTE | 2019-03-24 15:47 | PN ---
Progress Note, Physician History of Present Illness: Pt seen and examined at bedside. She is awake and alert. She feels that edema is improved. - Current Medication List Current Medications: Active Medications Acetaminophen (Tylenol -) 650 mg PO Q6H PRN PRN Reason: PAIN LEVEL 4 - 6 Last Admin: 03/17/19 21:31 Dose: 650 mg Al Hydroxide/Mg Hydroxide (Mylanta Oral Suspension -) 30 ml PO Q6H PRN PRN Reason: INDIGESTION Last Admin: 03/10/19 14:16 Dose: 30 ml Amlodipine Besylate (Norvasc -) 10 mg PO DAILY [facility] Last Admin: 03/24/19 11:33 Dose: 10 mg Bisacodyl (Dulcolax -) 5 mg PO DAILY [facility] Last Admin: 03/24/19 11:38 Dose: 5 mg Cholecalciferol (Vitamin D3 -) 1,000 unit PO DAILY [facility] Last Admin: 03/24/19 11:32 Dose: 1,000 unit Docusate Sodium (Colace -) 100 mg PO BID PRN PRN Reason: CONSTIPATION Last Admin: 03/24/19 11:34 Dose: 100 mg Dorzolamide HCl (Trusopt 2%) 1 drop OU BID [facility] Last Admin: 03/24/19 11:35 Dose: 1 drop IV Flush (Tripp-Cath Flush) 10 ml IVPUSH PRN PRN PRN Reason: FLUSH Last Admin: 03/15/19 09:05 Dose: 10 ml Insulin Aspart (Novolog Vial Sliding Scale -) 1 vial SQ HS [facility]; Protocol Last Admin: 03/23/19 22:35 Dose: Not Given Insulin Aspart (Novolog Vial Sliding Scale -) 1 vial SQ TIDAC [facility]; Protocol Last Admin: 03/24/19 13:03 Dose: 3 units Insulin Detemir (Levemir Vial) 10 units SQ DAILY@0700 [facility] Last Admin: 03/24/19 06:33 Dose: 10 units Latanoprost (Xalatan 0.005% Eye Drops -) 1 drop OU DAILY [facility] Last Admin: 03/24/19 11:34 Dose: 1 drop Levothyroxine Sodium (Synthroid -) 25 mcg PO AM [facility] Last Admin: 03/24/19 06:34 Dose: 25 mcg Lisinopril (Prinivil) 40 mg PO DAILY [facility] Last Admin: 03/24/19 11:33 Dose: 40 mg Metoclopramide HCl (Reglan -) 5 mg PO TIDAC [facility] Last Admin: 03/24/19 11:32 Dose: 5 mg Ondansetron HCl (Zofran Injection) 8 mg IVPB Q12H PRN PRN Reason: NAUSEA AND/OR VOMITING Last Admin: 03/16/19 12:13 Dose: 8 mg Pantoprazole Sodium (Protonix -) 40 mg PO DAILY [facility] Last Admin: 03/24/19 11:33 Dose: 40 mg Polyethylene Glycol (Miralax (For Daily Use) -) 17 gm PO DAILY [facility] Last Admin: 03/24/19 11:36 Dose: 17 gm Sodium Chloride (Sodium Chloride Tablet -) 1 gm PO DAILY [facility] Last Admin: 03/24/19 11:35 Dose: 1 gm Timolol Maleate (Timoptic 0.5%) 1 drop OU BID [facility] Last Admin: 03/24/19 11:35 Dose: 1 drop - Objective Vital Signs: Vital Signs Temperature 98.1 F 03/24/19 14:53 Pulse Rate 69 03/24/19 14:53 Respiratory Rate 20 03/24/19 14:53 Blood Pressure 117/55 L 03/24/19 14:53 O2 Sat by Pulse Oximetry (%) 98 03/24/19 09:00 Constitutional: Yes: Calm Eyes: Yes: Conjunctiva Clear HENT: Yes: Atraumatic Neck: Yes: Supple Cardiovascular: Yes: S1, S2 Respiratory: Yes: CTA Bilaterally Gastrointestinal: Yes: Soft Genitourinary: Yes: WNL Musculoskeletal: Yes: WNL Edema: Yes Edema: LLE: 1+, RLE: 1+ Neurological: Yes: Oriented Psychiatric: Yes: Oriented Labs: CBC, BMP 03/23/19 07:00 03/24/19 06:15 INR, PTT INR 1.56 (0.83-1.09) H 03/23/19 07:00 Fibrinogen 264.0 mg/dL (238-498) D 03/23/19 07:00 Problem List - Problems (1) Hyponatremia Code(s): E87.1 - HYPO-OSMOLALITY AND HYPONATREMIA (2) Pancreatic cancer Code(s): C25.9 - MALIGNANT NEOPLASM OF PANCREAS, UNSPECIFIED Assessment/Plan Current Medications Generic Name Dose Route Start Last Admin Trade Name Freq PRN Reason Stop Dose Admin Acetaminophen 650 mg 03/10/19 22:05 03/17/19 21:31 Tylenol - PO 650 mg Q6H PRN Administration PAIN LEVEL 4 - 6 Al Hydroxide/Mg Hydroxide 30 ml 03/10/19 13:45 03/10/19 14:16 Mylanta Oral Suspension - PO 30 ml Q6H PRN Administration INDIGESTION Amlodipine Besylate 10 mg 03/10/19 10:00 03/24/19 11:33 Norvasc - PO 10 mg DAILY JOHN Administration Bisacodyl 5 mg 03/10/19 10:00 03/24/19 11:38 Dulcolax - PO 5 mg DAILY JOHN Administration Cholecalciferol 1,000 unit 03/10/19 10:00 03/24/19 11:32 Vitamin D3 - PO 1,000 unit DAILY JOHN Administration Docusate Sodium 100 mg 03/12/19 13:06 03/24/19 11:34 Colace - PO 100 mg BID PRN Administration CONSTIPATION Dorzolamide HCl 1 drop 03/09/19 22:00 03/24/19 11:35 Trusopt 2% OU 1 drop BID JOHN Administration IV Flush 10 ml 03/13/19 13:33 03/15/19 09:05 Tripp-Cath Flush IVPUSH 10 ml PRN PRN Administration FLUSH Insulin Aspart 1 vial 03/13/19 22:00 03/23/19 22:35 Novolog Vial Sliding Scale - SQ Not Given HS [facility] Protocol Insulin Aspart 1 vial 03/19/19 11:00 03/24/19 13:03 Novolog Vial Sliding Scale - SQ 3 units TIDAC [facility] Administration Protocol Insulin Detemir 10 units 03/20/19 07:00 03/24/19 06:33 Levemir Vial SQ 10 units DAILY@0700 JOHN Administration Latanoprost 1 drop 03/10/19 10:00 03/24/19 11:34 Xalatan 0.005% Eye Drops - OU 1 drop DAILY JOHN Administration Levothyroxine Sodium 25 mcg 03/10/19 07:00 03/24/19 06:34 Synthroid - PO 25 mcg AM JOHN Administration Lisinopril 40 mg 03/10/19 10:00 03/24/19 11:33 Prinivil PO 40 mg DAILY JOHN Administration Metoclopramide HCl 5 mg 03/16/19 18:00 08/15/19 11:32 Reglan - PO 5 mg TIDAC JOHN Administration Ondansetron HCl 8 mg 03/13/19 11:11 03/16/19 12:13 Zofran Injection IVPB 8 mg Q12H PRN Administration NAUSEA AND/OR VOMITING Pantoprazole Sodium 40 mg 03/10/19 10:00 03/24/19 11:33 Protonix - PO 40 mg DAILY JOHN Administration Polyethylene Glycol 17 gm 03/10/19 14:15 03/24/19 11:36 Miralax (For Daily Use) - PO 17 gm DAILY JOHN Administration Sodium Chloride 1 gm 03/18/19 14:30 03/24/19 11:35 Sodium Chloride Tablet - PO 1 gm DAILY JOHN Administration Timolol Maleate 1 drop 03/09/19 22:00 03/24/19 11:35 Timoptic 0.5% OU 1 drop BID JOHN Administration Impression 1. hyonatremia 2. pancreatic cancer 3. hypothyroidism 4. decreased appetite 5. htn Plan - sodium improving - encourage PO intake - one more dose of lasix for edema - oncology follow up - monitor lytes
--- NOTE | 2019-03-24 17:25 | PN ---
Progress Note (short form) - Note Progress Note: Patient seen and examined Feels OK Last Vital Signs Temp Pulse Resp BP Pulse Ox 98.1 F 69 20 117/55 L 98 03/24/19 14:53 03/24/19 14:53 03/24/19 14:53 03/24/19 14:53 03/24/19 09:00 Cor: RSR, No murmurs, No gallops Lungs: Clear to P&A Abd: Soft, Normal bowel sounds, No organomegaly Ext: 1+ edema Abnormal Lab Results 03/24/19 06:15 Sodium 133 L Anion Gap 7 L Creatinine 0.4 L Calcium 7.7 L Total Bilirubin 3.1 H AST 65 H Alkaline Phosphatase 806 H Total Protein 5.0 L Albumin 1.6 L Active Medications Generic Name Dose Route Start Last Admin Trade Name Freq PRN Reason Stop Dose Admin Acetaminophen 650 mg 03/10/19 22:05 03/17/19 21:31 Tylenol - PO 650 mg Q6H PRN Administration PAIN LEVEL 4 - 6 Al Hydroxide/Mg Hydroxide 30 ml 03/10/19 13:45 03/10/19 14:16 Mylanta Oral Suspension - PO 30 ml Q6H PRN Administration INDIGESTION Amlodipine Besylate 10 mg 03/10/19 10:00 03/24/19 11:33 Norvasc - PO 10 mg DAILY JOHN Administration Bisacodyl 5 mg 03/10/19 10:00 03/24/19 11:38 Dulcolax - PO 5 mg DAILY JOHN Administration Cholecalciferol 1,000 unit 03/10/19 10:00 03/24/19 11:32 Vitamin D3 - PO 1,000 unit DAILY JOHN Administration Docusate Sodium 100 mg 03/12/19 13:06 03/24/19 11:34 Colace - PO 100 mg BID PRN Administration CONSTIPATION Dorzolamide HCl 1 drop 03/09/19 22:00 03/24/19 11:35 Trusopt 2% OU 1 drop BID JOHN Administration IV Flush 10 ml 03/13/19 13:33 03/15/19 09:05 Tripp-Cath Flush IVPUSH 10 ml PRN PRN Administration FLUSH Insulin Aspart 1 vial 03/13/19 22:00 03/23/19 22:35 Novolog Vial Sliding Scale - SQ Not Given HS [facility] Protocol Insulin Aspart 1 vial 03/19/19 11:00 03/24/19 13:03 Novolog Vial Sliding Scale - SQ 3 units TIDAC JOHN Administration Protocol Insulin Detemir 10 units 03/20/19 07:00 03/24/19 06:33 Levemir Vial SQ 10 units DAILY@0700 JOHN Administration Latanoprost 1 drop 03/10/19 10:00 03/24/19 11:34 Xalatan 0.005% Eye Drops - OU 1 drop DAILY JOHN Administration Levothyroxine Sodium 25 mcg 03/10/19 07:00 03/24/19 06:34 Synthroid - PO 25 mcg AM JOHN Administration Lisinopril 40 mg 03/10/19 10:00 03/24/19 11:33 Prinivil PO 40 mg DAILY JOHN Administration Metoclopramide HCl 5 mg 03/16/19 18:00 03/24/19 11:32 Reglan - PO 5 mg TIDAC JOHN Administration Ondansetron HCl 8 mg 03/13/19 11:11 03/16/19 12:13 Zofran Injection IVPB 8 mg Q12H PRN Administration NAUSEA AND/OR VOMITING Pantoprazole Sodium 40 mg 03/10/19 10:00 03/24/19 11:33 Protonix - PO 40 mg DAILY JOHN Administration Polyethylene Glycol 17 gm 03/10/19 14:15 03/24/19 11:36 Miralax (For Daily Use) - PO 17 gm DAILY JOHN Administration Sodium Chloride 1 gm 03/18/19 14:30 03/24/19 11:35 Sodium Chloride Tablet - PO 1 gm DAILY JOHN Administration Timolol Maleate 1 drop 03/09/19 22:00 03/24/19 11:35 Timoptic 0.5% OU 1 drop BID JOHN Administration A/P 83 y/o patient with metastatic pancreatic cancer with extensive liver mets coagulopathy due to liver disease s/p FFP/vit. K 03/10 s/p Port placement 03/11 C1 D14 gemzar/abraxane Leukocytosis-- blood cx/urine cx /cxr negative ? reactive due to advanced malignancy Abnormal LFTs--due to liver mets stable Held D8 gemzar due to thrombocytopenia relaed to chemotx/ ? liver mets Discussed via cargo supervisor no. [id number] with patient and palliative care nurse Ms. Ilda Schwartz. Patient states that she understands that she is sick and has cancer but wants to defer treatment decisions to her grand daughter Amado Alfredo She stated that she is comfortable with her grand daughter making decisions for her. She is anxious to go home Had spoken to granddaughter at length previously on 03/23/19 will reconsult GI for constipation. add ? relistor dispo planning
[2019-03-24] MEDS ORDERED: Methylnaltrexone Bromide 12 MG/0.6 ML KIT SQ SCH ×2 (19:00)
[2019-03-24] MEDS: ACETAMINOPHEN 325 MG TABLET (FP) PO PRN (21:44)
[2019-03-25] MEDS: INSULIN SLIDING SCALE (NOVOLOG) 1 VIAL SQ SCH ×4 (06:26→21:40)
[2019-03-25] MEDS: LEVOTHYROXINE NA 25 MCG TABLET (FP) PO SCH (06:27)
[2019-03-25] MEDS: INSULIN (LEVEMIR) 100 UNITS/ML UNITS SQ SCH (06:29)
--- NOTE | 2019-03-25 09:23 | PN ---
Progress Note (short form) - Note Progress Note: Poor apetite BGM 49 at bedtime last night Vital Signs Period Temp Pulse Resp BP Sys/Miller Pulse Ox Last 24 Hr 97.5 F-98.1 F 67-69 18-20 105-122/54-67 98-98 PE: AOx3 Neck: Supple, No JVD HEENT: EOMI Lungs: CTA CVS: S1S2 Abd: Benign EXt: + edema Neuro: No focal deficit CMP Sodium 133 mmol/L (136-145) L 03/24/19 06:15 Potassium 4.3 mmol/L (3.5-5.1) 03/24/19 06:15 Chloride 99 mmol/L (98-107) 03/24/19 06:15 Carbon Dioxide 27 mmol/L (21-32) 03/24/19 06:15 Anion Gap 7 MMOL/L (8-16) L 03/24/19 06:15 BUN 9.3 mg/dL (7-18) 03/24/19 06:15 Creatinine 0.4 mg/dL (0.55-1.3) L 03/24/19 06:15 Est GFR (CKD-EPI)AfAm 113.21 03/24/19 06:15 Est GFR (CKD-EPI)NonAf 97.68 03/24/19 06:15 POC Glucometer 147 UNITS (80-120) 03/25/19 06:25 Random Glucose 95 mg/dL (74-106) 03/24/19 06:15 Hemoglobin A1c % 10.0 % (4.2-6.3) H 03/11/19 10:05 Serum Osmolality 290 mosm/kg (278-305) 03/12/19 10:45 Calcium 7.7 mg/dL (8.5-10.1) L 03/24/19 06:15 Total Bilirubin 3.1 mg/dL (0.2-1) H 03/24/19 06:15 Direct Bilirubin 3.2 mg/dL (0.0-0.2) H 03/17/19 18:45 AST 65 U/L (15-37) H 03/24/19 06:15 ALT 42 U/L (13-61) 03/24/19 06:15 Alkaline Phosphatase 806 U/L (45-117) H 03/24/19 06:15 Troponin I < 0.02 ng/ml (0.00-0.05) 03/09/19 05:42 B-Natriuretic Peptide 252.5 pg/ml (5-450) 03/23/19 07:00 Total Protein 5.0 g/dl (6.4-8.2) L 03/24/19 06:15 Albumin 1.6 g/dl (3.4-5.0) L 03/24/19 06:15 Total Amylase 33 U/L (25-115) 03/10/19 06:16 Lipase 98 U/L (73-393) 03/10/19 06:16 TSH 4.66 uIU/ml (0.358-3.74) H 03/10/19 06:16 Cortisol AM Sample 14.0 ug/dL (6.2-19.4) 03/13/19 07:00 Current Medications Generic Name Dose Route Start Last Admin Trade Name Freq PRN Reason Stop Dose Admin Acetaminophen 650 mg 03/10/19 22:05 03/24/19 21:44 Tylenol - PO 650 mg Q6H PRN Administration PAIN LEVEL 4 - 6 Al Hydroxide/Mg Hydroxide 30 ml 03/10/19 13:45 03/10/19 14:16 Mylanta Oral Suspension - PO 30 ml Q6H PRN Administration INDIGESTION Amlodipine Besylate 10 mg 03/10/19 10:00 03/24/19 11:33 Norvasc - PO 10 mg DAILY JOHN Administration Bisacodyl 5 mg 03/10/19 10:00 03/24/19 11:38 Dulcolax - PO 5 mg DAILY JOHN Administration Cholecalciferol 1,000 unit 03/10/19 10:00 03/24/19 11:32 Vitamin D3 - PO 1,000 unit DAILY JOHN Administration Docusate Sodium 100 mg 03/12/19 13:06 03/24/19 11:34 Colace - PO 100 mg BID PRN Administration CONSTIPATION Dorzolamide HCl 1 drop 03/09/19 22:00 03/24/19 21:40 Trusopt 2% OU 1 drop BID JOHN Administration IV Flush 10 ml 03/13/19 13:33 03/15/19 09:05 Tripp-Cath Flush IVPUSH 10 ml PRN PRN Administration FLUSH Insulin Aspart 1 vial 03/13/19 22:00 03/24/19 21:25 Novolog Vial Sliding Scale - SQ Not Given HS [facility] Protocol Insulin Aspart 1 vial 03/19/19 11:00 03/25/19 06:26 Novolog Vial Sliding Scale - SQ Not Given TIDAC [facility] Protocol Insulin Detemir 10 units 03/20/19 07:00 03/25/19 06:29 Levemir Vial SQ 10 units DAILY@0700 JOHN Administration Latanoprost 1 drop 03/10/19 10:00 03/24/19 11:34 Xalatan 0.005% Eye Drops - OU 1 drop DAILY JOHN Administration Levothyroxine Sodium 25 mcg 03/10/19 07:00 03/25/19 06:27 Synthroid - PO 25 mcg AM JOHN Administration Lisinopril 40 mg 03/10/19 10:00 03/24/19 11:33 Prinivil PO 40 mg DAILY JOHN Administration Methylnaltrexone [place] 4 mg 03/24/19 19:00 03/24/19 21:04 Relistor - SQ 4 mg DAILY@1900 JOHN Administration Ondansetron HCl 8 mg 03/13/19 11:11 03/16/19 12:13 Zofran Injection IVPB 8 mg Q12H PRN Administration NAUSEA AND/OR VOMITING Pantoprazole Sodium 40 mg 03/10/19 10:00 03/24/19 11:33 Protonix - PO 40 mg DAILY JOHN Administration Polyethylene Glycol 17 gm 03/10/19 14:15 03/24/19 11:36 Miralax (For Daily Use) - PO 17 gm DAILY JOHN Administration Sodium Chloride 1 gm 03/18/19 14:30 03/24/19 11:35 Sodium Chloride Tablet - PO 1 gm DAILY JOHN Administration Timolol Maleate 1 drop 03/09/19 22:00 03/24/19 21:40 Timoptic 0.5% OU 1 drop BID JOHN Administration AP; Pancreatic Ca T2DM: A1c 10 Hyponatremia Elevated LFTs Leukocytosis Chemo on hold b/o thrombocytopenia Glucerna PRN for poor apetite TSH 4.66 Cortisol 14 Levemir 10 units daily in AM BGM QACHS and 3 AM Decrease Novolog SS coverage Will probably need to go home on Insulin Chemo as per Onco Will f/u Problem List - Problems (1) Hyponatremia Code(s): E87.1 - HYPO-OSMOLALITY AND HYPONATREMIA (2) Pancreatic cancer Code(s): C25.9 - MALIGNANT NEOPLASM OF PANCREAS, UNSPECIFIED (3) Diabetes mellitus Code(s): E11.9 - TYPE 2 DIABETES MELLITUS WITHOUT COMPLICATIONS Qualifiers: Diabetes mellitus type: type 2 Diabetes mellitus penitentiary insulin use: unspecified penitentiary insulin use status Diabetes mellitus complication status : without complication Qualified Code(s): E11.9 - Type 2 diabetes mellitus without complications (4) Hyperglycemia Code(s): R73.9 - HYPERGLYCEMIA, UNSPECIFIED
[2019-03-25] MEDS ORDERED: PT OWN MED DRAWER 7, Y5N ONE (09:30)
[2019-03-25] MEDS: CHOLECALCIFEROL (VIT D3) 1,000 UNIT (25 MCG) TABLET PO SCH (10:17)
[2019-03-25] MEDS: LISINOPRIL 20 MG TABLET (FP) PO SCH (10:17)
[2019-03-25] MEDS: POLYETHYLENE GLYCOL 3350 119 GM BTL PO SCH ×2 (10:18→21:40)
[2019-03-25] MEDS: PANTOPRAZOLE 40 MG TABLET (FP) PO SCH (10:18)
[2019-03-25] MEDS: BISACODYL 5 MG TABLET.DR (FP) PO SCH (10:18)
[2019-03-25] MEDS: amLODIPine BESYLATE 10 MG TABLET (FP) PO SCH (10:18)
[2019-03-25] MEDS: SODIUM CHLORIDE 1 GM TABLET PO SCH (10:21)
[2019-03-25] MEDS: TIMOLOL 0.5% OPHTHALMIC SOL 5 ML BOTTLE OU SCH ×2 (10:23→21:41)
[2019-03-25] MEDS: LATANOPROST 0.005% OPHTH SOLN 2.5ML BOTTLE OU SCH (10:24)
[2019-03-25] MEDS: DORZOLAMIDE 2% HCL OPHTHALMIC SOLUTION 10 ML BOTTLE OU SCH ×2 (10:24→21:42)
[2019-03-25 13:28] LABS: BLOOD UREA NITROGEN 9.4 mg/dL (7-18); CALCIUM 7.7 mg/dL (8.5-10.1); CREATININE 0.5 mg/dL (0.55-1.3); POTASSIUM 4.8 mmol/L (3.5-5.1)
--- NOTE | 2019-03-25 13:40 | PN ---
Progress Note, Physician History of Present Illness: Pt seen and examined at bedside. She is awake and alert. She denies shortness of breath. - Current Medication List Current Medications: Active Medications Acetaminophen (Tylenol -) 650 mg PO Q6H PRN PRN Reason: PAIN LEVEL 4 - 6 Last Admin: 03/24/19 21:44 Dose: 650 mg Al Hydroxide/Mg Hydroxide (Mylanta Oral Suspension -) 30 ml PO Q6H PRN PRN Reason: INDIGESTION Last Admin: 03/10/19 14:16 Dose: 30 ml Amlodipine Besylate (Norvasc -) 10 mg PO DAILY [facility] Last Admin: 03/25/19 10:18 Dose: 10 mg Bisacodyl (Dulcolax -) 5 mg PO DAILY [facility] Last Admin: 03/25/19 10:18 Dose: 5 mg Cholecalciferol (Vitamin D3 -) 1,000 unit PO DAILY [facility] Last Admin: 03/25/19 10:17 Dose: 1,000 unit Docusate Sodium (Colace -) 100 mg PO BID PRN PRN Reason: CONSTIPATION Last Admin: 03/24/19 11:34 Dose: 100 mg Dorzolamide HCl (Trusopt 2%) 1 drop OU BID [facility] Last Admin: 03/25/19 10:24 Dose: 1 drop IV Flush (Tripp-Cath Flush) 10 ml IVPUSH PRN PRN PRN Reason: FLUSH Last Admin: 03/15/19 09:05 Dose: 10 ml Insulin Aspart (Novolog Vial Sliding Scale -) 1 vial SQ HS [facility]; Protocol Last Admin: 03/24/19 21:25 Dose: Not Given Insulin Aspart (Novolog Vial Sliding Scale -) 1 vial SQ TIDAC [facility]; Protocol Insulin Detemir (Levemir Vial) 10 units SQ DAILY@0700 [facility] Last Admin: 03/25/19 06:29 Dose: 10 units Latanoprost (Xalatan 0.005% Eye Drops -) 1 drop OU DAILY [facility] Last Admin: 03/25/19 10:24 Dose: 1 drop Levothyroxine Sodium (Synthroid -) 25 mcg PO AM [facility] Last Admin: 03/25/19 06:27 Dose: 25 mcg Lisinopril (Prinivil) 40 mg PO DAILY [facility] Last Admin: 03/25/19 10:17 Dose: 40 mg Methylnaltrexone [place] (Relistor -) 4 mg SQ DAILY@1900 [facility] Last Admin: 03/24/19 21:04 Dose: 4 mg Ondansetron HCl (Zofran Injection) 8 mg IVPB Q12H PRN PRN Reason: NAUSEA AND/OR VOMITING Last Admin: 03/16/19 12:13 Dose: 8 mg Pantoprazole Sodium (Protonix -) 40 mg PO DAILY [facility] Last Admin: 03/25/19 10:18 Dose: 40 mg Polyethylene Glycol (Miralax (For Daily Use) -) 17 gm PO DAILY [facility] Last Admin: 03/25/19 10:18 Dose: 17 gm Sodium Chloride (Sodium Chloride Tablet -) 1 gm PO DAILY [facility] Last Admin: 03/25/19 10:21 Dose: 1 gm Timolol Maleate (Timoptic 0.5%) 1 drop OU BID [facility] Last Admin: 03/25/19 10:23 Dose: 1 drop - Objective Vital Signs: Vital Signs Temperature 97.5 F L 03/25/19 07:19 Pulse Rate 67 03/25/19 07:19 Respiratory Rate 20 03/25/19 07:19 Blood Pressure 117/56 L 03/25/19 07:19 O2 Sat by Pulse Oximetry (%) 98 03/25/19 08:40 Constitutional: Yes: Calm Eyes: Yes: Conjunctiva Clear HENT: Yes: Atraumatic Neck: Yes: Supple Cardiovascular: Yes: S1, S2 Respiratory: Yes: CTA Bilaterally Gastrointestinal: Yes: Soft Genitourinary: Yes: WNL Musculoskeletal: Yes: WNL Edema: Yes Edema: LLE: Trace, RLE: Trace Neurological: Yes: Oriented Psychiatric: Yes: Oriented Labs: CBC, BMP 03/23/19 07:00 03/25/19 11:50 INR, PTT INR 1.56 (0.83-1.09) H 03/23/19 07:00 Fibrinogen 264.0 mg/dL (238-498) D 03/23/19 07:00 Problem List - Problems (1) Hyponatremia Code(s): E87.1 - HYPO-OSMOLALITY AND HYPONATREMIA (2) Pancreatic cancer Code(s): C25.9 - MALIGNANT NEOPLASM OF PANCREAS, UNSPECIFIED Assessment/Plan Current Medications Generic Name Dose Route Start Last Admin Trade Name Freq PRN Reason Stop Dose Admin Acetaminophen 650 mg 03/10/19 22:05 03/24/19 21:44 Tylenol - PO 650 mg Q6H PRN Administration PAIN LEVEL 4 - 6 Al Hydroxide/Mg Hydroxide 30 ml 03/10/19 13:45 03/10/19 14:16 Mylanta Oral Suspension - PO 30 ml Q6H PRN Administration INDIGESTION Amlodipine Besylate 10 mg 03/10/19 10:00 03/25/19 10:18 Norvasc - PO 10 mg DAILY JOHN Administration Bisacodyl 5 mg 03/10/19 10:00 03/25/19 10:18 Dulcolax - PO 5 mg DAILY JOHN Administration Cholecalciferol 1,000 unit 03/10/19 10:00 03/25/19 10:17 Vitamin D3 - PO 1,000 unit DAILY JOHN Administration Docusate Sodium 100 mg 03/12/19 13:06 03/24/19 11:34 Colace - PO 100 mg BID PRN Administration CONSTIPATION Dorzolamide HCl 1 drop 03/09/19 22:00 03/25/19 10:24 Trusopt 2% OU 1 drop BID JOHN Administration IV Flush 10 ml 03/13/19 13:33 03/15/19 09:05 Tripp-Cath Flush IVPUSH 10 ml PRN PRN Administration FLUSH Insulin Aspart 1 vial 03/13/19 22:00 03/24/19 21:25 Novolog Vial Sliding Scale - SQ Not Given HS [facility] Protocol Insulin Aspart 1 vial 03/25/19 09:24 Novolog Vial Sliding Scale - SQ TIDAC [facility] Protocol Insulin Detemir 10 units 03/20/19 07:00 03/25/19 06:29 Levemir Vial SQ 10 units DAILY@0700 JOHN Administration Latanoprost 1 drop 03/10/19 10:00 03/25/19 10:24 Xalatan 0.005% Eye Drops - OU 1 drop DAILY JOHN Administration Levothyroxine Sodium 25 mcg 03/10/19 07:00 03/25/19 06:27 Synthroid - PO 25 mcg AM JOHN Administration Lisinopril 40 mg 03/10/19 10:00 03/25/19 10:17 Prinivil PO 40 mg DAILY JOHN Administration Methylnaltrexone [place] 4 mg 03/24/19 19:00 03/24/19 21:04 Relistor - SQ 4 mg DAILY@1900 JOHN Administration Ondansetron HCl 8 mg 03/13/19 11:11 03/16/19 12:13 Zofran Injection IVPB 8 mg Q12H PRN Administration NAUSEA AND/OR VOMITING Pantoprazole Sodium 40 mg 03/10/19 10:00 03/25/19 10:18 Protonix - PO 40 mg DAILY JOHN Administration Polyethylene Glycol 17 gm 03/10/19 14:15 03/25/19 10:18 Miralax (For Daily Use) - PO 17 gm DAILY JOHN Administration Sodium Chloride 1 gm 03/18/19 14:30 03/25/19 10:21 Sodium Chloride Tablet - PO 1 gm DAILY JOHN Administration Timolol Maleate 1 drop 03/09/19 22:00 03/25/19 10:23 Timoptic 0.5% OU 1 drop BID JOHN Administration Impression 1. hyonatremia 2. pancreatic cancer 3. hypothyroidism 4. decreased appetite 5. htn Plan - sodium stabilizing - lasix prn edema - encourage po intake - cont free water restriction - will follow PRN
--- NOTE | 2019-03-25 14:11 | DS ---
Physical Examination Vital Signs: Vital Signs Temperature 98.2 F 03/25/19 13:55 Pulse Rate 70 03/25/19 13:55 Respiratory Rate 20 03/25/19 13:55 Blood Pressure 117/59 L 03/25/19 13:55 O2 Sat by Pulse Oximetry (%) 98 03/25/19 08:40 Findings/Remarks: comfortable no distress all f/u noted Constitutional: Yes: No Distress, Calm Eyes: Yes: Conjunctiva Clear Neck: Yes: Supple Cardiovascular: Yes: Regular Rate and Rhythm Respiratory: Yes: Diminished Gastrointestinal: Yes: Soft Edema: No Neurological: Yes: Alert Labs: CBC, BMP 03/23/19 07:00 03/25/19 11:50 Discharge Summary Reason For Visit: HYPONATREMIA,LEUKOCYTOSIS,NAUSEA Current Active Problems Coagulopathy (Acute) Hyponatremia (Acute) Leukocytosis (Acute) Metastases to the liver (Acute) Nausea (Acute) Nausea & vomiting (Acute) Pancreatic cancer (Acute) Hospital Course: In summary 83 y/o patient with metastatic pancreatic cancer with extensive liver mets. coagulopathy due to liver disease s/p FFP/vit. K 03/10 s/p Port placement 03/11 C1 D14 gemzar/abraxane Leukocytosis-- blood cx/urine cx /cxr negative ? reactive due to advanced malignancy Abnormal LFTs--due to liver mets stable Held D8 gemzar due to thrombocytopenia relaed to chemotx/ ? liver mets Cleared by Hematology for d/c Discussed with block and case maker / nursing staff f/u with hematology as directed Condition: Guarded - Instructions Disposition: HOME - Home Medications Comprehensive Discharge Medication List: Ambulatory Orders Bisacodyl [Gentle Laxative] 5 mg PO DAILY 11/20/15 Levothyroxine [Synthroid -] 25 mcg PO DAILY 11/20/15 metFORMIN HCL [Metformin HCl] 1,000 mg PO BID 11/20/15 Polyvinyl Alcohol [Artificial Tears] 15 ml OP QID 01/25/19 Cholecalciferol (Vitamin D3) [Vitamin D3] 1,000 unit PO DAILY 02/23/19 Dorzolamide HCl/Timolol Maleat [Cosopt Eye Drops] 10 ml OP BID 02/23/19 Amlodipine Besylate/Benazepril [Lotrel 1040] 1 each PO DAILY 03/07/19 Bimatoprost [Lumigan] 1 drop IO DAILY 03/07/19 Insulin Aspart [Novolog] 7 unit SQ TID 03/07/19 Insulin Glargine,Hum.rec.anlog [Basaglar Kwikpen U-100] 100 unit SQ 12 03/07/19 Docusate Sodium [Colace -] 100 mg PO BID PRN capsule 03/25/19 Mag Hydrox/Al Hydrox/Simeth [Mylanta Oral Suspension -] 30 ml PO Q6H PRN cup Methylnaltrexone [place] [Relistor -] 4 mg SQ DAILY@1900 #1 kit 03/25/19 Metoclopramide HCl [Reglan -] 5 mg PO TIDAC 30 Days #30 tablet 03/25/19 Pantoprazole Sodium 40 mg PO DAILY 30 Days #30 tablet. 03/25/19 Polyethylene Glycol 3350 [Miralax 119 gm Btl -] 17 gm PO DAILY bottle 03/25/19 Tripp-Cath Flush [Tripp-Cath Flush -] 10 ml IVPUSH PRN PRN ml 03/25/19 Sodium Chloride Tablet - 1 gm PO DAILY 30 Days #30 tablet 03/25/19
--- NOTE | 2019-03-25 15:18 | PN.GI ---
GI Progress Note Subjective: For Dr. Dominguez who resumes care 03/28. 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 Recalled secondary to constipation. Patient denies joe focal GI complaints. no N/V/ Abd Pain. Last note from Onc states that patient refusing further chemo. Currently on Dulcolax , Colace and MiraLAX. Relistor was started 2 days prior. No effect. - Objective Vital Signs: Vital Signs Temperature 98.2 F 03/25/19 13:55 Pulse Rate 70 03/25/19 13:55 Respiratory Rate 20 03/25/19 13:55 Blood Pressure 117/59 L 03/25/19 13:55 O2 Sat by Pulse Oximetry (%) 98 03/25/19 08:40 Constitutional: Calm Eyes: No: Sclera Icterus Cardiovascular: Yes: Regular Rate and Rhythm Respiratory: Yes: CTA Bilaterally Gastrointestinal Inspection: No: Distention ...Auscultate: Yes: Normoactive Bowel Sounds ...Palpate: Yes: Soft ...Percussion: No: Tympanitic ...Rectal Exam: Yes: Other (No external lesions, no masses) Edema: No (No LE edema) Labs: CBC, BMP 03/23/19 07:00 03/25/19 11:50 INR, PTT INR 1.56 (0.83-1.09) H 03/23/19 07:00 Fibrinogen 264.0 mg/dL (238-498) D 03/23/19 07:00 Problem List - Problems (1) Constipation Assessment/Plan: AXR reveals fecal retention: Advise: Optimizing MiraLAX dosing, Increase to 17g BID Senna 2 tabs nightly Code(s): K59.00 - CONSTIPATION, UNSPECIFIED
[2019-03-25] MEDS ORDERED: SENNOSIDES 8.6MG TABLET (FP) PO PRN (15:27)
--- NOTE | 2019-03-25 16:37 | PN ---
Progress Note (short form) - Note Progress Note: Patient seen and examined Offers no complaints No nausea, emesis abdominal pains Last Vital Signs Temp Pulse Resp BP Pulse Ox 98.2 F 70 20 117/59 L 98 03/25/19 13:55 03/25/19 13:55 03/25/19 13:55 03/25/19 13:55 03/25/19 08:40 Noicterus Lungs- clear Mild distension of abdomen Cor-RSR Ext2-3+ edema CBC, BMP 03/23/19 07:00 03/25/19 11:50 Current Medications Generic Name Dose Route Start Last Admin Trade Name Freq PRN Reason Stop Dose Admin Acetaminophen 650 mg 03/10/19 22:05 03/24/19 21:44 Tylenol - PO 650 mg Q6H PRN Administration PAIN LEVEL 4 - 6 Al Hydroxide/Mg Hydroxide 30 ml 03/10/19 13:45 03/10/19 14:16 Mylanta Oral Suspension - PO 30 ml Q6H PRN Administration INDIGESTION Amlodipine Besylate 10 mg 03/10/19 10:00 03/25/19 10:18 Norvasc - PO 10 mg DAILY JOHN Administration Cholecalciferol 1,000 unit 03/10/19 10:00 03/25/19 10:17 Vitamin D3 - PO 1,000 unit DAILY JOHN Administration Dorzolamide HCl 1 drop 03/09/19 22:00 03/25/19 10:24 Trusopt 2% OU 1 drop BID JOHN Administration IV Flush 10 ml 03/13/19 13:33 03/15/19 09:05 Tripp-Cath Flush IVPUSH 10 ml PRN PRN Administration FLUSH Insulin Aspart 1 vial 03/13/19 22:00 03/24/19 21:25 Novolog Vial Sliding Scale - SQ Not Given HS [facility] Protocol Insulin Aspart 1 vial 03/25/19 09:24 Novolog Vial Sliding Scale - SQ TIDAC [facility] Protocol Insulin Detemir 10 units 03/20/19 07:00 03/25/19 06:29 Levemir Vial SQ 10 units DAILY@0700 JOHN Administration Latanoprost 1 drop 03/10/19 10:00 03/25/19 10:24 Xalatan 0.005% Eye Drops - OU 1 drop DAILY JOHN Administration Levothyroxine Sodium 25 mcg 03/10/19 07:00 03/25/19 06:27 Synthroid - PO 25 mcg AM JOHN Administration Lisinopril 40 mg 03/10/19 10:00 03/25/19 10:17 Prinivil PO 40 mg DAILY JOHN Administration Ondansetron HCl 8 mg 03/13/19 11:11 03/16/19 12:13 Zofran Injection IVPB 8 mg Q12H PRN Administration NAUSEA AND/OR VOMITING Pantoprazole Sodium 40 mg 03/10/19 10:00 03/25/19 10:18 Protonix - PO 40 mg DAILY JOHN Administration Polyethylene Glycol 17 gm 03/25/19 22:00 Miralax (For Daily Use) - PO BID JOHN Senna 2 tab 03/25/19 15:27 Senna - PO HS PRN CONSTIPATION Sodium Chloride 1 gm 03/18/19 14:30 03/25/19 10:21 Sodium Chloride Tablet - PO 1 gm DAILY JOHN Administration Timolol Maleate 1 drop 03/09/19 22:00 03/25/19 10:23 Timoptic 0.5% OU 1 drop BID JOHN Administration Impression: Metastatic pancreatic ca S/P chemotherapy x1 Anemia Coagulopathy Plan: Patient and family to decide about future course of treatment ( or not)
[2019-03-26] MEDS: LEVOTHYROXINE NA 25 MCG TABLET (FP) PO SCH (06:09)
[2019-03-26] MEDS: INSULIN SLIDING SCALE (NOVOLOG) 1 VIAL SQ SCH ×4 (06:11→22:33)
[2019-03-26 07:45] LABS: HEMATOCRIT 23.5 % (32.4-45.2); HEMOGLOBIN 7.7 GM/dL (10.7-15.3); MCH 28.5 pg (25.7-33.7); MCHC 32.9 g/dl (32.0-36.0); MEAN CELL VOLUME 86.6 fl (80-96); MEAN PLT VOLUME 10.6 fl (7.5-11.1); PLATELET COUNT 216 K/MM3 (134-434); RBC 2.71 M/mm3 (3.60-5.2); RDW 23.6 % (11.6-15.6); WHITE BLOOD COUNT 10.5 K/mm3 (4.0-10.0)
--- NOTE | 2019-03-26 08:03 | PN.GI ---
GI Progress Note Subjective: FEELING BETTER TODAY - HAVING BOWEL MOVEMENTS ; TOLERATING PO INTAKE - Objective Vital Signs: Vital Signs Temperature 97.7 F 03/26/19 06:06 Pulse Rate 68 03/26/19 06:06 Respiratory Rate 18 03/26/19 06:06 Blood Pressure 128/63 03/26/19 06:06 O2 Sat by Pulse Oximetry (%) 98 03/25/19 21:00 Constitutional: Well Nourished, No Distress, Calm Eyes: Yes: WNL HENT: Yes: WNL Neck: Yes: WNL Cardiovascular: Yes: WNL, Regular Rate and Rhythm Respiratory: Yes: WNL, Regular, CTA Bilaterally Gastrointestinal Inspection: Yes: WNL ...Auscultate: Yes: Normoactive Bowel Sounds Musculoskeletal: Yes: WNL Extremities: Yes: WNL Edema: No Labs: INR, PTT INR 1.56 (0.83-1.09) H 03/23/19 07:00 Fibrinogen 264.0 mg/dL (238-498) D 03/23/19 07:00 Problem List - Problems (1) Constipation Assessment/Plan: AXR REVIEWED FROM 03/25 -- CONSTIPATION C/W MIRALAX AND SENNA DIET TOLERATED OOB TO CHAIR Code(s): K59.00 - CONSTIPATION, UNSPECIFIED
[2019-03-26 08:08] LABS: ALBUMIN 1.7 g/dl (3.4-5.0); BILIRUBIN,TOTAL 2.2 mg/dL (0.2-1); BLOOD UREA NITROGEN 7.1 mg/dL (7-18); CALCIUM 7.7 mg/dL (8.5-10.1); CREATININE 0.4 mg/dL (0.55-1.3); POTASSIUM 4.6 mmol/L (3.5-5.1)
[2019-03-26] MEDS: INSULIN (LEVEMIR) 100 UNITS/ML UNITS SQ SCH (08:38)
--- NOTE | 2019-03-26 09:12 | PN ---
Progress Note (short form) - Note Progress Note: events noted for dc home today pt wants to go home I used american sign language interpreter service from [employer] no distress Vital Signs - 24 hr 03/25/19 03/25/19 03/25/19 10:00 13:55 17:09 Temperature 98 F 98.2 F 98.1 F Pulse Rate 75 70 74 Respiratory 18 20 18 Rate Blood Pressure 118/66 117/59 L 121/59 L O2 Sat by Pulse 98 Oximetry (%) 03/25/19 03/26/19 21:00 06:06 Temperature 98.0 F 97.7 F Pulse Rate 74 68 Respiratory 18 18 Rate Blood Pressure 127/55 L 128/63 O2 Sat by Pulse 98 Oximetry (%) Current Medications Generic Name Dose Route Start Last Admin Trade Name Freq PRN Reason Stop Dose Admin Acetaminophen 650 mg 03/10/19 22:05 03/24/19 21:44 Tylenol - PO 650 mg Q6H PRN Administration PAIN LEVEL 4 - 6 Al Hydroxide/Mg Hydroxide 30 ml 03/10/19 13:45 03/10/19 14:16 Mylanta Oral Suspension - PO 30 ml Q6H PRN Administration INDIGESTION Amlodipine Besylate 10 mg 03/10/19 10:00 03/25/19 10:18 Norvasc - PO 10 mg DAILY JOHN Administration Cholecalciferol 1,000 unit 03/10/19 10:00 03/25/19 10:17 Vitamin D3 - PO 1,000 unit DAILY JOHN Administration Dorzolamide HCl 1 drop 03/09/19 22:00 03/25/19 21:42 Trusopt 2% OU 1 drop BID JOHN Administration IV Flush 10 ml 03/13/19 13:33 03/15/19 09:05 Tripp-Cath Flush IVPUSH 10 ml PRN PRN Administration FLUSH Insulin Aspart 1 vial 03/13/19 22:00 03/25/19 21:40 Novolog Vial Sliding Scale - SQ Not Given HS [facility] Protocol Insulin Aspart 1 vial 03/25/19 09:24 03/26/19 06:11 Novolog Vial Sliding Scale - SQ Not Given TIDAC [facility] Protocol Insulin Detemir 10 units 03/20/19 07:00 03/26/19 08:38 Levemir Vial SQ 10 units DAILY@0700 JOHN Administration Latanoprost 1 drop 03/10/19 10:00 03/25/19 10:24 Xalatan 0.005% Eye Drops - OU 1 drop DAILY JOHN Administration Levothyroxine Sodium 25 mcg 03/10/19 07:00 03/26/19 06:09 Synthroid - PO 25 mcg AM JOHN Administration Lisinopril 40 mg 03/10/19 10:00 03/25/19 10:17 Prinivil PO 40 mg DAILY JOHN Administration Ondansetron HCl 8 mg 03/13/19 11:11 03/16/19 12:13 Zofran Injection IVPB 8 mg Q12H PRN Administration NAUSEA AND/OR VOMITING Pantoprazole Sodium 40 mg 03/10/19 10:00 03/25/19 10:18 Protonix - PO 40 mg DAILY JOHN Administration Polyethylene Glycol 17 gm 03/25/19 22:00 03/25/19 21:40 Miralax (For Daily Use) - PO 17 grams BID JOHN Administration Senna 2 tab 03/25/19 15:27 Senna - PO HS PRN CONSTIPATION Sodium Chloride 1 gm 03/18/19 14:30 03/25/19 10:21 Sodium Chloride Tablet - PO 1 gm DAILY JOHN Administration Timolol Maleate 1 drop 03/09/19 22:00 03/25/19 21:41 Timoptic 0.5% OU 1 drop BID JOHN Administration Laboratory Results - last 24 hr 03/25/19 03/25/19 03/25/19 11:50 12:37 17:53 WBC RBC Hgb Hct MCV MCH MCHC RDW Plt Count MPV Absolute Neuts (auto) Neutrophils % Lymphocytes % Nucleated RBC % Sodium 133 L Potassium 4.8 Chloride 99 Carbon Dioxide 29 Anion Gap 5 L BUN 9.4 Creatinine 0.5 L Est GFR (CKD-EPI)AfAm 105.20 Est GFR (CKD-EPI)NonAf 90.77 POC Glucometer 191 151 Random Glucose 181 H Calcium 7.7 L Total Bilirubin AST ALT Alkaline Phosphatase Total Protein Albumin 03/25/19 03/26/19 03/26/19 21:36 06:08 06:30 WBC 10.5 H RBC 2.71 L Hgb 7.7 L Hct 23.5 L MCV 86.6 MCH 28.5 MCHC 32.9 RDW 23.6 H Plt Count 216 D MPV 10.6 Absolute Neuts (auto) 3.7 Neutrophils % No Result Required. Lymphocytes % No Result Required. Nucleated RBC % 0 Sodium Potassium Chloride Carbon Dioxide Anion Gap BUN Creatinine Est GFR (CKD-EPI)AfAm Est GFR (CKD-EPI)NonAf POC Glucometer 176 131 Random Glucose Calcium Total Bilirubin AST ALT Alkaline Phosphatase Total Protein Albumin 03/26/19 06:30 WBC RBC Hgb Hct MCV MCH MCHC RDW Plt Count MPV Absolute Neuts (auto) Neutrophils % Lymphocytes % Nucleated RBC % Sodium 132 L Potassium 4.6 Chloride 99 Carbon Dioxide 28 Anion Gap 5 L BUN 7.1 Creatinine 0.4 L Est GFR (CKD-EPI)AfAm 113.21 Est GFR (CKD-EPI)NonAf 97.68 POC Glucometer Random Glucose 117 H Calcium 7.7 L Total Bilirubin 2.2 H AST 66 H ALT 40 Alkaline Phosphatase 820 H Total Protein 5.0 L Albumin 1.7 L Physical Examination Constitutional: Yes: awake/ no distress Eyes: Yes: Conjunctiva Clear Neck: Yes: Supple. no jvd Cardiovascular: Yes: Regular Rate and Rhythm Respiratory: Yes: CTA Bilaterally Gastrointestinal: Yes: Soft, mild tenderness. No rigidity or rebound Edema: No Neurological: Yes: Alert Psychiatric: Yes: Alert Imaging - Results Chest X-ray: Report Reviewed EKG: Report Reviewed Assessment/Plan Pancreatic ca with Mets Elevated liver function -- liver mets Increasing liver mass Thrombocytopenia-- Better Continue present care-- and monitor Labs Oncology/GI following- ESBL-- no antibiotics--- Discharge planning-- will need Procrit or aranesp prior to discharge -- to speak with hematology will follow discussed with nursing staff pt may go home after receiving procrit per Hematology /oncology and she is to follow up with Dr Shepard as outpt top discuss about further plans for chemo Problem List - Problems (1) Coagulopathy Code(s): D68.9 - COAGULATION DEFECT, UNSPECIFIED (2) Leukocytosis Code(s): D72.829 - ELEVATED WHITE BLOOD CELL COUNT, UNSPECIFIED Qualifiers: Leukocytosis type: unspecified Qualified Code(s): D72.829 - Elevated white blood cell count, unspecified (3) Metastases to the liver Code(s): C78.7 - SECONDARY MALIG NEOPLASM OF LIVER AND INTRAHEPATIC BILE DUCT (4) Pancreatic cancer Code(s): C25.9 - MALIGNANT NEOPLASM OF PANCREAS, UNSPECIFIED (5) Diabetes mellitus Code(s): E11.9 - TYPE 2 DIABETES MELLITUS WITHOUT COMPLICATIONS Qualifiers: Diabetes mellitus type: type 2 Diabetes mellitus [place] insulin use: unspecified long-term insulin use status Diabetes mellitus complication status : without complication Qualified Code(s): E11.9 - Type 2 diabetes mellitus without complications
[2019-03-26] MEDS: amLODIPine BESYLATE 10 MG TABLET (FP) PO SCH (09:37)
[2019-03-26] MEDS: POLYETHYLENE GLYCOL 3350 119 GM BTL PO SCH ×2 (09:37→22:23)
[2019-03-26] MEDS: CHOLECALCIFEROL (VIT D3) 1,000 UNIT (25 MCG) TABLET PO SCH (09:37)
[2019-03-26] MEDS: LISINOPRIL 20 MG TABLET (FP) PO SCH (09:37)
[2019-03-26] MEDS: PANTOPRAZOLE 40 MG TABLET (FP) PO SCH (09:37)
[2019-03-26] MEDS: SODIUM CHLORIDE 1 GM TABLET PO SCH (09:38)
[2019-03-26] MEDS: TIMOLOL 0.5% OPHTHALMIC SOL 5 ML BOTTLE OU SCH ×2 (09:39→22:25)
[2019-03-26] MEDS: LATANOPROST 0.005% OPHTH SOLN 2.5ML BOTTLE OU SCH (09:40)
[2019-03-26] MEDS: DORZOLAMIDE 2% HCL OPHTHALMIC SOLUTION 10 ML BOTTLE OU SCH ×2 (09:40→22:24)
--- NOTE | 2019-03-26 15:50 | PN ---
Progress Note (short form) - Note Progress Note: Feels good Improved apetite Vital Signs Period Temp Pulse Resp BP Sys/Miller Pulse Ox Last 24 Hr 97.7 F-99.4 F 66-74 18-20 111-128/53-63 97-98 PE: AOx3 Neck: Supple, No JVD HEENT: EOMI Lungs: CTA CVS: S1S2 Abd: Benign EXt: + edema Neuro: No focal deficit CMP Sodium 132 mmol/L (136-145) L 03/26/19 06:30 Potassium 4.6 mmol/L (3.5-5.1) 03/26/19 06:30 Chloride 99 mmol/L (98-107) 03/26/19 06:30 Carbon Dioxide 28 mmol/L (21-32) 03/26/19 06:30 Anion Gap 5 MMOL/L (8-16) L 03/26/19 06:30 BUN 7.1 mg/dL (7-18) 03/26/19 06:30 Creatinine 0.4 mg/dL (0.55-1.3) L 03/26/19 06:30 Est GFR (CKD-EPI)AfAm 113.21 03/26/19 06:30 Est GFR (CKD-EPI)NonAf 97.68 03/26/19 06:30 POC Glucometer 223 UNITS (80-120) 03/26/19 11:40 Random Glucose 117 mg/dL (74-106) H 03/26/19 06:30 Hemoglobin A1c % 10.0 % (4.2-6.3) H 03/11/19 10:05 Serum Osmolality 290 mosm/kg (278-305) 03/12/19 10:45 Calcium 7.7 mg/dL (8.5-10.1) L 03/26/19 06:30 Total Bilirubin 2.2 mg/dL (0.2-1) H 03/26/19 06:30 Direct Bilirubin 3.2 mg/dL (0.0-0.2) H 03/17/19 18:45 AST 66 U/L (15-37) H 03/26/19 06:30 ALT 40 U/L (13-61) 03/26/19 06:30 Alkaline Phosphatase 820 U/L (45-117) H 03/26/19 06:30 Troponin I < 0.02 ng/ml (0.00-0.05) 03/09/19 05:42 B-Natriuretic Peptide 252.5 pg/ml (5-450) 03/23/19 07:00 Total Protein 5.0 g/dl (6.4-8.2) L 03/26/19 06:30 Albumin 1.7 g/dl (3.4-5.0) L 03/26/19 06:30 Total Amylase 33 U/L (25-115) 03/10/19 06:16 Lipase 98 U/L (73-393) 03/10/19 06:16 TSH 4.66 uIU/ml (0.358-3.74) H 03/10/19 06:16 Cortisol AM Sample 14.0 ug/dL (6.2-19.4) 03/13/19 07:00 Current Medications Generic Name Dose Route Start Last Admin Trade Name Freq PRN Reason Stop Dose Admin Acetaminophen 650 mg 03/10/19 22:05 03/24/19 21:44 Tylenol - PO 650 mg Q6H PRN Administration PAIN LEVEL 4 - 6 Al Hydroxide/Mg Hydroxide 30 ml 03/10/19 13:45 03/10/19 14:16 Mylanta Oral Suspension - PO 30 ml Q6H PRN Administration INDIGESTION Amlodipine Besylate 10 mg 03/10/19 10:00 03/26/19 09:37 Norvasc - PO 10 mg DAILY JOHN Administration Cholecalciferol 1,000 unit 03/10/19 10:00 03/26/19 09:37 Vitamin D3 - PO 1,000 unit DAILY JHON Administration Dorzolamide HCl 1 drop 03/09/19 22:00 03/26/19 09:40 Trusopt 2% OU 1 drop BID JOHN Administration IV Flush 10 ml 03/13/19 13:33 03/15/19 09:05 Tripp-Cath Flush IVPUSH 10 ml PRN PRN Administration FLUSH Insulin Aspart 1 vial 03/13/19 22:00 03/25/19 21:40 Novolog Vial Sliding Scale - SQ Not Given HS [facility] Protocol Insulin Aspart 1 vial 03/25/19 09:24 03/26/19 12:27 Novolog Vial Sliding Scale - SQ 4 units TIDAC [facility] Administration Protocol Insulin Detemir 10 units 03/20/19 07:00 03/26/19 08:38 Levemir Vial SQ 10 units DAILY@0700 JOHN Administration Latanoprost 1 drop 03/10/19 10:00 03/26/19 09:40 Xalatan 0.005% Eye Drops - OU 1 drop DAILY JOHN Administration Levothyroxine Sodium 25 mcg 03/10/19 07:00 03/26/19 06:09 Synthroid - PO 25 mcg AM JOHN Administration Lisinopril 40 mg 03/10/19 10:00 03/26/19 09:37 Prinivil PO 40 mg DAILY JOHN Administration Ondansetron HCl 8 mg 03/13/19 11:11 03/16/19 12:13 Zofran Injection IVPB 8 mg Q12H PRN Administration NAUSEA AND/OR VOMITING Pantoprazole Sodium 40 mg 03/10/19 10:00 03/26/19 09:37 Protonix - PO 40 mg DAILY JOHN Administration Polyethylene Glycol 17 gm 03/25/19 22:00 03/26/19 09:37 Miralax (For Daily Use) - PO Not Given BID JOHN Senna 2 tab 03/25/19 15:27 Senna - PO HS PRN CONSTIPATION Sodium Chloride 1 gm 03/18/19 14:30 03/26/19 09:38 Sodium Chloride Tablet - PO 1 gm DAILY JOHN Administration Timolol Maleate 1 drop 03/09/19 22:00 03/26/19 09:39 Timoptic 0.5% OU 1 drop BID JOHN Administration AP; Pancreatic Ca T2DM: A1c 10 Hyponatremia Elevated LFTs Leukocytosis Glucerna PRN for poor apetite TSH 4.66 Cortisol 14 Levemir 10 units daily in AM May discharge home on Levemir 10 units daily. Pt able to self inject Insulin. BGM QACHS and 3 AM Novolog SS coverage Chemo as per Onco Will f/u Problem List - Problems (1) Hyponatremia Code(s): E87.1 - HYPO-OSMOLALITY AND HYPONATREMIA (2) Pancreatic cancer Code(s): C25.9 - MALIGNANT NEOPLASM OF PANCREAS, UNSPECIFIED (3) Diabetes mellitus Code(s): E11.9 - TYPE 2 DIABETES MELLITUS WITHOUT COMPLICATIONS Qualifiers: Diabetes mellitus type: type 2 Diabetes mellitus alf insulin use: unspecified alf insulin use status Diabetes mellitus complication status : without complication Qualified Code(s): E11.9 - Type 2 diabetes mellitus without complications (4) Hyperglycemia Code(s): R73.9 - HYPERGLYCEMIA, UNSPECIFIED
[2019-03-26 19:56] LABS: ANISOCYTOSIS 2+; MACROCYTOSIS 1+; TARGET CELLS 1+
[2019-03-26 19:58] LABS: PLATELET ESTIMATE ADEQUATE
--- NOTE | 2019-03-26 20:01 | PN ---
Progress Note (short form) - Note Progress Note: Progress Note (short form) Patient seen and examined Feels OK No new complaints Last Vital Signs Temp Pulse Resp BP Pulse Ox 98.2 F 66 20 111/53 L 97 03/26/19 14:04 03/26/19 14:04 03/26/19 14:04 03/26/19 14:04 03/26/19 09:00 Cor: RSR, No murmurs, No gallops Lungs: Clear to P&A Abd: Soft, Normal bowel sounds, No organomegaly Ext: 1+ edema Laboratory Last Values WBC 10.5 K/mm3 (4.0-10.0) H 03/26/19 06:30 RBC 2.71 M/mm3 (3.60-5.2) L 03/26/19 06:30 Hgb 7.7 GM/dL (10.7-15.3) L 03/26/19 06:30 Hct 23.5 % (32.4-45.2) L 03/26/19 06:30 MCV 86.6 fl (80-96) 03/26/19 06:30 MCH 28.5 pg (25.7-33.7) 03/26/19 06:30 MCHC 32.9 g/dl (32.0-36.0) 03/26/19 06:30 RDW 23.6 % (11.6-15.6) H 03/26/19 06:30 Plt Count 216 K/MM3 (134-434) D 03/26/19 06:30 MPV 10.6 fl (7.5-11.1) 03/26/19 06:30 Absolute Neuts (auto) 3.7 K/mm3 (1.5-8.0) 03/26/19 06:30 Neutrophils % No Result Required. 03/26/19 06:30 Neutrophils % (Manual) 55.7 % (42.8-82.8) 03/23/19 07:00 Band Neutrophils % 1.0 % 03/23/19 07:00 Lymphocytes % No Result Required. 03/26/19 06:30 Lymphocytes % (Manual) 22.0 % (8-40) D 03/23/19 07:00 Monocytes % % (3.8-10.2) 03/23/19 07:00 Monocytes % (Manual) 10 % (3.8-10.2) 03/23/19 07:00 Eosinophils % % (0-4.5) 03/23/19 07:00 Eosinophils % (Manual) 0.0 % (0-4.5) D 03/23/19 07:00 Basophils % % (0-2.0) 03/23/19 07:00 Basophils % (Manual) 1.0 % (0-2.0) D 03/23/19 07:00 Myelocytes % (Man) 5 % (0-2) H D 03/23/19 07:00 Promyelocytes % (Man) 0 % (0-2) 03/23/19 07:00 Blast Cells % (Manual) 0 % (0-0) 03/23/19 07:00 Nucleated RBC % 0 % (0-0) 03/26/19 06:30 Metamyelocytes 0 % (0-2) 03/23/19 07:00 Hypochromia 1+ 03/23/19 07:00 Toxic Granulation 1+ 03/19/19 06:45 Platelet Estimate Decreased 03/23/19 07:00 Platelet Comment No clumping noted 03/19/19 06:45 Polychromasia 1+ 03/23/19 07:00 Poikilocytosis 2+ 03/23/19 07:00 Anisocytosis 1+ 03/23/19 07:00 Microcytosis 0 03/23/19 07:00 Macrocytosis 1+ 03/23/19 07:00 Spherocytes 1+ 03/18/19 19:30 Target Cells 2+ 03/23/19 07:00 Tear Drop Cells 1+ 03/18/19 06:00 Ovalocytes 1+ 03/21/19 06:50 Stomatocytes 1+ 03/10/19 06:16 [place] Cells 1+ 03/18/19 06:00 Schistocytes 1+ 03/18/19 19:30 PT with INR 18.50 SEC (9.7-13.0) H 03/23/19 07:00 INR 1.56 (0.83-1.09) H 03/23/19 07:00 PTT (Actin FS) 32.1 SECONDS (25.2-36.5) 03/23/19 07:00 Fibrinogen 264.0 mg/dL (238-498) D 03/23/19 07:00 VBG pH 7.44 (7.31-7.41) H 03/09/19 04:15 POC VBG pCO2 34.9 mmHg (41-51) L 03/09/19 04:15 POC VBG pO2 144 mmHg (30-40) H 03/09/19 04:15 VBG HCO3 23.5 mmol/L (23-29) 03/09/19 04:15 VBG O2 Sat (Jose M) 97.6 % (70-80) H 03/09/19 04:15 VBG Base Excess 0.2 meq/l (-2-2) 03/09/19 04:15 Sodium 132 mmol/L (136-145) L 03/26/19 06:30 Potassium 4.6 mmol/L (3.5-5.1) 03/26/19 06:30 Chloride 99 mmol/L (98-107) 03/26/19 06:30 Carbon Dioxide 28 mmol/L (21-32) 03/26/19 06:30 Anion Gap 5 MMOL/L (8-16) L 03/26/19 06:30 BUN 7.1 mg/dL (7-18) 03/26/19 06:30 Creatinine 0.4 mg/dL (0.55-1.3) L 03/26/19 06:30 Est GFR (CKD-EPI)AfAm 113.21 03/26/19 06:30 Est GFR (CKD-EPI)NonAf 97.68 03/26/19 06:30 POC Glucometer 188 UNITS (80-120) 03/26/19 16:52 Random Glucose 117 mg/dL (74-106) H 03/26/19 06:30 Hemoglobin A1c % 10.0 % (4.2-6.3) H 03/11/19 10:05 Serum Osmolality 290 mosm/kg (278-305) 03/12/19 10:45 Calcium 7.7 mg/dL (8.5-10.1) L 03/26/19 06:30 Total Bilirubin 2.2 mg/dL (0.2-1) H 03/26/19 06:30 Direct Bilirubin 3.2 mg/dL (0.0-0.2) H 03/17/19 18:45 AST 66 U/L (15-37) H 03/26/19 06:30 ALT 40 U/L (13-61) 03/26/19 06:30 Alkaline Phosphatase 820 U/L (45-117) H 03/26/19 06:30 Troponin I < 0.02 ng/ml (0.00-0.05) 03/09/19 05:42 B-Natriuretic Peptide 252.5 pg/ml (5-450) 03/23/19 07:00 Total Protein 5.0 g/dl (6.4-8.2) L 03/26/19 06:30 Albumin 1.7 g/dl (3.4-5.0) L 03/26/19 06:30 Total Amylase 33 U/L (25-115) 03/10/19 06:16 Lipase 98 U/L (73-393) 03/10/19 06:16 TSH 4.66 uIU/ml (0.358-3.74) H 03/10/19 06:16 Cortisol AM Sample 14.0 ug/dL (6.2-19.4) 03/13/19 07:00 Urine Color Dk yellow 03/17/19 19:20 Urine Appearance Cloudy 03/17/19 19:20 Urine pH 5.5 (5.0-8.0) 03/17/19 19:20 Ur Specific [place] 1.021 (1.010-1.035) 03/17/19 19:20 Urine Protein Trace (NEGATIVE) 03/17/19 19:20 Urine Glucose (UA) Negative (NEGATIVE) 03/17/19 19:20 Urine Ketones Negative (NEGATIVE) 03/17/19 19:20 Urine Blood 1+ (NEGATIVE) H 03/17/19 19:20 Urine Nitrite Negative (NEGATIVE) 03/17/19 19:20 Urine Bilirubin 2+ (NEGATIVE) H 03/17/19 19:20 Urine Urobilinogen 1.0 mg/dL (0.2-1.0) 03/17/19 19:20 Ur Leukocyte Esterase 1+ (NEGATIVE) H 03/17/19 19:20 Urine WBC (Auto) 6 /hpf (0-5) 03/17/19 19:20 Urine RBC (Auto) 1 /hpf (0-4) 03/10/19 06:45 Urine Casts (Auto) 13 /lpf (0-8) 03/17/19 19:20 U Epithel Cells (Auto) 7.6 /HPF (0-5/HPF) 03/17/19 19:20 Urine Bacteria (Auto) 21.5 /hpf (NEGATIVE) 03/17/19 19:20 Urine Osmolality 538 mosm/kg (300-900) 03/21/19 13:07 Ur Random Sodium 23 MMOL/L (40-220) L 03/21/19 13:07 Ur Random Potassium 32.0 MMOL/L (25-125) 03/21/19 13:07 Ur Random Chloride 34 MMOL/L (110-250) L 03/21/19 13:07 Blood Type O POSITIVE 03/10/19 23:25 Antibody Screen Negative 03/10/19 23:25 Current Medications Generic Name Dose Route Start Last Admin Trade Name Freq PRN Reason Stop Dose Admin Acetaminophen 650 mg 03/10/19 22:05 03/24/19 21:44 Tylenol - PO 650 mg Q6H PRN Administration PAIN LEVEL 4 - 6 Al Hydroxide/Mg Hydroxide 30 ml 03/10/19 13:45 03/10/19 14:16 Mylanta Oral Suspension - PO 30 ml Q6H PRN Administration INDIGESTION Amlodipine Besylate 10 mg 03/10/19 10:00 03/26/19 09:37 Norvasc - PO 10 mg DAILY JOHN Administration Cholecalciferol 1,000 unit 03/10/19 10:00 03/26/19 09:37 Vitamin D3 - PO 1,000 unit DAILY JOHN Administration Dorzolamide HCl 1 drop 03/09/19 22:00 03/26/19 09:40 Trusopt 2% OU 1 drop BID JOHN Administration IV Flush 10 ml 03/13/19 13:33 03/15/19 09:05 Tripp-Cath Flush IVPUSH 10 ml PRN PRN Administration FLUSH Insulin Aspart 1 vial 03/13/19 22:00 03/25/19 21:40 Novolog Vial Sliding Scale - SQ Not Given HS [facility] Protocol Insulin Aspart 1 vial 03/25/19 09:24 03/26/19 17:24 Novolog Vial Sliding Scale - SQ 2 units TIDAC JOHN Administration Protocol Insulin Detemir 10 units 03/20/19 07:00 03/26/19 08:38 Levemir Vial SQ 10 units DAILY@0700 JOHN Administration Latanoprost 1 drop 03/10/19 10:00 03/26/19 09:40 Xalatan 0.005% Eye Drops - OU 1 drop DAILY JOHN Administration Levothyroxine Sodium 25 mcg 03/10/19 07:00 03/26/19 06:09 Synthroid - PO 25 mcg AM JOHN Administration Lisinopril 40 mg 03/10/19 10:00 03/26/19 09:37 Prinivil PO 40 mg DAILY JOHN Administration Ondansetron HCl 8 mg 03/13/19 11:11 03/16/19 12:13 Zofran Injection IVPB 8 mg Q12H PRN Administration NAUSEA AND/OR VOMITING Pantoprazole Sodium 40 mg 03/10/19 10:00 03/26/19 09:37 Protonix - PO 40 mg DAILY JOHN Administration Polyethylene Glycol 17 gm 03/25/19 22:00 03/26/19 09:37 Miralax (For Daily Use) - PO Not Given BID JOHN Senna 2 tab 03/25/19 15:27 Senna - PO HS PRN CONSTIPATION Sodium Chloride 1 gm 03/18/19 14:30 03/26/19 09:38 Sodium Chloride Tablet - PO 1 gm DAILY JOHN Administration Timolol Maleate 1 drop 03/09/19 22:00 03/26/19 09:39 Timoptic 0.5% OU 1 drop BID JOHN Administration A/P 83 y/o patient with metastatic pancreatic cancer with extensive liver mets coagulopathy due to liver disease s/p FFP/vit. K 03/10 s/p Port placement 03/11 C1 D14 gemzar/abraxane Leukocytosis-- blood cx/urine cx /cxr negative ? reactive due to advanced malignancy Abnormal LFTs--due to liver mets stable Held D8 gemzar due to thrombocytopenia relaed to chemotx/ ? liver mets Hb 7.7. repeat lab tests in AM. If going home without further follow-up may consider transfusing 1 Unit pRBCs. Will re-evaluate in AM
[2019-03-27] MEDS ORDERED: DEXTROSE 50%-WATER - 25 GM/50 ML VIAL IVPUSH ONE (02:54)
[2019-03-27] MEDS ORDERED: DEXTROSE 50%-WATER - 25 GM/50 ML VIAL ONE (03:04)
[2019-03-27] MEDS: INSULIN SLIDING SCALE (NOVOLOG) 1 VIAL SQ SCH ×2 (06:43→13:04)
[2019-03-27] MEDS: INSULIN (LEVEMIR) 100 UNITS/ML UNITS SQ SCH (06:45)
[2019-03-27] MEDS: LEVOTHYROXINE NA 25 MCG TABLET (FP) PO SCH (06:45)
[2019-03-27 07:53] LABS: BASO % 0.8 % (0-2.0); EOS % 0.4 % (0-4.5); HEMATOCRIT 26.2 % (32.4-45.2); HEMOGLOBIN 8.5 GM/dL (10.7-15.3); LYMPH % 51.9 % (8-40); MCH 28.6 pg (25.7-33.7); MCHC 32.4 g/dl (32.0-36.0); MEAN CELL VOLUME 88.4 fl (80-96); MEAN PLT VOLUME 10.3 fl (7.5-11.1); MONO % 9.6 % (3.8-10.2); NEUT % 37.3 % (42.8-82.8); PLATELET COUNT 259 K/MM3 (134-434); RBC 2.96 M/mm3 (3.60-5.2); RDW 26.1 % (11.6-15.6); WHITE BLOOD COUNT 11.8 K/mm3 (4.0-10.0)
--- NOTE | 2019-03-27 08:01 | PN ---
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 [email or web address] no distress had an episode of hypoglycemia last night Vital Signs - 24 hr 03/26/19 03/26/19 03/26/19 09:00 11:51 14:04 Temperature 99.4 F 98.2 F Pulse Rate 70 66 Respiratory 18 18 20 Rate Blood Pressure 121/56 L 111/53 L O2 Sat by Pulse 97 Oximetry (%) 03/26/19 03/26/19 03/27/19 21:00 22:00 06:06 Temperature 98.3 F 97.6 F Pulse Rate 67 63 Respiratory 20 20 Rate Blood Pressure 139/64 122/59 L O2 Sat by Pulse 98 Oximetry (%) Current Medications Generic Name Dose Route Start Last Admin Trade Name Freq PRN Reason Stop Dose Admin Acetaminophen 650 mg 03/10/19 22:05 03/24/19 21:44 Tylenol - PO 650 mg Q6H PRN Administration PAIN LEVEL 4 - 6 Al Hydroxide/Mg Hydroxide 30 ml 03/10/19 13:45 03/10/19 14:16 Mylanta Oral Suspension - PO 30 ml Q6H PRN Administration INDIGESTION Alteplase, Recombinant 2 mg 03/27/19 08:15 Cathflo Activase - IVPUSH 03/27/19 08:16 ONCE ONE Amlodipine Besylate 10 mg 03/10/19 10:00 03/26/19 09:37 Norvasc - PO 10 mg DAILY JOHN Administration Cholecalciferol 1,000 unit 03/10/19 10:00 03/26/19 09:37 Vitamin D3 - PO 1,000 unit DAILY JOHN Administration Dorzolamide HCl 1 drop 03/09/19 22:00 03/26/19 22:24 Trusopt 2% OU 1 drop BID JOHN Administration IV Flush 10 ml 03/13/19 13:33 03/15/19 09:05 Tripp-Cath Flush IVPUSH 10 ml PRN PRN Administration FLUSH Insulin Aspart 1 vial 03/13/19 22:00 03/26/19 22:33 Novolog Vial Sliding Scale - SQ Not Given HS JOHN Protocol Insulin Aspart 1 vial 03/25/19 09:24 03/27/19 06:43 Novolog Vial Sliding Scale - SQ 6 units TIDAC JOHN Administration Protocol Insulin Detemir 10 units 03/20/19 07:00 03/27/19 06:45 Levemir Vial SQ 10 units DAILY@0700 JOHN Administration Latanoprost 1 drop 03/10/19 10:00 03/26/19 09:40 Xalatan 0.005% Eye Drops - OU 1 drop DAILY JOHN Administration Levothyroxine Sodium 25 mcg 03/10/19 07:00 03/27/19 06:45 Synthroid - PO 25 mcg AM JOHN Administration Lisinopril 40 mg 03/10/19 10:00 03/26/19 09:37 Prinivil PO 40 mg DAILY JOHN Administration Ondansetron HCl 8 mg 03/13/19 11:11 03/16/19 12:13 Zofran Injection IVPB 8 mg Q12H PRN Administration NAUSEA AND/OR VOMITING Pantoprazole Sodium 40 mg 03/10/19 10:00 03/26/19 09:37 Protonix - PO 40 mg DAILY JOHN Administration Polyethylene Glycol 17 gm 03/25/19 22:00 03/26/19 22:23 Miralax (For Daily Use) - PO 17 grams BID JOHN Administration Senna 2 tab 03/25/19 15:27 Senna - PO HS PRN CONSTIPATION Sodium Chloride 1 gm 03/18/19 14:30 03/26/19 09:38 Sodium Chloride Tablet - PO 1 gm DAILY JOHN Administration Timolol Maleate 1 drop 03/09/19 22:00 03/26/19 22:25 Timoptic 0.5% OU 1 drop BID JOHN Administration Laboratory Results - last 24 hr 03/26/19 03/26/19 03/26/19 06:30 11:40 16:52 WBC RBC Hgb Hct MCV MCH MCHC RDW Plt Count MPV Absolute Neuts (auto) Total Counted 100 Neutrophils % Neutrophils % (Manual) 40.0 L Band Neutrophils % 1.0 Lymphocytes % Lymphocytes % (Manual) 34.0 D Monocytes % Monocytes % (Manual) 15 H Eosinophils % Eosinophils % (Manual) 1.0 D Basophils % Myelocytes % (Man) 4 H Nucleated RBC % Metamyelocytes 5 H D Differential Comment Man diff performed Platelet Estimate Adequate Platelet Comment Polychromasia 1+ Poikilocytosis 1+ Anisocytosis 2+ Macrocytosis 1+ Target Cells 1+ POC Glucometer 223 188 03/26/19 03/27/19 03/27/19 22:26 02:42 02:56 WBC RBC Hgb Hct MCV MCH MCHC RDW Plt Count MPV Absolute Neuts (auto) Total Counted Neutrophils % Neutrophils % (Manual) Band Neutrophils % Lymphocytes % Lymphocytes % (Manual) Monocytes % Monocytes % (Manual) Eosinophils % Eosinophils % (Manual) Basophils % Myelocytes % (Man) Nucleated RBC % Metamyelocytes Differential Comment Platelet Estimate Platelet Comment Polychromasia Poikilocytosis Anisocytosis Macrocytosis Target Cells POC Glucometer 105 44 46 03/27/19 03/27/19 03/27/19 03:46 05:14 06:39 WBC RBC Hgb Hct MCV MCH MCHC RDW Plt Count MPV Absolute Neuts (auto) Total Counted Neutrophils % Neutrophils % (Manual) Band Neutrophils % Lymphocytes % Lymphocytes % (Manual) Monocytes % Monocytes % (Manual) Eosinophils % Eosinophils % (Manual) Basophils % Myelocytes % (Man) Nucleated RBC % Metamyelocytes Differential Comment Platelet Estimate Platelet Comment Polychromasia Poikilocytosis Anisocytosis Macrocytosis Target Cells POC Glucometer 211 240 274 03/27/19 06:45 WBC 11.8 H RBC 2.96 L Hgb 8.5 L Hct 26.2 L MCV 88.4 MCH 28.6 MCHC 32.4 RDW 26.1 H Plt Count 259 MPV 10.3 Absolute Neuts (auto) 4.4 Total Counted Neutrophils % 37.3 L D Neutrophils % (Manual) Band Neutrophils % Lymphocytes % 51.9 H Lymphocytes % (Manual) Monocytes % 9.6 Monocytes % (Manual) Eosinophils % 0.4 Eosinophils % (Manual) Basophils % 0.8 Myelocytes % (Man) Nucleated RBC % 0 Metamyelocytes Differential Comment Platelet Estimate Platelet Comment Polychromasia Poikilocytosis Anisocytosis Macrocytosis Target Cells POC Glucometer Physical Examination Constitutional: Yes: awake/ no distress Eyes: Yes: Conjunctiva Clear Neck: Yes: Supple. no jvd Cardiovascular: Yes: Regular Rate and Rhythm Respiratory: Yes: CTA Bilaterally Gastrointestinal: Yes: Soft, mild tenderness. No rigidity or rebound Edema: No Neurological: Yes: Alert Psychiatric: Yes: Alert Imaging - Results Chest X-ray: Report Reviewed EKG: Report Reviewed Assessment/Plan Pancreatic ca with Mets Elevated liver function -- liver mets Increasing liver mass Thrombocytopenia-- Better Continue present care-- Hb better Oncology/GI following- ESBL-- no antibiotics--- Discharge planning- discussed with nursing staff advised for bedtime snacks to avoid hypoglycemia she should followup with Oncology as outpt ok for dc home today Problem List - Problems (1) Coagulopathy Code(s): D68.9 - COAGULATION DEFECT, UNSPECIFIED (2) Leukocytosis Code(s): D72.829 - ELEVATED WHITE BLOOD CELL COUNT, UNSPECIFIED Qualifiers: Leukocytosis type: unspecified Qualified Code(s): D72.829 - Elevated white blood cell count, unspecified (3) Metastases to the liver Code(s): C78.7 - SECONDARY MALIG NEOPLASM OF LIVER AND INTRAHEPATIC BILE DUCT (4) Pancreatic cancer Code(s): C25.9 - MALIGNANT NEOPLASM OF PANCREAS, UNSPECIFIED (5) Diabetes mellitus Code(s): E11.9 - TYPE 2 DIABETES MELLITUS WITHOUT COMPLICATIONS Qualifiers: Diabetes mellitus type: type 2 Diabetes mellitus long term care pharmacist insulin use: unspecified long term care pharmacist insulin use status Diabetes mellitus complication status : without complication Qualified Code(s): E11.9 - Type 2 diabetes mellitus without complications
--- NOTE | 2019-03-27 08:26 | PN.GI ---
GI Progress Note Subjective: COMPLAINS OF BLOATING - Objective Vital Signs: Vital Signs Temperature 97.6 F 03/27/19 06:06 Pulse Rate 63 03/27/19 06:06 Respiratory Rate 20 03/27/19 06:06 Blood Pressure 122/59 L 03/27/19 06:06 O2 Sat by Pulse Oximetry (%) 98 03/26/19 21:00 Constitutional: Well Nourished, No Distress, Calm Eyes: Yes: WNL HENT: Yes: WNL Neck: Yes: WNL Cardiovascular: Yes: WNL, Regular Rate and Rhythm Respiratory: Yes: WNL, Regular, Cough Gastrointestinal Inspection: Yes: WNL, Other (TYMPANIC, NOT TENDER) ...Auscultate: Yes: Normoactive Bowel Sounds Labs: CBC, BMP 03/27/19 06:45 INR, PTT INR 1.56 (0.83-1.09) H 03/23/19 07:00 Fibrinogen 264.0 mg/dL (238-498) D 03/23/19 07:00 Problem List - Problems (1) Constipation Assessment/Plan: AXR ORDERED C/W MIRALAX AND SENNA ; ADDED DULCOLAX SUPPOSITORY X1 DIET TOLERATED OOB TO CHAIR Code(s): K59.00 - CONSTIPATION, UNSPECIFIED
[2019-03-27] MEDS ORDERED: ALTEPLASE 2 MG VIAL IVPUSH ONE (08:30)
[2019-03-27 08:57] LABS: ALBUMIN 1.8 g/dl (3.4-5.0); BILIRUBIN,TOTAL 1.6 mg/dL (0.2-1); BLOOD UREA NITROGEN 9.2 mg/dL (7-18); CALCIUM 7.9 mg/dL (8.5-10.1); CREATININE 0.5 mg/dL (0.55-1.3); TOT PROT 5.4 g/dl (6.4-8.2)
[2019-03-27] MEDS: CHOLECALCIFEROL (VIT D3) 1,000 UNIT (25 MCG) TABLET PO SCH (09:40)
[2019-03-27] MEDS: POLYETHYLENE GLYCOL 3350 119 GM BTL PO SCH ×3 (09:40→13:05)
[2019-03-27] MEDS: SODIUM CHLORIDE 1 GM TABLET PO SCH (09:40)
[2019-03-27] MEDS: PANTOPRAZOLE 40 MG TABLET (FP) PO SCH (09:40)
[2019-03-27] MEDS: LISINOPRIL 20 MG TABLET (FP) PO SCH (09:40)
[2019-03-27] MEDS: amLODIPine BESYLATE 10 MG TABLET (FP) PO SCH (09:40)
[2019-03-27] MEDS: TIMOLOL 0.5% OPHTHALMIC SOL 5 ML BOTTLE OU SCH (09:41)
[2019-03-27] MEDS: DORZOLAMIDE 2% HCL OPHTHALMIC SOLUTION 10 ML BOTTLE OU SCH (09:41)
[2019-03-27] MEDS: LATANOPROST 0.005% OPHTH SOLN 2.5ML BOTTLE OU SCH (09:41)
[2019-03-27 13:53] VITALS: BP 145/61; PULSE 71; TEMP 97.6
--- NOTE | 2019-03-27 14:10 | PN ---
Progress Note (short form) - Note Progress Note: Feels good Episode of hypoglycemia during the night Vital Signs Period Temp Pulse Resp BP Sys/Miller Pulse Ox Last 24 Hr 97.6 F-98.5 F 63-73 20-20 111-145/52-64 98-99 PE: AOx3 Neck: Supple, No JVD HEENT: EOMI Lungs: CTA CVS: S1S2 Abd: Benign EXt: + edema Neuro: No focal deficit CMP Sodium 130 mmol/L (136-145) L 03/27/19 06:45 Potassium 5.0 mmol/L (3.5-5.1) 03/27/19 06:45 Chloride 98 mmol/L (98-107) 03/27/19 06:45 Carbon Dioxide 25 mmol/L (21-32) 03/27/19 06:45 Anion Gap 7 MMOL/L (8-16) L 03/27/19 06:45 BUN 9.2 mg/dL (7-18) 03/27/19 06:45 Creatinine 0.5 mg/dL (0.55-1.3) L 03/27/19 06:45 Est GFR (CKD-EPI)AfAm 105.20 03/27/19 06:45 Est GFR (CKD-EPI)NonAf 90.77 03/27/19 06:45 POC Glucometer 208 UNITS (80-120) 03/27/19 11:16 Random Glucose 250 mg/dL (74-106) H 03/27/19 06:45 Hemoglobin A1c % 10.0 % (4.2-6.3) H 03/11/19 10:05 Serum Osmolality 290 mosm/kg (278-305) 03/12/19 10:45 Calcium 7.9 mg/dL (8.5-10.1) L 03/27/19 06:45 Total Bilirubin 1.6 mg/dL (0.2-1) H 03/27/19 06:45 Direct Bilirubin 3.2 mg/dL (0.0-0.2) H 03/17/19 18:45 AST 69 U/L (15-37) H 03/27/19 06:45 ALT 42 U/L (13-61) 03/27/19 06:45 Alkaline Phosphatase 886 U/L (45-117) H 03/27/19 06:45 Troponin I < 0.02 ng/ml (0.00-0.05) 03/09/19 05:42 B-Natriuretic Peptide 252.5 pg/ml (5-450) 03/23/19 07:00 Total Protein 5.4 g/dl (6.4-8.2) L 03/27/19 06:45 Albumin 1.8 g/dl (3.4-5.0) L 03/27/19 06:45 Total Amylase 33 U/L (25-115) 03/10/19 06:16 Lipase 98 U/L (73-393) 03/10/19 06:16 TSH 4.66 uIU/ml (0.358-3.74) H 03/10/19 06:16 Cortisol AM Sample 14.0 ug/dL (6.2-19.4) 03/13/19 07:00 Current Medications Generic Name Dose Route Start Last Admin Trade Name Freq PRN Reason Stop Dose Admin Acetaminophen 650 mg 03/10/19 22:05 03/24/19 21:44 Tylenol - PO 650 mg Q6H PRN Administration PAIN LEVEL 4 - 6 Al Hydroxide/Mg Hydroxide 30 ml 03/10/19 13:45 03/10/19 14:16 Mylanta Oral Suspension - PO 30 ml Q6H PRN Administration INDIGESTION Amlodipine Besylate 10 mg 03/10/19 10:00 03/27/19 09:40 Norvasc - PO 10 mg DAILY JOHN Administration Cholecalciferol 1,000 unit 03/10/19 10:00 03/27/19 09:40 Vitamin D3 - PO 1,000 unit DAILY JOHN Administration Dorzolamide HCl 1 drop 03/09/19 22:00 03/27/19 09:41 Trusopt 2% OU 1 drop BID JOHN Administration IV Flush 10 ml 03/13/19 13:33 03/15/19 09:05 Tripp-Cath Flush IVPUSH 10 ml PRN PRN Administration FLUSH Insulin Aspart 1 vial 03/13/19 22:00 03/26/19 22:33 Novolog Vial Sliding Scale - SQ Not Given HS [facility] Protocol Insulin Aspart 1 vial 03/25/19 09:24 03/27/19 13:04 Novolog Vial Sliding Scale - SQ 4 units TIDAC [facility] Administration Protocol Insulin Detemir 10 units 03/20/19 07:00 03/27/19 06:45 Levemir Vial SQ 10 units DAILY@0700 JOHN Administration Latanoprost 1 drop 03/10/19 10:00 03/27/19 09:41 Xalatan 0.005% Eye Drops - OU 1 drop DAILY JOHN Administration Levothyroxine Sodium 25 mcg 03/10/19 07:00 03/27/19 06:45 Synthroid - PO 25 mcg AM JOHN Administration Lisinopril 40 mg 03/10/19 10:00 03/27/19 09:40 Prinivil PO 40 mg DAILY JOHN Administration Ondansetron HCl 8 mg 03/13/19 11:11 03/16/19 12:13 Zofran Injection IVPB 8 mg Q12H PRN Administration NAUSEA AND/OR VOMITING Pantoprazole Sodium 40 mg 03/10/19 10:00 03/27/19 09:40 Protonix - PO 40 mg DAILY JOHN Administration Polyethylene Glycol 17 gm 03/25/19 22:00 03/27/19 13:05 Miralax (For Daily Use) - PO 17 grams BID JOHN Administration Senna 2 tab 03/25/19 15:27 Senna - PO HS PRN CONSTIPATION Sodium Chloride 1 gm 03/18/19 14:30 03/27/19 09:40 Sodium Chloride Tablet - PO 1 gm DAILY JOHN Administration Timolol Maleate 1 drop 03/09/19 22:00 03/27/19 09:41 Timoptic 0.5% OU 1 drop BID JOHN Administration AP; Pancreatic Ca T2DM: A1c 10 Hyponatremia Elevated LFTs Leukocytosis Glucerna PRN for poor apetite TSH 4.66 Cortisol 14 D/C Levemir Will discharge home on Novolog SS coverage only. If family member is going to be with her during the night, pt may be sent home with instruction to check FS at bedtime and 2 AM. If FS <120 at any point she should get a sandwich and if FS is <80 to be given a glass of juice with rechecking of FS after 15 mins and repeat juice until FS is >120. Discussed with Niabril at bedside and RN. If no one is going to be with her during the nighe. Will postpone D/C until tomorrow morning. BGM QACHS and 3 AM Novolog SS coverage Chemo as per Onco Will f/u Problem List - Problems (1) Hyponatremia Code(s): E87.1 - HYPO-OSMOLALITY AND HYPONATREMIA (2) Pancreatic cancer Code(s): C25.9 - MALIGNANT NEOPLASM OF PANCREAS, UNSPECIFIED (3) Diabetes mellitus Code(s): E11.9 - TYPE 2 DIABETES MELLITUS WITHOUT COMPLICATIONS Qualifiers: Diabetes mellitus type: type 2 Diabetes mellitus skilled nursing insulin use: unspecified skilled nursing insulin use status Diabetes mellitus complication status : without complication Qualified Code(s): E11.9 - Type 2 diabetes mellitus without complications (4) Hyperglycemia Code(s): R73.9 - HYPERGLYCEMIA, UNSPECIFIED
[2019-03-27] MEDS ORDERED: INSULIN SLIDING SCALE (NOVOLOG) 1 VIAL SQ SCH ×2 (14:12)
[2019-03-27 14:33] LABS: ANISOCYTOSIS 1+; MACROCYTOSIS 1+; PLATELET ESTIMATE NORMAL; TARGET CELLS 2+
[2019-03-27] MEDS ORDERED: BISACODYL 10 MG SUPP.RECT PR ONE (15:47)
== END 2019-03-27 17:48 | disposition home or self-care (01) | DRG 435 ==
LOC: JER 03:33 → JERBED 09:56 → J7W 11:03
PROVIDERS: ADMIT Internal Medicine; ATTEND Internal Medicine
PROC: 0JH63XZ Insertion of Tunneled Vascular Access Device into Chest Subcutaneous Tissue and Fascia, Percutaneous Approach (ICD-10-PCS; principal; 2019-03-11)
PROC: 02HV33Z Insertion of Infusion Device into Superior Vena Cava, Percutaneous Approach (ICD-10-PCS; 2019-03-11)
PROC: B518ZZA Fluoroscopy of Superior Vena Cava, Guidance (ICD-10-PCS; 2019-03-11)
PROC: 3E04305 Introduction of Other Antineoplastic into Central Vein, Percutaneous Approach (ICD-10-PCS; 2019-03-11)
PROC: 30233K1 Transfusion of Nonautologous Frozen Plasma into Peripheral Vein, Percutaneous Approach (ICD-10-PCS; 2019-03-11)
DX: C78.7 Secondary malignant neoplasm of liver and intrahepatic bile duct (principal); E43 Unspecified severe protein-calorie malnutrition; C25.7 Malignant neoplasm of other parts of pancreas; E87.1 Hypo-osmolality and hyponatremia; D68.8 Other specified coagulation defects; D72.829 Elevated white blood cell count, unspecified; E11.649 Type 2 diabetes mellitus with hypoglycemia without coma; R11.0 Nausea; E03.9 Hypothyroidism, unspecified; D69.59 Other secondary thrombocytopenia; E11.65 Type 2 diabetes mellitus with hyperglycemia; F03.90 Unspecified dementia, unspecified severity, without behavioral disturbance, psychotic disturbance, mood disturbance, and anxiety; I10 Essential (primary) hypertension; D72.823 Leukemoid reaction; Z68.24 Body mass index [BMI] 24.0-24.9, adult; R74.8 Abnormal levels of other serum enzymes; R10.13 Epigastric pain; R94.5 Abnormal results of liver function studies; K59.09 Other constipation; D64.9 Anemia, unspecified
CPT/HCPCS: 36415; 36430; 36561; 71045-TC-FY; 71046-TC-FY; 74019-TC-FY; 74177-TC; 76705-TC; 77001-TC-FY; 80048; 80053; 81003; 82150; 82248; 82436; 82533; 82803; 82962; 83036; 83690; 83880; 83930; 83935; 84133; 84300; 84443; 84484; 85025; 85384; 85610; 85730; 86850; 86900; 86901; 87040; 87077; 87086; 87186; 93005; 93010; 96367; 96375; 96413; 96417; 97116-GP; 97162-GP; 99284-25; C1788; J1100; J1644; J2469; J7030; J9201; J9264; P9017; Q9967

== ENCOUNTER 2019-03-09 05:41 | Day surgery (SDC) | payer MEDICARE, OTHER | END 2019-03-23 | LOC: JONCCHEMO 05:41 ==

== ENCOUNTER 2019-04-23 02:25 | Inpatient (IN) | payer MEDICARE, OTHER ==
[2019-04-23 04:06] LABS: URINE APPEARANCE CLEAR; URINE BILIRUBIN NEGATIVE (NEGATIVE); URINE COLOR YELLOW; URINE GLUCOSE (UA) 3+ (NEGATIVE); URINE KETONE TRACE (NEGATIVE); URINE LEUK ESTERASE NEGATIVE (NEGATIVE); URINE NITRITE NEGATIVE (NEGATIVE); URINE PROTEIN TRACE (NEGATIVE)
[2019-04-23] MEDS ORDERED: LIDOCAINE 5% TOPICAL PATCH TP ONE (05:07)
[2019-04-23] MEDS ORDERED: SODIUM CHLORIDE 0.9% 500 ML INFUS.BAG IV ONE (05:07)
[2019-04-23] MEDS ORDERED: LIDOCAINE 5% TOPICAL PATCH ONE (05:36)
[2019-04-23 05:43] LABS: BASO % 0.9 % (0-2.0); EOS % 1.2 % (0-4.5); HEMATOCRIT 29.8 % (32.4-45.2); HEMOGLOBIN 9.9 GM/dL (10.7-15.3); LYMPH % 35.3 % (8-40); MCH 28.2 pg (25.7-33.7); MCHC 33.1 g/dl (32.0-36.0); MEAN CELL VOLUME 85.2 fl (80-96); MEAN PLT VOLUME 10.3 fl (7.5-11.1); MONO % 15.5 % (3.8-10.2); NEUT % 47.1 % (42.8-82.8); PLATELET COUNT 411 K/MM3 (134-434); RBC 3.49 M/mm3 (3.60-5.2); WHITE BLOOD COUNT 21.1 K/mm3 (4.0-10.0)
[2019-04-23 06:07] LABS: ALBUMIN 2.2 g/dl (3.4-5.0); BILIRUBIN,TOTAL 1.3 mg/dL (0.2-1); BLOOD UREA NITROGEN 18.9 mg/dL (7-18); CALCIUM 8.7 mg/dL (8.5-10.1); CREATININE 0.7 mg/dL (0.55-1.3); POTASSIUM 4.5 mmol/L (3.5-5.1); TOT PROT 6.8 g/dl (6.4-8.2)
--- NOTE | 2019-04-23 06:17 | PDOC ---
History of Present Illness - General Chief Complaint: Pain, Acute Stated Complaint: ABD PAIN,CONSTIPATION Time Seen by Provider: 04/23/19 03:26 History Source: Patient, Family Exam Limitations: No Limitations - History of Present Illness Timing/Duration: 1-3 hours Severity: moderate Past History - Travel Traveled outside of the country in the last 30 days: No Close contact w/someone who was outside of country & ill: No - Past Medical History Allergies/Adverse Reactions: Allergies Allergy/AdvReac Type Severity Reaction Status Date / Time No Known Allergies Allergy Verified 04/23/19 03:09 Home Medications: Ambulatory Orders Bisacodyl [Gentle Laxative] 5 mg PO DAILY 11/20/15 Levothyroxine [Synthroid -] 25 mcg PO DAILY 11/20/15 metFORMIN HCL [Metformin HCl] 1,000 mg PO BID 11/20/15 Polyvinyl Alcohol [Artificial Tears] 15 ml OP QID 01/25/19 Cholecalciferol (Vitamin D3) [Vitamin D3] 1,000 unit PO DAILY 02/23/19 Dorzolamide HCl/Timolol Maleat [Cosopt Eye Drops] 10 ml OP BID 02/23/19 Amlodipine Besylate/Benazepril [Lotrel 40] 1 each PO DAILY 03/07/19 Bimatoprost [Lumigan] 1 drop IO DAILY 03/07/19 Insulin Aspart [Novolog] 7 unit SQ TID 03/07/19 Insulin Glargine,Hum.rec.anlog [Basaglar Kwikpen U-100] 100 unit SQ 12 03/07/19 Docusate Sodium [Colace -] 100 mg PO BID PRN capsule 03/25/19 Mag Hydrox/Al Hydrox/Simeth [Mylanta Oral Suspension -] 30 ml PO Q6H PRN cup Methylnaltrexone [place] [Relistor -] 4 mg SQ DAILY@1900 #1 kit 03/25/19 Metoclopramide HCl [Reglan -] 5 mg PO TIDAC 30 Days #30 tablet 03/25/19 Pantoprazole Sodium 40 mg PO DAILY 30 Days #30 tablet. 03/25/19 Polyethylene Glycol 3350 [Miralax 119 gm Btl -] 17 gm PO DAILY bottle 03/25/19 Tripp-Cath Flush [Tripp-Cath Flush -] 10 ml IVPUSH PRN PRN ml 03/25/19 Sodium Chloride Tablet - 1 gm PO DAILY 30 Days #30 tablet 03/25/19 Anemia: No Asthma: No Cancer: Yes (pancreas) Cardiac Disorders: No CVA: No COPD: No CHF: No Dementia: No Diabetes: Yes GI Disorders: No Disorders: No HTN: Yes Hypercholesterolemia: Yes Liver Disease: No Seizures: No Thyroid Disease: Yes - Surgical History Abdominal Surgery: No Appendectomy: No Cardiac Surgery: No Cholecystectomy: No Lung Surgery: No Neurologic Surgery: No Orthopedic Surgery: No - Immunization History Immunization Up to Date: Yes - Suicide/Smoking/Psychosocial Hx Smoking History: Never smoked Have you smoked in the past 12 months: No Information on smoking cessation initiated: No Hx Alcohol Use: No Drug/Substance Use Hx: No Substance Use Type: None Hx Substance Use Treatment: No Review of Systems - Review of Systems Constitutional: Yes: Loss of Appetite. No: Symptoms Reported, See HPI, Chills, Diaphoresis, Fever, Malaise, Night Sweats, Weakness, Weight Stable, Unintentional Wgt. Loss, Unexplained wgt Loss, Other HEENTM: No: Symptoms Reported, See HPI, Eye Pain, Blurred Vision, Tearing, Recent change in vision, Double Vision, Cataracts, Ear Pain, Ocular Prothesis, Ear Discharge, Nose Pain, Nose Congestion, Tinnitus, Nose Bleeding, Hearing Loss , Throat Pain, Throat Swelling, Mouth Pain, Dental Problems, Difficulty Swallowing, Mouth Swelling, Other Respiratory: No: Symptoms reported, See HPI, Cough, Orthopnea, Shortness of Breath, SOB with Exertion, SOB at Rest, Stridor, Wheezing, Productive cough, Hemoptysis, Other Cardiac (ROS): No: Symptoms Reported, See HPI, Chest Pain, Edema, Irregular Heart Rate, Lightheadedness, Palpitations, Syncope, Chest Tightness, Other ABD/GI: No: Symptoms Reported, See HPI, Abdominal Distended, Abd. Pain w/ defecation, Blood Streaked Bowels, Constipated, Diarrhea, Difficulty Swallowing , Nausea, Poor Appetite, Poor Fluid Intake, Rectal Bleeding, Vomiting, Indigestion, Abdominal cramping, Tarry Stools, Other : No: Symptoms Reported, See HPI, Burning, Dysuria, Discharge, Frequency, Flank Pain, Hematuria, Incontinence, Pain, Urgency, Testicular Mass, Testicular Swelling, Lesions, Testicular Pain, Other Musculoskeletal: No: Symptoms Reported, See HPI, Back Pain, Gout, Joint Pain, Joint Swelling, Muscle Pain, Muscle Weakness, Neck Pain, Joint Stiffness, Other Integumentary: No: Symptoms Reported, See HPI, Bruising, Change in Color, Change in Hair/Nails, Dryness, Erythema, Flushing, Lesions, Lumps, Pallor, Pruritus, Rash, Sweating, Other *Physical Exam - Vital Signs Last Vital Signs Temp Pulse Resp BP Pulse Ox 99.1 F 100 H 18 137/62 97 04/23/19 02:42 04/23/19 02:42 04/23/19 02:42 04/23/19 02:42 04/23/19 02:42 - Physical Exam General Appearance: Yes: Nourished, Appropriately Dressed, Apparent Distress. No: Disheveled HEENT: positive: EOMI, EZEQUIEL, Normal ENT Inspection, Normal Voice, TMs Normal Neck: positive: Trachea midline, Supple Respiratory/Chest: positive: Chest Tender, Lungs Clear, Normal Breath Sounds Gastrointestinal/Abdominal: positive: Normal Bowel Sounds, Tenderness ( epigastric tenderness) Musculoskeletal: positive: Normal Inspection, CVA Tenderness, CVA Tenderness (R) . negative: CVA Tenderness (L) Extremity: positive: Normal Capillary Refill, Normal Inspection, Normal Range of Motion Integumentary: positive: Normal Color, Dry, Warm Neurologic: positive: cyber instructor II-XII NML intact, Fully Oriented, Alert, Normal Mood/ Affect, Normal Response, Motor Strength 5/5 ED Treatment Course - LABORATORY CBC & Chemistry Diagram: 04/23/19 05:31 04/23/19 05:31 - ADDITIONAL ORDERS Additional order review: Laboratory Results 04/23/19 04/23/19 04/23/19 05:31 05:31 03:59 Sodium 126 L Potassium 4.5 Chloride 93 L Carbon Dioxide 24 Anion Gap 9 BUN 18.9 H Creatinine 0.7 Est GFR (CKD-EPI)AfAm 94.18 Est GFR (CKD-EPI)NonAf 81.26 Random Glucose 326 H Calcium 8.7 Total Bilirubin 1.3 H AST 62 H ALT 33 Alkaline Phosphatase 470 H Total Protein 6.8 Albumin 2.2 L Lipase 117 Urine Color Yellow Urine Appearance Clear Urine pH 6.0 Ur Specific [place] 1.033 Urine Protein Trace Urine Glucose (UA) 3+ H Urine Ketones Trace H Urine Blood Negative Urine Nitrite Negative Urine Bilirubin Negative Urine Urobilinogen 1.0 Ur Leukocyte Esterase Negative 04/23/19 05:31 RBC 3.49 L MCV 85.2 MCHC 33.1 RDW 23.0 H MPV 10.3 Neutrophils % 47.1 Lymphocytes % 35.3 Monocytes % 15.5 H Eosinophils % 1.2 Basophils % 0.9 - RADIOLOGY Radiology Studies Ordered: Category Date Time Status CHEST X-RAY PORTABLE* [RAD] Stat Radiology 04/23/19 03:26 Taken - Medications Given in the ED: ED Medications Discontinued Medications Generic Name Dose Route Start Last Admin Trade Name Freq PRN Reason Stop Dose Admin Lidocaine 1 patch 04/23/19 05:07 04/23/19 05:42 Lidoderm Patch - TP 04/23/19 05:08 1 patch ONCE ONE Administration Sodium Chloride 500 ml 04/23/19 05:07 04/23/19 05:43 Normal Saline - IV 04/23/19 05:08 500 ml ONCE ONE Administration Medical Decision Making - Medical Decision Making 04/23/19 06:12 Pt has an elevated WBC 04/23/19 06:21 Pt will be admitted for pain control and for WBC of 21 and hyponatremia. *DC/Admit/Observation/Transfer Diagnosis at time of Disposition: Abdominal pain, Diabetes mellitus, Hyperglycemia, Hyponatremia - Discharge Dispostion Condition at time of disposition: Guarded Decision to Admit order: Yes - Referrals Referrals: Salome Smith MD [Primary Care Provider] - - Patient Instructions - Post Discharge Activity
[2019-04-23] MEDS ORDERED: morphine CARPU-JECT 2 MG/1 ML DISP.SYRIN IVPUSH ONE (07:00)
[2019-04-23] MEDS ORDERED: MORPHINE SULFATE 2 MG/ML VIAL ONE (07:53)
[2019-04-23 09:00] LABS: ANISOCYTOSIS 2+; MACROCYTOSIS 1+; PLATELET ESTIMATE NORMAL; TARGET CELLS 1+
[2019-04-23] MEDS ORDERED: VANCOMYCIN 1,000 MG in DEXTROSE 5%-WATER - 250 ML IVPB ONE (10:03)
[2019-04-23] MEDS ORDERED: PIPERACILLIN/TAZOB 4.5 GM 4.5 GM in DEXTROSE 5%-WATER - 100 ML IVPB ONE (10:03)
--- NOTE | 2019-04-23 10:23 | PDOC ---
*Physical Exam - Vital Signs Last Vital Signs Temp Pulse Resp BP Pulse Ox 99.1 F 100 H 18 137/62 97 04/23/19 02:42 04/23/19 02:42 04/23/19 02:42 04/23/19 02:42 04/23/19 08:08 ED Treatment Course - LABORATORY CBC & Chemistry Diagram: 04/23/19 05:31 04/23/19 05:31 - ADDITIONAL ORDERS Additional order review: Laboratory Results 04/23/19 04/23/19 04/23/19 05:31 05:31 03:59 Sodium 126 L Potassium 4.5 Chloride 93 L Carbon Dioxide 24 Anion Gap 9 BUN 18.9 H Creatinine 0.7 Est GFR (CKD-EPI)AfAm 94.18 Est GFR (CKD-EPI)NonAf 81.26 Random Glucose 326 H Calcium 8.7 Total Bilirubin 1.3 H AST 62 H ALT 33 Alkaline Phosphatase 470 H Total Protein 6.8 Albumin 2.2 L Lipase 117 Urine Color Yellow Urine Appearance Clear Urine pH 6.0 Ur Specific [place] 1.033 Urine Protein Trace Urine Glucose (UA) 3+ H Urine Ketones Trace H Urine Blood Negative Urine Nitrite Negative Urine Bilirubin Negative Urine Urobilinogen 1.0 Ur Leukocyte Esterase Negative 04/23/19 05:31 RBC 3.49 L MCV 85.2 MCHC 33.1 RDW 23.0 H MPV 10.3 Neutrophils % 47.1 Lymphocytes % 35.3 Monocytes % 15.5 H Eosinophils % 1.2 Basophils % 0.9 - RADIOLOGY Radiology Studies Ordered: Category Date Time Status ABDOMEN & PELVIS CT WITH CONTR [CT] Stat CT Scan 04/23/19 09:00 Completed ABDOMEN US -LIMITED [US] Stat Ultrasound 04/23/19 09:42 Ordered - Medications Given in the ED: ED Medications Discontinued Medications Generic Name Dose Route Start Last Admin Trade Name Freq PRN Reason Stop Dose Admin Lidocaine 1 patch 04/23/19 05:07 04/23/19 05:42 Lidoderm Patch - TP 04/23/19 05:08 1 patch ONCE ONE Administration Morphine Sulfate 2 mg 04/23/19 07:00 04/23/19 07:55 Morphine Injection - IVPUSH 04/23/19 07:01 2 mg ONCE ONE Administration Sodium Chloride 500 ml 04/23/19 05:07 04/23/19 05:43 Normal Saline - IV 04/23/19 05:08 500 ml ONCE ONE Administration Medical Decision Making - Medical Decision Making 04/23/19 10:14 Care received at 0700 Briefly, pt has hx metasatic pancreatic ca with mets to liver presents with diffuse abd pain. Last chemo early March. White count found to be 21. Pt requiring IV morphine for pain control UA negative for infection CTAP ordered, reveals known panc mass with liver mets and persistently distended GB with sludge US ordered Pt covered with Vanc/Zosn Case discussed with Dr. Smith, pt accepted for admission Case discussed in detail with admitting physician including history, physical exam and ancillary studies. Admitting physician has assumed care for the patient, will follow all pending diagnostics and will complete the evaluation and treatment. *DC/Admit/Observation/Transfer Diagnosis at time of Disposition: Abdominal pain, Diabetes mellitus, Hyperglycemia, Hyponatremia - Discharge Dispostion Condition at time of disposition: Guarded - Referrals Referrals: Salome Smith MD [Primary Care Provider] - - Patient Instructions - Post Discharge Activity - Attestations Physician Attestion: 04/23/19 10:23 I, Dr. Carlos Landis MD, attest that this document has been prepared under my direction and personally reviewed by me in its entirety. I further attest, that it accurately reflects all work, treatment, procedures and medical decision -making performed by me.
--- NOTE | 2019-04-23 10:57 | HP ---
Admitting History and Physical - Primary Care Physician PCP: Salome Smith - Admission Chief Complaint: abd pain History of Present Illness: 83 yrs old female with metastatic Pancreatic CA- came to ER for severe pain in right side of abdomen this morning. No nausea, vomiting, has normal BM. Feels fatigued. Found to have elevated WBC here in ER. Received Morphine and zosyn in ER Pt examined currently has mild pain to palpation. 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 (mild cognitve defect ) Cardiovascular: Yes: HTN Endocrine: Yes: Diabetes Mellitus - Past Surgical History Past Surgical History: Yes: None - Smoking History Smoking history: Never smoked Have you smoked in the past 12 months: No - Alcohol/Substance Use Hx Alcohol Use: No - Social History History of Recent Travel: No Home Medications - Allergies Allergies/Adverse Reactions: Allergies Allergy/AdvReac Type Severity Reaction Status Date / Time No Known Allergies Allergy Verified 04/23/19 03:09 - Home Medications Home Medications: Ambulatory Orders Bisacodyl [Gentle Laxative] 5 mg PO DAILY 11/20/15 Levothyroxine [Synthroid -] 25 mcg PO DAILY 11/20/15 metFORMIN HCL [Metformin HCl] 1,000 mg PO BID 11/20/15 Polyvinyl Alcohol [Artificial Tears] 15 ml OP QID 01/25/19 Cholecalciferol (Vitamin D3) [Vitamin D3] 1,000 unit PO DAILY 02/23/19 Dorzolamide HCl/Timolol Maleat [Cosopt Eye Drops] 10 ml OP BID 02/23/19 Amlodipine Besylate/Benazepril [Lotrel 10/40] 1 each PO DAILY 03/07/19 Bimatoprost [Lumigan] 1 drop IO DAILY 03/07/19 Insulin Aspart [Novolog] 7 unit SQ TID 03/07/19 Insulin Glargine,Hum.rec.anlog [Basaglar Kwikpen U-100] 100 unit SQ 12 03/07/19 Docusate Sodium [Colace -] 100 mg PO BID PRN capsule 03/25/19 Mag Hydrox/Al Hydrox/Simeth [Mylanta Oral Suspension -] 30 ml PO Q6H PRN cup Methylnaltrexone [place] [Relistor -] 4 mg SQ DAILY@1900 #1 kit 03/25/19 Metoclopramide HCl [Reglan -] 5 mg PO TIDAC 30 Days #30 tablet 03/25/19 Pantoprazole Sodium 40 mg PO DAILY 30 Days #30 tablet. 03/25/19 Polyethylene Glycol 3350 [Miralax 119 gm Btl -] 17 gm PO DAILY bottle 03/25/19 Tripp-Cath Flush [Tripp-Cath Flush -] 10 ml IVPUSH PRN PRN ml 03/25/19 Sodium Chloride Tablet - 1 gm PO DAILY 30 Days #30 tablet 03/25/19 Family Disease History - Family Disease History Family Disease History: Diabetes: Sister Review of Systems - Review of Systems Gastrointestinal: reports: Abdominal Pain. denies: Constipation, Diarrhea, Nausea, Vomiting Physical Examination Vital Signs: Vital Signs Temperature 99.1 F 04/23/19 02:42 Pulse Rate 100 H 04/23/19 02:42 Respiratory Rate 18 04/23/19 02:42 Blood Pressure 137/62 04/23/19 02:42 O2 Sat by Pulse Oximetry (%) 97 04/23/19 08:08 Constitutional: Yes: No Distress Cardiovascular: Yes: Regular Rate and Rhythm Respiratory: Yes: CTA Bilaterally Gastrointestinal: Yes: Normal Bowel Sounds, Soft, Tenderness, Tenderness, Epigastrium Edema: Yes Labs: CBC, BMP 04/23/19 05:31 04/23/19 05:31 Imaging - Results Chest X-ray: Image Reviewed (clear) Cat Scan: Report Reviewed Ultrasound: Report Reviewed EKG: Image Reviewed (NSR) Problem List - Problems (1) Abdominal pain Code(s): R10.9 - UNSPECIFIED ABDOMINAL PAIN (2) Diabetes mellitus Code(s): E11.9 - TYPE 2 DIABETES MELLITUS WITHOUT COMPLICATIONS (3) Coagulopathy Code(s): D68.9 - COAGULATION DEFECT, UNSPECIFIED (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 Assessment/Plan PLAN Keep NPO IV fluids Pain control Empiric antibiotics ID and GI eval Oncology eval DVT prophylaxis-- Lovenox
[2019-04-23] MEDS ORDERED: ONDANSETRON 4 MG/2 ML VIAL IVPUSH PRN (11:18)
[2019-04-23 11:49] LABS: INR 1.59 (0.83-1.09); PROTHROMBIN TIME (PATIENT) 18.8 SEC (9.7-13.0)
[2019-04-23 11:52] LABS: ACTIVATED PTT 33.9 SECONDS (25.2-36.5)
[2019-04-23] MEDS ORDERED: PIPERACILLIN/TAZOB 4.5 GM 4.5 GM/100 ML BAG IVPB ONE (12:03)
[2019-04-23] MEDS: DEXTROSE 5%-0.45% SALINE 1,000 ML IV SCH (12:14)
[2019-04-23] MEDS ORDERED: VANCOMYCIN 1 GRAM (PRE-DOCKED) 1,000 MG/250 ML BAG IVPB ONE (13:30)
--- NOTE | 2019-04-23 14:28 | CON.GI ---
Consult Consult Specialty:: GI: For Dr. Dominguez who resumes care 04/25 Referred by:: Dr. Salome Smith Reason for Consultation:: Flank pain - History of Present Illness Chief Complaint: Patient's granddaughter present aiding in translation: right flank pain History of Present Illness: 83F with S IV metastatic pancreatic ca admitted for evaluation of sudden onset right sided mid/upper flank pain this morning after breakfast. She denied associated nausea, vomiting. In the ED noted to have WBC 21K. CT scan revealed liver mets, pancreatic primary, distended GB with sludge. Abd US revealed gallbladder wall thickening, gallstones and no pericholecystic fluid. Admitted with concern for acute cholecystitis. She was started on IV Abx and ID has been consulted. She currently denies RUQ pain but rather focal right flank pain. Epigastric tenderness was described in the ER note. Her last Chemotherapy was in 03/28. 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: Dementia (mild cognitve defect ) Cardio/Vascular: Yes: HTN, Hyperlipdemia Gastrointestinal: Yes: Cancer (Metastatic pancreatic cancer) Endocrine: Yes: Diabetes Mellitus - Past Surgical History Past Surgical History: Yes: None, Hysterectomy - Alcohol/Substance Use Hx Alcohol Use: No History of Substance Use: reports: None - Smoking History Smoking history: Never smoked Have you smoked in the past 12 months: No - Social History Usual Living Arrangement: With Child ADL: Family Assistance Place of : Other [place] [place]) History of Recent Travel: No Home Medications - Allergies Allergies/Adverse Reactions: Allergies Allergy/AdvReac Type Severity Reaction Status Date / Time No Known Allergies Allergy Verified 04/23/19 03:09 - Home Medications Home Medications: Ambulatory Orders Bisacodyl [Gentle Laxative] 5 mg PO DAILY 11/20/15 Levothyroxine [Synthroid -] 25 mcg PO DAILY 11/20/15 metFORMIN HCL [Metformin HCl] 1,000 mg PO BID 11/20/15 Polyvinyl Alcohol [Artificial Tears] 15 ml OP QID 01/25/19 Cholecalciferol (Vitamin D3) [Vitamin D3] 1,000 unit PO DAILY 02/23/19 Dorzolamide HCl/Timolol Maleat [Cosopt Eye Drops] 10 ml OP BID 02/23/19 Amlodipine Besylate/Benazepril [Lotrel 40] 1 each PO DAILY 03/07/19 Bimatoprost [Lumigan] 1 drop IO DAILY 03/07/19 Insulin Aspart [Novolog] 7 unit SQ TID 03/07/19 Insulin Glargine,Hum.rec.anlog [Basaglar Kwikpen U-100] 100 unit SQ 12 03/07/19 Docusate Sodium [Colace -] 100 mg PO BID PRN capsule 03/25/19 Mag Hydrox/Al Hydrox/Simeth [Mylanta Oral Suspension -] 30 ml PO Q6H PRN cup Methylnaltrexone [place] [Relistor -] 4 mg SQ DAILY@1900 #1 kit 03/25/19 Metoclopramide HCl [Reglan -] 5 mg PO TIDAC 30 Days #30 tablet 03/25/19 Pantoprazole Sodium 40 mg PO DAILY 30 Days #30 tablet. 03/25/19 Polyethylene Glycol 3350 [Miralax 119 gm Btl -] 17 gm PO DAILY bottle 03/25/19 Tripp-Cath Flush [Tripp-Cath Flush -] 10 ml IVPUSH PRN PRN ml 03/25/19 Sodium Chloride Tablet - 1 gm PO DAILY 30 Days #30 tablet 03/25/19 Family Disease History - Family Disease History Family Disease History: Diabetes: Sister Review of Systems - Review of Systems Constitutional: denies: Chills Cardiovascular: denies: Chest Pain Respiratory: denies: SOB Gastrointestinal: reports: Constipation Physical Exam-GI Vital Signs: Vital Signs Temperature 98.2 F 04/23/19 11:54 Pulse Rate 84 04/23/19 11:54 Respiratory Rate 18 04/23/19 11:54 Blood Pressure 136/68 04/23/19 11:54 O2 Sat by Pulse Oximetry (%) 95 04/23/19 11:54 Constitutional: Yes: Calm Eyes: No: Sclera Icterus Cardiovascular: Yes: Regular Rate and Rhythm. No: Murmur Respiratory: Yes: CTA Bilaterally Gastrointestinal Inspection: No: Distention ...Auscultate: Yes: Normoactive Bowel Sounds ...Palpate: Yes: Soft, Tenderness (tenderness to palpation focally along lateral aspects of the lower right ribs. No reich's sign. No RUQ or upper abdominal TTP.). No: Guarding, Hepatomegaly ...Percussion: No: Tympanitic Edema: No (No LE edema) Neurological: Yes: Alert Labs: CBC, BMP 04/23/19 05:31 04/23/19 05:31 INR, PTT INR 1.59 (0.83-1.09) H 04/23/19 11:22 Imaging - Results Cat Scan: Report Reviewed, Image Reviewed Ultrasound: Report Reviewed Problem List - Problems (1) Flank pain Assessment/Plan: complaints seem to be focal and in right flank. Reproducible pain on exam upon palpation of the lower right ribs. There was upper abdominal tendeness noted on ER exam earlier and concern of for cholecystitis. No RUQ or upper abdominal tendeness noted upon palpation. ? alternate etiologies of her pain. ? if cholecystitis partially treated with Abx and in setting of analgesia making physical exam findings less apparent. Advise: IV Abx per ID NPO Surgical evaluation (ordered) MRCP to further evaluate gallbladder and biliary tract Blood cultures (ordered) Monitor LFTs Code(s): R10.9 - UNSPECIFIED ABDOMINAL PAIN
--- NOTE | 2019-04-23 14:59 | EKG ---
Test Reason : Blood Pressure : / mmHG Vent. Rate : 097 BPM Atrial Rate : 097 BPM P-R Int : 182 ms QRS Dur : 076 ms QT Int : 336 ms P-R-T Axes : 022 -14 075 degrees QTc Int : 426 ms SINUS RHYTHM WITH PREMATURE ATRIAL COMPLEXES MINIMAL VOLTAGE CRITERIA FOR LVH, MAY BE NORMAL VARIANT BORDERLINE ECG WHEN COMPARED WITH ECG OF 09-MAR-2019 03:57, PREMATURE ATRIAL COMPLEXES ARE NOW PRESENT VENT. RATE HAS INCREASED BY 39 BPM Confirmed by MD ANNAMARIE, NIKA ([id number]) on 04/23/2019 2:59:05 PM Referred By: Confirmed By:NIKA DE LUNA MD
[2019-04-23] MEDS: INSULIN SLIDING SCALE (NOVOLOG) 1 VIAL SQ SCH ×2 (17:15→22:52)
[2019-04-23] MEDS ORDERED: PT OWN MED DRAWER 7, Y5N ONE (22:38)
[2019-04-23] MEDS: LIDOCAINE PATCH REMOVAL MC SCH (22:54)
[2019-04-24] MEDS: LATANOPROST 0.005% OPHTH SOLN 2.5ML BOTTLE OU SCH ×2 (00:01→20:59)
[2019-04-24] MEDS: DEXTROSE 5%-0.45% SALINE 1,000 ML IV SCH (03:15)
[2019-04-24] MEDS: INSULIN SLIDING SCALE (NOVOLOG) 1 VIAL SQ SCH ×3 (06:50→11:16)
[2019-04-24] MEDS ORDERED: LEVOTHYROXINE NA 25 MCG TABLET (FP) PO SCH (07:00)
--- NOTE | 2019-04-24 08:59 | PN ---
Progress Note (short form) - Note Progress Note: Pt examined today feeling hungry decreased pain in abdomen no nausea Vital Signs - 24 hr 04/23/19 04/23/19 04/23/19 18:00 18:37 21:00 Temperature 99.3 F Pulse Rate 89 Respiratory 20 Rate Blood Pressure 136/64 O2 Sat by Pulse 98 95 Oximetry (%) 04/24/19 04/24/19 04/24/19 09:00 10:00 14:00 Temperature 98.5 F 98.8 F Pulse Rate 80 85 Respiratory 20 20 18 Rate Blood Pressure 137/69 133/64 O2 Sat by Pulse 95 Oximetry (%) Current Medications Generic Name Dose Route Start Last Admin Trade Name Freq PRN Reason Stop Dose Admin Enoxaparin Sodium 40 mg 04/25/19 10:00 Lovenox - SQ DAILY JOHN Piperacillin Sod/Tazobactam 50 mls @ 100 mls/hr 04/24/19 12:00 04/24/19 17:09 Sod 3.375 gm/ Dextrose IVPB 100 mls/hr Q8H-IV JOHN Administration Protocol Sodium Chloride 1,000 mls @ 75 mls/hr 04/24/19 14:00 04/24/19 14:17 Normal Saline - IV 75 mls/hr ASDIR JOHN Administration Latanoprost 1 drop 04/23/19 22:00 04/24/19 00:01 Xalatan 0.005% Eye Drops - OU 1 drop HS JOHN Administration Lidocaine 1 patch 04/25/19 10:00 Lidoderm Patch - TP DAILY JOHN Miscellaneous 1 each 04/23/19 22:00 04/23/19 22:54 Lidoderm Patch Removal MC Not Given DAILY@2200 JOHN Morphine Sulfate 2 mg 04/23/19 11:18 Morphine Sulfate IVPUSH Q6H PRN PAIN LEVEL 6-10 Ondansetron HCl 4 mg 04/23/19 11:18 Zofran Injection IVPUSH Q4H PRN NAUSEA AND/OR VOMITING Laboratory Results - last 24 hr 04/23/19 04/24/19 04/24/19 22:50 06:46 11:06 POC Glucometer 224 245 234 04/24/19 16:30 POC Glucometer 300 S1 S2 RRR Lungs clear Abd-soft, tender right quadrant no edema PLAN start clears MRi done-- results pending repeat labs today iv fluids pain control Oncology eval G I deidre noted Problem List - Problems (1) Abdominal pain Code(s): R10.9 - UNSPECIFIED ABDOMINAL PAIN (2) Diabetes mellitus Code(s): E11.9 - TYPE 2 DIABETES MELLITUS WITHOUT COMPLICATIONS (3) Coagulopathy Code(s): D68.9 - COAGULATION DEFECT, UNSPECIFIED (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
[2019-04-24] MEDS ORDERED: ENOXAPARIN NA (PORCINE) 40 MG/0.4 ML DISP.SYRIN SQ SCH (10:00)
[2019-04-24] MEDS: LISINOPRIL 20 MG TABLET (FP) PO SCH ×2 (10:55→11:17)
[2019-04-24] MEDS: amLODIPine BESYLATE 10 MG TABLET (FP) PO SCH ×2 (10:55→11:17)
--- NOTE | 2019-04-24 11:11 | PN ---
Progress Note (short form) - Note Progress Note: ID CONSULT DICTATED RUQ ABDOMINAL PAIN/ LEUKOCYTOSIS R/O CHOLECYSTITIS/ BILIARY SEPSIS METASTATIC PANCREATIC CA AWAIT C/S EMPIRIC ZOSYN
--- NOTE | 2019-04-24 11:13 | CONSULT ---
Consult Consult Specialty:: General Surgery Reason for Consultation:: Cholecystectomy? - History of Present Illness Chief Complaint: abdominal pain History of Present Illness: 83yo female PMH Stage IV metastatic pancreatic ca admitted for evaluation of sudden onset right sided mid/upper flank pain this morning after breakfast. She denied associated nausea, vomiting. In the ED noted to have WBC 21K. CT scan revealed liver mets, pancreatic primary, distended GB with sludge. Abd US revealed gallbladder wall thickening, gallstones and no pericholecystic fluid. Admitted with concern for acute cholecystitis. She was started on IV Abx and ID has been consulted. She currently denies RUQ pain but rather focal right flank pain. Epigastric tenderness was described in the ER note. Her last Chemotherapy was in 03/28. We were call to assess. 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: Dementia (mild cognitve defect ) Cardio/Vascular: Yes: HTN Gastrointestinal: Yes: Cancer (Metastatic pancreatic cancer) Endocrine: Yes: Diabetes Mellitus - Past Surgical History Past Surgical History: Yes: None - Alcohol/Substance Use Hx Alcohol Use: No History of Substance Use: reports: None - Smoking History Smoking history: Never smoked Have you smoked in the past 12 months: No - Social History Usual Living Arrangement: With Child ADL: Family Assistance History of Recent Travel: No Home Medications - Allergies Allergies/Adverse Reactions: Allergies Allergy/AdvReac Type Severity Reaction Status Date / Time No Known Allergies Allergy Verified 04/23/19 03:09 - Home Medications Home Medications: Ambulatory Orders Bisacodyl [Gentle Laxative] 5 mg PO DAILY 11/20/15 Levothyroxine [Synthroid -] 25 mcg PO DAILY 11/20/15 metFORMIN HCL [Metformin HCl] 1,000 mg PO BID 11/20/15 Polyvinyl Alcohol [Artificial Tears] 15 ml OP QID 01/25/19 Cholecalciferol (Vitamin D3) [Vitamin D3] 1,000 unit PO DAILY 02/23/19 Dorzolamide HCl/Timolol Maleat [Cosopt Eye Drops] 10 ml OP BID 02/23/19 Amlodipine Besylate/Benazepril [Lotrel 10/40] 1 each PO DAILY 03/07/19 Bimatoprost [Lumigan] 1 drop IO DAILY 03/07/19 Insulin Aspart [Novolog] 7 unit SQ TID 03/07/19 Insulin Glargine,Hum.rec.anlog [Basaglar Kwikpen U-100] 100 unit SQ 12 03/07/19 Docusate Sodium [Colace -] 100 mg PO BID PRN capsule 03/25/19 Mag Hydrox/Al Hydrox/Simeth [Mylanta Oral Suspension -] 30 ml PO Q6H PRN cup Methylnaltrexone [place] [Relistor -] 4 mg SQ DAILY@1900 #1 kit 03/25/19 Metoclopramide HCl [Reglan -] 5 mg PO TIDAC 30 Days #30 tablet 03/25/19 Pantoprazole Sodium 40 mg PO DAILY 30 Days #30 tablet. 03/25/19 Polyethylene Glycol 3350 [Miralax 119 gm Btl -] 17 gm PO DAILY bottle 03/25/19 Tripp-Cath Flush [Tripp-Cath Flush -] 10 ml IVPUSH PRN PRN ml 03/25/19 Sodium Chloride Tablet - 1 gm PO DAILY 30 Days #30 tablet 03/25/19 Family Disease History - Family Disease History Family Disease History: Diabetes: Sister Review of Systems - Review of Systems Constitutional: denies: Chills, Fever Eyes: denies: Blind Spots, Recent Change in Vision HENT: denies: Difficult Swallowing, Throat Pain Neck: denies: Decreased ROM, Tenderness Cardiovascular: denies: Chest Pain, Palpitations Respiratory: denies: Cough, SOB Gastrointestinal: denies: Abdominal Pain, Nausea Genitourinary: denies: Discharge, Dysuria Breasts: reports: No Symptoms Reported. denies: Pain Physical Exam Vital Signs: Vital Signs Temperature 98.5 F 04/24/19 10:00 Pulse Rate 80 04/24/19 10:00 Respiratory Rate 20 04/24/19 10:00 Blood Pressure 137/69 04/24/19 10:00 O2 Sat by Pulse Oximetry (%) 95 04/24/19 09:00 Constitutional: Yes: Well Nourished, Calm Eyes: Yes: Conjunctiva Clear, EOM Intact HENT: Yes: Atraumatic, Normocephalic Neck: Yes: Supple, Trachea Midline Cardiovascular: Yes: Regular Rate and Rhythm, S1, S2 Respiratory: Yes: Regular, CTA Bilaterally Gastrointestinal: Yes: Normal Bowel Sounds, Soft, Ascites, Distention, Hepatomegaly, Tenderness (RUQ), Tenderness, Epigastrium. No: Tenderness, Rebound ...Rectal Exam: Yes: Hemorrhoids/External, Sphincter Tone Normal Renal/: Yes: CVA Tenderness - Left, CVA Tenderness - Right Breast(s): No: Mass, Skin Changes Musculoskeletal: No: Muscle Pain, Muscle Weakness Extremities: No: Cool, Cyanosis Edema: No Peripheral Pulses WNL: Yes Wound/Incision: Yes: Clean/Dry, Well Approximated. No: Draining, Reddened, Bleeding Neurological: Yes: Alert, Oriented Psychiatric: Yes: Alert, Oriented Labs: CBC, BMP 04/23/19 05:31 04/23/19 05:31 Problem List - Problems (1) Cholecystitis Assessment/Plan: 83yo female MMP including metastatic pancreatic CA, No acute general surgery intervention IR for percutaneous cholecystosomy Hold lovenox pain management consider palliative care consult Thank you for the opportunity to participate in the care of this patient. Code(s): K81.9 - CHOLECYSTITIS, UNSPECIFIED (2) Diabetes mellitus Code(s): E11.9 - TYPE 2 DIABETES MELLITUS WITHOUT COMPLICATIONS (3) Coagulopathy Code(s): D68.9 - COAGULATION DEFECT, UNSPECIFIED (4) Nausea & vomiting Code(s): R11.2 - NAUSEA WITH VOMITING, UNSPECIFIED (5) Pancreatic cancer Code(s): C25.9 - MALIGNANT NEOPLASM OF PANCREAS, UNSPECIFIED
--- NOTE | 2019-04-24 11:40 | CONS ---
DATE OF CONSULTATION: DATE OF DICTATION: 04/24/2019 The patient is an 83-year-old female who is evaluated for elevated white blood cell count. She has a known history of metastatic pancreatic CA with liver metastasis. She was admitted to the hospital on April 23, 2019, with worsening right upper quadrant abdominal pain. She was evaluated in the emergency room, where she was noted to have a white blood cell count of 21,000. CT scan showed distention of the gallbladder as well as liver metastasis. Sonogram showed cholelithiasis with thickening of the gallbladder wall. She was empirically treated with morphine and Zosyn. Her course is significant for low-grade fever. At the present time, she is awake and alert. She complains of right upper quadrant abdominal pain. She denies any nausea or vomiting. No complaints of diarrhea. She denies any shaking chills. She last received chemotherapy in March 2019. She was recently hospitalized in early March 2019. She has had a history of positive urine cultures, ESBL. She denies any dysuria; however, urine has been described as orange in color. PAST MEDICAL HISTORY: Positive for pancreatic CA with metastasis to the liver, dementia, hypertension, diabetes, hypothyroidism, gastroesophageal reflux, history of ESBL UTI. PAST SURGICAL HISTORY: Status post right port placement. No known allergies. MEDICATIONS AT THE PRESENT TIME: Vancomycin, Zosyn, amlodipine, Lovenox, Synthroid, lisinopril. SOCIAL HISTORY: She resides in the community. She is a nonsmoker, nondrinker. SYSTEMS REVIEW: Neurologic: Positive for dementia. No loss of consciousness, seizure activity, or focal weakness. Cardiac: Negative for chest pain or palpitations. Respiratory: Negative for cough or sputum production. Gastrointestinal: As per HPI. Genitourinary: Negative for urinary tract infection. LABORATORY DATA: White count 21.1 with 47 neutrophils, 35 lymphocytes, 15 monocytes; hematocrit 29.8; platelets 411. Creatinine 0.7. Total bilirubin 1.3, alkaline phosphatase 470, AST 62, lipase 117. PHYSICAL EXAMINATION: General: She is awake and alert. She is not acutely toxic-appearing. Seated in bed in no acute distress. Vital Signs: Temperature 99.3, blood pressure 136/64, pulse 89 and regular, respirations at 20/min. HEENT: Sclerae anicteric. Heart Sounds: S1, S2. Chest: Port site with no erythema or tenderness. Abdomen: Soft. There is mild right upper quadrant tenderness to palpation. No mass, rebound, or rigidity. Extremities: Negative for edema. IMPRESSION: Right upper quadrant abdominal pain/leukocytosis, rule out cholecystitis/biliary sepsis, metastatic pancreatic carcinoma. Leukocytosis likely multifactorial. Rule out cholecystitis with superimposed leukemoid reaction secondary to metastatic cancer. Pending cultures, empiric antibiotic coverage with Zosyn. Thank you for the kind referral. MARIELLE HARRIS M.D. [id number]
[2019-04-24] MEDS ORDERED: PIPERACILLIN/TAZOBACTAM 3.375 GM VIAL IVPB ONE ×2 (13:21→17:00)
[2019-04-24] MEDS ORDERED: DEXTROSE 5%-WATER - 50 ML IVPB ONE ×2 (13:22→17:00)
--- NOTE | 2019-04-24 13:28 | PN.GI ---
GI Progress Note Subjective: No acute events Had MRI. There is no preliminary report as of yet - Objective Vital Signs: Vital Signs Temperature 98.5 F 04/24/19 10:00 Pulse Rate 80 04/24/19 10:00 Respiratory Rate 20 04/24/19 10:00 Blood Pressure 137/69 04/24/19 10:00 O2 Sat by Pulse Oximetry (%) 95 04/24/19 09:00 Constitutional: Calm Eyes: No: Sclera Icterus Cardiovascular: Yes: Regular Rate and Rhythm Respiratory: Yes: CTA Bilaterally Gastrointestinal Inspection: No: Distention ...Auscultate: Yes: Normoactive Bowel Sounds ...Palpate: Yes: Tenderness (TTP RUQ (more pronounced today) and right upper flank) ...Percussion: No: Tympanitic Edema: No (No LE edema) Neurological: Yes: Alert Labs: No repeat labs ordered for AM Problem List - Problems (1) Flank pain Assessment/Plan: RUQ pain more pronounced as well today. Acute cholecystitis would still need to be in differntial Advise: NPO Repeat labs (ordered CBC/CMP for today) IV Abx per ID Seen by surgery. Advised IR drainage of gallbladder. Issue with that could be tumor burden in liver. Needs to be discussed with IR. Stopped D5 1/2 NS. Patient hyponatremic yesterday. Advised nurse. She will discuss with Dr. Smith re: alternative fluid order. Code(s): R10.9 - UNSPECIFIED ABDOMINAL PAIN
--- NOTE | 2019-04-24 13:48 | PN ---
Progress Note (short form) - Note Progress Note: Known ro oncology - recently diagnosed metastatic pancreatic cancer, 1st cycle systeic chemotherapy March 2019 (Abraxane/Gemzar), present with acute RUQR flank pain. Pain ongoing. Treated empirically for acute cholecystitis - GB wall thickening and stones seen on US Denies fevers. Meds reviewed. Current Medications Generic Name Dose Route Start Last Admin Trade Name Freq PRN Reason Stop Dose Admin Amlodipine Besylate 10 mg 04/24/19 10:00 04/24/19 11:17 Norvasc - PO Not Given DAILY JOHN Enoxaparin Sodium 40 mg 04/25/19 10:00 Lovenox - SQ DAILY JOHN Piperacillin Sod/Tazobactam 50 mls @ 100 mls/hr 04/24/19 12:00 04/24/19 13:49 Sod 3.375 gm/ Dextrose IVPB 100 mls/hr Q8H-IV JOHN Administration Protocol Sodium Chloride 1,000 mls @ 75 mls/hr 04/24/19 14:00 Normal Saline - IV ASDIR JOHN Insulin Aspart 1 vial 04/23/19 16:30 04/24/19 11:16 Novolog Vial Sliding Scale - SQ Not Given ACHS JOHN Protocol Latanoprost 1 drop 04/23/19 22:00 04/24/19 00:01 Xalatan 0.005% Eye Drops - OU 1 drop HS JOHN Administration Levothyroxine Sodium 25 mcg 04/24/19 07:00 04/24/19 06:50 Synthroid - PO Not Given 0700 JOHN Lisinopril 40 mg 04/24/19 10:00 04/24/19 11:17 Prinivil PO Not Given DAILY JOHN Miscellaneous 1 each 04/23/19 22:00 04/23/19 22:54 Lidoderm Patch Removal MC Not Given DAILY@2200 JOHN Morphine Sulfate 2 mg 04/23/19 11:18 Morphine Sulfate IVPUSH Q6H PRN PAIN LEVEL 6-10 Ondansetron HCl 4 mg 04/23/19 11:18 Zofran Injection IVPUSH Q4H PRN NAUSEA AND/OR VOMITING Examination: Last Vital Signs Temp Pulse Resp BP Pulse Ox 98.5 F 80 20 137/69 95 04/24/19 10:00 04/24/19 10:00 04/24/19 10:00 04/24/19 10:00 04/24/19 09:00 General: Sitting up in bed. Extremities: no swelling Chest: air entry bilaterally, clear Abdomen: Soft, no organomegaly, no masses, tender R side diffusely Neuro: Alert, oriented, non-focal. CVS: Normal sinus rhythm, S1, S2, no gallop or murmur. Labs reviewed: CBC, BMP 04/23/19 05:31 04/23/19 05:31 Assessment. Patient with recently diagnosed pancreatic cancer with liver metastases, known to Dr Hawthorne, recently received a first cycle of Abraxane/Gemzar (D1 circa 03/11/19 ), recently discharged, and returns to ER with new R flank pain, and imaging suggestive of possible cholecystitis. US images unchanged - GB wall thickening noted previously. MRI pending. Appreciate input surgery - IR drainage suggested. Empiric Abics as per ID. No role for chemotherapy presently - will hold consideration for any further treatment pending resolution of present acute issue.
[2019-04-24] MEDS: PIPERACILLIN/TAZOB 3.375 GM 3.375 GM in DEXTROSE 5%-WATER - 50 ML IVPB SCH ×2 (13:49→17:09)
[2019-04-24] MEDS: SODIUM CHLORIDE 1,000 ML IV SCH (14:17)
[2019-04-24 18:22] LABS: BASO % 0.3 % (0-2.0); HEMATOCRIT 32.5 % (32.4-45.2); HEMOGLOBIN 10.4 GM/dL (10.7-15.3); LYMPH % 37.6 % (8-40); MCH 27.6 pg (25.7-33.7); MEAN CELL VOLUME 86.4 fl (80-96); MONO % 14.3 % (3.8-10.2); NEUT % 46.8 % (42.8-82.8); PLATELET COUNT 355 K/MM3 (134-434); RBC 3.77 M/mm3 (3.60-5.2); RDW 22.3 % (11.6-15.6); WHITE BLOOD COUNT 18.1 K/mm3 (4.0-10.0)
[2019-04-24 18:37] LABS: ADD RBC MORPHOLOGY YES
[2019-04-24 18:57] LABS: ALBUMIN 1.8 g/dl (3.4-5.0); BILIRUBIN,TOTAL 1.5 mg/dL (0.2-1); BLOOD UREA NITROGEN 13.7 mg/dL (7-18); CALCIUM 8.2 mg/dL (8.5-10.1); CREATININE 0.6 mg/dL (0.55-1.3); TOT PROT 6.1 g/dl (6.4-8.2)
[2019-04-24] MEDS ORDERED: INSULIN (NOVOLOG) ASPART 100 UNITS/ML 10ML VIAL ONE (19:09)
[2019-04-24 20:39] LABS: ANISOCYTOSIS 2+; MACROCYTOSIS 1+; OVALOCYTE 1+; PLATELET ESTIMATE ADEQUATE; TARGET CELLS 1+
[2019-04-24] MEDS: LIDOCAINE PATCH REMOVAL MC SCH (21:00)
[2019-04-25] MEDS ORDERED: PIPERACILLIN/TAZOBACTAM 3.375 GM VIAL IVPB ONE ×3 (01:13→17:06)
[2019-04-25] MEDS ORDERED: DEXTROSE 5%-WATER - 50 ML IVPB ONE ×3 (01:14→17:06)
[2019-04-25] MEDS: PIPERACILLIN/TAZOB 3.375 GM 3.375 GM in DEXTROSE 5%-WATER - 50 ML IVPB SCH ×3 (01:28→17:16)
[2019-04-25 07:46] LABS: BASO % 0.4 % (0-2.0); EOS % 1.5 % (0-4.5); HEMATOCRIT 31.6 % (32.4-45.2); HEMOGLOBIN 10.3 GM/dL (10.7-15.3); LYMPH % 34.2 % (8-40); MCH 27.9 pg (25.7-33.7); MCHC 32.5 g/dl (32.0-36.0); MEAN PLT VOLUME 9.9 fl (7.5-11.1); MONO % 16.6 % (3.8-10.2); NEUT % 47.3 % (42.8-82.8); PLATELET COUNT 374 K/MM3 (134-434); RBC 3.68 M/mm3 (3.60-5.2); RDW 22.6 % (11.6-15.6); WHITE BLOOD COUNT 16.5 K/mm3 (4.0-10.0)
[2019-04-25 08:24] LABS: ALBUMIN 1.7 g/dl (3.4-5.0); BILIRUBIN,TOTAL 1.6 mg/dL (0.2-1); BLOOD UREA NITROGEN 13.2 mg/dL (7-18); CALCIUM 7.9 mg/dL (8.5-10.1); CREATININE 0.5 mg/dL (0.55-1.3); TOT PROT 5.9 g/dl (6.4-8.2)
--- NOTE | 2019-04-25 08:33 | PN ---
Progress Note, Physician History of Present Illness: GI FOLLOW UP NOTE Patient examined and case discussed with Dr Dominguez Patient complain of RUQ/R sided abdominal pain, denies nausea, vomiting, diarrhea, blood in stool. Leukocytosis improving showing downtrend. LFTs showing uptrend from this morning labs. - Current Medication List Current Medications: Active Medications Enoxaparin Sodium (Lovenox -) 40 mg SQ DAILY [facility] Piperacillin Sod/Tazobactam (Sod 3.375 gm/ Dextrose) 50 mls @ 100 mls/hr IVPB Q8H-IV JOHN; Protocol Last Admin: 04/25/19 01:28 Dose: 100 mls/hr Sodium Chloride (Normal Saline -) 1,000 mls @ 75 mls/hr IV ASDIR JOHN Last Admin: 04/24/19 14:17 Dose: 75 mls/hr Latanoprost (Xalatan 0.005% Eye Drops -) 1 drop OU HS [facility] Last Admin: 04/24/19 20:59 Dose: 1 drop Lidocaine (Lidoderm Patch -) 1 patch TP DAILY [facility] Miscellaneous (Lidoderm Patch Removal) 1 each MC DAILY@2200 [facility] Last Admin: 04/24/19 21:00 Dose: Not Given Morphine Sulfate (Morphine Sulfate) 2 mg IVPUSH Q6H PRN PRN Reason: PAIN LEVEL 6-10 Ondansetron HCl (Zofran Injection) 4 mg IVPUSH Q4H PRN PRN Reason: NAUSEA AND/OR VOMITING - Objective Vital Signs: Vital Signs Temperature 98 F 04/25/19 06:26 Pulse Rate 100 H 04/25/19 06:26 Respiratory Rate 16 04/25/19 06:26 Blood Pressure 137/57 L 04/25/19 06:26 O2 Sat by Pulse Oximetry (%) 95 04/24/19 21:00 Constitutional: Yes: No Distress, Calm Eyes: Yes: Conjunctiva Clear HENT: Yes: Atraumatic Cardiovascular: Yes: Regular Rate and Rhythm Respiratory: Yes: Regular, CTA Bilaterally Gastrointestinal: Yes: Normal Bowel Sounds, Soft, Tenderness (RUQ) Neurological: Yes: Alert, Oriented Psychiatric: Yes: Alert, Oriented Labs: CBC, BMP 04/25/19 06:41 04/25/19 06:00 INR, PTT INR 1.59 (0.83-1.09) H 04/23/19 11:22 <Hayley Anders - Last Filed: 04/25/19 08:37> - Current Medication List Current Medications: Active Medications Enoxaparin Sodium (Lovenox -) 40 mg SQ DAILY [facility] Last Admin: 04/25/19 11:49 Dose: 40 mg Piperacillin Sod/Tazobactam (Sod 3.375 gm/ Dextrose) 50 mls @ 100 mls/hr IVPB Q8H-IV JOHN; Protocol Last Admin: 04/25/19 10:18 Dose: 100 mls/hr Sodium Chloride (Normal Saline -) 1,000 mls @ 75 mls/hr IV ASDIR [facility] Last Admin: 04/24/19 14:17 Dose: 75 mls/hr Latanoprost (Xalatan 0.005% Eye Drops -) 1 drop OU HS [facility] Last Admin: 04/24/19 20:59 Dose: 1 drop Lidocaine (Lidoderm Patch -) 1 patch TP DAILY [facility] Last Admin: 04/25/19 10:19 Dose: 1 patch Miscellaneous (Lidoderm Patch Removal) 1 each MC DAILY@2200 [facility] Last Admin: 04/24/19 21:00 Dose: Not Given Morphine Sulfate (Morphine Sulfate) 2 mg IVPUSH Q6H PRN PRN Reason: PAIN LEVEL 6-10 Ondansetron HCl (Zofran Injection) 4 mg IVPUSH Q4H PRN PRN Reason: NAUSEA AND/OR VOMITING - Objective Vital Signs: Vital Signs Temperature 97.9 F 04/25/19 14:00 Pulse Rate 95 H 04/25/19 14:00 Respiratory Rate 20 04/25/19 14:00 Blood Pressure 127/58 L 04/25/19 14:00 O2 Sat by Pulse Oximetry (%) 95 04/25/19 09:00 Labs: CBC, BMP 04/25/19 06:41 04/25/19 06:00 INR, PTT INR 1.59 (0.83-1.09) H 04/23/19 11:22 <Moises Dominguez - Last Filed: 04/25/19 16:40> Problem List - Problems (1) Cholecystitis Assessment/Plan: -maintain NPO status -IV hydration -IV ABT -no surgical or IR intervention at his point due hepatic mass, will monitor patient and if begin to show signs of sepsis will have IR intervention for gallbladder Code(s): K81.9 - CHOLECYSTITIS, UNSPECIFIED <Hayley Anders - Last Filed: 04/25/19 08:37> - Problems (1) Cholecystitis Assessment/Plan: patient seen and examined at 1 pm today. Comfortable not in distress abd: soft, non-tender, no masses A. acute cholecystitis R> as above possible laparoscopic cholecystostomy if no clinical improvement continue IV Antibiotics Code(s): K81.9 - CHOLECYSTITIS, UNSPECIFIED <Moises Dominguez - Last Filed: 04/25/19 16:40>
[2019-04-25] MEDS: LIDOCAINE 5% TOPICAL PATCH TP SCH (10:19)
[2019-04-25] MEDS: ENOXAPARIN NA (PORCINE) 40 MG/0.4 ML DISP.SYRIN SQ SCH (11:49)
--- NOTE | 2019-04-25 11:58 | PN ---
Progress Note, Physician History of Present Illness: [facility] [employer] DIRECT[employer] REPORTS RUQ PAIN NO VOMITING NO C/O F/C AFEBRILE WBC IMPROVED BC (-) - Current Medication List Current Medications: Active Medications Enoxaparin Sodium (Lovenox -) 40 mg SQ DAILY [facility] Last Admin: 04/25/19 11:49 Dose: 40 mg Piperacillin Sod/Tazobactam (Sod 3.375 gm/ Dextrose) 50 mls @ 100 mls/hr IVPB Q8H-IV JOHN; Protocol Last Admin: 04/25/19 10:18 Dose: 100 mls/hr Sodium Chloride (Normal Saline -) 1,000 mls @ 75 mls/hr IV ASDIR [facility] Last Admin: 04/24/19 14:17 Dose: 75 mls/hr Latanoprost (Xalatan 0.005% Eye Drops -) 1 drop OU HS [facility] Last Admin: 04/24/19 20:59 Dose: 1 drop Lidocaine (Lidoderm Patch -) 1 patch TP DAILY [facility] Last Admin: 04/25/19 10:19 Dose: 1 patch Miscellaneous (Lidoderm Patch Removal) 1 each MC DAILY@2200 [facility] Last Admin: 04/24/19 21:00 Dose: Not Given Morphine Sulfate (Morphine Sulfate) 2 mg IVPUSH Q6H PRN PRN Reason: PAIN LEVEL 6-10 Ondansetron HCl (Zofran Injection) 4 mg IVPUSH Q4H PRN PRN Reason: NAUSEA AND/OR VOMITING - Objective Vital Signs: Vital Signs Temperature 98.5 F 04/25/19 10:00 Pulse Rate 72 04/25/19 10:00 Respiratory Rate 20 04/25/19 10:00 Blood Pressure 110/70 04/25/19 10:00 O2 Sat by Pulse Oximetry (%) 95 04/24/19 21:00 Constitutional: Yes: No Distress Cardiovascular: Yes: Regular Rate and Rhythm, S1, S2 Respiratory: Yes: CTA Bilaterally Gastrointestinal: Yes: Normal Bowel Sounds, Soft, Tenderness, Other (+ RUQ TENDERNESS) Edema: No Labs: CBC, BMP 04/25/19 06:41 04/25/19 06:00 INR, PTT INR 1.59 (0.83-1.09) H 04/23/19 11:22 Assessment/Plan RUQ PAIN R/O CHOLECYSTITIS LEUKOCYTOSIS IMPROVED METASTATIC CA CONTINUE EMPIRIC ZOSYN
--- NOTE | 2019-04-25 12:16 | PN ---
Progress Note (short form) - Note Progress Note: pt seen/ examined chart reviewed awake pain + chronic ill appearance Vital Signs Temp 98.5 F 04/25/19 10:00 Pulse 72 04/25/19 10:00 Resp 20 04/25/19 10:00 BP 110/70 04/25/19 10:00 Pulse Ox 95 04/24/19 21:00 Intake & Output 04/24/19 04/25/19 04/25/19 23:59 11:59 23:59 Intake Total 1250 575 Balance 1250 575 Intake: IV 1200 525 Normal Saline - 1,000 ml 1200 525 @ 75 mls/hr IV ASDIR JHON Rx#:[id number] IVPB 50 50 Oral 0 Other: Voiding Method Toilet # Unmeasured Voids Void 3 1 Bowel Movement No No # Bowel Movements 2 Active Medications Enoxaparin Sodium (Lovenox -) 40 mg SQ DAILY [facility] Last Admin: 04/25/19 11:49 Dose: 40 mg Piperacillin Sod/Tazobactam (Sod 3.375 gm/ Dextrose) 50 mls @ 100 mls/hr IVPB Q8H-IV JOHN; Protocol Last Admin: 04/25/19 10:18 Dose: 100 mls/hr Sodium Chloride (Normal Saline -) 1,000 mls @ 75 mls/hr IV ASDIR [facility] Last Admin: 04/24/19 14:17 Dose: 75 mls/hr Latanoprost (Xalatan 0.005% Eye Drops -) 1 drop OU HS [facility] Last Admin: 04/24/19 20:59 Dose: 1 drop Lidocaine (Lidoderm Patch -) 1 patch TP DAILY [facility] Last Admin: 04/25/19 10:19 Dose: 1 patch Miscellaneous (Lidoderm Patch Removal) 1 each MC DAILY@2200 [facility] Last Admin: 04/24/19 21:00 Dose: Not Given Morphine Sulfate (Morphine Sulfate) 2 mg IVPUSH Q6H PRN PRN Reason: PAIN LEVEL 6-10 Ondansetron HCl (Zofran Injection) 4 mg IVPUSH Q4H PRN PRN Reason: NAUSEA AND/OR VOMITING CBC, BMP 04/25/19 06:41 04/25/19 06:00 Microbiology 04/23/19 16:20 Blood Culture - Preliminary Blood - Peripheral Venous NO GROWTH OBTAINED AFTER 24 HOURS, INCUBATION TO CONTINUE FOR 4 DAYS. 04/23/19 16:05 Blood Culture - Preliminary Blood - Peripheral Venous NO GROWTH OBTAINED AFTER 24 HOURS, INCUBATION TO CONTINUE FOR 4 DAYS. Physical exam Awake / No distress S1 S2 RRR Lungs clear Abd-soft, tender right quadrant no edema PLAN npo for now MRi done-- results noted f/u labs iv fluids pain control I/R drainage -- concern about liver masses surgery/ GI following will follow Problem List - Problems (1) Abdominal pain Code(s): R10.9 - UNSPECIFIED ABDOMINAL PAIN (2) Diabetes mellitus Code(s): E11.9 - TYPE 2 DIABETES MELLITUS WITHOUT COMPLICATIONS (3) Coagulopathy Code(s): D68.9 - COAGULATION DEFECT, UNSPECIFIED (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
[2019-04-25 13:21] VITALS: BMI 27.3
[2019-04-25] MEDS: SODIUM CHLORIDE 1,000 ML IV SCH ×2 (14:00→18:18)
[2019-04-25] MEDS: LATANOPROST 0.005% OPHTH SOLN 2.5ML BOTTLE OU SCH (21:14)
[2019-04-25] MEDS: LIDOCAINE PATCH REMOVAL MC SCH (21:16)
--- NOTE | 2019-04-25 21:59 | PN ---
Progress Note (short form) - Note Progress Note: Patient seen and examined c/o RUQ pain Last Vital Signs Temp Pulse Resp BP Pulse Ox 99.3 F 94 H 16 148/54 L 95 04/25/19 19:13 04/25/19 19:58 04/25/19 19:58 04/25/19 19:58 04/25/19 09:00 Cor: RSR, No murmurs, No gallops Lungs: Clear to P&A Abd: Soft, Normal bowel sounds, No organomegaly Ext:No significant edema Abnormal Lab Results 04/25/19 04/25/19 06:00 06:41 WBC 16.5 H Hgb 10.3 L Hct 31.6 L RDW 22.6 H Monocytes % 16.6 H Sodium 128 L Chloride 95 L Creatinine 0.5 L Random Glucose 222 H Calcium 7.9 L Total Bilirubin 1.6 H AST 57 H Alkaline Phosphatase 366 H Total Protein 5.9 L Albumin 1.7 L Active Medications Generic Name Dose Route Start Last Admin Trade Name Freq PRN Reason Stop Dose Admin Enoxaparin Sodium 40 mg 04/25/19 10:00 04/25/19 11:49 Lovenox - SQ 40 mg DAILY JOHN Administration Piperacillin Sod/Tazobactam 50 mls @ 100 mls/hr 04/24/19 12:00 04/25/19 17:16 Sod 3.375 gm/ Dextrose IVPB 100 mls/hr Q8H-IV JOHN Administration Protocol Sodium Chloride 1,000 mls @ 75 mls/hr 04/24/19 14:00 04/25/19 18:18 Normal Saline - IV 75 mls/hr ASDIR JOHN Administration Latanoprost 1 drop 04/23/19 22:00 04/25/19 21:14 Xalatan 0.005% Eye Drops - OU 1 drop HS JOHN Administration Lidocaine 1 patch 04/25/19 10:00 04/25/19 10:19 Lidoderm Patch - TP 1 patch DAILY JOHN Administration Miscellaneous 1 each 04/23/19 22:00 04/25/19 21:16 Lidoderm Patch Removal MC Not Given DAILY@2200 JOHN Morphine Sulfate 2 mg 04/23/19 11:18 Morphine Sulfate IVPUSH Q6H PRN PAIN LEVEL 6-10 Ondansetron HCl 4 mg 04/23/19 11:18 Zofran Injection IVPUSH Q4H PRN NAUSEA AND/OR VOMITING A/P 83 y/o patient with metastatic pancreatic cancer admitted with failure to thrive and RUQ pain CT imaging suspicious for cholecystitis On zodyn will discuss with surgical team --? HIDA scan ? MRCP Suspect scenario more suspicious for worsening performance status and RUQ pain related to metastatic pancreatic cancer
[2019-04-26] MEDS ORDERED: DEXTROSE 5%-WATER - 50 ML IVPB ONE ×3 (01:37→18:01)
[2019-04-26] MEDS ORDERED: PIPERACILLIN/TAZOBACTAM 3.375 GM VIAL IVPB ONE ×3 (01:37→18:01)
[2019-04-26] MEDS: MORPHINE SULFATE 2 MG/ML VIAL IVPUSH PRN ×2 (01:40→10:54)
[2019-04-26] MEDS: PIPERACILLIN/TAZOB 3.375 GM 3.375 GM in DEXTROSE 5%-WATER - 50 ML IVPB SCH ×3 (01:43→18:09)
[2019-04-26] MEDS: SODIUM CHLORIDE 1,000 ML IV SCH (06:36)
--- NOTE | 2019-04-26 08:15 | PN ---
Progress Note, Physician History of Present Illness: GI FOLLOW UP NOTE Patient examined and case discussed with Dr Dominguez Patient complain of upper abdominal pain, denies nausea, vomiting, diarrhea. Complain of constipation, denies rectal bleeding or melena. - Current Medication List Current Medications: Active Medications Enoxaparin Sodium (Lovenox -) 40 mg SQ DAILY [facility] Last Admin: 04/25/19 11:49 Dose: 40 mg Piperacillin Sod/Tazobactam (Sod 3.375 gm/ Dextrose) 50 mls @ 100 mls/hr IVPB Q8H-IV JOHN; Protocol Last Admin: 04/26/19 01:43 Dose: 100 mls/hr Sodium Chloride (Normal Saline -) 1,000 mls @ 75 mls/hr IV ASDIR [facility] Last Admin: 04/26/19 06:36 Dose: 75 mls/hr Latanoprost (Xalatan 0.005% Eye Drops -) 1 drop OU HS [facility] Last Admin: 04/25/19 21:14 Dose: 1 drop Lidocaine (Lidoderm Patch -) 1 patch TP DAILY [facility] Last Admin: 04/25/19 10:19 Dose: 1 patch Miscellaneous (Lidoderm Patch Removal) 1 each MC DAILY@2200 [facility] Last Admin: 04/25/19 21:16 Dose: Not Given Morphine Sulfate (Morphine Sulfate) 2 mg IVPUSH Q6H PRN PRN Reason: PAIN LEVEL 6-10 Last Admin: 04/26/19 01:40 Dose: 2 mg Ondansetron HCl (Zofran Injection) 4 mg IVPUSH Q4H PRN PRN Reason: NAUSEA AND/OR VOMITING - Objective Vital Signs: Vital Signs Temperature 98.2 F 04/26/19 07:48 Pulse Rate 72 04/26/19 07:48 Respiratory Rate 20 04/26/19 07:48 Blood Pressure 130/70 04/26/19 07:48 O2 Sat by Pulse Oximetry (%) 95 04/25/19 21:00 Constitutional: Yes: No Distress, Calm Eyes: Yes: Conjunctiva Clear HENT: Yes: Atraumatic Cardiovascular: Yes: Regular Rate and Rhythm Respiratory: Yes: Regular, CTA Bilaterally Gastrointestinal: Yes: Normal Bowel Sounds, Soft Neurological: Yes: Alert Psychiatric: Yes: Alert Labs: CBC, BMP 04/25/19 06:41 04/25/19 06:00 INR, PTT INR 1.59 (0.83-1.09) H 04/23/19 11:22 <Hayley Anders - Last Filed: 04/26/19 08:12> - Current Medication List Current Medications: Active Medications Enoxaparin Sodium (Lovenox -) 40 mg SQ DAILY [facility] Last Admin: 04/26/19 09:12 Dose: 40 mg Piperacillin Sod/Tazobactam (Sod 3.375 gm/ Dextrose) 50 mls @ 100 mls/hr IVPB Q8H-IV JOHN; Protocol Last Admin: 04/26/19 09:11 Dose: 100 mls/hr Dextrose/Sodium Chloride (Dextrose 5%-Normal Saline+20 Meq Kcl -) 20 meq in 1, 000 mls @ 83 mls/hr IV ASDIR [facility] Last Admin: 04/26/19 14:46 Dose: 83 mls/hr Latanoprost (Xalatan 0.005% Eye Drops -) 1 drop OU HS [facility] Last Admin: 04/25/19 21:14 Dose: 1 drop Lidocaine (Lidoderm Patch -) 1 patch TP DAILY [facility] Last Admin: 04/26/19 09:12 Dose: 1 patch Methylnaltrexone [place] (Relistor -) 8 mg SQ DAILY [facility] Last Admin: 04/26/19 10:56 Dose: 8 mg Miscellaneous (Lidoderm Patch Removal) 1 each MC DAILY@2200 [facility] Last Admin: 04/25/19 21:16 Dose: Not Given Morphine Sulfate (Morphine Sulfate) 2 mg IVPUSH Q6H PRN PRN Reason: PAIN LEVEL 6-10 Last Admin: 04/26/19 10:54 Dose: 2 mg Ondansetron HCl (Zofran Injection) 4 mg IVPUSH Q4H PRN PRN Reason: NAUSEA AND/OR VOMITING Last Admin: 04/26/19 10:56 Dose: 4 mg - Objective Vital Signs: Vital Signs Temperature 98.5 F 04/26/19 15:00 Pulse Rate 81 04/26/19 15:00 Respiratory Rate 20 04/26/19 15:00 Blood Pressure 139/75 04/26/19 15:00 O2 Sat by Pulse Oximetry (%) 95 04/26/19 09:00 Labs: CBC, BMP 04/25/19 06:41 04/25/19 06:00 INR, PTT INR 1.59 (0.83-1.09) H 04/23/19 11:22 <Moises Dominguez - Last Filed: 04/26/19 17:51> Problem List - Problems (1) Cholecystitis Assessment/Plan: -maintain NPO status -IV hydration -IV ABT -no surgical or IR intervention at his point due hepatic mass, will monitor patient and if begin to show signs of sepsis will have IR intervention Code(s): K81.9 - CHOLECYSTITIS, UNSPECIFIED (2) Constipation Assessment/Plan: -Relistor Code(s): K59.00 - CONSTIPATION, UNSPECIFIED <Hayley Anders - Last Filed: 04/26/19 08:12> - Problems (1) Cholecystitis Assessment/Plan: advance to clear liquids, pt seen and examined 5:30 pm acute cholecystitis resolving Code(s): K81.9 - CHOLECYSTITIS, UNSPECIFIED <Moises Dominguez - Last Filed: 04/26/19 17:51>
[2019-04-26] MEDS ORDERED: PT OWN MED DRAWER 7, Y5N ONE (09:01)
[2019-04-26] MEDS: ENOXAPARIN NA (PORCINE) 40 MG/0.4 ML DISP.SYRIN SQ SCH (09:12)
[2019-04-26] MEDS: LIDOCAINE 5% TOPICAL PATCH TP SCH (09:12)
[2019-04-26] MEDS: Methylnaltrexone Bromide 12 MG/0.6 ML KIT SQ SCH (10:56)
--- NOTE | 2019-04-26 11:00 | PN ---
Physical Exam: Hematology/Oncology Progress note SUBJECTIVE: Patient seen and examined at bedside. Reports mildly improved RUQ and epigastric pain with nausea but no vomiting. Patient remains NPO. OBJECTIVE: Vital Signs Period Temp Pulse Resp BP Sys/Miller Pulse Ox Last 24 Hr 97.9 F-99.3 F 72-95 16-20 127-148/54-70 95 GENERAL: A&Ox3, mild distress EYES: PERRLA, EOMI ENT: Dry mucus membranes NECK: No JVD BREAST: no masses or lesions noted on exam LUNGS: CTA HEART: mildly tachycardic, no murmurs ABDOMEN: Soft, tender to palpation in the epigastrum and RUQ MUSCULOSKELETAL: No CVA Tenderness EXTREMITIES: 2+ pulses, no edema. NEUROLOGICAL: Cranial nerves II-XII intact. Laboratory Results - last 24 hr 04/25/19 04/25/19 04/25/19 13:32 16:19 21:12 POC Glucometer 259 236 239 04/26/19 06:34 POC Glucometer 276 Active Medications Generic Name Dose Route Start Last Admin Trade Name Freq PRN Reason Stop Dose Admin Enoxaparin Sodium 40 mg 04/25/19 10:00 04/26/19 09:12 Lovenox - SQ 40 mg DAILY JOHN Administration Piperacillin Sod/Tazobactam 50 mls @ 100 mls/hr 04/24/19 12:00 04/26/19 09:11 Sod 3.375 gm/ Dextrose IVPB 100 mls/hr Q8H-IV JOHN Administration Protocol Sodium Chloride 1,000 mls @ 75 mls/hr 04/24/19 14:00 04/26/19 06:36 Normal Saline - IV 75 mls/hr ASDIR JOHN Administration Latanoprost 1 drop 04/23/19 22:00 04/25/19 21:14 Xalatan 0.005% Eye Drops - OU 1 drop HS JOHN Administration Lidocaine 1 patch 04/25/19 10:00 04/26/19 09:12 Lidoderm Patch - TP 1 patch DAILY JOHN Administration Methylnaltrexone [place] 8 mg 04/26/19 10:00 Relistor - SQ DAILY JOHN Miscellaneous 1 each 04/23/19 22:00 04/25/19 21:16 Lidoderm Patch Removal MC Not Given DAILY@2200 JOHN Morphine Sulfate 2 mg 04/23/19 11:18 04/26/19 01:40 Morphine Sulfate IVPUSH 2 mg Q6H PRN Administration PAIN LEVEL 6-10 Ondansetron HCl 4 mg 04/23/19 11:18 Zofran Injection IVPUSH Q4H PRN NAUSEA AND/OR VOMITING ASSESSMENT/PLAN: 83 year old female with metastatic pancreatic CA admitted with abdominal pain, sepsis, and signs of cholecystitis #Abdominal Pain #Cholelithiasis #Sepsis #Metastatic Pancreatic CA #Abdominal Pain: likely combinatorial from cholelithiasis/cholecystitis-like picture vs worsening of status from metastatic pancreatic cancer -continue zosyn -MRI shows cholelithiasis with distention of GB and small amount of pericholecystic fluid -for perc drainage of gallbladder -surg/GI following Kentrell Espinoza, PGY3 Will Discuss w/ Dr. Hawthorne Visit type - Emergency Visit Emergency Visit: No - New Patient This patient is new to me today: Yes Date on this admission: 04/26/19 - Critical Care Critical Care patient: No ATTENDING PHYSICIAN STATEMENT I saw and evaluated the patient. I reviewed the resident's note and discussed the case with the resident. I agree with the resident's findings and plan as documented. SUBJECTIVE: OBJECTIVE: ASSESSMENT AND PLAN:
--- NOTE | 2019-04-26 12:57 | PN ---
Progress Note (short form) - Note Progress Note: feeling nauseous has abd pain Vital Signs - 24 hr 04/25/19 04/25/19 04/25/19 14:00 19:13 19:58 Temperature 97.9 F 99.3 F Pulse Rate 95 H 78 94 H Respiratory 20 18 16 Rate Blood Pressure 127/58 L 138/68 148/54 L O2 Sat by Pulse Oximetry (%) 04/25/19 04/26/19 21:00 07:48 Temperature 98.2 F Pulse Rate 72 Respiratory 20 Rate Blood Pressure 130/70 O2 Sat by Pulse 95 Oximetry (%) Current Medications Generic Name Dose Route Start Last Admin Trade Name Freq PRN Reason Stop Dose Admin Enoxaparin Sodium 40 mg 04/25/19 10:00 04/26/19 09:12 Lovenox - SQ 40 mg DAILY JOHN Administration Piperacillin Sod/Tazobactam 50 mls @ 100 mls/hr 04/24/19 12:00 04/26/19 09:11 Sod 3.375 gm/ Dextrose IVPB 100 mls/hr Q8H-IV JOHN Administration Protocol Dextrose/Sodium Chloride 20 meq in 1,000 mls @ 83 mls/hr 04/26/19 13:00 Dextrose 5%-Normal Saline+20 Meq Kcl - IV ASDIR JOHN Latanoprost 1 drop 04/23/19 22:00 04/25/19 21:14 Xalatan 0.005% Eye Drops - OU 1 drop HS JOHN Administration Lidocaine 1 patch 04/25/19 10:00 04/26/19 09:12 Lidoderm Patch - TP 1 patch DAILY JOHN Administration Methylnaltrexone [place] 8 mg 04/26/19 10:00 04/26/19 10:56 Relistor - SQ 8 mg DAILY JOHN Administration Miscellaneous 1 each 04/23/19 22:00 04/25/19 21:16 Lidoderm Patch Removal MC Not Given DAILY@2200 JOHN Morphine Sulfate 2 mg 04/23/19 11:18 04/26/19 10:54 Morphine Sulfate IVPUSH 2 mg Q6H PRN Administration PAIN LEVEL 6-10 Ondansetron HCl 4 mg 04/23/19 11:18 04/26/19 10:56 Zofran Injection IVPUSH 4 mg Q4H PRN Administration NAUSEA AND/OR VOMITING Laboratory Results - last 24 hr 09/04/25/19 04/25/19 13:32 16:19 21:12 POC Glucometer 259 236 239 04/26/19 06:34 POC Glucometer 276 [id number] Lungs clear Abd-soft, tender right quadrant no edema PLAN npo HIDA scan pending IR for percutaneous drain depending on HIDA results iv fluids pain control Problem List - Problems (1) Abdominal pain Code(s): R10.9 - UNSPECIFIED ABDOMINAL PAIN (2) Diabetes mellitus Code(s): E11.9 - TYPE 2 DIABETES MELLITUS WITHOUT COMPLICATIONS (3) Coagulopathy Code(s): D68.9 - COAGULATION DEFECT, UNSPECIFIED (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
[2019-04-26] MEDS: D5-NS + 20 MEQ KCL - 20 MEQ/1,000 ML INFUS.BAG IV SCH (14:46)
--- NOTE | 2019-04-26 18:26 | PN ---
Teaching Attending Note Name of Resident: Kentrell Espinoza ATTENDING PHYSICIAN STATEMENT I saw and evaluated the patient. I reviewed the resident's note and discussed the case with the resident. I agree with the resident's findings and plan as documented. SUBJECTIVE: Patient seen and examined Begun on clear liquids Denies significant nausea /emesis Last Vital Signs Temp Pulse Resp BP Pulse Ox 98.5 F 81 20 139/75 95 04/26/19 15:00 04/26/19 15:00 04/26/19 15:00 04/26/19 15:00 04/26/19 09:00 HEENT: [place], EOM Intact Cor-RSR Lungs: Clear to P&A Abd: Soft, Normal bowel sounds, No organomegaly Ext:No significant edema Skin: No rashes, Integument intact CBC, BMP 04/25/19 06:41 04/25/19 06:00 Current Medications Generic Name Dose Route Start Last Admin Trade Name Freq PRN Reason Stop Dose Admin Enoxaparin Sodium 40 mg 04/25/19 10:00 04/26/19 09:12 Lovenox - SQ 40 mg DAILY JOHN Administration Piperacillin Sod/Tazobactam 50 mls @ 100 mls/hr 04/24/19 12:00 04/26/19 18:09 Sod 3.375 gm/ Dextrose IVPB 100 mls/hr Q8H-IV JOHN Administration Protocol Dextrose/Sodium Chloride 20 meq in 1,000 mls @ 83 mls/hr 04/26/19 13:00 04/26 14:46 Dextrose 5%-Normal Saline+20 Meq Kcl - IV 83 mls/hr ASDIR JOHN Administration Latanoprost 1 drop 04/23/19 22:00 04/25/19 21:14 Xalatan 0.005% Eye Drops - OU 1 drop HS JOHN Administration Lidocaine 1 patch 04/25/19 10:00 04/26/19 09:12 Lidoderm Patch - TP 1 patch DAILY JOHN Administration Methylnaltrexone [place] 8 mg 04/26/19 10:00 04/26/19 10:56 Relistor - SQ 8 mg DAILY JOHN Administration Miscellaneous 1 each 04/23/19 22:00 04/25/19 21:16 Lidoderm Patch Removal MC Not Given DAILY@2200 JOHN Morphine Sulfate 2 mg 04/23/19 11:18 04/26/19 10:54 Morphine Sulfate IVPUSH 2 mg Q6H PRN Administration PAIN LEVEL 6-10 Ondansetron HCl 4 mg 04/23/19 11:18 04/26/19 10:56 Zofran Injection IVPUSH 4 mg Q4H PRN Administration NAUSEA AND/OR VOMITING Impression: Metastatic pancreatic ca Liver mets Cholelithiasis Hyperglycemia Hyponatremia Deciding about management for cholelithiasis - Slowly advancing diet Continuing with antibiotic therapy. OBJECTIVE: ASSESSMENT AND PLAN:
[2019-04-26] MEDS: LATANOPROST 0.005% OPHTH SOLN 2.5ML BOTTLE OU SCH (21:10)
[2019-04-26] MEDS: LIDOCAINE PATCH REMOVAL MC SCH (21:12)
[2019-04-27] MEDS ORDERED: DEXTROSE 5%-WATER - 50 ML IVPB ONE ×4 (01:07→23:57)
[2019-04-27] MEDS ORDERED: PIPERACILLIN/TAZOBACTAM 3.375 GM VIAL IVPB ONE ×4 (01:07→23:57)
[2019-04-27] MEDS: PIPERACILLIN/TAZOB 3.375 GM 3.375 GM in DEXTROSE 5%-WATER - 50 ML IVPB SCH ×3 (01:32→17:46)
[2019-04-27] MEDS: D5-NS + 20 MEQ KCL - 20 MEQ/1,000 ML INFUS.BAG IV SCH ×2 (04:10→20:23)
--- NOTE | 2019-04-27 08:06 | PN ---
Progress Note, Physician History of Present Illness: GI FOLLOW UP NOTE Patient examined and case discussed with Dr Dominguez Patient states her abdominal pain is improving. Denies nausea, vomiting, rectal bleeding, blood in stool, melena. - Current Medication List Current Medications: Active Medications Enoxaparin Sodium (Lovenox -) 40 mg SQ DAILY [facility] Last Admin: 04/26/19 09:12 Dose: 40 mg Piperacillin Sod/Tazobactam (Sod 3.375 gm/ Dextrose) 50 mls @ 100 mls/hr IVPB Q8H-IV JOHN; Protocol Last Admin: 04/27/19 01:32 Dose: 100 mls/hr Dextrose/Sodium Chloride (Dextrose 5%-Normal Saline+20 Meq Kcl -) 20 meq in 1, 000 mls @ 83 mls/hr IV ASDIR JOHN Last Admin: 04/27/19 04:10 Dose: 83 mls/hr Latanoprost (Xalatan 0.005% Eye Drops -) 1 drop OU HS JOHN Last Admin: 04/26/19 21:10 Dose: 1 drop Lidocaine (Lidoderm Patch -) 1 patch TP DAILY [facility] Last Admin: 04/26/19 09:12 Dose: 1 patch Methylnaltrexone [place] (Relistor -) 8 mg SQ DAILY [facility] Last Admin: 04/26/19 10:56 Dose: 8 mg Miscellaneous (Lidoderm Patch Removal) 1 each MC DAILY@2200 [facility] Last Admin: 04/26/19 21:12 Dose: Not Given Morphine Sulfate (Morphine Sulfate) 2 mg IVPUSH Q6H PRN PRN Reason: PAIN LEVEL 6-10 Last Admin: 04/26/19 10:54 Dose: 2 mg Ondansetron HCl (Zofran Injection) 4 mg IVPUSH Q4H PRN PRN Reason: NAUSEA AND/OR VOMITING Last Admin: 04/26/19 10:56 Dose: 4 mg - Objective Vital Signs: Vital Signs Temperature 98.2 F 04/27/19 06:49 Pulse Rate 78 04/27/19 06:49 Respiratory Rate 20 04/27/19 06:49 Blood Pressure 138/76 04/27/19 06:49 O2 Sat by Pulse Oximetry (%) 98 04/26/19 21:09 Constitutional: Yes: No Distress, Calm Eyes: Yes: Conjunctiva Clear HENT: Yes: Atraumatic Cardiovascular: Yes: Regular Rate and Rhythm Respiratory: Yes: Regular, CTA Bilaterally Gastrointestinal: Yes: Normal Bowel Sounds, Soft, Tenderness (mild RUQ) Neurological: Yes: Alert Psychiatric: Yes: Alert Labs: CBC, BMP 04/25/19 06:41 04/25/19 06:00 INR, PTT INR 1.59 (0.83-1.09) H 04/23/19 11:22 Problem List - Problems (1) Cholecystitis Assessment/Plan: -maintain NPO status -IV hydration -IV ABT -no surgical or IR intervention at his point due hepatic mass, will monitor patient and if begin to show signs of sepsis will have IR intervention -pending results of Abdominal MRI Code(s): K81.9 - CHOLECYSTITIS, UNSPECIFIED (2) Constipation Assessment/Plan: -Relistor Code(s): K59.00 - CONSTIPATION, UNSPECIFIED
[2019-04-27] MEDS ORDERED: PT OWN MED DRAWER 7, Y5N ONE (11:28)
[2019-04-27] MEDS ORDERED: INSULIN (NOVOLOG) ASPART 100 UNITS/ML 10ML VIAL ONE ×2 (11:40→17:58)
[2019-04-27] MEDS ORDERED: Insulin (LOG) Aspart 100 UNITS/ML VIAL SQ ONE (11:49)
[2019-04-27] MEDS: Methylnaltrexone Bromide 12 MG/0.6 ML KIT SQ SCH (11:49)
[2019-04-27] MEDS: LIDOCAINE 5% TOPICAL PATCH TP SCH (11:51)
[2019-04-27] MEDS: ENOXAPARIN NA (PORCINE) 40 MG/0.4 ML DISP.SYRIN SQ SCH (11:51)
--- NOTE | 2019-04-27 11:52 | PN ---
Progress Note (short form) - Note Progress Note: feeling hungry tolerating liquids no abd pain granddaughter at bedside Pt completed HIDA scan Vital Signs - 24 hr 04/26/19 04/26/19 04/26/19 15:00 20:30 21:09 Temperature 98.5 F 98.2 F Pulse Rate 81 98 H Respiratory 20 20 Rate Blood Pressure 139/75 138/64 O2 Sat by Pulse 98 Oximetry (%) 04/27/19 04/27/19 06:49 09:00 Temperature 98.2 F 98.6 F Pulse Rate 78 89 Respiratory 20 20 Rate Blood Pressure 138/76 141/64 O2 Sat by Pulse 98 Oximetry (%) Current Medications Generic Name Dose Route Start Last Admin Trade Name Freq PRN Reason Stop Dose Admin Enoxaparin Sodium 40 mg 04/25/19 10:00 04/26/19 09:12 Lovenox - SQ 40 mg DAILY JOHN Administration Piperacillin Sod/Tazobactam 50 mls @ 100 mls/hr 04/24/19 12:00 04/27/19 01:32 Sod 3.375 gm/ Dextrose IVPB 100 mls/hr Q8H-IV JOHN Administration Protocol Dextrose/Sodium Chloride 20 meq in 1,000 mls @ 83 mls/hr 04/26/19 13:00 04/27 04:10 Dextrose 5%-Normal Saline+20 Meq Kcl - IV 83 mls/hr ASDIR JOHN Administration Insulin Aspart 0 units 04/27/19 16:30 Novolog Vial SQ ACHS JOHN Protocol Insulin Aspart 8 units 04/27/19 11:49 Novolog SQ 04/27/19 11:50 ONCE ONE Latanoprost 1 drop 04/23/19 22:00 04/26/19 21:10 Xalatan 0.005% Eye Drops - OU 1 drop HS JOHN Administration Lidocaine 1 patch 04/25/19 10:00 04/26/19 09:12 Lidoderm Patch - TP 1 patch DAILY JOHN Administration Methylnaltrexone [place] 8 mg 04/26/19 10:00 04/26/19 10:56 Relistor - SQ 8 mg DAILY JOHN Administration Miscellaneous 1 each 04/23/19 22:00 04/26/19 21:12 Lidoderm Patch Removal MC Not Given DAILY@2200 JOHN Morphine Sulfate 2 mg 04/23/19 11:18 04/26/19 10:54 Morphine Sulfate IVPUSH 2 mg Q6H PRN Administration PAIN LEVEL 6-10 Ondansetron HCl 4 mg 04/23/19 11:18 04/26/19 10:56 Zofran Injection IVPUSH 4 mg Q4H PRN Administration NAUSEA AND/OR VOMITING Pantoprazole Sodium 40 mg 04/27/19 12:00 Protonix Iv IVPUSH DAILY JOHN Laboratory Results - last 24 hr 04/26/19 04/26/19 04/27/19 17:57 21:40 06:26 POC Glucometer 327 444 357 04/27/19 11:34 POC Glucometer 384 S1 S2 RRR Lungs clear Abd-soft, no tenderness no edema PLAN clear liquids had a detailed discussion with granddaughter await HIDA scan results to decide about percut drain iv fluids check labs iv antibiotics may start insulin sliding scale Problem List - Problems (1) Abdominal pain Code(s): R10.9 - UNSPECIFIED ABDOMINAL PAIN (2) Diabetes mellitus Code(s): E11.9 - TYPE 2 DIABETES MELLITUS WITHOUT COMPLICATIONS (3) Coagulopathy Code(s): D68.9 - COAGULATION DEFECT, UNSPECIFIED (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
[2019-04-27] MEDS: PANTOPRAZOLE SODIUM 40 MG VIAL IVPUSH SCH (14:54)
[2019-04-27] MEDS: INSULIN SLIDING SCALE (NOVOLOG) 1 VIAL SQ SCH ×2 (17:59→21:30)
[2019-04-27] MEDS: LIDOCAINE PATCH REMOVAL MC SCH (21:27)
[2019-04-27] MEDS: LATANOPROST 0.005% OPHTH SOLN 2.5ML BOTTLE OU SCH (21:30)
[2019-04-28] MEDS: PIPERACILLIN/TAZOB 3.375 GM 3.375 GM in DEXTROSE 5%-WATER - 50 ML IVPB SCH ×3 (01:36→17:16)
[2019-04-28] MEDS: INSULIN SLIDING SCALE (NOVOLOG) 1 VIAL SQ SCH ×4 (06:01→22:02)
[2019-04-28 07:10] LABS: CARCINOEMBRYONIC ANTIGEN 410.6 ng/mL (0.0-4.7)
[2019-04-28 07:49] LABS: BASO % 0.5 % (0-2.0); EOS % 1.8 % (0-4.5); HEMATOCRIT 32.6 % (32.4-45.2); HEMOGLOBIN 10.6 GM/dL (10.7-15.3); LYMPH % 33.6 % (8-40); MCH 27.9 pg (25.7-33.7); MCHC 32.5 g/dl (32.0-36.0); MEAN CELL VOLUME 85.9 fl (80-96); MEAN PLT VOLUME 9.3 fl (7.5-11.1); MONO % 11.7 % (3.8-10.2); NEUT % 52.4 % (42.8-82.8); PLATELET COUNT 293 K/MM3 (134-434); RBC 3.79 M/mm3 (3.60-5.2); RDW 21.6 % (11.6-15.6); WHITE BLOOD COUNT 19.5 K/mm3 (4.0-10.0)
[2019-04-28 08:20] LABS: ALBUMIN 1.6 g/dl (3.4-5.0); BILIRUBIN,TOTAL 1.3 mg/dL (0.2-1); BLOOD UREA NITROGEN 6.8 mg/dL (7-18); CALCIUM 7.9 mg/dL (8.5-10.1); CREATININE 0.4 mg/dL (0.55-1.3); POTASSIUM 3.3 mmol/L (3.5-5.1); TOT PROT 5.8 g/dl (6.4-8.2)
--- NOTE | 2019-04-28 08:38 | PN ---
Progress Note, Physician History of Present Illness: GI FOLLOW UP NOTE Patient examined and case discussed with Dr Dominguez Patient states her abdominal pain is improving. Denies nausea, vomiting, rectal bleeding, blood in stool, melena. Labs shows uptrend in WBC from 16.5 to 19.5. MRCP results reviewed. - Current Medication List Current Medications: Active Medications Enoxaparin Sodium (Lovenox -) 40 mg SQ DAILY [facility] Last Admin: 04/27/19 11:51 Dose: 40 mg Piperacillin Sod/Tazobactam (Sod 3.375 gm/ Dextrose) 50 mls @ 100 mls/hr IVPB Q8H-IV JOHN; Protocol Last Admin: 04/28/19 01:36 Dose: 100 mls/hr Dextrose/Sodium Chloride (Dextrose 5%-Normal Saline+20 Meq Kcl -) 20 meq in 1, 000 mls @ 83 mls/hr IV ASDIR [facility] Last Admin: 04/27/19 20:23 Dose: 83 mls/hr Insulin Aspart (Novolog Vial Sliding Scale -) 1 vial SQ ACHS [facility]; Protocol Last Admin: 04/28/19 06:01 Dose: Not Given Latanoprost (Xalatan 0.005% Eye Drops -) 1 drop OU HS [facility] Last Admin: 04/27/19 21:30 Dose: 1 drop Lidocaine (Lidoderm Patch -) 1 patch TP DAILY [facility] Last Admin: 04/27/19 11:51 Dose: 1 patch Methylnaltrexone [place] (Relistor -) 8 mg SQ DAILY [facility] Last Admin: 04/27/19 11:49 Dose: 8 mg Miscellaneous (Lidoderm Patch Removal) 1 each MC DAILY@2200 [facility] Last Admin: 04/27/19 21:27 Dose: Not Given Morphine Sulfate (Morphine Sulfate) 2 mg IVPUSH Q6H PRN PRN Reason: PAIN LEVEL 6-10 Last Admin: 04/26/19 10:54 Dose: 2 mg Ondansetron HCl (Zofran Injection) 4 mg IVPUSH Q4H PRN PRN Reason: NAUSEA AND/OR VOMITING Last Admin: 04/26/19 10:56 Dose: 4 mg Pantoprazole Sodium (Protonix Iv) 40 mg IVPUSH DAILY [facility] Last Admin: 04/27/19 14:54 Dose: 40 mg - Objective Vital Signs: Vital Signs Temperature 98.8 F 04/28/19 06:50 Pulse Rate 76 04/28/19 06:50 Respiratory Rate 20 04/28/19 06:50 Blood Pressure 134/72 04/28/19 06:50 O2 Sat by Pulse Oximetry (%) 97 04/27/19 21:00 Constitutional: Yes: No Distress, Calm Eyes: Yes: Conjunctiva Clear HENT: Yes: Atraumatic Cardiovascular: Yes: Regular Rate and Rhythm Respiratory: Yes: Regular, CTA Bilaterally Gastrointestinal: Yes: Normal Bowel Sounds, Soft, Tenderness (mild RUQ), Tenderness, Epigastrium (mild) Neurological: Yes: Alert, Oriented Psychiatric: Yes: Alert, Oriented Labs: CBC, BMP 04/28/19 06:15 04/28/19 06:15 INR, PTT INR 1.59 (0.83-1.09) H 04/23/19 11:22 Problem List - Problems (1) Cholecystitis Assessment/Plan: -NPO -IV hydration -IV ABT -IR consult placed for percutaneous cholecystostomy due to elevation in WBC -Abdominal MRI shows filling of the gallbladder excludes acute acute cystic duct obstruction and obstructive acute cholecystitis, extensive multifocal hepatic cold nodules corresponding to metastasis, delayed persistent blood pool activity, delayed excretion of the tracer into the biliary tree with delayed biliary enteric transit of tracer likely due to hepatic dysfunction due to extensive metastatic disease rather than biliary obstructive process Code(s): K81.9 - CHOLECYSTITIS, UNSPECIFIED (2) Constipation Assessment/Plan: -Relistor Code(s): K59.00 - CONSTIPATION, UNSPECIFIED
[2019-04-28] MEDS ORDERED: PIPERACILLIN/TAZOBACTAM 3.375 GM VIAL IVPB ONE ×2 (09:03→17:12)
[2019-04-28] MEDS ORDERED: DEXTROSE 5%-WATER - 50 ML IVPB ONE ×2 (09:03→17:12)
[2019-04-28] MEDS ORDERED: PT OWN MED DRAWER 7, Y5N ONE (09:03)
[2019-04-28] MEDS: PANTOPRAZOLE SODIUM 40 MG VIAL IVPUSH SCH (09:13)
[2019-04-28] MEDS: Methylnaltrexone Bromide 12 MG/0.6 ML KIT SQ SCH (09:13)
[2019-04-28] MEDS: LIDOCAINE 5% TOPICAL PATCH TP SCH (09:13)
[2019-04-28] MEDS: ENOXAPARIN NA (PORCINE) 40 MG/0.4 ML DISP.SYRIN SQ SCH (11:46)
[2019-04-28] MEDS ORDERED: POTASSIUM CHLORIDE TABS 20 MEQ TABLET.ER (FP) PO ONE (11:46)
[2019-04-28] MEDS: D5-NS + 20 MEQ KCL - 20 MEQ/1,000 ML INFUS.BAG IV SCH (12:43)
--- NOTE | 2019-04-28 13:37 | PN ---
Progress Note (short form) - Note Progress Note: has pain in abdomen Vital Signs - 24 hr 04/27/19 04/27/19 04/27/19 14:00 17:26 21:00 Temperature 97.3 F L 98.0 F Pulse Rate 103 H 91 H Respiratory 20 18 Rate Blood Pressure 139/68 135/67 O2 Sat by Pulse 97 Oximetry (%) 04/27/19 04/28/19 04/28/19 23:00 06:50 09:12 Temperature 98.2 F 98.8 F 98.8 F Pulse Rate 94 H 76 98 H Respiratory 18 20 22 H Rate Blood Pressure 136/58 L 134/72 139/75 O2 Sat by Pulse Oximetry (%) Current Medications Generic Name Dose Route Start Last Admin Trade Name Freq PRN Reason Stop Dose Admin Enoxaparin Sodium 40 mg 04/25/19 10:00 04/28/19 11:46 Lovenox - SQ Not Given DAILY JOHN Piperacillin Sod/Tazobactam 50 mls @ 100 mls/hr 04/24/19 12:00 04/28/19 09:13 Sod 3.375 gm/ Dextrose IVPB 100 mls/hr Q8H-IV JOHN Administration Protocol Dextrose/Sodium Chloride 20 meq in 1,000 mls @ 83 mls/hr 04/26/19 13:00 04/28 12:43 Dextrose 5%-Normal Saline+20 Meq Kcl - IV 83 mls/hr ASDIR JOHN Administration Insulin Aspart 1 vial 04/27/19 16:30 04/28/19 11:48 Novolog Vial Sliding Scale - SQ 6 units ACHS JOHN Administration Protocol Latanoprost 1 drop 04/23/19 22:00 04/27/19 21:30 Xalatan 0.005% Eye Drops - OU 1 drop HS JOHN Administration Lidocaine 1 patch 04/25/19 10:00 04/28/19 09:13 Lidoderm Patch - TP 1 patch DAILY JOHN Administration Methylnaltrexone [place] 8 mg 04/26/19 10:00 04/28/19 09:13 Relistor - SQ 8 mg DAILY JOHN Administration Miscellaneous 1 each 04/23/19 22:00 04/27/19 21:27 Lidoderm Patch Removal MC Not Given DAILY@2200 JOHN Morphine Sulfate 2 mg 04/23/19 11:18 04/26/19 10:54 Morphine Sulfate IVPUSH 2 mg Q6H PRN Administration PAIN LEVEL 6-10 Ondansetron HCl 4 mg 04/23/19 11:18 04/26/19 10:56 Zofran Injection IVPUSH 4 mg Q4H PRN Administration NAUSEA AND/OR VOMITING Pantoprazole Sodium 40 mg 04/27/19 12:00 04/28/19 09:13 Protonix Iv IVPUSH 40 mg DAILY JOHN Administration Laboratory Results - last 24 hr 04/27/19 04/27/19 04/27/19 07:00 17:52 21:27 WBC RBC Hgb Hct MCV MCH MCHC RDW Plt Count MPV Absolute Neuts (auto) Neutrophils % Lymphocytes % Monocytes % Eosinophils % Basophils % Nucleated RBC % Sodium Potassium Chloride Carbon Dioxide Anion Gap BUN Creatinine Est GFR (CKD-EPI)AfAm Est GFR (CKD-EPI)NonAf POC Glucometer 332 259 Random Glucose Calcium Total Bilirubin AST ALT Alkaline Phosphatase Total Protein Albumin Carcinoembryonic Ag 410.6 H CA 19-9 Antigen [id number] H 04/28/19 04/28/19 04/28/19 05:47 06:15 06:15 WBC 19.5 H RBC 3.79 Hgb 10.6 L Hct 32.6 MCV 85.9 MCH 27.9 MCHC 32.5 RDW 21.6 H Plt Count 293 D MPV 9.3 Absolute Neuts (auto) 10.2 H Neutrophils % 52.4 Lymphocytes % 33.6 Monocytes % 11.7 H Eosinophils % 1.8 Basophils % 0.5 Nucleated RBC % 0 Sodium 132 L Potassium 3.3 L Chloride 100 Carbon Dioxide 24 Anion Gap 8 BUN 6.8 L Creatinine 0.4 L Est GFR (CKD-EPI)AfAm 113.21 Est GFR (CKD-EPI)NonAf 97.68 POC Glucometer 129 Random Glucose 129 H Calcium 7.9 L Total Bilirubin 1.3 H AST 135 H ALT 32 Alkaline Phosphatase 400 H Total Protein 5.8 L Albumin 1.6 L Carcinoembryonic Ag CA 19-9 Antigen 04/28/19 11:47 WBC RBC Hgb Hct MCV MCH MCHC RDW Plt Count MPV Absolute Neuts (auto) Neutrophils % Lymphocytes % Monocytes % Eosinophils % Basophils % Nucleated RBC % Sodium Potassium Chloride Carbon Dioxide Anion Gap BUN Creatinine Est GFR (CKD-EPI)AfAm Est GFR (CKD-EPI)NonAf POC Glucometer 285 Random Glucose Calcium Total Bilirubin AST ALT Alkaline Phosphatase Total Protein Albumin Carcinoembryonic Ag CA 19-9 Antigen S1 S2 RRR Lungs clear Abd-soft, no tenderness no edema PLAN keep NPO had a detailed discussion with granddaughter LINDA noted needs percutaneous drain spoke with GI [place] iv antibiotics iv fluids Problem List - Problems (1) Abdominal pain Code(s): R10.9 - UNSPECIFIED ABDOMINAL PAIN (2) Diabetes mellitus Code(s): E11.9 - TYPE 2 DIABETES MELLITUS WITHOUT COMPLICATIONS (3) Coagulopathy Code(s): D68.9 - COAGULATION DEFECT, UNSPECIFIED (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
[2019-04-28 15:42] LABS: ANISOCYTOSIS 2+; MACROCYTOSIS 1+; PLATELET ESTIMATE NORMAL; TARGET CELLS 1+; TEAR DROP CELLS 1+
[2019-04-28] MEDS: LIDOCAINE PATCH REMOVAL MC SCH (21:57)
[2019-04-28] MEDS: LATANOPROST 0.005% OPHTH SOLN 2.5ML BOTTLE OU SCH (21:59)
[2019-04-29] MEDS ORDERED: DEXTROSE 5%-WATER - 50 ML IVPB ONE ×3 (00:25→16:59)
[2019-04-29] MEDS ORDERED: PIPERACILLIN/TAZOBACTAM 3.375 GM VIAL IVPB ONE ×3 (00:25→16:59)
[2019-04-29] MEDS: PIPERACILLIN/TAZOB 3.375 GM 3.375 GM in DEXTROSE 5%-WATER - 50 ML IVPB SCH ×3 (01:23→17:07)
[2019-04-29] MEDS: D5-NS + 20 MEQ KCL - 20 MEQ/1,000 ML INFUS.BAG IV SCH (03:09)
[2019-04-29] MEDS: INSULIN SLIDING SCALE (NOVOLOG) 1 VIAL SQ SCH ×4 (06:34→22:05)
[2019-04-29 06:40] LABS: BASO % 0.7 % (0-2.0); EOS % 1.8 % (0-4.5); HEMATOCRIT 32.9 % (32.4-45.2); HEMOGLOBIN 10.7 GM/dL (10.7-15.3); LYMPH % 39.7 % (8-40); MCH 28.1 pg (25.7-33.7); MCHC 32.7 g/dl (32.0-36.0); MEAN CELL VOLUME 85.9 fl (80-96); MEAN PLT VOLUME 9.1 fl (7.5-11.1); MONO % 9.7 % (3.8-10.2); NEUT % 48.1 % (42.8-82.8); PLATELET COUNT 226 K/MM3 (134-434); RBC 3.83 M/mm3 (3.60-5.2); RDW 21.3 % (11.6-15.6); WHITE BLOOD COUNT 16.6 K/mm3 (4.0-10.0)
[2019-04-29 07:43] LABS: ALBUMIN 1.5 g/dl (3.4-5.0); BILIRUBIN,TOTAL 1.5 mg/dL (0.2-1); BLOOD UREA NITROGEN 7.1 mg/dL (7-18); CALCIUM 7.8 mg/dL (8.5-10.1); CREATININE 0.5 mg/dL (0.55-1.3); POTASSIUM 3.6 mmol/L (3.5-5.1); TOT PROT 5.6 g/dl (6.4-8.2)
--- NOTE | 2019-04-29 08:32 | PN ---
Progress Note, Physician History of Present Illness: GI FOLLOW UP NOTE Patient examined and case discussed with Dr Dominguez Patient continues with abdominal pain. Denies nausea, vomiting, rectal bleeding , blood in stool, melena. Labs shows downtrend in WBC. - Current Medication List Current Medications: Active Medications Enoxaparin Sodium (Lovenox -) 40 mg SQ DAILY [facility] Last Admin: 04/28/19 11:46 Dose: Not Given Piperacillin Sod/Tazobactam (Sod 3.375 gm/ Dextrose) 50 mls @ 100 mls/hr IVPB Q8H-IV JOHN; Protocol Last Admin: 04/29/19 01:23 Dose: 100 mls/hr Dextrose/Sodium Chloride (Dextrose 5%-Normal Saline+20 Meq Kcl -) 20 meq in 1, 000 mls @ 83 mls/hr IV ASDIR JOHN Last Admin: 04/29/19 03:09 Dose: 83 mls/hr Insulin Aspart (Novolog Vial Sliding Scale -) 1 vial SQ ACHS [facility]; Protocol Last Admin: 04/29/19 06:34 Dose: 4 units Latanoprost (Xalatan 0.005% Eye Drops -) 1 drop OU HS [facility] Last Admin: 04/28/19 21:59 Dose: 1 drop Lidocaine (Lidoderm Patch -) 1 patch TP DAILY [facility] Last Admin: 04/28/19 09:13 Dose: 1 patch Methylnaltrexone [place] (Relistor -) 8 mg SQ DAILY [facility] Last Admin: 04/28/19 09:13 Dose: 8 mg Miscellaneous (Lidoderm Patch Removal) 1 each MC DAILY@2200 [facility] Last Admin: 04/28/19 21:57 Dose: Not Given Morphine Sulfate (Morphine Sulfate) 2 mg IVPUSH Q6H PRN PRN Reason: PAIN LEVEL 6-10 Last Admin: 04/26/19 10:54 Dose: 2 mg Ondansetron HCl (Zofran Injection) 4 mg IVPUSH Q4H PRN PRN Reason: NAUSEA AND/OR VOMITING Last Admin: 04/26/19 10:56 Dose: 4 mg Pantoprazole Sodium (Protonix Iv) 40 mg IVPUSH DAILY [facility] Last Admin: 04/28/19 09:13 Dose: 40 mg - Objective Vital Signs: Vital Signs Temperature 98.3 F 04/29/19 06:36 Pulse Rate 90 09/20/19 06:36 Respiratory Rate 20 04/29/19 06:36 Blood Pressure 118/65 04/29/19 06:36 O2 Sat by Pulse Oximetry (%) 97 04/27/19 21:00 Constitutional: Yes: No Distress, Calm Eyes: Yes: Conjunctiva Clear HENT: Yes: Atraumatic Cardiovascular: Yes: Regular Rate and Rhythm Respiratory: Yes: Regular, CTA Bilaterally Gastrointestinal: Yes: Normal Bowel Sounds, Soft, Tenderness, Tenderness, Epigastrium, Other (high tympany) Neurological: Yes: Alert, Oriented Psychiatric: Yes: Alert, Oriented Labs: CBC, BMP 04/29/19 06:00 04/29/19 06:00 INR, PTT INR 1.59 (0.83-1.09) H 04/23/19 11:22 Problem List - Problems (1) Cholecystitis Code(s): K81.9 - CHOLECYSTITIS, UNSPECIFIED (2) Constipation Code(s): K59.00 - CONSTIPATION, UNSPECIFIED
--- NOTE | 2019-04-29 09:56 | PN ---
Progress Note (short form) - Note Progress Note: pt seen/ examined chart reviewed d/w with R/N Comfortable--- except mild abdominal discomfort Vital Signs Temp 98.3 F 04/29/19 06:36 Pulse 90 04/29/19 06:36 Resp 20 04/29/19 06:36 BP 118/65 04/29/19 06:36 Pulse Ox 97 04/27/19 21:00 Intake & Output 04/28/19 04/28/19 04/29/19 11:59 23:59 11:59 Intake Total 1200 1330 900 Balance 1200 1330 900 Intake: IV 1150 830 850 DEXTROSE 5%-NORMAL SALINE 1150 830 850 +20 MEQ KCL - 20 meq In 1 ,000 ml @ 83 mls/hr IV ASDIR JOHN Rx#:[id number] IVPB 50 100 50 Oral 400 Other: Voiding Method Toilet Toilet # Unmeasured Voids Void 1 1 1 Bowel Movement No Active Medications Enoxaparin Sodium (Lovenox -) 40 mg SQ DAILY [facility] Last Admin: 04/28/19 11:46 Dose: Not Given Piperacillin Sod/Tazobactam (Sod 3.375 gm/ Dextrose) 50 mls @ 100 mls/hr IVPB Q8H-IV [facility]; Protocol Last Admin: 04/29/19 01:23 Dose: 100 mls/hr Dextrose/Sodium Chloride (Dextrose 5%-Normal Saline+20 Meq Kcl -) 20 meq in 1, 000 mls @ 83 mls/hr IV ASDIR [facility] Last Admin: 04/29/19 03:09 Dose: 83 mls/hr Insulin Aspart (Novolog Vial Sliding Scale -) 1 vial SQ ACHS [facility]; Protocol Last Admin: 04/29/19 06:34 Dose: 4 units Latanoprost (Xalatan 0.005% Eye Drops -) 1 drop OU HS [facility] Last Admin: 04/28/19 21:59 Dose: 1 drop Lidocaine (Lidoderm Patch -) 1 patch TP DAILY [facility] Last Admin: 04/28/19 09:13 Dose: 1 patch Methylnaltrexone [place] (Relistor -) 8 mg SQ DAILY [facility] Last Admin: 04/28/19 09:13 Dose: 8 mg Miscellaneous (Lidoderm Patch Removal) 1 each MC DAILY@2200 [facility] Last Admin: 04/28/19 21:57 Dose: Not Given Morphine Sulfate (Morphine Sulfate) 2 mg IVPUSH Q6H PRN PRN Reason: PAIN LEVEL 6-10 Last Admin: 04/26/19 10:54 Dose: 2 mg Ondansetron HCl (Zofran Injection) 4 mg IVPUSH Q4H PRN PRN Reason: NAUSEA AND/OR VOMITING Last Admin: 04/26/19 10:56 Dose: 4 mg Pantoprazole Sodium (Protonix Iv) 40 mg IVPUSH DAILY JOHN Last Admin: 04/28/19 09:13 Dose: 40 mg CBC, BMP 04/29/19 06:00 04/29/19 06:00 Microbiology 04/23/19 16:20 Blood Culture - Final Blood - Peripheral Venous NO GROWTH AFTER 5 DAYS INCUBATION 04/23/19 16:05 Blood Culture - Final Blood - Peripheral Venous NO GROWTH AFTER 5 DAYS INCUBATION Physical exam S1 S2 RRR Lungs clear Abd-soft, slightly distended. Mild tenderness present on palpation--- no edema PLAN keep NPO Dr. 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
[2019-04-29] MEDS ORDERED: PT OWN MED DRAWER 7, Y5N ONE ×2 (10:05→21:22)
[2019-04-29] MEDS: ENOXAPARIN NA (PORCINE) 40 MG/0.4 ML DISP.SYRIN SQ SCH (10:15)
[2019-04-29] MEDS: LIDOCAINE 5% TOPICAL PATCH TP SCH (10:15)
[2019-04-29] MEDS: PANTOPRAZOLE SODIUM 40 MG VIAL IVPUSH SCH (10:16)
[2019-04-29 10:42] LABS: ANISOCYTOSIS 1+; MACROCYTOSIS 1+; OVALOCYTE 1+; PLATELET ESTIMATE NORMAL; TARGET CELLS 2+
[2019-04-29] MEDS ORDERED: INSULIN (NOVOLOG) ASPART 100 UNITS/ML 10ML VIAL ONE (11:05)
[2019-04-29] MEDS: Methylnaltrexone Bromide 12 MG/0.6 ML KIT SQ SCH (11:14)
--- NOTE | 2019-04-29 20:34 | PN ---
Progress Note (short form) - Note Progress Note: Patient seen and examined c/o RUQ pain AFVSS Cor: RSR, No murmurs, No gallops Lungs: Clear to P&A Abd: Soft, Normal bowel sounds, No organomegaly Ext:No significant edema Labs/Meds reviewed A/P 83 y/o patient with metastatic pancreatic cancer admitted with failure to thrive and RUQ pain CT imaging suspicious for cholecystitis but HIDA negative Suspect scenario more suspicious for worsening performance status and RUQ pain related to metastatic pancreatic cancer will discuss with all teams/family regarding hospice
[2019-04-29] MEDS: LIDOCAINE PATCH REMOVAL MC SCH (22:08)
[2019-04-29] MEDS: LATANOPROST 0.005% OPHTH SOLN 2.5ML BOTTLE OU SCH (22:09)
[2019-04-30] MEDS ORDERED: PIPERACILLIN/TAZOBACTAM 3.375 GM VIAL IVPB ONE ×2 (01:27→09:29)
[2019-04-30] MEDS ORDERED: DEXTROSE 5%-WATER - 50 ML IVPB ONE ×2 (01:27→09:29)
[2019-04-30] MEDS: PIPERACILLIN/TAZOB 3.375 GM 3.375 GM in DEXTROSE 5%-WATER - 50 ML IVPB SCH ×2 (01:42→09:45)
[2019-04-30] MEDS: MORPHINE SULFATE 2 MG/ML VIAL IVPUSH PRN (05:09)
[2019-04-30] MEDS ORDERED: INSULIN (NOVOLOG) ASPART 100 UNITS/ML 10ML VIAL ONE (06:02)
[2019-04-30] MEDS: INSULIN SLIDING SCALE (NOVOLOG) 1 VIAL SQ SCH ×2 (06:04→12:27)
[2019-04-30] MEDS ORDERED: ONDANSETRON 4 MG/2 ML VIAL IVPUSH PRN (08:58)
[2019-04-30] MEDS: PANTOPRAZOLE SODIUM 40 MG VIAL IVPUSH SCH (09:45)
[2019-04-30] MEDS: ENOXAPARIN NA (PORCINE) 40 MG/0.4 ML DISP.SYRIN SQ SCH (09:45)
[2019-04-30] MEDS: LIDOCAINE 5% TOPICAL PATCH TP SCH (09:46)
[2019-04-30] MEDS ORDERED: PT OWN MED DRAWER 7, Y5N ONE (11:14)
[2019-04-30] MEDS: Methylnaltrexone Bromide 12 MG/0.6 ML KIT SQ SCH (11:18)
--- NOTE | 2019-04-30 15:55 | PN ---
Progress Note (short form) - Note Progress Note: patient seen and examined. Family at bedside overall condition same family considering--- Take her to [place] themselves----sign out AMA Oncology note also noted-----and I also discussed about hospice consideration with family----not considering yet Vital Signs Temp 98.2 F 04/30/19 09:00 Pulse 90 04/30/19 09:00 Resp 20 04/30/19 09:00 BP 128/74 04/30/19 09:00 Pulse Ox 97 04/27/19 21:00 Intake & Output 04/29/19 04/30/19 04/30/19 23:59 11:59 23:59 Intake Total 1313 1000 Balance 1313 1000 Intake: IV 913 1000 DEXTROSE 5%-NORMAL SALINE 913 1000 +20 MEQ KCL - 20 meq In 1 ,000 ml @ 83 mls/hr IV ASDIR JOHN Rx#:[id number] IVPB 100 Oral 300 Other: Voiding Method Toilet Toilet # Unmeasured Voids Void 1 1 Bowel Movement No Body Mass Index (BMI) 27.3 Active Medications Enoxaparin Sodium (Lovenox -) 40 mg SQ DAILY JOHN Last Admin: 04/30/19 09:45 Dose: 40 mg Piperacillin Sod/Tazobactam (Sod 3.375 gm/ Dextrose) 50 mls @ 100 mls/hr IVPB Q8H-IV JOHN; Protocol Last Admin: 04/30/19 09:45 Dose: 100 mls/hr Dextrose/Sodium Chloride (Dextrose 5%-Normal Saline+20 Meq Kcl -) 20 meq in 1, 000 mls @ 83 mls/hr IV ASDIR JOHN Last Admin: 04/29/19 03:09 Dose: 83 mls/hr Insulin Aspart (Novolog Vial Sliding Scale -) 1 vial SQ ACHS JOHN; Protocol Last Admin: 04/30/19 12:27 Dose: 6 units Latanoprost (Xalatan 0.005% Eye Drops -) 1 drop OU HS JOHN Last Admin: 04/29/19 22:09 Dose: 1 drop Lidocaine (Lidoderm Patch -) 1 patch TP DAILY JOHN Last Admin: 04/30/19 09:46 Dose: 1 patch Methylnaltrexone [place] (Relistor -) 8 mg SQ DAILY JOHN Last Admin: 04/30/19 11:18 Dose: 8 mg Miscellaneous (Lidoderm Patch Removal) 1 each MC DAILY@2200 [facility] Last Admin: 04/29/19 22:08 Dose: 1 each Morphine Sulfate (Morphine Sulfate) 2 mg IVPUSH Q6H PRN PRN Reason: PAIN LEVEL 6-10 Last Admin: 04/30/19 05:09 Dose: 2 mg Ondansetron HCl (Zofran Injection) 4 mg IVPUSH Q6H PRN PRN Reason: NAUSEA AND/OR VOMITING Pantoprazole Sodium (Protonix Iv) 40 mg IVPUSH DAILY [facility] Last Admin: 04/30/19 09:45 Dose: 40 mg CBC, BMP 04/29/19 06:00 04/29/19 06:00 CMP Sodium 131 mmol/L (136-145) L 04/29/19 06:00 Potassium 3.6 mmol/L (3.5-5.1) 04/29/19 06:00 Chloride 99 mmol/L (98-107) 04/29/19 06:00 Carbon Dioxide 23 mmol/L (21-32) 04/29/19 06:00 Anion Gap 8 MMOL/L (8-16) 04/29/19 06:00 BUN 7.1 mg/dL (7-18) 04/29/19 06:00 Creatinine 0.5 mg/dL (0.55-1.3) L 04/29/19 06:00 Est GFR (CKD-EPI)AfAm 105.20 04/29/19 06:00 Est GFR (CKD-EPI)NonAf 90.77 04/29/19 06:00 POC Glucometer 333 UNITS (80-120) 04/30/19 12:20 Random Glucose 231 mg/dL (74-106) H 04/29/19 06:00 Lactic Acid 1.8 mmol/L (0.4-2.0) 04/25/19 09:10 Calcium 7.8 mg/dL (8.5-10.1) L 04/29/19 06:00 Total Bilirubin 1.5 mg/dL (0.2-1) H 04/29/19 06:00 AST 97 U/L (15-37) H 04/29/19 06:00 ALT 33 U/L (13-61) 04/29/19 06:00 Alkaline Phosphatase 476 U/L (45-117) H 04/29/19 06:00 Total Protein 5.6 g/dl (6.4-8.2) L 04/29/19 06:00 Albumin 1.5 g/dl (3.4-5.0) L 04/29/19 06:00 Lipase 117 U/L (73-393) 04/23/19 05:31 Carcinoembryonic Ag 410.6 ng/mL (0.0-4.7) H 04/27/19 07:00 CA 19-9 Antigen [id number] U/mL (0-35) H 04/27/19 07:00 Physical exam Awake S1 S2 RRR Lungs clear Abd-soft, slightly distended. Mild tenderness present on palpation--- no edema PLAN continue present care discussed with GI also Discussed in detail with family We will follow Problem List - Problems (1) Abdominal pain Code(s): R10.9 - UNSPECIFIED ABDOMINAL PAIN (2) Diabetes mellitus Code(s): E11.9 - TYPE 2 DIABETES MELLITUS WITHOUT COMPLICATIONS (3) Coagulopathy Code(s): D68.9 - COAGULATION DEFECT, UNSPECIFIED (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
[2019-04-30 15:58] VITALS: BP 120/56; PULSE 101; TEMP 98.4
--- NOTE | 2019-05-01 19:54 | DS ---
Physical Examination Vital Signs: Vital Signs Temperature 98.4 F 04/30/19 13:30 Pulse Rate 101 H 04/30/19 13:30 Respiratory Rate 18 04/30/19 13:30 Blood Pressure 120/56 L 04/30/19 13:30 O2 Sat by Pulse Oximetry (%) 97 04/27/19 21:00 Findings/Remarks: see progress note 04/30 Labs: CBC, BMP 04/29/19 06:00 04/29/19 06:00 Discharge Summary Reason For Visit: MALIGNANT NEOPLASM OF PANCREAS/HYPONATREMIA/ Hospital Course: pt/ family left ama Condition: Guarded - Instructions Disposition: AGAINST MEDICAL ADVICE - Home Medications Comprehensive Discharge Medication List: Ambulatory Orders Bisacodyl [Gentle Laxative] 5 mg PO DAILY 11/20/15 Levothyroxine [Synthroid -] 25 mcg PO DAILY 11/20/15 metFORMIN HCL [Metformin HCl] 1,000 mg PO BID 11/20/15 Polyvinyl Alcohol [Artificial Tears] 15 ml OP QID 01/25/19 Cholecalciferol (Vitamin D3) [Vitamin D3] 1,000 unit PO DAILY 02/23/19 Dorzolamide HCl/Timolol Maleat [Cosopt Eye Drops] 10 ml OP BID 02/23/19 Amlodipine Besylate/Benazepril [Lotrel 40] 1 each PO DAILY 03/07/19 Bimatoprost [Lumigan] 1 drop IO DAILY 03/07/19 Insulin Aspart [Novolog] 7 unit SQ TID 03/07/19 Insulin Glargine,Hum.rec.anlog [Basaglar Kwikpen U-100] 100 unit SQ 12 03/07/19 Docusate Sodium [Colace -] 100 mg PO BID PRN capsule 03/25/19 Mag Hydrox/Al Hydrox/Simeth [Mylanta Oral Suspension -] 30 ml PO Q6H PRN cup Methylnaltrexone [place] [Relistor -] 4 mg SQ DAILY@1900 #1 kit 03/25/19 Metoclopramide HCl [Reglan -] 5 mg PO TIDAC 30 Days #30 tablet 03/25/19 Pantoprazole Sodium 40 mg PO DAILY 30 Days #30 tablet. 03/25/19 Polyethylene Glycol 3350 [Miralax 119 gm Btl -] 17 gm PO DAILY bottle 03/25/19 Tripp-Cath Flush [Tripp-Cath Flush -] 10 ml IVPUSH PRN PRN ml 03/25/19 Sodium Chloride Tablet - 1 gm PO DAILY 30 Days #30 tablet 03/25/19
== END 2019-04-30 16:10 | disposition left against medical advice (07) | DRG 436 ==
LOC: JER 02:25 → JERBED 06:18 → J8W 12:25
PROVIDERS: ADMIT Internal Medicine; ATTEND Internal Medicine
DX: C25.9 Malignant neoplasm of pancreas, unspecified (principal); C78.7 Secondary malignant neoplasm of liver and intrahepatic bile duct; D68.9 Coagulation defect, unspecified; E87.1 Hypo-osmolality and hyponatremia; E11.65 Type 2 diabetes mellitus with hyperglycemia; I10 Essential (primary) hypertension; E78.5 Hyperlipidemia, unspecified; Z79.4 Long term (current) use of insulin; D72.829 Elevated white blood cell count, unspecified; F03.90 Unspecified dementia, unspecified severity, without behavioral disturbance, psychotic disturbance, mood disturbance, and anxiety; E03.9 Hypothyroidism, unspecified; K21.9 Gastro-esophageal reflux disease without esophagitis; R62.7 Adult failure to thrive; K59.00 Constipation, unspecified; K81.9 Cholecystitis, unspecified
CPT/HCPCS: 36415; 71045-TC-FY; 74177-TC; 74181-TC; 76705-TC; 78226-TC; 80053; 81003; 82378; 82962; 83605; 83690; 85025; 85610; 85730; 86301; 87040; 93005; 93010; 99284-25; A9537; J7030